=== PATIENT | female | born 1960 | race African-American/Black ===

== ENCOUNTER 2019-06-17 17:35 | Inpatient (IN) | payer OTHER, SELFPAY ==
--- NOTE | ~2019-06-17 | XR_ITS ---
EXAMINATION: XR chest 1V portable INDICATION: Acute respiratory failure TECHNIQUE: Portable AP chest at 0526 hours COMPARISON: 06/24/2019 FINDINGS: The endotracheal tube ends approximately 3.7 cm above the kaleigh. The nasogastric tube is f ollowed as far as the stomach. Its tip is beyond the inferior margin of the radiograph. A right-sided chest tube is again seen projecting over the right mid thorax. A right internal jugular catheter end s with its tip in the distal superior vena cava. Airspace opacities of the right midlung zone and lef t lung base are unchanged. There is stable cardiomegaly. No definite pleural effusion or pneumothorax is identified. IMPRESSION: 1. Stable bilateral airspace opacities, consistent with pneumonia and/or atelectasis and/or pulmonary edema. 2. Stable cardiomegaly. Reviewed, dictated and finalized at location A. TARY LANDFILL SUPERVISOR IMPRESSION: 1. Stable bilateral airspace opacities, consistent with pneumonia and/or atelec tasis and/or pulmonary edema. 2. Stable cardiomegaly.
--- NOTE | ~2019-06-17 | XR_ITS ---
EXAMINATION: XR chest ET placement DATE: 06/17/2019 23:10 INDICATION: Intubation. TECHNIQUE: A single frontal view of the chest was obtained. COMPARISON: Chest single view at 7:02 PM FINDINGS: The patient is rotated to her left. There are airspace opacities throughout the lungs bilat erally, worst in left mid and lower lung zones. There is a moderate-sized right pneumothorax. There m ay be a small left pleural effusion. Cardiomegaly is noted. The endotracheal tube tip is in the right mainstem bronchus. A right internal jugular central venous catheter is seen with tip in the superior vena cava. The nasogastric tube tip is beyond the inferior margin of the radiograph, but at least to the stomach. There are changes of anterior fusion procedure in cervical spine. IMPRESSION: 1. Moderate-sized right pneumothorax. 2. Endotracheal tube tip in the right mainstem bronchus. 3. Diffuse lung disease, worst in left mid and lower lung zones, consistent with pneumonia without or with pulmonary edema. 4. Possible small left pleural effusion. 5. Cardiomegaly. 6. I discussed the pneumothorax and endotracheal tube placement with Dr. cortez on 06/17/2019 at 23:14. Reviewed, dictated and finalized at location A. NICAL PROJECT LEAD IMPRESSION: 1. Moderate-sized right pneumothorax. 2. Endotracheal tube tip in the right mainstem bronchus. 3. Diffuse lung disease, worst in left mid and lower lung zones, consistent wit h pneumonia without or with pulmonary edema. 4. Possible small left pleural effusion. 5. Cardiomegaly. 6. I discussed the pneumothorax and endotracheal tube placement with Dr. cortez on 06/17/2019 at 23:14.
--- NOTE | ~2019-06-17 | XR_ITS ---
EXAMINATION: XR chest 1V portable DATE: 06/23/2019 05:45 INDICATION: Hypercapnic respiratory failure. Pneumonia. TECHNIQUE: frontal view of the chest was obtained. COMPARISON: Chest radiograph dated 06/22/1990 FINDINGS: Right-sided chest tube with tip projecting over the lateral mid right lung zone. Endotracheal tube ti p 1.4 cm above the kaleigh. Nasogastric tube extends below the left hemidiaphragm with distal tip col limated off the study. Right internal jugular central venous catheter with distal tip near the superi or cavoatrial junction. Improvement in airspace opacities in the right mid and lower and left lower lung zones. Persistent bl unting at the left costophrenic angle. No pneumothorax. The cardiomediastinal silhouette is normal. C ervical anterior spinal fusion with plate and screw fixation. IMPRESSION: 1. Decreasing bilateral airspace disease consistent with improving atelectasis and/or pneumonia and d ecreasing small left pleural effusion. Reviewed, dictated and finalized at location A. NCE SPECIALISTS IMPRESSION: 1. Decreasing bilateral airspace disease consistent with improving atelectasis and/or pneumonia and decreasing small left pleural effusion.
--- NOTE | ~2019-06-17 | XR_ITS ---
EXAMINATION: XR chest 1V portable DATE: 06/17/2019 19:07 INDICATION: Shortness of breath. TECHNIQUE: A single frontal view of the chest was obtained. COMPARISON: Chest 2 views 04/24/2019, chest CT 05/22/2018 FINDINGS: Sensitivity is decreased by obesity. There are airspace opacities in left mid and lower val g zones. There are mild airspace opacities in right perihilar region. There may be a left pleural eff usion. No pneumothorax. Cardiomegaly is noted. IMPRESSION: 1. Airspace opacities in left mid and lower lung zones and right perihilar region, consistent with pn eumonia. 2. Possible small left pleural effusion. 3. Cardiomegaly. Reviewed, dictated and finalized at location A. RMATICS PHYSICIAN LIAISON IMPRESSION: 1. Airspace opacities in left mid and lower lung zones and right perihilar abi on, consistent with pneumonia. 2. Possible small left pleural effusion. 3. Cardiomegaly.
--- NOTE | ~2019-06-17 | XR_ITS ---
XR chest ET placement 06/23/2019 10:30 Indication: Endotracheal tube readjustment Procedure: AP portable chest Comparison: Comparison to multiple prior studies sequentially, with oldest reviewed study dated 03/2019. Findings: Endotracheal tube tip 1.5 cm above the kaleigh. NG tube in the stomach. Right IJ central justina e tip mass BC. Cardiomegaly. There is bilateral airspace disease unchanged, predominantly perihilar, likely edema. Possible small left effusion. No pneumothorax. No acute osseous abnormality. Impression: 1: Cardiomegaly with bilateral airspace disease, most likely edema. Pneumonia less favored. Reviewed, dictated and finalized at location A. ATOR MAINTAINER Impression: 1: Cardiomegaly with bilateral airspace disease, most likely edema. Pneumonia l ess favored.
--- NOTE | ~2019-06-17 | XR_ITS ---
EXAMINATION: XR chest 1V portable DATE: 06/24/2019 05:36 INDICATION: Intubation and chest tube. TECHNIQUE: frontal view of the chest was obtained. COMPARISON: Chest radiograph dated 06/23/19 FINDINGS: Patient is rotated towards the left. Distal tip of a chest tube projecting over the right midlung zon e. Endotracheal tube tip 2.7 cm above the kaleigh. Nasogastric tube extends below the left hemidiaphr agm with distal tip collimated off the study. Right internal jugular central venous catheter with dis matt tip likely near the superior cavoatrial junction. No significant change in bilateral airspace opacities most prominent in the right mid and left lower lung zones. Possible small left pleural effusion. No pneumothorax. Cardiomegaly. Chronic advanced ost eoarthritis at the right glenohumeral joint. IMPRESSION: 1. No significant change in bilateral airspace disease which could represent atelectasis, pneumonia, pulmonary edema or some combination thereof. 2. Possible small left pleural effusion. Reviewed, dictated and finalized at location A. ICAL RN LIAISON IMPRESSION: 1. No significant change in bilateral airspace disease which could represent at electasis, pneumonia, pulmonary edema or some combination thereof. 2. Possible small left pleural effusion.
--- NOTE | ~2019-06-17 | XR_ITS ---
XR chest 1V portable 06/18/2019 11:34 Indication: Follow-up right pneumothorax Procedure: AP portable chest Comparison: Comparison to multiple prior studies sequentially, with oldest reviewed study dated 04/12. Findings: Endotracheal tube tip 3.3 cm above the kaleigh. Central line tip in the SVC. NG tube in the stomach. No pneumothorax identified post chest tube insertion on the right. There is developing right perihilar airspace consolidation superimposed on interstitial edema. Cardiomegaly. Impression: 1: Developing right perihilar airspace consolidation with superimposed interstitial edema. This may r epresent progression of edema, atelectasis and/or pneumonia. 2: No pneumothorax identified post chest tube insertion. Reviewed, dictated and finalized at location A. WHEELER Impression: 1: Developing right perihilar airspace consolidation with superimposed intersti tial edema. This may represent progression of edema, atelectasis and/or pneumon ia. 2: No pneumothorax identified post chest tube insertion.
--- NOTE | ~2019-06-17 | XR_ITS ---
EXAMINATION: XR chest 1V portable DATE: 06/22/2019 06:08 INDICATION: Hypercapnic respiratory failure. Pneumonia. TECHNIQUE: frontal view of the chest was obtained. COMPARISON: Chest radiograph dated 06/21/2019 FINDINGS: Chest tube projects over the lateral right midlung zone. Endotracheal tube tip 1.5 cm above the mark anthony a. Nasogastric tube extends below the left hemidiaphragm with distal tip collimated off the study. L eft internal jugular central venous catheter with distal tip projecting over the caudal superior vena cava. Persistent bilateral airspace opacities scattered in the right mid and left lower lung zones, the lat ter with a few air bronchograms. No pneumothorax. Small left pleural effusion not excludable. The car diomediastinal silhouette is normal. Anterior spinal fusion in the mid cervical spine with plate and screw fixation. IMPRESSION: 1. Persistent bilateral airspace disease which could represent atelectasis and/or pneumonia. 2. Possible small left pleural effusion. Reviewed, dictated and finalized at location A. EGE OR UNIVERSITY BUSINESS MANAGER IMPRESSION: 1. Persistent bilateral airspace disease which could represent atelectasis and/ or pneumonia. 2. Possible small left pleural effusion.
--- NOTE | ~2019-06-17 | XR_ITS ---
EXAMINATION: XR chest 1V portable DATE: 06/20/2019 06:25 INDICATION: Hypercapnic respiratory failure. Pneumonia. TECHNIQUE: frontal view of the chest was obtained. COMPARISON: Chest radiograph dated 06/19/2019 FINDINGS: Clinical tip of a right sided chest tube projects over the lateral right midlung zone. Endotracheal t ube tip 8 mm cm above the kaleigh. Nasogastric tube extends below the left hemidiaphragm with distal tip collimated off the study. Right internal jugular central venous catheter with distal tip projecti ng over the caudal superior vena cava. No pneumothorax. Small lung volumes with opacification and air bronchograms in the left lower lung zo ne which could represent atelectasis and/or pneumonia possible superimposed small left pleural effusi on. Persistent airspace opacity in the right midlung zone. The cardiomediastinal silhouette is within normal limits for AP technique. Plate and screw fixation for cervical anterior spinal fusion. IMPRESSION: 1. Endotracheal tube tip 8 mm from the kaleigh. Consider withdrawal by 1 cm. 2. No change in airspace opacity in the right midlung zone and more dense consolidation in the left l ower lung zone which could represent atelectasis and/or pneumonia potentially with small left pleural effusion. 3. Unchanged right chest tube with no evident pneumothorax or right pleural effusion. Reviewed, dictated and finalized at location A. R BRICKLAYER IMPRESSION: 1. Endotracheal tube tip 8 mm from the kaleigh. Consider withdrawal by 1 cm. 2. No change in airspace opacity in the right midlung zone and more dense conso lidation in the left lower lung zone which could represent atelectasis and/or p neumonia potentially with small left pleural effusion. 3. Unchanged right chest tube with no evident pneumothorax or right pleural eff usion.
--- NOTE | ~2019-06-17 | XR_ITS ---
XR chest 1V portable 06/18/2019 00:36 Indication: Follow-up chest tube placement and right pneumothorax Procedure: AP portable chest Comparison: Comparison to multiple prior studies sequentially, with oldest reviewed study dated 11/19. Findings: Interval placement of right chest tube. Resolution of right pneumothorax. Central line tip in the SVC. NG tube in the stomach. Endotracheal tube 1.2 cm above the kaleigh. Consider retraction. C ardiomegaly with pulmonary edema. Retrocardiac opacification. Small left effusion. Impression: 1: Interval resolution of right pneumothorax post chest tube placement. 2: Cardiomegaly with pulmonary edema. 3: Retrocardiac consolidation, atelectasis versus pneumonia. Reviewed, dictated and finalized at location A. CLERK Impression: 1: Interval resolution of right pneumothorax post chest tube placement. 2: Cardiomegaly with pulmonary edema. 3: Retrocardiac consolidation, atelectasis versus pneumonia.
--- NOTE | ~2019-06-17 | XR_ITS ---
EXAMINATION: XR chest 1V portable DATE: 07/01/2019 16:03 INDICATION: Pneumothorax. TECHNIQUE: A single frontal view of the chest was obtained on 2 radiographs. COMPARISON: Chest single view 06/25/2019, chest CT 05/22/2018 FINDINGS: Sensitivity is decreased by obesity. The patient is rotated to her left. There are airspace opacities in all lung zones with a perihilar and left basilar predominance. No pleural effusion or p neumothorax. Cardiomegaly is noted. There are changes of anterior fusion procedure in cervical spine. There is a right internal jugular central venous catheter with tip at superior cavoatrial junction. A chest tube overlies right chest without change in position. IMPRESSION: 1. Diffuse lung disease with improvement on the right, consistent with pulmonary edema versus pneumon ia. 2. Cardiomegaly. Reviewed, dictated and finalized at location A. TING MACHINIST IMPRESSION: 1. Diffuse lung disease with improvement on the right, consistent with pulmonar y edema versus pneumonia. 2. Cardiomegaly.
--- NOTE | ~2019-06-17 | XR_ITS ---
XR chest 1V portable 06/19/2019 06:30 Indication: Respiratory failure. Pneumonia. Procedure: AP portable chest Comparison: Comparison to multiple prior studies sequentially, with oldest reviewed study dated 12/2018. Findings: Endotracheal tube tip 1.6 cm above the kaleigh. Right-sided chest tube position unchanged. N G tube in the stomach. Cardiomegaly. There is pulmonary edema with more focal consolidation right mid lung. Probable left pleural effusion. No pneumothorax identified. Impression: 1: Cardiomegaly with interstitial edema. 2: Focal consolidation right perihilar/midlung region which may reflect edema, pneumonia and/or atele ctasis. 3: Endotracheal tube 1.6 cm above the kaleigh. Recommend retraction. Reviewed, dictated and finalized at location A. ETBALL COACH Impression: 1: Cardiomegaly with interstitial edema. 2: Focal consolidation right perihilar/midlung region which may reflect edema, pneumonia and/or atelectasis. 3: Endotracheal tube 1.6 cm above the kaleigh. Recommend retraction.
--- NOTE | ~2019-06-17 | XR_ITS ---
EXAMINATION: XR chest 1V portable DATE: 06/18/2019 17:42 INDICATION: Right pneumothorax. Bloody drainage from right chest tube. TECHNIQUE: A single frontal view of the chest was obtained. COMPARISON: Chest single view 11:25 AM, 12:21 AM, 06/17/19 FINDINGS: There are airspace opacities in all lung zones bilaterally, worst in left mid and lower val g zones. There may be a small left pleural effusion. No pneumothorax. Cardiomegaly is noted. A chest tube overlies right chest. The endotracheal tube tip is 2.8 cm above the kaleigh. The nasogastric tube tip is beyond the inferior margin of the radiograph, but at least to the stomach. There are changes of anterior fusion procedure in cervical spine. A right internal jugular central venous catheter is s een with tip in the superior vena cava. IMPRESSION: 1. No pneumothorax. Right-sided chest tube overlying right chest. 2. Unchanged right lung disease, which worsened after chest tube placement. This finding may be pulmo nary edema, pneumonia, and/or hemorrhage. 3. Unchanged left lung disease, worst in left mid and lower lung zones, likely pneumonia. 4. Possible small left pleural effusion. 5. Cardiomegaly. Reviewed, dictated and finalized at location A. ER'S ASSISTANT IMPRESSION: 1. No pneumothorax. Right-sided chest tube overlying right chest. 2. Unchanged right lung disease, which worsened after chest tube placement. Thi s finding may be pulmonary edema, pneumonia, and/or hemorrhage. 3. Unchanged left lung disease, worst in left mid and lower lung zones, likely pneumonia. 4. Possible small left pleural effusion. 5. Cardiomegaly.
--- NOTE | ~2019-06-17 | XR_ITS ---
EXAMINATION: XR abdomen NG/feed tube insert DATE: 06/17/2019 23:10 INDICATION: Nasogastric tube placement. TECHNIQUE: A supine view of the abdomen was obtained. COMPARISON: None. FINDINGS: There are no dilated loops of bowel. The nasogastric tube tip is in the stomach. There are surgical changes of right hip. IMPRESSION: 1. Nasogastric tube tip in the stomach. Reviewed, dictated and finalized at location A. TER SOUSAPHONES
--- NOTE | ~2019-06-17 | XR_ITS ---
EXAMINATION: XR chest 1V portable DATE: 07/02/2019 09:46 INDICATION: Chest tube removal TECHNIQUE: frontal view of the chest was obtained. COMPARISON: Chest radiograph dated 07/01/2019 FINDINGS: Patient remains rotated slightly towards the left. Right-sided thoracostomy tube has been removed. Th ere is persistent airspace opacity in the right midlung zone most prominent along the prior chest tub e tract. Unchanged mild opacities in left mid and lower lung zone including bandlike discoid atelecta sis in the left lower lung zone. No pneumothorax or definitive pleural effusion. Cardiomegaly. Right internal jugular central venous catheter with distal tip at the caudal superior vena cava. Mid cervic al anterior spinal fusion with partially visualized plate and screw fixation. Severe right glenohumer al osteoarthritis. IMPRESSION: 1. No pneumothorax or definitive pleural effusion post right chest tube removal. 2. Persistent bilateral airspace disease most prominent in the right perihilar region and left lower lung zone which could represent pneumonia, atelectasis, pulmonary edema or some combination thereof. 3. Cardiomegaly. Reviewed, dictated and finalized at location A. CTOR DATA MANAGEMENT IMPRESSION: 1. No pneumothorax or definitive pleural effusion post right chest tube removal . 2. Persistent bilateral airspace disease most prominent in the right perihilar region and left lower lung zone which could represent pneumonia, atelectasis, p ulmonary edema or some combination thereof. 3. Cardiomegaly.
--- NOTE | ~2019-06-17 | CT_ITS ---
EXAMINATION: CT brain wo con DATE: 06/17/2019 21:08 INDICATION: Altered mental status. Confusion. TECHNIQUE: Computed tomography (CT) of the head was performed without intravenous contrast. The mA wa s adjusted according to patient size. Iterative reconstruction technique was employed. The dose-lengt h product was 605.33 mGy-cm. COMPARISON: None FINDINGS: There are scattered areas of low attenuation in the cerebral white matter. There is an old lacunar infarct in right thalamus. There is no intracranial hemorrhage, acute infarction, or abnormal intracranial mass lesion. The ventricles are normal in size. There are old blowout fractures of the medial virgen of the orbits. There is an old blowout fracture of floor of left orbit. There are bilate ral otomastoid effusions. IMPRESSION: 1. 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 2. Mild nonspecific cerebral white matter disease, which likely represents chronic small vessel ische alvarado disease. Reviewed, dictated and finalized at location A. OR RESEARCH ANALYST IMPRESSION: 1. 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 2. Mild nonspecific cerebral white matter disease, which likely represents neck fitter tyrel small vessel ischemic disease.
--- NOTE | ~2019-06-17 | XR_ITS ---
EXAMINATION: XR chest 1V portable DATE: 06/21/2019 07:16 INDICATION: Epigastric respiratory failure. Pneumonia. TECHNIQUE: frontal view of the chest was obtained. COMPARISON: Chest radiograph dated 06/20/2019 FINDINGS: Right-sided chest tube which extends from anterior to posteriorly the lateral side of the right hemit horax. Endotracheal tube tip 1.0 cm above the kaleigh. Nasogastric tube extends below the left hemidi aphragm with distal tip collimated off the study. Right internal jugular central venous catheter with distal tip at the caudal superior vena cava. No pneumothorax. Persistent consolidation in the left lower lung zone. Also unchanged are airspace op acities in the right mid and lower lung zone. The cardiomediastinal silhouette is normal. Anterior sp inal fusion in the mid cervical spine with plate and screw fixation. IMPRESSION: 1. Unchanged opacities in the right mid to lower lung zone and more dense in the left lower lung zone which could represent atelectasis and/or pneumonia, possibly with small pleural effusions. Reviewed, dictated and finalized at location A. [employer] SERVICE SECTIONAL CENTER MANAGER IMPRESSION: 1. Unchanged opacities in the right mid to lower lung zone and more dense in th e left lower lung zone which could represent atelectasis and/or pneumonia, poss ibly with small pleural effusions.
--- NOTE | ~2019-06-17 | XR_ITS ---
XR chest ET placement 06/23/2019 10:36 Indication: Endotracheal tube readjustment. Procedure: AP portable chest Comparison: Comparison to multiple prior studies sequentially, with oldest reviewed study dated 06/12. Findings: Cardiomegaly with diffuse bilateral airspace disease. Endotracheal tube has been retracted now measuring 3.2 cm from the tip to the kaleigh. NG tube in the stomach. Possible small left effusion . Right-sided chest tube is present. No pneumothorax identified. Right IJ central line tip in the cau kwaku aspect of the SVC. Impression: 1: Cardiomegaly with persistent bilateral airspace disease, likely edema. Pneumonia less favored. Reviewed, dictated and finalized at location A. Y RECORD CLERK Impression: 1: Cardiomegaly with persistent bilateral airspace disease, likely edema. Pneum onia less favored.
[2019-06-17 17:54] VITALS: BP 112/54; PULSE 60; RESP 21; TEMP 36.2; O2SAT 100
--- NOTE | 2019-06-17 18:01 | PC.NURSE ---
tyler vivas niece of the pt can be reached at [phone]
--- NOTE | 2019-06-17 18:16 | ED.GENADULT ---
HPI - General Adult General Chief complaint: Upper Respiratory Infection Stated complaint: sob/ams Time Seen by Provider: 06/17/19 18:13 Source: RN notes reviewed Mode of arrival: EMS Limitations: clinical condition History of Present Illness HPI narrative: A 59 y/o female presents to the ED, via EMS from [facility], with c/o AMS and SOB. Per nursing records, the patient was sent here when care staff noted that her oxygen saturation was in the 80's. Care staff notes that she also has been quieter than her normal baseline. Pt is on 6L O2 currently. A complete HPI is limited due to the patient's clinical condition. complaint: AMS and SOB Onset (ago): hour(s) Related Data Home Medications Medication Instructions Recorded Confirmed amlodipine 5 mg PO DAILY 06/17/19 aspirin 06/17/19 citalopram 20 mg PO DAILY 06/17/19 furosemide 40 mg PO DAILY 06/17/19 losartan 100 mg PO DAILY 06/17/19 Allergies Allergy/AdvReac Type Severity Reaction Status Date / Time levofloxacin Allergy Unknown Unknown Verified 06/17/19 17:58 Review of Systems Review of Systems: Narrative: A complete ROS is limited due to the patient's clinical condition. All systems reviewed & are unremarkable except as noted in HPI and below Respiratory: Respiratory: Reports dyspnea Neurologic: Reports other (AMS) [facility] Past Medical History Medical History (Updated 06/18/19 @ 00:06 by Stephanie Turpin MD) Acute respiratory failure with hypoxia and hypercarbia Arthritis Asthma CHF (congestive heart failure) COPD (chronic obstructive pulmonary disease) Depression DJD (degenerative joint disease) HTN (hypertension) Hyperlipidemia Mental disability On home O2 6L Post-menopausal Pulmonary edema Surgical History Surgical History History of hip replacement Right History of knee surgery Social History Social History Smoking status: Never smoker Second hand tobacco smoke exposure: Yes Gender identity (if verbalized by the patient): Female Exam Const: General: no acute distress and well developed Orientation/consciousness: lethargic HENMT: Head: normocephalic Ears: external ears normal General nose exam: external nose normal Eyes: General: appearance normal, both eyes and all related structures Conjunctivae: conjunctivae normal Neck: Neck: normal visual inspection and full ROM Chest: Chest palpation & inspection: normal inspection of the chest and no tenderness Resp: Effort & Inspection: normal respiratory effort Auscultation: clear to auscultation bilaterally Cardio: Rate: regular rate Rhythm: regular rhythm GI: GI Palp: No abdominal tenderness and Yes soft Skin: General skin exam: normal color and turgor normal Neuro: General: confused and other (Does not follow commands or answer questions) Speech: speech abnormal (Incomprehensible) Extrem: General: normal to inspection, full ROM and no pedal edema Psych: Appearance: grossly normal Mental Status: mental status grossly abnormal Affect: blunted Course Consultations Consultation #1: Discussed case with Dr. Ayala. They accepted admission. Date: 06/17/19 Time: 20:10 Consultation #2: Discussed case with Dr. Morgan. They accepted admission to ICU and agrees to consult. Date: 06/17/19 Time: 20:22 Vital Signs Vital signs: Vital Signs Temperature 36.2 C L 06/17/19 17:54 Pulse Rate 60 06/17/19 17:54 Respiratory Rate 21 H 06/17/19 17:54 Blood Pressure 112/54 L 06/17/19 17:54 Pulse Oximetry 100 06/17/19 17:54 Temperature 36.2 C L 06/17/19 17:54 Pulse Rate 59 L 06/17/19 22:53 Respiratory Rate 15 06/17/19 20:56 Blood Pressure 113/98 H 06/17/19 20:56 Pulse Oximetry 100 06/17/19 22:53 Medical Decision Making Vital Signs Vital Signs: Vital Signs Temperature 36.2 C L 06/17/19 17:54 Pulse Rate 60 06/17/19
--- NOTE | 2019-06-17 18:53 | ECG_ITS ---
Measurements Intervals [place] Rate: 50 P: 78 [place]: 170 QRS: 20 QRSD: 92 T: 42 QT: 476 QTc: 438 Interpretive Statements SINUS BRADYCARDIA DELAYED PRECORDIAL R/S TRANSITION BASELINE WANDER- I, II, AVR, AVL, AVF, V1, V4-V6 BORDERLINE ECG Electronically Signed On 06-18-2019 7:30:03 MAC ARTIST by Rene Tim D.O.
[2019-06-17 19:12] LABS: Basophils Percent Auto 0.3 % (0.2-1.2); Eosinophils Absolute Auto 0.1 K/mm3 (0-0.3); Hematocrit 34.5 % (37.0-47.0); Hemoglobin 9.5 g/dL (12.0-15.0); Immature Granulocyte Absolute 0.19 K/mm3 (0.00-0.031); Immature Granulocyte Percent A 2.9 % (0-0.5); Immature Platelet Fraction Pct 4.2 % (0.9-11.2); Lymphocytes Absolute Auto 0.56 K/mm3 (0.9-3.2); Lymphocytes Percent Auto 8.5 % (18.3-44.2); Mean Corpuscular HGB Conc 27.5 g/dl (32-36); Mean Corpuscular Hemoglobin 25.7 pg (26-34); Mean Corpuscular Volume 93.2 fl (80-100); Monocytes Absolute Auto 0.2 K/mm3 (0.1-0.6); Monocytes Percent Auto 3.5 % (2.6-8.5); Neutrophils Absolute Auto 5.4 K/mm3 (1.3-6.7); Neutrophils Percent Auto 82.8 % (45.5-73.1); Nucleated Red Blood Cells Perc 0.5 % (0.0-0.2); Platelet Count Result 141 k/mm3 (150-375); White Blood Count 6.6 K/mm3 (4.5-10.0)
[2019-06-17 19:15] LABS: Alveolar/Arterial O2 Gradient 82.4 mmHg; Base Excess ABG 5.2 mEq/l (+/-2.0); Fractional Inspired Oxygen 44 %; HCO3 ABG 38.1 mEq/l (22.0-26.0); Oxygen Content ABG 14.1 %vol (16.0-22.0); Oxygen Saturation ABG 90.9 % (95.0-100.0); Oxyhemoglobin 93.1 % THb (90.0-100.0); PO2 ABG 85.3 mmHg (80.0-100.0); PO2 FiO2 Ratio Arterial Blood 1.94 %; Total Hemoglobin 10.7 g/dL (12.0-18.0)
[2019-06-17 19:18] LABS: pH ABG 7.091 (7.350-7.450)
[2019-06-17 19:19] LABS: Add Urine Microscopic? YES; Appearance Urine Cloudy (Clear); Bacteria Urine 4+ /hpf; Bilirubin Urine Negative (Negative); Blood Urine Negative (Negative); Color Urine Yellow (Yellow); Glucose Urine UA Negative (Negative); Granular Casts Urine 15-19 /lpf; Ketones Urine Negative (Negative); Leukocyte Esterase Ur 3+ LEU/UL (Negative); Mucus Urine Few /lpf; Nitrate Urine Negative (Negative); Protein Urine 2+ mg/dL (Negative); Specific Grav Ur 1.013 (1.001-1.035); Squamous Epithelial Cell Urine Many /hpf (Few); WBC Clumps Urine Present /HPF; WBC Urine >75 /hpf
[2019-06-17 19:19] LABS: Device NASAL CANNULA; Modified Allen's Test Pass; PCO2 ABG 128.1 mmHg (35.0-45.0); Site Drawn RIGHT RADIAL
[2019-06-17 19:29] LABS: Alanine Aminotransferase 10 U/L (4-35); Albumin Level 3.6 g/dL (3.5-5.1); Alkaline Phosphatase 112 U/L (38-126); Aspartate Amino Transferase 20 U/L (14-36); Bilirubin,Total 0.5 mg/dL (0.2-1.3); Blood Urea Nitrogen 65 mg/dL (7-17); Calcium 8.2 mg/dL (8.4-10.2); Carbon Dioxide 36 mmol/L (22-30); Chloride 100 mmol/L (98-107); Estimated CRCL calculation 29 ml/min; Estimated Glomerular Filt Rate 31; Glucose 104 mg/dL (65-105); Potassium 6.4 mmol/L (3.4-5.0); Sodium 144 mmol/L (137-145)
[2019-06-17 19:33] VITALS: PULSE 52; RESP 23; O2SAT 90
[2019-06-17 19:33] LABS: Hypochromasia 2+ (NORMAL); Platelet Estimate Adequate (Adequate); Stomatocytes 1+ (NORMAL)
[2019-06-17 19:35] LABS: Troponin I < 0.012 ng/mL (0.000-0.034)
--- NOTE | 2019-06-17 19:40 | PC.NURSE ---
UNABLE TO OBTAIN BLOOD, NURSE CALLED PHLEBOTOMY TO DRAW
[2019-06-17 20:21] LABS: D Dimer 1.92 ug/mL (<0.48)
[2019-06-17 20:28] LABS: Lactic Acid Reflex < 0.5 mmol/L (0.7-2.1)
[2019-06-17] MEDS: SODIUM BICARBONATE 8.4% 50 MEQ/50 ML SYRINGE IV PUSH (20:30)
[2019-06-17] MEDS: DEXTROSE 50% 25 GM/50 ML SYRINGE IV PUSH (20:30)
[2019-06-17] MEDS: INSULIN HUMAN REGULAR (*BKC) 100 UNITS/ML 10 UNITS IV PUSH (20:32)
[2019-06-17 20:47] LABS: Alveolar/Arterial O2 Gradient 82.7 mmHg; Fractional Inspired Oxygen 40 %; HCO3 ABG 37.2 mEq/l (22.0-26.0); Oxygen Content ABG 12.9 %vol (16.0-22.0); Oxyhemoglobin 88.9 % THb (90.0-100.0); PO2 ABG 65.2 mmHg (80.0-100.0); PO2 FiO2 Ratio Arterial Blood 1.63 %; Total Hemoglobin 10.3 g/dL (12.0-18.0)
[2019-06-17 20:50] LABS: Modified Allen's Test Pass; Oxygen Saturation ABG 82.7 % (95.0-100.0); PCO2 ABG 119.4 mmHg (35.0-45.0); Site Drawn RIGHT RADIAL; pH ABG 7.111 (7.350-7.450)
[2019-06-17 20:51] LABS: Device NON-INVASIVE VENT
[2019-06-17 20:52] LABS: Non-Invasive Expiratory Pressure 6 CMH2O; Non-Invasive Inspiratory Pressure 16 CMH2O; Non-Invasive Vent Rate 14 /MIN
[2019-06-17 20:56] VITALS: BP 113/98; PULSE 72; RESP 15; O2SAT 99
[2019-06-17 21:22] LABS: NT Pro B Type Natriuretic Pept 4040 PG/ML (5-100)
--- NOTE | 2019-06-17 21:22 | PM.IMHP ---
H&P: HPI History of Present Illness Chief complaint: Right pneumothorax Narrative: This is a 59-year-old morbidly obese female with known chronic respiratory failure on 6 L of oxygen at all times, congestive heart failure, and paroxysmal atrial fibrillation who was just recently discharged from our hospitalist service on April 28, 2019 after she was treated for acute on chronic right combined hypercapnic and hypoxemic respiratory failure. The patient had been discharged back to the shelter on [facility] hosp[facility]. The patient was found today to be saturating in the low 80s and poorly responsive at [facility]. The patient evaluated emergency room tonight and found to be again in acute combined hypercapnic and hypoxemic respiratory failure with pH of 7.091 and pCO2 of 128. She was also found to be in acute renal failure with a creatinine of 2 and a potassium of 6.4. Her urinalysis was grossly abnormal. Chest x-ray was suspicious for possible left-sided pneumonia. The patient herself is confused and encephalopathic. Any question I ask her she answers by saying I'll be all right . No other meaningful history is obtainable from the patient at this time. No family is present. The patient is a full code status. The patient has been initiated on BiPAP in the ER and has been treated with Kayexalate, sodium bicarbonate, insulin and dextrose. Review of Systems Review of Systems: ROS unobtainable: unobtainable due to mental condition PMFSH Past Medical History Medical History Acute respiratory failure with hypoxia and hypercarbia Arthritis Asthma CHF (congestive heart failure) COPD (chronic obstructive pulmonary disease) Depression DJD (degenerative joint disease) HTN (hypertension) Hyperlipidemia Mental disability On home O2 6L Post-menopausal Pulmonary edema Surgical History Surgical History History of hip replacement Right History of knee surgery Social History Social History Smoking status: Unknown if ever smoked Second hand tobacco smoke exposure: Yes Gender identity (if verbalized by the patient): Female Meds Home Medications and Allergies Home Medications Medication Instructions Recorded Confirmed Type amlodipine 5 mg PO DAILY 06/17/19 06/18/19 History aspirin 81 mg PO DAILY 06/17/19 06/18/19 History citalopram 20 mg PO DAILY 06/17/19 06/18/19 History furosemide 40 mg PO DAILY 06/17/19 06/18/19 History losartan 100 mg PO DAILY 06/17/19 06/18/19 History Allergies Allergy/AdvReac Type Severity Reaction Status Date / Time levofloxacin Allergy Unknown Unknown Verified 06/17/19 17:58 Vital Signs Vital Signs - 24 hr 06/17/19 17:54 06/17/19 19:33 06/17/19 20:56 Temperature 36.2 C L Pulse Rate 60 52 L 72 Respiratory Rate 21 H 23 H 15 Blood Pressure 112/54 L 113/98 H Pulse Oximetry 100 90 99 Exam Const: General: acute distress moderate and respiratory and ill appearing chronically Nutritional Appearance: obese morbidly obese Orientation/consciousness: No oriented to person, No oriented to place, No oriented to time and obtunded HENMT: Head: normal to inspection General nose exam: external nose normal Face and sinus: normal facial exam Mouth: Yes oral mucosae normal and Yes oropharynx normal Eyes: Pupils: PERRL Neck: Neck: supple and no JVD Thyroid: thyroid normal Lymphatic: lymphadenopathy not noted Resp: Effort & Inspection: respiratory distress Auscultation: diminished lung sounds Cardio: Rate: regular rate Rhythm: regular rhythm Heart sounds: no murmurs GI: Inspection: normal to inspection Auscultation: normal bowel sounds Skin: General skin exam: normal color and no rashes or lesions noted Neuro: General: No oriented to person, No oriented to place, No oriented to time and obtunded Cranial nerve
[2019-06-17] MEDS: SODIUM CHLORIDE 0.9% IV 1,000 ML 999 ML IV CONT (21:25)
[2019-06-17 22:15] VITALS: BP 80/55; PULSE 60; RESP 21; O2SAT 95
--- NOTE | 2019-06-17 22:25 | P.PCNBED_ITS ---
Procedures Intubation: Intubation Date: 06/17/19 Intubation Time: 22:25 A pre- procedural Time-Out was completed immediately before starting the procedure and confirmed: Patient Identification, Site, Procedure, Patient Position and the Availability of Requisite Equipment: Yes Sedative: versed Mg given: 2 Paralytic: rocuronium Mg given: 70 Laryngoscope: fiber optic video scope ET tube size: 7.5 Tube secured depth (cm): 24 Tube secured location: lips Tube placement confirmation: visualized tube passing through cords, equal breath sounds bilaterally, no breath sounds over epigastrium and confirmation by capnometry Patient tolerated procedure: well Intubation complications: none
[2019-06-17 22:53] VITALS: PULSE 59; O2SAT 100
--- NOTE | 2019-06-17 22:54 | WPDPROCEDUR ---
Procedures Central Line Placement: Right IJ: Emergently Placed - (Given emergent patient conditions, temporal constraints may not have permitted and aforementioned informed consent.): Yes Central Line Date: 06/17/19 Central Line Time: 22:55 Pre-procedural Time-Out was completed immediately before starting the procedure and confirmed: Patient Identification, Site, Procedure, Patient Position and the Availability of Requisite Equipment.: Yes Patient Position: supine Patient placed on monitor/pulse ox: Yes Provider Prep: mask, sterile gown, sterile gloves, Max. sterile barrier precautions and hand hygiene Central line prep: Povidone-Iodine 1% Ultrasound used for placement: Yes Central line lumen inserted: triple Tamazight: 7 Length (cm): 17 Depth of Insertion (cm): 16 Post procedure: sutured in place, good blood return, all ports aspirated, flushed, capped, tegaderm, hemostatic disc, antimicrobial disc and aseptic technique maintained throughout procedure Post procedure x-ray: tip of catheter in good position Patient tolerated procedure: well
[2019-06-17 23:40] LABS: Lactic Acid Reflex 0.6 mmol/L (0.7-2.1)
[2019-06-17 23:43] LABS: Alveolar/Arterial O2 Gradient 269.7 mmHg; Base Excess ABG 7.5 mEq/l (+/-2.0); Fractional Inspired Oxygen 60 %; HCO3 ABG 37.5 mEq/l (22.0-26.0); Oxygen Content ABG 13.2 %vol (16.0-22.0); Oxyhemoglobin 88.4 % THb (90.0-100.0); PO2 ABG 57.1 mmHg (80.0-100.0); PO2 FiO2 Ratio Arterial Blood 0.95 %; Total Hemoglobin 10.6 g/dL (12.0-18.0)
[2019-06-17 23:45] LABS: Oxygen Saturation ABG 82.2 % (95.0-100.0); PCO2 ABG 91.8 mmHg (35.0-45.0); pH ABG 7.229 (7.350-7.450)
[2019-06-17 23:46] LABS: Arterial Blood Gas PEEP 5 cmH2O; Arterial Blood Gas Vent Mode CMV; Arterial Blood Gas Ventilator rate 20 /MIN; Device VENTILATOR; Modified Allen's Test Pass; Site Drawn LEFT RADIAL
[2019-06-17 23:47] LABS: Arterial Blood Gas Tidal Volume 400 ml
[2019-06-17 23:54] LABS: Troponin I < 0.012 ng/mL (0.000-0.034)
[2019-06-18] VITALS (26 sets, daily range): BP systolic 117–166; BP diastolic 46–96; PULSE 49–65; RESP 16–21; TEMP 36.4–37.8; O2SAT 98–100; BMI 45.6
--- NOTE | 2019-06-18 | ECHOL_ITS ---
Patient Info Name: Jamia Lay Age: 59 years : 1960 Gender: Female Ht: 50 in Wt: 214 lbs BSA: 1.94 m2 HR: 65 bpm Heart Rhythm: Sinus Rhythm Technical Quality: Poor Exam Date: 06/18/2019 12:50 PM Exam Location: [facility] Room: icu 07 Patient Status: Inpatient Admit Date: 06/17/2019 Staff Ordering Physician: Jessica Porras MD Staff Physical Therapy Assistant: Kamilla Alegre RDCS Attending Provider: Michel Ayala MD Exam Type: CA echo limited Study Info Indications - acute resp failure chf Limited two-dimensional transthoracic echocardiogram is performed. Reason for Poor Study: poor echocardiographic windows Summary 1. Left ventricular systolic function is normal, estimated at 65-70%. 2. There is mildly increased left ventricular wall thickness. 3. The left ventricular diastolic function is grade II diastolic dysfunction. 4. The mitral valve has normal leaflets and calcified annulus. 5. There is trace mitral valve regurgitation. 6. There is no aortic valve stenosis. 7. There is trace aortic valve regurgitation. 8. No pulmonary hypertension, estimated pulmonary arterial systolic pressure is 28 mmHg. 9. There is mild tricuspid valve regurgitation. 10. Technically difficult study with limited views. Left Ventricle Left ventricular chamber dimension is normal. Left ventricular systolic function is normal, estimated at 65-70%. There is mildly increased left ventricular wall thickness. The left ventricular diastolic function is grade II diastolic dysfunction. Technically difficult study with limited views. Right Ventricle Right ventricular chamber dimension is normal. Right ventricular systolic function is normal. Left Atria Left atrial chamber dimension is normal. Right Atria Right atrial chamber dimension is normal. Aortic Valve The aortic valve is not well visualized. There is no aortic valve stenosis. There is trace aortic valve regurgitation. Pulmonic Valve The pulmonic valve is not well visualized. Mitral Valve The mitral valve has normal leaflets and calcified annulus. There is trace mitral valve regurgitation. Tricuspid Valve The tricuspid valve leaflets are normal. There is mild tricuspid valve regurgitation. No pulmonary hypertension, estimated pulmonary arterial systolic pressure is 28 mmHg. Pericardium/Pleural The pericardium appears not well visualized. Inferior Vena Cava Normal inferior vena cava with >50% collapse upon inspiration consistent with normal right atrial pressure, 5 mmHg. Aorta The aortic root size at the sinus of Valsalva is normal. Left Ventricular Outflow Tract Name Value Normal LVOT 2D LVOT Diameter 2.0 cm Mitral Valve Name Value Normal MV Doppler MV Decel Mccracken 269 cm/s2 MV PHT 75 ms MV Area (PHT) 2.9 cm2 4.0-5.0 MV Diastolic Function
--- NOTE | 2019-06-18 00:12 | PM.CNGS ---
Assessment and Plan Assessment and plan (1) Pneumothorax on right: Code(s): J93.9 - Pneumothorax, unspecified Status: Acute Assessment and Plan: will place right chest tube emergently under local anesthesia in the ICU. I reviewed the patient's chest x-ray personally prior to placement of the chest tube. (2) Acute respiratory failure with hypoxia and hypercarbia: Code(s): J96.01 - Acute respiratory failure with hypoxia; J96.02 - Acute respiratory failure with hypercapnia Status: Acute (3) COPD (chronic obstructive pulmonary disease): Code(s): J44.9 - Chronic obstructive pulmonary disease, unspecified Status: Acute History of Present Illness Consult details Consult date: 06/18/19 Reason for consult: chest tube ( acute right pneumothorax while on mechanical ventilator) Narrative: patient is a 59-year-old woman who is in the intensive care unit and is on a mechanical ventilator. Her endotracheal tube was down the right mainstem bronchus. It had to be pulled back. Also a right eye tear IJ central line had been placed. In the postprocedure chest x-ray she was noted to have a moderate-sized right pneumothorax while on a mechanical ventilator. I was called in emergently to place a chest tube. Review of Systems Review of Systems: ROS unobtainable: due to endotracheal tube PMFSH Past Medical History Medical History Acute respiratory failure with hypoxia and hypercarbia Arthritis Asthma CHF (congestive heart failure) COPD (chronic obstructive pulmonary disease) Depression DJD (degenerative joint disease) HTN (hypertension) Hyperlipidemia Mental disability On home O2 6L Post-menopausal Pulmonary edema Surgical History Surgical History History of hip replacement Right History of knee surgery Social History Social History Smoking status: Never smoker Second hand tobacco smoke exposure: Yes Gender identity (if verbalized by the patient): Female Meds Home Medications and Allergies Home Medications Medication Instructions Recorded Confirmed Type amlodipine 5 mg PO DAILY 06/17/19 History aspirin 06/17/19 History citalopram 20 mg PO DAILY 06/17/19 History furosemide 40 mg PO DAILY 06/17/19 History losartan 100 mg PO DAILY 06/17/19 History Allergies Allergy/AdvReac Type Severity Reaction Status Date / Time levofloxacin Allergy Unknown Unknown Verified 06/17/19 17:58 Vital Signs Vital Signs - 24 hr 06/17/19 17:54 06/17/19 19:33 06/17/19 20:56 Temperature 36.2 C L Pulse Rate 60 52 L 72 Respiratory Rate 21 H 23 H 15 Blood Pressure 112/54 L 113/98 H Pulse Oximetry 100 90 99 06/17/19 22:53 Temperature Pulse Rate 59 L Respiratory Rate Blood Pressure Pulse Oximetry 100 Exam Const: General: other ( Intubated on mechanical ventilator. Sedated.) Nutritional Appearance: obese Resp: Effort & Inspection: symmetric chest movement Auscultation: crackles and diminished lung sounds on the right Cardio: Rate: regular rate Rhythm: regular rhythm GI: Inspection: non-distended GI Palp: Yes soft, No tender, No guarding and No rebound tenderness Auscultation: normal bowel sounds Neuro: General: oriented x3, no focal motor deficits and No confused Extrem: General: no calf tenderness and no edema Psych: Affect: normal affect Insight: insight good Judgement: judgment good Results Labs Result diagrams: 06/17/19 19:04 06/17/19 19:05 Labs: Abnormal lab results 06/17/19 06/17/19 06/17/19 Range/Units 19:01 19:04 19:05 RBC 3.70 L (4.2-5.4) M/mm3 Hgb 9.5 L (12.0-15.0) g/dL Hct 34.5 L (37.0-47.0) % MCH 25.7 L (26-34) pg MCHC 27.5 L (32-36) g/dl RDW 16.0 H (11.5-14.5) % Plt Count 141 L (150-375) k/mm3 MPV
--- NOTE | 2019-06-18 00:18 | P.OP_ITS ---
Procedure Note - Detailed Date of procedure: 06/18/19 Pre-op diagnosis: Right pneumothorax acute right pneumothorax Post-op diagnosis: same Procedure performed: placement right chest tube Description of procedure: the patient was sedated in the ICU on mechanical ventilator. The right upper chest just above the breast was prepped with chlorhexidine. Draping in a sterile fashion was carried out. 1% lidocaine was infiltrated over the 6th rib. Incision was made and then dissection was carried through the breast tissue down to the rib itself. A curved clamp was used to bluntly enter the right chest cavity. A kendrick of air came forth. A 28 Hungarian trocar chest tube was then placed in the right chest and aimed anterosuperiorly. The trocar was removed. Air and pleural fluid came forth. The chest tube was placed immediately to Pleur-Evac suction. The chest tube was sutured to the skin with 0 silk suture. 4 x 4 gauze and an occlusive dressing were placed. Portable chest x-ray is pending at the time of this dictation. Anesthesia: local ( 1% lidocaine) Surgeon: Ramy Varela MD Estimated blood loss (mL): 2 Drains: Yes ( chest tube) Packing: No Pathology: none sent Complications: None Condition: critical Disposition: ICU Findings: pending chest x-ray.
[2019-06-18] MEDS: LIDOCAINE HCL 1% LOCAL INJ 20 ML VIAL (00:32)
[2019-06-18] MEDS: MIDAZOLAM HCL 2 MG/2 ML VIAL IV PUSH (00:32)
--- NOTE | 2019-06-18 01:48 | ADMIMU ---
This patient, Jamia Lay, was admitted to ICU status, and placed in Intensive Care Unit-7 AT 2200. Patient/family oriented to hospital policies and general routines including ID bracelet, bed and alarms, visiting hours, pain management, procedures, bathroom and other care routines, personal items, smoking policy, room service/diet, and visiting hours. Valuables list has been completed. Information on how to activate the Rapid Response Team has been discussed. Patient/Family are encouraged to report perceived risks to care and to ask questions if they do not understand what they are told or what they should do.
--- NOTE | 2019-06-18 01:49 | PC.NURSE ---
Addendum entered by Kelsy Faye RN 06/18/19 01:52: RAMA WILL UPDATE PT HISTORY WHEN CALLED DURING THE DAY. Original Note: sPOKE WITH PT CURTIS MORAN AND UPDATED TO PT STATUS. AWARE OF EMERGENT INTUBATION, LINE, AND CHEST TUBE PLACEMENT. DISCUSSED CODE STATUS, PT IS STILL FULL CODE. aSKED ABOUT ADMISSION INFORMATION SINCE PT IS UNABLE TO COMMUNICATE, RAMA PREFERS TO BE CALLED TOMORROW AND SHE WILL ANSWER ADMIT QUESTIONS. DR HOLLY AWARE NOT ABLE TO UPDATE FAMILY HX.
[2019-06-18 02:14] LABS: Alveolar/Arterial O2 Gradient 285.7 mmHg; Base Excess ABG 7.7 mEq/l (+/-2.0); Carboxyhemoglobin 0.3 % THb (0-2.0); Fractional Inspired Oxygen 60 %; HCO3 ABG 35.1 mEq/l (22.0-26.0); Methemoglobin ABG 0.2 %THb (0-1.5); Oxygen Content ABG 14.3 %vol (16.0-22.0); Oxygen Saturation ABG 92.8 % (95.0-100.0); Oxyhemoglobin 93.9 % THb (90.0-100.0); PO2 ABG 70.4 mmHg (80.0-100.0); PO2 FiO2 Ratio Arterial Blood 1.17 %; Reduced Hemoglobin 5.6 %THb (0-5.0); Total Hemoglobin 10.8 g/dL (12.0-18.0); pH ABG 7.349 (7.350-7.450)
[2019-06-18 02:16] LABS: Device VENTILATOR; Modified Allen's Test Pass; PCO2 ABG 65.2 mmHg (35.0-45.0); Site Drawn LEFT RADIAL
[2019-06-18 02:17] LABS: Arterial Blood Gas Vent Mode ASV
[2019-06-18 02:18] LABS: Arterial Blood Gas PEEP 5 cmH2O
[2019-06-18 02:21] LABS: Blood Urea Nitrogen 63 mg/dL (7-17); Calcium 8.2 mg/dL (8.4-10.2); Carbon Dioxide 38 mmol/L (22-30); Chloride 99 mmol/L (98-107); Estimated CRCL calculation 28 ml/min; Estimated Glomerular Filt Rate 29; Glucose 139 mg/dL (65-105); Magnesium 2.6 mg/dL (1.6-2.3); Potassium 5.8 mmol/L (3.4-5.0); Sodium 143 mmol/L (137-145)
[2019-06-18 02:33] LABS: Troponin I 0.034 ng/mL (0.000-0.034)
[2019-06-18] MEDS: SCOPOLAMINE 1.5 MG PATCH TRANSDERM (02:38)
[2019-06-18] MEDS: FUROSEMIDE INJ 40 MG/4 ML VIAL IV PUSH (04:40)
[2019-06-18 06:21] LABS: Alveolar/Arterial O2 Gradient 281.3 mmHg; Base Excess ABG 9.8 mEq/l (+/-2.0); Carboxyhemoglobin 0.9 % THb (0-2.0); Fractional Inspired Oxygen 60 %; HCO3 ABG 36.6 mEq/l (22.0-26.0); Methemoglobin ABG 0.3 %THb (0-1.5); Oxygen Content ABG 18.4 %vol (16.0-22.0); Oxyhemoglobin 95.3 % THb (90.0-100.0); PCO2 ABG 58.5 mmHg (35.0-45.0); PO2 ABG 82.2 mmHg (80.0-100.0); PO2 FiO2 Ratio Arterial Blood 1.37 %; Reduced Hemoglobin 3.5 %THb (0-5.0); Total Hemoglobin 13.7 g/dL (12.0-18.0); pH ABG 7.414 (7.350-7.450)
[2019-06-18 06:22] LABS: Device VENTILATOR; Modified Allen's Test Pass; Site Drawn LEFT RADIAL
[2019-06-18 06:23] LABS: Arterial Blood Gas PEEP 5 cmH2O; Arterial Blood Gas Vent Mode ASV
[2019-06-18] MEDS: LACTATED RINGERS 1,000 ML 999 ML IV CONT (09:22)
[2019-06-18] MEDS: SODIUM BICARBONATE 8.4% 50 MEQ/50 ML SYRINGE IV PUSH (09:22)
[2019-06-18] MEDS: ALBUTEROL SULFATE NEB 2.5 MG/0.5 ML INH 10 MG INHALATION (10:28)
--- NOTE | 2019-06-18 12:25 | WPDCNINT ---
Assessment and Plan Assessment and plan (1) Acute and chronic respiratory failure: Code(s): J96.20 - Acute and chronic respiratory failure, unspecified whether with hypoxia or hypercapnia Status: Acute Assessment and Plan: patient presented with shortness of breath, altered mental status, acute hypercapnic respiratory failure with initial pCO2 level of 128 on ABGs. patient was intubated, with improvement in pCO2 levels to 58 this morning - this could be related to COPD exacerbation, CHF, pneumonia as seen on chest x-ray - continue vancomycin and Zosyn - add bronchodilators - on fentanyl and Versed infusion for sedation, daily sedation vacation (2) Pneumothorax on right: Code(s): J93.9 - Pneumothorax, unspecified Status: Acute Assessment and Plan: right pneumothorax status post right chest tube with resolution of the pneumothorax - continue to monitor (3) Pneumonia: Code(s): J18.9 - Pneumonia, unspecified organism Status: Acute Assessment and Plan: chest x-ray with airspace opacities, likely pneumonia will continue antibiotics as above - sputum and blood cultures have been obtained and pending (4) ELE (acute kidney injury): Code(s): N17.9 - Acute kidney failure, unspecified Status: Acute Assessment and Plan: patient with acute kidney injury most likely related to sepsis, UTI, acute respiratory failure - blood pressures have been stable, urine output has been adequate in response to diuresis - will give additional IV fluid bolus and start maintenance IV fluids - continue to monitor urine output, renal function electrolytes (5) Hyperkalemia: Code(s): E87.5 - Hyperkalemia Status: Acute Assessment and Plan: patient with hyperkalemia acute kidney injury, hyperkalemia has been treated, will obtain BMP later today (6) Paroxysmal atrial fibrillation: Code(s): I48.0 - Paroxysmal atrial fibrillation Status: Acute Assessment and Plan: patient with history of paroxysmal AFib, currently in sinus rhythm, rate controlled (7) COPD (chronic obstructive pulmonary disease): Code(s): J44.9 - Chronic obstructive pulmonary disease, unspecified Status: Acute Assessment and Plan: history of COPD, on 6 L nasal cannula at home - continue bronchodilators, and mechanical ventilation - no wheezing noted, will hold steroids of for now (8) CHF (congestive heart failure): Code(s): I50.9 - Heart failure, unspecified Status: Acute Assessment and Plan: history of diastolic dysfunction - last echocardiogram was on 05/22/2018 which showed normal LV systolic function, grade 2 diastolic dysfunction, EF 65-70%. Mild pulmonary hypertension with RVSP of 35-40 mmHg. - Repeat echocardiogram ordered (9) UTI (urinary tract infection): Code(s): N39.0 - Urinary tract infection, site not specified Status: Acute Assessment and Plan: urine analysis reflective of UTI, continue antibiotics, urine cultures have been obtained and pending (10) DVT prophylaxis: Code(s): Z29.9 - Encounter for prophylactic measures, unspecified Status: Acute Assessment and Plan: DVT prophylaxis: SCDs. Stress ulcer prophylaxis; Protonix Additional Plan career services manager and bedside RN discussed with patient's niece who is the POA, currently wants to keep her full code, will decide regarding further code status and update us code status: full code critical care time spent; 39 minutes Due to a high probability of clinically significant, life threatening deterioration, the patient required my highest level of preparedness to intervene emergently and I personally spent this critical care time directly and personally managing the patient. This critical care time included obtaining a history; examining the patient; pulse oximetry; ordering and review of studies; ar
[2019-06-18] MEDS: ALBUTEROL SULFATE NEB 2.5 MG/0.5 ML INH INHALATION ×2 (14:29→20:34)
[2019-06-18] MEDS: IPRATROPIUM BR 0.02% INH SOLN 0.5 MG/2.5 ML VIAL INHALATION ×2 (14:29→20:34)
[2019-06-18] MEDS: MIDAZOLAM HCL 50 MG in DEXTROSE 5% 90 ML IV CONT ×2 (16:33)
[2019-06-18 16:50] LABS: Blood Urea Nitrogen 56 mg/dL (7-17); Carbon Dioxide 39 mmol/L (22-30); Chloride 100 mmol/L (98-107); Estimated Glomerular Filt Rate 29; Glucose 110 mg/dL (65-105); Potassium 4.3 mmol/L (3.4-5.0); Sodium 144 mmol/L (137-145)
--- NOTE | 2019-06-18 17:14 | PM.IMPN ---
Progress Note: A&P Assessment and Plan (1) Acute respiratory failure with hypoxia and hypercarbia: Code(s): J96.01 - Acute respiratory failure with hypoxia; J96.02 - Acute respiratory failure with hypercapnia Status: Acute Assessment and Plan: r/o acute CHF exacerbation/pneumonia/ pneumothorax. Admit to ICU. intubated with R sided chest tube in situ, some blood around ressing and some blood tinged pleural fluid in chest tube. CXR ordered stat (2) UTI (urinary tract infection): Code(s): N39.0 - Urinary tract infection, site not specified Status: Acute Assessment and Plan: Continue IV antibiotics. Urine culture pending. (3) Encephalopathy acute: Code(s): G93.40 - Encephalopathy, unspecified Status: Acute Assessment and Plan: The patient's acute encephalopathy is likely secondary to her severe hypercapnia. We will monitor for improvement of mental status (4) Normocytic anemia: Code(s): D64.9 - Anemia, unspecified Status: Acute Assessment and Plan: No signs of acute blood loss. monitor H/H, transfuse prn. (5) Thrombocytopenia: Code(s): D69.6 - Thrombocytopenia, unspecified Status: Acute Assessment and Plan: Monitor platelets. Transfuse prn. (6) Acute renal failure: Code(s): N17.9 - Acute kidney failure, unspecified Status: Acute Assessment and Plan: creat is 2.1 continue to monitor (7) Hyperkalemia: Code(s): E87.5 - Hyperkalemia Status: Resolved Assessment and Plan: Continue to monitor BMP (8) Paroxysmal atrial fibrillation: Code(s): I48.0 - Paroxysmal atrial fibrillation Status: Acute Assessment and Plan: Rate controlled. (9) Pneumothorax on right: Code(s): J93.9 - Pneumothorax, unspecified Status: Acute Assessment and Plan: Pt has chest tube in r lung (10) Pneumonia: Code(s): J18.9 - Pneumonia, unspecified organism Status: Acute Assessment and Plan: Pt is on IV vancomycin and iv zosyn Subjective Interval history: 59-year-old morbidly obese female with known chronic respiratory failure on 6 L of oxygen at all times, congestive heart failure, and paroxysmal atrial fibrillation who was just recently discharged from our hospitalist service on April 28, 2019 after she was treated for acute on chronic right combined hypercapnic and hypoxemic respiratory failure. Pt admitted this time with acute resp failure and encephalopathy and was found to have a left sided pneumonia on cxr. Pt developed a right pneumothorax after intubation and had to have chest tube placed urgently last night, under surgery. PT having some blood tinge fluid from the chest tube and dressing is bloody also. Pt had been hospice in the past now is a full code. Pt is in icu on a vent with chest tube in place. Pt has history of COPD, asthma, CHF, and mental disability usually wears 6 liters of oxygen Review of Systems Review of Systems: ROS unobtainable: unobtainable due to mental condition Exam Const: General: acute distress moderate and respiratory, ill appearing chronically and obtunded Nutritional Appearance: obese morbidly obese Orientation/consciousness: oriented to person, oriented to place, oriented to time and obtunded Other: on a vent HENMT: Head: normal to inspection General nose exam: external nose normal Face and sinus: normal facial exam Mouth: Yes oral mucosae normal and Yes oropharynx normal Resp: Auscultation: no vesicular sounds (in right lung ) and other (bloody dressing on right upper chest, bloody pleural fluid in chest tube ) Cardio: Rate: regular rate Rhythm: regular rhythm Heart sounds: no murmurs GI: Inspection: normal to inspection Auscultation: normal bowel sounds Skin: General skin exam: normal color and no rashes or lesions noted Neuro: General: No oriented to person, No oriented to place, No oriented to time and o
[2019-06-18] MEDS: LACTATED RINGERS 1,000 ML 60 ML IV CONT ×2 (19:38→21:14)
[2019-06-18] MEDS: PANTOPRAZOLE SODIUM IV 40 MG VIAL IV PUSH (21:13)
[2019-06-19] VITALS (29 sets, daily range): BP systolic 132–162; BP diastolic 56–68; PULSE 55–73; RESP 12–22; TEMP 36.7–37.4; O2SAT 93–100
[2019-06-19] MEDS: ALBUTEROL SULFATE NEB 2.5 MG/0.5 ML INH INHALATION ×4 (01:57→19:50)
[2019-06-19] MEDS: IPRATROPIUM BR 0.02% INH SOLN 0.5 MG/2.5 ML VIAL INHALATION ×4 (01:57→19:50)
[2019-06-19 04:59] LABS: Alveolar/Arterial O2 Gradient 181.6 mmHg; Base Excess ABG 6.6 mEq/l (+/-2.0); Carboxyhemoglobin 0.3 % THb (0-2.0); Fractional Inspired Oxygen 40 %; HCO3 ABG 29.9 mEq/l (22.0-26.0); Methemoglobin ABG 0.3 %THb (0-1.5); Oxygen Content ABG 11.3 %vol (16.0-22.0); Oxygen Saturation ABG 93.5 % (95.0-100.0); Oxyhemoglobin 90.8 % THb (90.0-100.0); PCO2 ABG 37.5 mmHg (35.0-45.0); PO2 ABG 60.5 mmHg (80.0-100.0); PO2 FiO2 Ratio Arterial Blood 1.51 %; Reduced Hemoglobin 8.6 %THb (0-5.0); Total Hemoglobin 8.8 g/dL (12.0-18.0)
[2019-06-19 05:02] LABS: Device VENTILATOR; Modified Allen's Test Pass; Site Drawn LEFT RADIAL
[2019-06-19 05:03] LABS: Arterial Blood Gas Minute Volume 5 LPM; Arterial Blood Gas PEEP 5 cmH2O; Arterial Blood Gas Vent Mode ASV
[2019-06-19 06:10] LABS: Hematocrit 25.1 % (37.0-47.0); Hemoglobin 7.5 g/dL (12.0-15.0); Mean Corpuscular HGB Conc 29.9 g/dl (32-36); Mean Corpuscular Hemoglobin 25.3 pg (26-34); Mean Corpuscular Volume 84.8 fl (80-100); Mean Platelet Volume 9.3 fl (7.4-10.4); Platelet Count Result 148 k/mm3 (150-375); Red Blood Count 2.96 M/mm3 (4.2-5.4); Red Cell Distribution Width 17.1 % (11.5-14.5); White Blood Count 8.2 K/mm3 (4.5-10.0)
[2019-06-19 06:20] LABS: Lactic Acid 0.8 mmol/L (0.7-2.1)
[2019-06-19 06:22] LABS: Blood Urea Nitrogen 49 mg/dL (7-17); CRP 6.5 mg/dL (<1.0); Calcium 8.1 mg/dL (8.4-10.2); Carbon Dioxide 37 mmol/L (22-30); Chloride 101 mmol/L (98-107); Estimated Glomerular Filt Rate 31; Glucose 99 mg/dL (65-105); Magnesium 2.5 mg/dL (1.6-2.3); Phosphorus 2.3 mg/dL (2.5-4.5); Potassium 3.8 mmol/L (3.4-5.0); Sodium 144 mmol/L (137-145)
[2019-06-19] MEDS: PANTOPRAZOLE SODIUM IV 40 MG VIAL IV PUSH ×2 (09:08→20:47)
--- NOTE | 2019-06-19 09:54 | WPDINTPN ---
Progress Note: A&P Assessment and Plan (1) Severe sepsis: Code(s): A41.9 - Sepsis, unspecified organism; R65.20 - Severe sepsis without septic shock Status: Acute Assessment and Plan: patient presented with respiratory failure, hypertension, UTI - blood cultures are negative, urine cultures growing E coli susceptible to ceftriaxone, - will discontinue Zosyn and vancomycin and start ceftriaxone - blood pressures have been stable (2) Acute and chronic respiratory failure: Code(s): J96.20 - Acute and chronic respiratory failure, unspecified whether with hypoxia or hypercapnia Status: Acute Assessment and Plan: patient presented with shortness of breath, altered mental status, acute hypercapnic respiratory failure with initial pCO2 level of 128 on ABGs. patient was intubated, with improvement in pCO2 levels to 58 this morning - this could be related to COPD exacerbation, CHF, pneumonia as seen on chest x-ray - Continue bronchodilators - antibiotics as above - on fentanyl and Versed infusion for sedation, daily sedation vacation (3) Pneumothorax on right: Code(s): J93.9 - Pneumothorax, unspecified Status: Acute Assessment and Plan: right pneumothorax status post right chest tube with resolution of the pneumothorax - continue to monitor - surgery following the patient (4) Pneumonia: Code(s): J18.9 - Pneumonia, unspecified organism Status: Acute Assessment and Plan: chest x-ray with airspace opacities, likely pneumonia will continue antibiotics as above - blood and sputum cultures are negative (5) ELE (acute kidney injury): Code(s): N17.9 - Acute kidney failure, unspecified Status: Acute Assessment and Plan: patient with acute kidney injury most likely related to sepsis, UTI, acute respiratory failure - blood pressures have been stable, - continue maintenance IV fluids, urine output has been adequate - continue to monitor urine output, renal function electrolytes (6) Hyperkalemia: Code(s): E87.5 - Hyperkalemia Status: Acute Assessment and Plan: RESOLVED (7) Paroxysmal atrial fibrillation: Code(s): I48.0 - Paroxysmal atrial fibrillation Status: Acute Assessment and Plan: patient with history of paroxysmal AFib, currently in sinus rhythm, rate controlled (8) COPD (chronic obstructive pulmonary disease): Code(s): J44.9 - Chronic obstructive pulmonary disease, unspecified Status: Acute Assessment and Plan: history of COPD, on 6 L nasal cannula at home - continue bronchodilators, and mechanical ventilation - no wheezing noted, will hold steroids of for now (9) CHF (congestive heart failure): Code(s): I50.9 - Heart failure, unspecified Status: Acute Assessment and Plan: history of diastolic dysfunction - last echocardiogram was on 05/22/2018 which showed normal LV systolic function, grade 2 diastolic dysfunction, EF 65-70%. Mild pulmonary hypertension with RVSP of 35-40 mmHg. - Repeat echocardiogram ordered (10) UTI (urinary tract infection): Code(s): N39.0 - Urinary tract infection, site not specified Status: Acute Assessment and Plan: urine analysis reflective of UTI, urine cultures growing E coli, antibiotics switched to ceftriaxone (11) DVT prophylaxis: Code(s): Z29.9 - Encounter for prophylactic measures, unspecified Status: Acute Assessment and Plan: DVT prophylaxis: SCDs. Stress ulcer prophylaxis; Protonix (12) Normocytic anemia: Code(s): D64.9 - Anemia, unspecified Status: Acute Assessment and Plan: patient dropped hemoglobin to 7.5 this morning from 9.5 on admission - will send stool for Hemoccult - PPI q.12 hours - obtain iron panel, vitamin B12 and folic acid levels Additional Plan will start tube feeds and decrease maintena
--- NOTE | 2019-06-19 10:14 | PCSTNOTE ---
06-18-19: Per doctor, the ST evaluation that was ordered was not intended for this pt. but for another pt. on the same unit. Pt. intubated, evaluation not completed.
--- NOTE | 2019-06-19 14:00 | PM.PNGS ---
Progress Note: A&P Assessment and Plan (1) Pneumothorax on right: Code(s): J93.9 - Pneumothorax, unspecified Status: Acute Assessment and Plan: Chest tube in place and working well. Lung fully inflated on chest x-ray. Continue to 20 cm Pleur-Evac suction. (2) Acute and chronic respiratory failure: Code(s): J96.20 - Acute and chronic respiratory failure, unspecified whether with hypoxia or hypercapnia Status: Acute Assessment and Plan: Remains on mechanical ventilator. Subjective Subjective Date/Time Seen: 06/19/19 14:00 Patient reports: other (Unobtainable as on mechanical ventilator) Review of Systems Review of Systems: ROS unobtainable: due to endotracheal tube Exam Chest: Chest palpation & inspection: other (Chest tube dressing bloody. Changed. No wound bleeding noted.) Resp: Effort & Inspection: other (Sedated on ventilator; chest tube in place with some bloody pleural fluid ) Auscultation: crackles and rhonchi Objective Data Vital Signs Vital Signs: Vital Signs - 24 hr 06/18/19 14:29 06/18/19 14:33 06/18/19 14:36 Temperature Pulse Rate 63 63 65 Respiratory Rate 17 20 Blood Pressure Pulse Oximetry 100 06/18/19 16:00 06/18/19 16:56 06/18/19 18:00 Temperature 37.4 C Pulse Rate 64 62 63 Respiratory Rate 17 16 Blood Pressure 137/54 L 117/46 L Pulse Oximetry 100 100 98 06/18/19 20:00 06/18/19 20:15 06/18/19 20:34 Temperature 37.5 C Pulse Rate 63 61 62 Respiratory Rate 19 18 Blood Pressure 120/47 L Pulse Oximetry 98 98 06/18/19 20:44 06/18/19 22:00 06/18/19 23:15 Temperature Pulse Rate 62 61 60 Respiratory Rate 18 17 Blood Pressure 137/52 L Pulse Oximetry 99 99 06/19/19 00:00 06/19/19 01:45 06/19/19 01:57 Temperature 37.1 C Pulse Rate 60 56 L 58 L Respiratory Rate 18 19 Blood Pressure 132/61 Pulse Oximetry 100 99 06/19/19 02:00 06/19/19 02:04 06/19/19 04:00 Temperature 37.1 C Pulse Rate 62 57 L 59 L Respiratory Rate 18 18 18 Blood Pressure 150/68 H 156/62 H Pulse Oximetry 98 99 06/19/19 05:05 06/19/19 06:00 06/19/19 08:00 Temperature 37.4 C Pulse Rate 66 57 L 58 L Respiratory Rate 17 15 Blood Pressure 154/56 H 157/58 H Pulse Oximetry 97 97 97 06/19/19 08:15 06/19/19 08:55 06/19/19 08:56 Temperature Pulse Rate 57 L 59 L 55 L Respiratory Rate 12 Blood Pressure Pulse Oximetry 97 97 06/19/19 09:23 06/19/19 09:29 06/19/19 10:00 Temperature Pulse Rate 67 64 57 L Respiratory Rate 16 16 Blood Pressure 147/59 H Pulse Oximetry 97 96 06/19/19 10:25 06/19/19 12:00 Temperature 37.4 C Pulse Rate 58 L 60 Respiratory Rate 16 Blood Pressure 158/60 H Pulse Oximetry 97 97 Intake/Output Intake/Output: Intake & Output 06/16/19 06/17/19 06/18/19 06/19/19 23:59 23:59 23:59 23:59 Intake Total 50 1815 729 Output Total 200 2195 1740 Balance -150 380 -1011 Meds/Results Medications: Active Medications Generic Name Dose Route Start Last Admin Trade Name Adalidq PRN Reason Stop Dose Admin Albuterol 2.5 mg 06/18/19 14:00 06/19/19 08:53 Albuterol Sulf Neb 2.5mg/0.5ml INHALATION 2.5 mg Q6HRT ANTONIA Administration Midazolam HCl 50 mg/ Dextrose 100 mls @ 4 mls/hr 06/17/19 22:45 06/19/19 06:00 IV CONT 2 mg/hr .Q24H ANTONIA 4 mls/hr Titration Protocol 2 MG/HR Fentanyl Citrate 2,500 mcg/ 250 mls @ 10 mls/hr 06/18/19 03:50 06/19/19 06:00 Sodium Chloride IV CONT 100 mcg/hr .Q24H ANTONIA 10 mls/hr Titration Protocol Lactated Ringer's 1,000 mls @ 60 mls/hr 06/18/19 19:10 06/19/19 10:00 Lr - Lactated Ringers Iv IV CONT 30 mls/hr .[id number] ANTONIA Infusion Ceftriaxone Sodium/Dextrose 1 gm in 50 mls @ 100 mls/hr 06/19/19 08:00 06/19/19 13:57 Rocephin 1 Gm/D5w 50 Ml IVPB Infused Q24H ANTONIA Infusion Ipratropium Carlton 0.5 mg 06/18/19 14:00 06/19/19 08:54 Atrovent Neb INHALATION 0.5 mg Q6HRT
[2019-06-19] MEDS: MIDAZOLAM HCL 50 MG in DEXTROSE 5% 90 ML IV CONT (17:21)
--- NOTE | 2019-06-19 17:22 | PM.IMPN ---
Progress Note: A&P Assessment and Plan (1) Acute respiratory failure with hypoxia and hypercarbia: Code(s): J96.01 - Acute respiratory failure with hypoxia; J96.02 - Acute respiratory failure with hypercapnia Status: Acute Assessment and Plan: r/o acute CHF exacerbation/pneumonia/ pneumothorax. Admit to ICU. intubated with R sided chest tube in situ, dressing changed out today, pt having ongoing blood tinged pleural fluid in chest tube. filter changed out today, continue pleural vac suctioning (2) UTI (urinary tract infection): Code(s): N39.0 - Urinary tract infection, site not specified Status: Acute Assessment and Plan: Continue IV antibiotics. Urine culture pending. (3) Encephalopathy acute: Code(s): G93.40 - Encephalopathy, unspecified Status: Acute Assessment and Plan: The patient's acute encephalopathy is likely secondary to her severe hypercapnia. We will monitor for improvement of mental status (4) Normocytic anemia: Code(s): D64.9 - Anemia, unspecified Status: Acute Assessment and Plan: No signs of acute blood loss. monitor H/H, transfuse prn. (5) Thrombocytopenia: Code(s): D69.6 - Thrombocytopenia, unspecified Status: Acute Assessment and Plan: Monitor platelets. Transfuse prn. (6) Acute renal failure: Code(s): N17.9 - Acute kidney failure, unspecified Status: Acute Assessment and Plan: creat is 2.1 continue to monitor , pt is on iv fluids (7) Hyperkalemia: Code(s): E87.5 - Hyperkalemia Status: Resolved Assessment and Plan: Continue to monitor BMP (8) Paroxysmal atrial fibrillation: Code(s): I48.0 - Paroxysmal atrial fibrillation Status: Acute Assessment and Plan: Rate controlled. (9) Pneumothorax on right: Code(s): J93.9 - Pneumothorax, unspecified Status: Acute Assessment and Plan: Pt has chest tube in r lung some trauma during placement, continue to watch Hb, Iv protonix ordered (10) Pneumonia: Code(s): J18.9 - Pneumonia, unspecified organism Status: Acute Assessment and Plan: Pt is on IV vancomycin and iv zosyn and iv rocephin Additional Plan 15 minutes of critical care time with this patient tonight Subjective Interval history: 59-year-old morbidly obese female with known chronic respiratory failure on 6 L of oxygen at all times, congestive heart failure, and paroxysmal atrial fibrillation who was just recently discharged from our hospitalist service on April 28, 2019 after she was treated for acute on chronic right combined hypercapnic and hypoxemic respiratory failure. Pt admitted this time with acute resp failure and encephalopathy and was found to have a left sided pneumonia on cxr. Pt developed a right pneumothorax after intubation and had to have chest tube placed urgently last night, under surgery. PT having some blood tinge fluid from the chest tube and dressing is bloody also. Pt had been hospice in the past now is a full code. Pt is in icu on a vent with chest tube in place. Pt has history of COPD, asthma, CHF, and mental disability usually wears 6 liters of oxygen Review of Systems Review of Systems: ROS unobtainable: unobtainable due to mental condition Exam Const: General: acute distress moderate and respiratory, ill appearing chronically and obtunded Nutritional Appearance: obese morbidly obese Orientation/consciousness: No oriented to person, No oriented to place, No oriented to time and obtunded Other: on a vent HENMT: Head: normal to inspection General nose exam: external nose normal Face and sinus: normal facial exam Mouth: Yes oral mucosae normal and Yes oropharynx normal Eyes: Pupils: PERRL EOM: EOM intact bilaterally Neck: Neck: supple and no JVD Thyroid: thyroid normal Lymphatic: lymphadenopathy not noted Resp: Effort & Inspection: respiratory distress Auscultation: no
--- NOTE | 2019-06-19 19:23 | PC.NURSE ---
called gian vivas with no answer and left a message at [phone]
[2019-06-19 19:25] LABS: Folic Acid 6.8 ng/mL (2.76->20)
[2019-06-19 19:35] LABS: Iron 34 ug/dL (37-170)
[2019-06-19] MEDS: LACTATED RINGERS 1,000 ML 30 ML IV CONT (19:42)
[2019-06-19 19:44] LABS: Percent Iron Saturation 17 % (20-50)
[2019-06-20] VITALS (26 sets, daily range): BP systolic 97–159; BP diastolic 51–84; PULSE 51–83; RESP 14–21; TEMP 36.9–37.5; O2SAT 95–100; BMI 42.6
[2019-06-20] MEDS: ALBUTEROL SULFATE NEB 2.5 MG/0.5 ML INH INHALATION ×4 (02:46→20:10)
[2019-06-20] MEDS: IPRATROPIUM BR 0.02% INH SOLN 0.5 MG/2.5 ML VIAL INHALATION ×4 (02:47→20:10)
[2019-06-20 04:15] LABS: Alveolar/Arterial O2 Gradient 169.1 mmHg; Base Excess ABG 8.7 mEq/l (+/-2.0); Carboxyhemoglobin 0.2 % THb (0-2.0); Fractional Inspired Oxygen 40 %; HCO3 ABG 33.7 mEq/l (22.0-26.0); Methemoglobin ABG 0.3 %THb (0-1.5); Oxygen Content ABG 11.3 %vol (16.0-22.0); Oxygen Saturation ABG 91.5 % (95.0-100.0); Oxyhemoglobin 89.6 % THb (90.0-100.0); PCO2 ABG 49.4 mmHg (35.0-45.0); PO2 ABG 59.3 mmHg (80.0-100.0); PO2 FiO2 Ratio Arterial Blood 1.48 %; Reduced Hemoglobin 9.9 %THb (0-5.0); Total Hemoglobin 8.9 g/dL (12.0-18.0); pH ABG 7.452 (7.350-7.450)
[2019-06-20 04:17] LABS: Device VENTILATOR; Modified Allen's Test Pass; Site Drawn LEFT RADIAL
[2019-06-20 04:18] LABS: Arterial Blood Gas PEEP 5 cmH2O; Arterial Blood Gas Tidal Volume 300 ml; Arterial Blood Gas Vent Mode CMV; Arterial Blood Gas Ventilator rate 16 /MIN
[2019-06-20 04:36] LABS: Eosinophils Absolute Auto 0.7 K/mm3 (0-0.3); Hematocrit 26.6 % (37.0-47.0); Hemoglobin 7.6 g/dL (12.0-15.0); Immature Granulocyte Absolute 0.05 K/mm3 (0.00-0.031); Immature Granulocyte Percent A 0.7 % (0-0.5); Lymphocytes Absolute Auto 1.58 K/mm3 (0.9-3.2); Lymphocytes Percent Auto 20.7 % (18.3-44.2); Mean Corpuscular HGB Conc 28.6 g/dl (32-36); Mean Corpuscular Hemoglobin 25.1 pg (26-34); Mean Corpuscular Volume 87.8 fl (80-100); Mean Platelet Volume 10.5 fl (7.4-10.4); Monocytes Absolute Auto 0.5 K/mm3 (0.1-0.6); Monocytes Percent Auto 6.5 % (2.6-8.5); Neutrophils Absolute Auto 4.8 K/mm3 (1.3-6.7); Neutrophils Percent Auto 63.1 % (45.5-73.1); Platelet Count Result 159 k/mm3 (150-375); Red Blood Count 3.03 M/mm3 (4.2-5.4); Red Cell Distribution Width 17.7 % (11.5-14.5); White Blood Count 7.7 K/mm3 (4.5-10.0)
[2019-06-20 04:52] LABS: Lactic Acid 0.6 mmol/L (0.7-2.1)
[2019-06-20 05:00] LABS: Blood Urea Nitrogen 35 mg/dL (7-17); Carbon Dioxide 37 mmol/L (22-30); Chloride 107 mmol/L (98-107); Estimated Glomerular Filt Rate 37; Glucose 104 mg/dL (65-105); Magnesium 2.5 mg/dL (1.6-2.3); Phosphorus 2.9 mg/dL (2.5-4.5); Potassium 3.6 mmol/L (3.4-5.0); Sodium 148 mmol/L (137-145)
[2019-06-20 05:13] LABS: Large Platelets Present; Platelet Estimate Adequate (Adequate)
[2019-06-20 05:14] LABS: Hypochromasia 1+ (NORMAL)
[2019-06-20] MEDS: AMLODIPINE BESYLATE 5 MG TABLET PO (09:00)
[2019-06-20] MEDS: PANTOPRAZOLE SODIUM IV 40 MG VIAL IV PUSH ×2 (09:00→21:11)
[2019-06-20] MEDS: FUROSEMIDE INJ 40 MG/4 ML VIAL IV PUSH (09:00)
--- NOTE | 2019-06-20 10:58 | WPDINTPN ---
Progress Note: A&P Assessment and Plan (1) Severe sepsis: Code(s): A41.9 - Sepsis, unspecified organism; R65.20 - Severe sepsis without septic shock Status: Acute Assessment and Plan: patient presented with respiratory failure, hypertension, UTI - blood cultures are negative, urine cultures growing E coli susceptible to ceftriaxone, - continue ceftriaxone - blood pressures have been stable (2) Acute and chronic respiratory failure: Code(s): J96.20 - Acute and chronic respiratory failure, unspecified whether with hypoxia or hypercapnia Status: Acute Assessment and Plan: patient presented with shortness of breath, altered mental status, acute hypercapnic respiratory failure with initial pCO2 level of 128 on ABGs. patient was intubated, with improvement in pCO2 levels to 58 this morning - this could be related to COPD exacerbation, CHF, pneumonia as seen on chest x-ray - Continue bronchodilators - antibiotics as above - on fentanyl and Versed infusion for sedation, daily sedation vacation (3) Pneumothorax on right: Code(s): J93.9 - Pneumothorax, unspecified Status: Acute Assessment and Plan: right pneumothorax status post right chest tube with resolution of the pneumothorax - continue to monitor - surgery following the patient , chest tube to water seal, will check chest x-ray in a.m. (4) Pneumonia: Code(s): J18.9 - Pneumonia, unspecified organism Status: Acute Assessment and Plan: chest x-ray with airspace opacities, likely pneumonia will continue antibiotics as above - blood and sputum cultures are negative (5) UTI (urinary tract infection): Code(s): N39.0 - Urinary tract infection, site not specified Status: Acute Assessment and Plan: urine analysis reflective of UTI, urine cultures growing E coli, antibiotics switched to ceftriaxone (6) ELE (acute kidney injury): Code(s): N17.9 - Acute kidney failure, unspecified Status: Acute Assessment and Plan: patient with acute kidney injury most likely related to sepsis, UTI, acute respiratory failure - blood pressures have been stable, - continue maintenance IV fluids, urine output has been adequate - continue to monitor urine output, renal function electrolytes - creatinine improving (7) Hyperkalemia: Code(s): E87.5 - Hyperkalemia Status: Acute Assessment and Plan: RESOLVED (8) Paroxysmal atrial fibrillation: Code(s): I48.0 - Paroxysmal atrial fibrillation Status: Acute Assessment and Plan: patient with history of paroxysmal AFib, currently in sinus rhythm, rate controlled (9) COPD (chronic obstructive pulmonary disease): Code(s): J44.9 - Chronic obstructive pulmonary disease, unspecified Status: Acute Assessment and Plan: history of COPD, on 6 L nasal cannula at home - continue bronchodilators, and mechanical ventilation - no wheezing noted, will hold steroids of for now (10) CHF (congestive heart failure): Code(s): I50.9 - Heart failure, unspecified Status: Acute Assessment and Plan: history of diastolic dysfunction - last echocardiogram was on 05/22/2018 which showed normal LV systolic function, grade 2 diastolic dysfunction, EF 65-70%. Mild pulmonary hypertension with RVSP of 35-40 mmHg. - Repeat echocardiogram ordered, pending (11) DVT prophylaxis: Code(s): Z29.9 - Encounter for prophylactic measures, unspecified Status: Acute Assessment and Plan: DVT prophylaxis: SCDs. Stress ulcer prophylaxis; Protonix (12) Normocytic anemia: Code(s): D64.9 - Anemia, unspecified Status: Acute Assessment and Plan: patient dropped hemoglobin to 7.5 this morning from 9.5 on admission - will send stool for Hemoccult - PPI q.12 hours - looks like anemia of chronic disease on iron panel, vitami
--- NOTE | 2019-06-20 13:07 | PM.PNGS ---
Progress Note: A&P Assessment and Plan (1) Pneumothorax on right: Code(s): J93.9 - Pneumothorax, unspecified Status: Acute Assessment and Plan: Chest tube in place and working well. No pneumothorax on chest x-ray this morning. Will put the chest tube to water seal for today and repeat chest x-ray tomorrow morning. (2) Acute and chronic respiratory failure: Code(s): J96.20 - Acute and chronic respiratory failure, unspecified whether with hypoxia or hypercapnia Status: Acute Assessment and Plan: Remains on mechanical ventilator. Subjective Subjective Date/Time Seen: 06/20/19 09:45 Interval history: Patient seen and examined. She is on 40% FiO2 on the mechanical ventilator and sedated in the ICU. Chest x-ray this morning shows no pneumothorax with right-sided chest tube in position. Review of Systems Review of Systems: ROS unobtainable: due to endotracheal tube Exam Const: General: other ( Intubated on mechanical ventilator. Sedated.) Nutritional Appearance: obese Chest: Chest palpation & inspection: other (Chest tube dressing on right chest - C/D/I. No crepitus.) Resp: Effort & Inspection: symmetric chest movement and other (chest tube in place with bloody pleural fluid in cannister) Auscultation: rhonchi throughout Cardio: Rate: regular rate Rhythm: regular rhythm GI: Inspection: non-distended Auscultation: normal bowel sounds Urinary Catheter: Urinary Catheter: patent and draining Neuro: Other: Limited d/t clinical condition. Arousable by name and makes eye contact but does not nod appropriately. Extrem: General: no calf tenderness and no edema Objective Data Vital Signs Vital Signs: Vital Signs - 24 hr 06/19/19 14:00 06/19/19 14:20 06/19/19 14:39 Temperature Pulse Rate 62 60 61 Respiratory Rate 16 16 16 Blood Pressure 157/60 H Pulse Oximetry 94 96 06/19/19 16:00 06/19/19 16:56 06/19/19 18:00 Temperature 37.4 C Pulse Rate 60 62 60 Respiratory Rate 16 16 Blood Pressure 162/65 H 157/59 H Pulse Oximetry 97 97 98 06/19/19 19:50 06/19/19 19:55 06/19/19 20:00 Temperature 36.7 C Pulse Rate 66 73 72 Respiratory Rate 16 22 H Blood Pressure 156/63 H Pulse Oximetry 95 93 06/19/19 20:05 06/19/19 22:00 06/19/19 23:15 Temperature Pulse Rate 72 62 65 Respiratory Rate 16 16 Blood Pressure 152/56 H Pulse Oximetry 96 98 06/20/19 00:00 06/20/19 02:00 06/20/19 02:30 Temperature 36.9 C Pulse Rate 60 65 52 L Respiratory Rate 16 18 Blood Pressure 154/70 H 140/51 L Pulse Oximetry 95 97 97 06/20/19 02:35 06/20/19 02:45 06/20/19 04:00 Temperature 36.9 C Pulse Rate 52 L 52 L 53 L Respiratory Rate 16 16 16 Blood Pressure 150/57 H Pulse Oximetry 96 06/20/19 05:35 06/20/19 06:00 06/20/19 07:59 Temperature Pulse Rate 52 L 57 L 59 L Respiratory Rate 16 19 Blood Pressure 146/57 H Pulse Oximetry 97 98 97 06/20/19 08:00 06/20/19 08:12 06/20/19 10:00 Temperature Pulse Rate 68 65 57 L Respiratory Rate 18 19 16 Blood Pressure 159/73 H 151/57 H Pulse Oximetry 95 98 06/20/19 11:29 06/20/19 12:00 Temperature 37.5 C Pulse Rate 62 67 Respiratory Rate 14 Blood Pressure 146/66 H Pulse Oximetry 98 98 Intake/Output Intake/Output: Intake & Output 06/17/19 06/18/19 06/19/19 06/20/19 23:59 23:59 23:59 23:59 Intake Total 50 1815 1481 765 Output Total 200 2195 2260 1750 Balance -150 -380 -779 -985 Meds/Results Medications: Active Medications Generic Name Dose Route Start Last Admin Trade Name Freq PRN Reason Stop Dose Admin Albuterol 2.5 mg 06/18/19 14:00 06/20/19 07:59 Albuterol Sulf Neb 2.5mg/0.5ml INHALATION 2.5 mg Q6HRT ANTONIA Administration Amlodipine Besylate 5 mg 06/20/19 09:00 06/20/19 09:00 Norvasc PO 5 mg QAM ANTONIA Administration Cyanocobalamin 500 mcg 06/21/19 09:00 Vitamin B-12 Tab PO 06/26/19 09:01 QAM ANTONIA Midazolam HCl 50 mg/ Dextrose 1
--- NOTE | 2019-06-20 15:51 | PM.IMPN ---
Progress Note: A&P Assessment and Plan (1) Acute respiratory failure with hypoxia and hypercarbia: Code(s): J96.01 - Acute respiratory failure with hypoxia; J96.02 - Acute respiratory failure with hypercapnia Status: Acute Assessment and Plan: r/o acute CHF exacerbation/pneumonia/ pneumothorax. Admit to ICU. intubated with R sided chest tube in situ, dressing changed out today, pt having ongoing blood tinged pleural fluid in chest tube. filter changed out o 06/19, continue pleural vac suctioning (2) UTI (urinary tract infection): Code(s): N39.0 - Urinary tract infection, site not specified Status: Acute Assessment and Plan: Urine culture is growing E coli sensitive to Rocephin, will continue (3) Encephalopathy acute: Code(s): G93.40 - Encephalopathy, unspecified Status: Acute Assessment and Plan: The patient's acute encephalopathy is likely secondary to her severe hypercapnia. We will monitor for improvement of mental status (4) Normocytic anemia: Code(s): D64.9 - Anemia, unspecified Status: Acute Assessment and Plan: No signs of acute blood loss. monitor H/H, transfuse prn. (5) Thrombocytopenia: Code(s): D69.6 - Thrombocytopenia, unspecified Status: Acute Assessment and Plan: Monitor platelets. Transfuse prn. (6) Acute renal failure: Code(s): N17.9 - Acute kidney failure, unspecified Status: Acute Assessment and Plan: creat is 1.7 todqy, will continue to monitor , pt is on iv fluids (7) Hyperkalemia: Code(s): E87.5 - Hyperkalemia Status: Resolved Assessment and Plan: Continue to monitor BMP (8) Paroxysmal atrial fibrillation: Code(s): I48.0 - Paroxysmal atrial fibrillation Status: Acute Assessment and Plan: Rate controlled. (9) Pneumothorax on right: Code(s): J93.9 - Pneumothorax, unspecified Status: Acute Assessment and Plan: Pt has chest tube in r lung some trauma during placement, continue to watch Hb, Iv protonix ordered (10) Pneumonia: Code(s): J18.9 - Pneumonia, unspecified organism Status: Acute Assessment and Plan: Pt is on IV vancomycin and iv zosyn and iv rocephin Subjective Interval history: Admitted on 06/17/2019 with acute respiratory failure, altered mental status, right pneumothorax status post right chest tube, CHF, pneumonia 06/20: patient seen examined this morning in the ICU, remains intubated, on ASV mode of ventilation on 40% FiO2. patient responded well to diuresis yesterday with good urine output. Patient is hemodynamically stable, afebrile. Creatinine is improving. Patient sedated fentanyl 25 mcg/hr and Versed 1 mg/hr infusions. Patient opens her eyes, follows simple commands in all extremities and nods to questions, denies any pain by nodding head. patient remains clinically stable seen by time clerk given daily sedation holiday in an attempt to wean patient off vent. Review of Systems Review of Systems: ROS unobtainable: unobtainable due to mental condition Exam Const: General: acute distress moderate and respiratory, ill appearing chronically and obtunded Nutritional Appearance: obese morbidly obese Orientation/consciousness: No oriented to person, No oriented to place, No oriented to time and obtunded Other: on a vent HENMT: Head: normal to inspection General nose exam: external nose normal Face and sinus: normal facial exam Mouth: Yes oral mucosae normal and Yes oropharynx normal Eyes: Pupils: PERRL EOM: EOM intact bilaterally Neck: Neck: supple and no JVD Thyroid: thyroid normal Lymphatic: lymphadenopathy not noted Resp: Effort & Inspection: respiratory distress Auscultation: no vesicular sounds (in right lung ) and other (bloody dressing on right upper chest, bloody pleural fluid in chest tube ) Cardio: Rate: regular rate Rhythm: regular rhythm Heart sounds:
[2019-06-20] MEDS: MIDAZOLAM HCL 50 MG in DEXTROSE 5% 90 ML IV CONT (18:16)
[2019-06-21] VITALS (27 sets, daily range): BP systolic 126–177; BP diastolic 52–64; PULSE 50–71; RESP 13–19; TEMP 36.9–37.4; O2SAT 94–100
[2019-06-21] MEDS: ALBUTEROL SULFATE NEB 2.5 MG/0.5 ML INH INHALATION ×4 (03:03→19:41)
[2019-06-21] MEDS: IPRATROPIUM BR 0.02% INH SOLN 0.5 MG/2.5 ML VIAL INHALATION ×4 (03:03→19:41)
[2019-06-21 04:34] LABS: Hemoglobin 7.8 g/dL (12.0-15.0); Mean Corpuscular HGB Conc 28.9 g/dl (32-36); Mean Corpuscular Hemoglobin 25.4 pg (26-34); Mean Corpuscular Volume 87.9 fl (80-100); Mean Platelet Volume 10.8 fl (7.4-10.4); Platelet Count Result 172 k/mm3 (150-375); Red Blood Count 3.07 M/mm3 (4.2-5.4); Red Cell Distribution Width 17.9 % (11.5-14.5); White Blood Count 7.6 K/mm3 (4.5-10.0)
[2019-06-21 05:00] LABS: Blood Urea Nitrogen 33 mg/dL (7-17); Calcium 9.4 mg/dL (8.4-10.2); Carbon Dioxide 39 mmol/L (22-30); Chloride 105 mmol/L (98-107); Estimated Glomerular Filt Rate 43; Glucose 127 mg/dL (65-105); Magnesium 2.4 mg/dL (1.6-2.3); Potassium 3.1 mmol/L (3.4-5.0); Sodium 149 mmol/L (137-145)
[2019-06-21 05:03] LABS: Alveolar/Arterial O2 Gradient 262.3 mmHg; Base Excess ABG 11.9 mEq/l (+/-2.0); Carboxyhemoglobin 0.3 % THb (0-2.0); Fractional Inspired Oxygen 60 %; HCO3 ABG 36.4 mEq/l (22.0-26.0); Methemoglobin ABG 0.3 %THb (0-1.5); Oxygen Content ABG 12.5 %vol (16.0-22.0); Oxygen Saturation ABG 98.4 % (95.0-100.0); Oxyhemoglobin 96.9 % THb (90.0-100.0); PCO2 ABG 48.2 mmHg (35.0-45.0); PO2 ABG 112.5 mmHg (80.0-100.0); PO2 FiO2 Ratio Arterial Blood 1.88 %; Reduced Hemoglobin 2.5 %THb (0-5.0); pH ABG 7.496 (7.350-7.450)
[2019-06-21 05:07] LABS: Device VENTILATOR; Modified Allen's Test Pass; Site Drawn LEFT RADIAL
[2019-06-21 05:09] LABS: Arterial Blood Gas PEEP 5 cmH2O; Arterial Blood Gas Vent Mode ASV
--- NOTE | 2019-06-21 07:00 | WPDINTPN ---
Progress Note: A&P Assessment and Plan (1) Severe sepsis: Code(s): A41.9 - Sepsis, unspecified organism; R65.20 - Severe sepsis without septic shock Status: Acute Assessment and Plan: patient presented with respiratory failure, hypertension, UTI - blood cultures are negative, urine cultures growing E coli susceptible to ceftriaxone, - continue ceftriaxone - blood pressures have been stable (2) Acute and chronic respiratory failure: Code(s): J96.20 - Acute and chronic respiratory failure, unspecified whether with hypoxia or hypercapnia Status: Acute Assessment and Plan: patient presented with shortness of breath, altered mental status, acute hypercapnic respiratory failure with initial pCO2 level of 128 on ABGs. patient was intubated, with improvement in pCO2 levels to 58 this morning - this could be related to COPD exacerbation, CHF, pneumonia and R PnTx as seen on chest x-ray - Continue bronchodilators - antibiotics as above. Add Azithro - on fentanyl and Versed infusion for sedation, daily sedation vacation - Increase PEEP to 8 - Decrease ASV to 100% - Try PSV today (3) Pneumothorax on right: Code(s): J93.9 - Pneumothorax, unspecified Status: Acute Assessment and Plan: right pneumothorax status post right chest tube with resolution of the pneumothorax - continue to monitor - surgery following the patient , chest tube to water seal. Will avoid removing until pt extubated and off of PPV (4) Pneumonia: Code(s): J18.9 - Pneumonia, unspecified organism Status: Acute Assessment and Plan: chest x-ray with airspace opacities, likely pneumonia will continue antibiotics as above - blood and sputum cultures are negative (5) UTI (urinary tract infection): Code(s): N39.0 - Urinary tract infection, site not specified Status: Acute Assessment and Plan: urine analysis reflective of UTI, urine cultures growing E coli, antibiotics switched to ceftriaxone (6) ELE (acute kidney injury): Code(s): N17.9 - Acute kidney failure, unspecified Status: Acute Assessment and Plan: patient with acute kidney injury most likely related to sepsis, UTI, acute respiratory failure - blood pressures have been stable, - continue maintenance IV fluids, urine output has been adequate - continue to monitor urine output, renal function electrolytes - creatinine improving (7) Paroxysmal atrial fibrillation: Code(s): I48.0 - Paroxysmal atrial fibrillation Status: Acute Assessment and Plan: patient with history of paroxysmal AFib, currently in sinus rhythm, rate controlled (8) COPD (chronic obstructive pulmonary disease): Code(s): J44.9 - Chronic obstructive pulmonary disease, unspecified Status: Acute Assessment and Plan: history of COPD, on 6 L nasal cannula at home - continue bronchodilators, and mechanical ventilation - no wheezing noted, off steroids (9) CHF (congestive heart failure): Code(s): I50.9 - Heart failure, unspecified Status: Acute Assessment and Plan: history of diastolic dysfunction - last echocardiogram was on 05/22/2018 which showed normal LV systolic function, grade 2 diastolic dysfunction, EF 65-70%. Mild pulmonary hypertension with RVSP of 35-40 mmHg. - Repeat echocardiogram ordered, pending (10) DVT prophylaxis: Code(s): Z29.9 - Encounter for prophylactic measures, unspecified Status: Acute Assessment and Plan: DVT prophylaxis: SCDs. Stress ulcer prophylaxis; Protonix (11) Normocytic anemia: Code(s): D64.9 - Anemia, unspecified Status: Acute Assessment and Plan: patient dropped hemoglobin to 7.5 this morning from 9.5 on admission but noiw stable? Dilutional - No s/s of bleeding. Hemoccult negative - PPI q.12 hours -> Change to QD - looks like anemia of chronic disease
[2019-06-21] MEDS: POTASSIUM CHLORIDE 20 MEQ PACKET (FOR LIQUID) 40 MEQ PO ×2 (07:38→13:04)
--- NOTE | 2019-06-21 07:43 | PM.PNGS ---
Progress Note: A&P Assessment and Plan (1) Pneumothorax on right: Code(s): J93.9 - Pneumothorax, unspecified Status: Acute Assessment and Plan: Chest tube in place and working well. Lung fully inflated on chest x-ray. Continue chest tube on water seal. Minimal pleural fluid draining now. (2) Acute and chronic respiratory failure: Code(s): J96.20 - Acute and chronic respiratory failure, unspecified whether with hypoxia or hypercapnia Status: Acute Assessment and Plan: Remains on mechanical ventilator. Subjective Subjective Date/Time Seen: 06/21/19 07:43 Remains on mechanical ventilator. Plans are to decrease FiO2 today. Chest tube was placed to water seal yesterday without change in oxygenation or ventilator settings. Chest x-ray this morning shows lung to be fully expanded as it has been. Review of Systems Review of Systems: ROS unobtainable: due to endotracheal tube Exam Const: General: other (Remains on mechanical ventilator, sleeping at present) Resp: Effort & Inspection: symmetric chest movement and other (Sedated on ventilator; chest tube in place minimal bloody pleural fluid ) Auscultation: crackles, rhonchi and diminished lung sounds on the right Cardio: Rate: regular rate Rhythm: regular rhythm GI: Inspection: non-distended Auscultation: normal bowel sounds Objective Data Vital Signs Vital Signs: Vital Signs - 24 hr 06/20/19 07:59 06/20/19 08:00 06/20/19 08:12 Temperature Pulse Rate 59 L 68 65 Respiratory Rate 19 18 19 Blood Pressure 159/73 H Pulse Oximetry 97 95 06/20/19 10:00 06/20/19 11:29 06/20/19 12:00 Temperature 37.5 C Pulse Rate 57 L 62 67 Respiratory Rate 16 14 Blood Pressure 151/57 H 146/66 H Pulse Oximetry 98 98 98 06/20/19 14:00 06/20/19 14:25 06/20/19 14:35 Temperature Pulse Rate 63 58 L 62 Respiratory Rate 21 H 18 18 Blood Pressure 144/56 H Pulse Oximetry 99 98 06/20/19 16:00 06/20/19 17:15 06/20/19 18:00 Temperature 37.0 C Pulse Rate 63 60 83 Respiratory Rate 16 20 Blood Pressure 151/58 H 97/84 L Pulse Oximetry 100 98 99 06/20/19 20:00 06/20/19 20:10 06/20/19 20:20 Temperature 37.3 C Pulse Rate 58 L 53 L 53 L Respiratory Rate 14 18 18 Blood Pressure 155/55 H Pulse Oximetry 100 98 06/20/19 22:00 06/20/19 23:18 06/21/19 00:00 Temperature 37.2 C 37.2 C Pulse Rate 56 L 55 L 57 L Respiratory Rate 18 18 Blood Pressure 142/57 H 152/61 H Pulse Oximetry 100 100 100 06/21/19 02:00 06/21/19 03:03 06/21/19 03:13 Temperature 37.2 C Pulse Rate 52 L 59 L 54 L Respiratory Rate 18 16 18 Blood Pressure 163/58 H Pulse Oximetry 100 100 06/21/19 04:00 06/21/19 04:46 06/21/19 06:00 Temperature 37.0 C 37.4 C Pulse Rate 51 L 55 L 55 L Respiratory Rate 16 14 Blood Pressure 141/52 H 177/57 H Pulse Oximetry 100 100 100 Intake/Output Intake/Output: Intake & Output 06/18/19 06/19/19 06/20/19 06/21/19 23:59 23:59 23:59 23:59 Intake Total 1815 1481 1413 595 Output Total 2193 9901 4295 1000 Balance -380 -779 -2882 -405 Meds/Results Medications: Active Medications Generic Name Dose Route Start Last Admin Trade Name Freq PRN Reason Stop Dose Admin Albuterol 2.5 mg 06/18/19 14:00 06/21/19 03:03 Albuterol Sulf Neb 2.5mg/0.5ml INHALATION 2.5 mg Q6HRT ANTONIA Administration Amlodipine Besylate 5 mg 06/20/19 09:00 06/20/19 09:00 Norvasc PO 5 mg QAM ANTONIA Administration Cyanocobalamin 500 mcg 06/21/19 09:00 Vitamin B-12 Tab PO 06/26/19 09:01 QAM ANTONIA Midazolam HCl 50 mg/ Dextrose 100 mls @ 4 mls/hr 06/17/19 22:45 06/21/19 06:00 IV CONT Infused .Q24H ANTONIA Titration Protocol 2 MG/HR Fentanyl Citrate 2,500 mcg/ 250 mls @ 2.5 mls/hr 06/18/19 03:50 06/21/19 06:00 Sodium Chloride IV CONT 50 mcg/hr .Q24H ANTONIA 5 mls/hr Titration Protocol 25 MCG/HR Ceftriaxone Sodium/Dextrose 1 gm in 50 mls @ 100 mls/hr
[2019-06-21] MEDS: PANTOPRAZOLE SODIUM IV 40 MG VIAL IV PUSH (08:50)
[2019-06-21] MEDS: AMLODIPINE BESYLATE 5 MG TABLET PO (08:50)
[2019-06-21] MEDS: SCOPOLAMINE 1.5 MG PATCH TRANSDERM (08:51)
--- NOTE | 2019-06-21 11:04 | PCDIET ---
Nutrition Follow-Up Complete: Nutrition Diagnosis: Inadequate oral intake related to oral intubation/mechanical ventilation as evidenced by NPO status. Nutrition Goal: Patient to meet estimated nutritional needs. Goal met. Patient tolerating Nepro @ 40ml/hr with residuals 10mL and below. Last recorded weight is 92.5 kg which is stable. I/O negative due to diuresis. MD ordering more Lasix today. Bowel Motility: Hard BM reported overnight. RN inquiring re: stool softener. Labs Reviewed: Glu (127), BUN (33), Cr (1.5), Na (149), Hgb (7.8), Hct (27.0) Meds Noted: Vitamin B12, Albuterol, Fentanyl, Versed, Protonix, KCl Additional Notes: No skin breakdown reported. Nutrition Monitoring and Evaluation: Follow up every Thursday/Thursday. Follow daily in ICU rounds.
--- NOTE | 2019-06-21 12:31 | PM.IMPN ---
Progress Note: A&P Assessment and Plan (1) Acute respiratory failure with hypoxia and hypercarbia: Code(s): J96.01 - Acute respiratory failure with hypoxia; J96.02 - Acute respiratory failure with hypercapnia Status: Acute Assessment and Plan: r/o acute CHF exacerbation/pneumonia/ pneumothorax. Admit to ICU. intubated with R sided chest tube in situ, dressing changed out , pt having ongoing blood tinged pleural fluid in chest tube. filter changed out o 06/19, continue pleural vac suctioning seen by Dr. Varela [facility], will monitor (2) UTI (urinary tract infection): Code(s): N39.0 - Urinary tract infection, site not specified Status: Acute Assessment and Plan: Urine culture is growing E coli sensitive to Rocephin, will continue (3) Encephalopathy acute: Code(s): G93.40 - Encephalopathy, unspecified Status: Acute Assessment and Plan: The patient's acute encephalopathy is likely secondary to her severe hypercapnia. We will monitor for improvement of mental status (4) Normocytic anemia: Code(s): D64.9 - Anemia, unspecified Status: Acute Assessment and Plan: No signs of acute blood loss. monitor H/H, transfuse prn. (5) Thrombocytopenia: Code(s): D69.6 - Thrombocytopenia, unspecified Status: Acute Assessment and Plan: Monitor platelets. Transfuse prn. (6) Acute renal failure: Code(s): N17.9 - Acute kidney failure, unspecified Status: Acute Assessment and Plan: creat is 1.5 todqy, most likely due to dehydyration as kidney function is improving with IV fluids, will continue to monitor , pt is on iv fluids (7) Hyperkalemia: Code(s): E87.5 - Hyperkalemia Status: Resolved Assessment and Plan: Continue to monitor BMP (8) Paroxysmal atrial fibrillation: Code(s): I48.0 - Paroxysmal atrial fibrillation Status: Acute Assessment and Plan: Rate controlled. (9) Pneumothorax on right: Code(s): J93.9 - Pneumothorax, unspecified Status: Acute Assessment and Plan: Pt has chest tube in r lung some trauma during placement, continue to watch Hb, Iv protonix ordered (10) Pneumonia: Code(s): J18.9 - Pneumonia, unspecified organism Status: Acute Assessment and Plan: Pt is on iv rocephin and zithromax, will continue to monitor. Additional Plan 15 minutes of critical care time with this patient tonight Subjective Interval history: Admitted on 06/17/2019 with acute respiratory failure, altered mental status, right pneumothorax status post right chest tube, CHF, pneumonia 06/22: patient seen examined this morning in the ICU, remains intubated, on ASV mode of ventilation FiO2 increased overnight to 60% due to desat Pt awake despite sedation, follows commands, Tries to speak, Afebrile TF at goal Review of Systems Review of Systems: ROS unobtainable: unobtainable due to mental condition Exam Const: General: acute distress moderate and respiratory, ill appearing chronically and obtunded Nutritional Appearance: obese morbidly obese Orientation/consciousness: No oriented to person, No oriented to place, No oriented to time and obtunded Other: on a vent HENMT: Head: normal to inspection General nose exam: external nose normal Face and sinus: normal facial exam Mouth: Yes oral mucosae normal and Yes oropharynx normal Eyes: Pupils: PERRL EOM: EOM intact bilaterally Neck: Neck: supple and no JVD Thyroid: thyroid normal Lymphatic: lymphadenopathy not noted Resp: Effort & Inspection: respiratory distress Auscultation: no vesicular sounds (in right lung ) and other (bloody dressing on right upper chest, bloody pleural fluid in chest tube ) Cardio: Rate: regular rate Rhythm: regular rhythm Heart sounds: no murmurs GI: Inspection: normal to inspection Auscultation: normal bowel sounds Skin: General skin exam: normal color and no rashes or
[2019-06-21] MEDS: FUROSEMIDE INJ 40 MG/4 ML VIAL IV PUSH (13:04)
[2019-06-21] MEDS: CYANOCOBALAMIN 500 MCG TABLET PO (13:09)
[2019-06-21] MEDS: MIDAZOLAM HCL 50 MG in DEXTROSE 5% 90 ML 6 MG IV CONT (16:18)
[2019-06-21 21:56] LABS: Vancomycin Trough 8.7 ug/mL (10.0-20.0)
[2019-06-22] VITALS (27 sets, daily range): BP systolic 130–168; BP diastolic 49–103; PULSE 54–79; RESP 14–27; TEMP 36.7–37.1; O2SAT 92–100
[2019-06-22] MEDS: IPRATROPIUM BR 0.02% INH SOLN 0.5 MG/2.5 ML VIAL INHALATION ×4 (01:39→20:10)
[2019-06-22] MEDS: ALBUTEROL SULFATE NEB 2.5 MG/0.5 ML INH INHALATION ×4 (01:39→20:09)
[2019-06-22 04:17] LABS: Alveolar/Arterial O2 Gradient 87.8 mmHg; Base Excess ABG 10.4 mEq/l (+/-2.0); Carboxyhemoglobin 0.4 % THb (0-2.0); Fractional Inspired Oxygen 30 %; HCO3 ABG 36.4 mEq/l (22.0-26.0); Methemoglobin ABG 0.3 %THb (0-1.5); Oxygen Content ABG 15.8 %vol (16.0-22.0); Oxygen Saturation ABG 91.9 % (95.0-100.0); Oxyhemoglobin 89.9 % THb (90.0-100.0); PCO2 ABG 54.9 mmHg (35.0-45.0); PO2 ABG 61.6 mmHg (80.0-100.0); PO2 FiO2 Ratio Arterial Blood 2.05 %; Reduced Hemoglobin 9.4 %THb (0-5.0); Total Hemoglobin 12.5 g/dL (12.0-18.0); pH ABG 7.439 (7.350-7.450)
[2019-06-22 04:18] LABS: Arterial Blood Gas PEEP 8 cmH2O; Arterial Blood Gas Vent Mode ASV; Device VENTILATOR; Modified Allen's Test Pass; Site Drawn LEFT RADIAL
[2019-06-22 05:31] LABS: Hematocrit 27.9 % (37.0-47.0); Hemoglobin 7.9 g/dL (12.0-15.0); Mean Corpuscular HGB Conc 28.3 g/dl (32-36); Mean Corpuscular Hemoglobin 25.6 pg (26-34); Mean Corpuscular Volume 90.3 fl (80-100); Mean Platelet Volume 10.6 fl (7.4-10.4); Platelet Count Result 186 k/mm3 (150-375); Red Blood Count 3.09 M/mm3 (4.2-5.4); Red Cell Distribution Width 18.2 % (11.5-14.5); White Blood Count 7.4 K/mm3 (4.5-10.0)
[2019-06-22 05:48] LABS: Blood Urea Nitrogen 33 mg/dL (7-17); Calcium 9.7 mg/dL (8.4-10.2); Carbon Dioxide 38 mmol/L (22-30); Chloride 107 mmol/L (98-107); Estimated Glomerular Filt Rate 37; Glucose 122 mg/dL (65-105); Magnesium 2.6 mg/dL (1.6-2.3); Phosphorus 3.5 mg/dL (2.5-4.5); Potassium 3.6 mmol/L (3.4-5.0); Sodium 151 mmol/L (137-145)
--- NOTE | 2019-06-22 07:12 | P.CDI_ITS ---
CDI Query Clarification Request Two queries: 1)Sodium 148 on 06/20, 149 on 06/21 and 151 on 06/22. Please clarify if there is a possible corresponding diagnosis for above findings. 2) Acute encephalopathy has been documented. Please further specify type of encephalopathy: * Metabolic * Toxic * Anoxic * Hepatic * Other * Unable to determine <Dina Schneider RN - Last Filed: 06/22/19 07:15>
--- NOTE | 2019-06-22 07:45 | WPDINTPN ---
Progress Note: A&P Assessment and Plan (1) Severe sepsis: Code(s): A41.9 - Sepsis, unspecified organism; R65.20 - Severe sepsis without septic shock Status: Acute Assessment and Plan: Patient presented with respiratory failure, hypertension, UTI - blood cultures are negative, urine cultures growing E coli susceptible to ceftriaxone, - continue ceftriaxone - blood pressures have been stable (2) Acute and chronic respiratory failure: Code(s): J96.20 - Acute and chronic respiratory failure, unspecified whether with hypoxia or hypercapnia Status: Acute Assessment and Plan: patient presented with shortness of breath, altered mental status, acute hypercapnic respiratory failure with initial pCO2 level of 128 on ABGs. patient was intubated, with improvement in pCO2 levels to 58 this morning - this could be related to COPD exacerbation, CHF, pneumonia and R PnTx as seen on chest x-ray - Continue bronchodilators - antibiotics as above. Added Azithro - on fentanyl and Versed infusion for sedation, daily sedation vacation - Continue PEEP @ 8 - On ASV to 100% - Will try PSV today - Continue lasix (3) Pneumothorax on right: Code(s): J93.9 - Pneumothorax, unspecified Status: Acute Assessment and Plan: right pneumothorax status post right chest tube with resolution of the pneumothorax - Continue to monitor - Surgery following the patient , chest tube to water seal. No air leak - Will avoid removing until pt extubated and off of PPV (4) Pneumonia: Code(s): J18.9 - Pneumonia, unspecified organism Status: Acute Assessment and Plan: chest x-ray with airspace opacities, likely pneumonia will continue antibiotics as above - blood and sputum cultures are negative (5) UTI (urinary tract infection): Code(s): N39.0 - Urinary tract infection, site not specified Status: Acute Assessment and Plan: urine analysis reflective of UTI, urine cultures growing E coli, On ceftriaxone (6) ELE (acute kidney injury): Code(s): N17.9 - Acute kidney failure, unspecified Status: Acute Assessment and Plan: patient with acute kidney injury most likely related to sepsis, UTI, acute respiratory failure - blood pressures have been stable, - continue maintenance IV fluids, urine output has been adequate - continue to monitor urine output, renal function electrolytes - creatinine improving (7) Paroxysmal atrial fibrillation: Code(s): I48.0 - Paroxysmal atrial fibrillation Status: Acute Assessment and Plan: patient with history of paroxysmal AFib, currently in sinus rhythm, rate controlled (8) COPD (chronic obstructive pulmonary disease): Code(s): J44.9 - Chronic obstructive pulmonary disease, unspecified Status: Acute Assessment and Plan: history of COPD, on 6 L nasal cannula at home - continue bronchodilators, and mechanical ventilation - no wheezing noted, off steroids (9) CHF (congestive heart failure): Code(s): I50.9 - Heart failure, unspecified Status: Acute Assessment and Plan: history of diastolic dysfunction - last echocardiogram was on 05/22/2018 which showed normal LV systolic function, grade 2 diastolic dysfunction, EF 65-70%. Mild pulmonary hypertension with RVSP of 35-40 mmHg. - Repeat echocardiogram reviewed (10) DVT prophylaxis: Code(s): Z29.9 - Encounter for prophylactic measures, unspecified Status: Acute Assessment and Plan: DVT prophylaxis: SCD, Heparin SC Stress ulcer prophylaxis; Protonix (11) Normocytic anemia: Code(s): D64.9 - Anemia, unspecified Status: Acute Assessment and Plan: patient dropped hemoglobin to 7.5 this morning from 9.5 on admission but noiw stable? Dilutional - No s/s of bleeding. Hemoccult negative - PPI q.12 hours -> Change to QD - looks like anemia of chron
[2019-06-22] MEDS: FUROSEMIDE INJ 40 MG/4 ML VIAL IV PUSH (08:22)
[2019-06-22] MEDS: POTASSIUM CHLORIDE 20 MEQ PACKET (FOR LIQUID) 40 MEQ PO (08:23)
[2019-06-22] MEDS: HEPARIN SODIUM 5,000 UNITS/ML VIAL 5000 UNITS SUB-Q ×2 (08:23→20:01)
[2019-06-22] MEDS: PANTOPRAZOLE SODIUM IV 40 MG VIAL IV PUSH (08:24)
[2019-06-22] MEDS: CYANOCOBALAMIN 500 MCG TABLET PO (08:24)
[2019-06-22] MEDS: AMLODIPINE BESYLATE 5 MG TABLET PO (08:24)
[2019-06-22] MEDS: ALBUMIN HUMAN 25% 25 GM/100 ML 100 ML IVPB (10:00)
--- NOTE | 2019-06-22 10:21 | PM.PNGS ---
Progress Note: A&P Assessment and Plan (1) Pneumothorax on right: Code(s): J93.9 - Pneumothorax, unspecified Status: Acute Assessment and Plan: Chest tube in place and working well. Lung fully inflated on chest x-ray. Continue chest tube on water seal. Minimal pleural fluid draining now. (2) Acute and chronic respiratory failure: Code(s): J96.20 - Acute and chronic respiratory failure, unspecified whether with hypoxia or hypercapnia Status: Acute Assessment and Plan: Remains on mechanical ventilator. Weaning and extubation per CCP. Subjective Subjective Date/Time Seen: 06/22/19 10:00 Interval history: Patient seen and examined. No changes overnight per the nurse. Attempting spontaneous breathing trial at this time per the nurse. Review of Systems Review of Systems: ROS unobtainable: due to endotracheal tube Exam Const: General: other (Remains on mechanical ventilator, sleeping at present) Nutritional Appearance: obese Chest: Chest palpation & inspection: other (Chest tube dressing on right chest - C/D/I. No crepitus.) Other: Chest tube with serosanguineous drainage in [place] drainage system. Resp: Auscultation: rhonchi throughout Cardio: Rate: regular rate Rhythm: regular rhythm Urinary Catheter: Urinary Catheter: patent and draining Neuro: Other: Limited d/t clinical condition. Arousable by name and makes eye contact but does not nod appropriately. Objective Data Vital Signs Vital Signs: Vital Signs - 24 hr 06/21/19 11:18 06/21/19 12:00 06/21/19 14:00 Temperature 37.2 C Pulse Rate 60 57 L 69 Respiratory Rate 15 14 Blood Pressure 153/64 H 145/63 H Pulse Oximetry 96 97 98 06/21/19 15:09 06/21/19 15:14 06/21/19 15:29 Temperature Pulse Rate 60 60 71 Respiratory Rate 14 19 Blood Pressure Pulse Oximetry 98 06/21/19 15:30 06/21/19 16:00 06/21/19 17:26 Temperature 36.9 C Pulse Rate 68 68 60 Respiratory Rate 15 Blood Pressure 126/61 Pulse Oximetry 94 100 100 06/21/19 18:00 06/21/19 19:38 06/21/19 19:46 Temperature Pulse Rate 54 L 56 L 56 L Respiratory Rate 15 13 Blood Pressure 165/60 H Pulse Oximetry 95 94 06/21/19 19:56 06/21/19 20:00 06/21/19 22:00 Temperature 37.0 C Pulse Rate 61 61 58 L Respiratory Rate 14 14 14 Blood Pressure 154/53 H 152/58 H Pulse Oximetry 100 94 06/21/19 23:40 06/22/19 00:00 06/22/19 01:41 Temperature 37.1 C Pulse Rate 60 59 L 64 Respiratory Rate 14 14 Blood Pressure 140/54 L Pulse Oximetry 94 94 06/22/19 01:42 06/22/19 01:51 06/22/19 02:00 Temperature Pulse Rate 64 65 63 Respiratory Rate 14 14 Blood Pressure 143/64 H Pulse Oximetry 94 94 06/22/19 04:00 06/22/19 05:00 06/22/19 06:00 Temperature 37.1 C Pulse Rate 64 64 66 Respiratory Rate 14 14 Blood Pressure 143/60 H 130/55 L Pulse Oximetry 93 92 94 06/22/19 08:00 06/22/19 08:10 06/22/19 08:17 Temperature 36.8 C Pulse Rate 54 L 65 61 Respiratory Rate 14 16 Blood Pressure 164/63 H Pulse Oximetry 94 98 06/22/19 08:21 Temperature Pulse Rate 62 Respiratory Rate 23 H Blood Pressure Pulse Oximetry Intake/Output Intake/Output: Intake & Output 06/19/19 06/20/19 06/21/19 06/22/19 23:59 23:59 23:59 23:59 Intake Total 1481 1413 1600 555 Output Total 2260 4295 2450 650 [facility] -779 -2882 -850 -95 Meds/Results Medications: Active Medications Generic Name Dose Route Start Last Admin Trade Name Freq PRN Reason Stop Dose Admin Albuterol 2.5 mg 06/18/19 14:00 06/22/19 08:08 Albuterol Sulf Neb 2.5mg/0.5ml INHALATION 2.5 mg Q6HRT ANTONIA Administration Amlodipine Besylate 5 mg 06/20/19 09:00 06/22/19 08:24 Norvasc PO 5 mg QAM ANTONIA Administration Cyanocobalamin 500 mcg 06/21/19 09:00 06/22/19 08:24 Vitamin B-12 Tab PO 06/26/19 09:01 500 mcg QAM ANTONIA Administration Docusate Sodium 100 mg 06/21/19 21:00 06/22/19 08:24 Colace Cap PO Not
--- NOTE | 2019-06-22 10:39 | PM.EVENT ---
Event Note Event Note: Tried PSV of 10/5. pt didnt do well. High RSBI and increased WOB. increased PSV to 20/5. Numbers improved. Will continue for few hours
--- NOTE | 2019-06-22 10:57 | PCDIET ---
ICU Rounding Note: Tube feedings on hold for SBT. Previously tolerating well at goal rate. Nutrition recommendation: Resume tube feedings if unable to extubate. Last recorded weight is 90.3kg which is decreased 2/2 diuresis. I/O negative. Bowel Motility: +BMs documented, liquid Labs Reviewed: Glu (122), BUN (37), Cr (1.7), Na (151) Meds Noted: Albumin, Lasix, Vitamin B12, Colace, Fentanyl, Versed Additional Notes: Skin intact. Colace held for loose stools. Following daily in ICU rounds. Assessing/reassessing every Thursday/Thursday.
[2019-06-22 14:14] LABS: IFOB Positive Control Positive; Immunochemical Fecal Occult Bl Negative (N)
[2019-06-22] MEDS: MIDAZOLAM HCL 50 MG in DEXTROSE 5% 90 ML IV CONT (16:35)
--- NOTE | 2019-06-22 16:43 | PM.IMPN ---
Progress Note: A&P Assessment and Plan (1) Acute respiratory failure with hypoxia and hypercarbia: Code(s): J96.01 - Acute respiratory failure with hypoxia; J96.02 - Acute respiratory failure with hypercapnia Status: Acute Assessment and Plan: possible acute CHF exacerbation/pneumonia/ pneumothorax. Admit to ICU. intubated with R sided chest tube in situ, dressing changed out , pt having ongoing blood tinged pleural fluid in chest tube. filter changed out o 06/19, continue pleural vac suctioning seen by surgery team CPM, will monitor (2) UTI (urinary tract infection): Code(s): N39.0 - Urinary tract infection, site not specified Status: Acute Assessment and Plan: Urine culture is growing E coli sensitive to Rocephin, will continue (3) Encephalopathy acute: Code(s): G93.40 - Encephalopathy, unspecified Status: Acute Assessment and Plan: The patient's acute encephalopathy is likely secondary to her severe hypercapnia. We will monitor for improvement of mental status (4) Normocytic anemia: Code(s): D64.9 - Anemia, unspecified Status: Acute Assessment and Plan: No signs of acute blood loss. monitor H/H, transfuse prn. (5) Thrombocytopenia: Code(s): D69.6 - Thrombocytopenia, unspecified Status: Acute Assessment and Plan: Monitor platelets. Transfuse prn. (6) Acute renal failure: Code(s): N17.9 - Acute kidney failure, unspecified Status: Acute Assessment and Plan: creat is 1.7 todqy, most likely due to dehydyration as kidney function is improving with IV fluids, will continue to monitor , pt is on iv fluids (7) Hyperkalemia: Code(s): E87.5 - Hyperkalemia Status: Resolved Assessment and Plan: Continue to monitor BMP (8) Paroxysmal atrial fibrillation: Code(s): I48.0 - Paroxysmal atrial fibrillation Status: Acute Assessment and Plan: Rate controlled. (9) Pneumothorax on right: Code(s): J93.9 - Pneumothorax, unspecified Status: Acute Assessment and Plan: Pt has chest tube in r lung some trauma during placement, chest tube on water seal and doing well as patient lungs inflated on chest x-ray. seen by surgery team, continue to watch Hb, Iv protonix ordered (10) Pneumonia: Code(s): J18.9 - Pneumonia, unspecified organism Status: Acute Assessment and Plan: Pt is on iv rocephin and zithromax, will continue to monitor. (11) Anoxic brain damage: Code(s): G93.1 - Anoxic brain damage, not elsewhere classified Status: Acute Assessment and Plan: Upon arrrival patient had severe hypercapneia most likely patient has anoxic brain injury resulting acute enchaphalopthy Additional Plan 15 minutes of critical care time with this patient tonight Subjective Interval history: Admitted on 06/17/2019 with acute respiratory failure, altered mental status, right pneumothorax status post right chest tube, CHF, pneumonia 06/23: patient seen examined this morning in the ICU, remains intubated, on ASV mode of ventilation FiO2 weaned down to 30%. PEEP is at 8 Pt awake despite sedation, follows commands, Tries to speak, Afebrile TF at goal Chest tube on water seal and lungs are inflated on x-ray seen by surgery team will continue to monitor. Review of Systems Review of Systems: ROS unobtainable: unobtainable due to mental condition Exam Const: General: acute distress moderate and respiratory, ill appearing chronically and obtunded Nutritional Appearance: obese morbidly obese Orientation/consciousness: No oriented to person, No oriented to place, No oriented to time and obtunded Other: on a vent HENMT: Head: normal to inspection General nose exam: external nose normal Face and sinus: normal facial exam Mouth: Yes oral mucosae normal and Yes oropharynx normal Eyes: Pupils: PERRL EOM: EOM intact bilaterally Neck: Neck:
[2019-06-22 17:16] LABS: Blood Urea Nitrogen 33 mg/dL (7-17); Carbon Dioxide 37 mmol/L (22-30); Chloride 107 mmol/L (98-107); Estimated Glomerular Filt Rate 40; Glucose 99 mg/dL (65-105); Potassium 3.7 mmol/L (3.4-5.0); Sodium 152 mmol/L (137-145)
[2019-06-23] VITALS (23 sets, daily range): BP systolic 98–182; BP diastolic 42–81; PULSE 59–86; RESP 15–32; TEMP 36.9–38.5; O2SAT 93–99
[2019-06-23 05:08] LABS: Hematocrit 29.4 % (37.0-47.0); Hemoglobin 8.4 g/dL (12.0-15.0); Mean Corpuscular HGB Conc 28.6 g/dl (32-36); Mean Corpuscular Hemoglobin 25.2 pg (26-34); Mean Corpuscular Volume 88.3 fl (80-100); Platelet Count Result 172 k/mm3 (150-375); Red Blood Count 3.33 M/mm3 (4.2-5.4); Red Cell Distribution Width 17.9 % (11.5-14.5); White Blood Count 7.3 K/mm3 (4.5-10.0)
[2019-06-23 05:23] LABS: Blood Urea Nitrogen 31 mg/dL (7-17); Carbon Dioxide 37 mmol/L (22-30); Chloride 109 mmol/L (98-107); Estimated Glomerular Filt Rate 35; Glucose 114 mg/dL (65-105); Magnesium 2.6 mg/dL (1.6-2.3); Phosphorus 3.7 mg/dL (2.5-4.5); Potassium 3.4 mmol/L (3.4-5.0); Sodium 152 mmol/L (137-145)
[2019-06-23 05:35] LABS: Alveolar/Arterial O2 Gradient 102.4 mmHg; Base Excess ABG 8.9 mEq/l (+/-2.0); Carboxyhemoglobin 0.4 % THb (0-2.0); Fractional Inspired Oxygen 30 %; Methemoglobin ABG 0.3 %THb (0-1.5); Oxygen Content ABG 11.5 %vol (16.0-22.0); Oxygen Saturation ABG 88.5 % (95.0-100.0); Oxyhemoglobin 85.5 % THb (90.0-100.0); PCO2 ABG 49.8 mmHg (35.0-45.0); PO2 FiO2 Ratio Arterial Blood 1.77 %; Reduced Hemoglobin 13.8 %THb (0-5.0); Total Hemoglobin 9.5 g/dL (12.0-18.0); pH ABG 7.452 (7.350-7.450)
[2019-06-23 05:36] LABS: Device VENTILATOR; Modified Allen's Test Pass; Site Drawn RIGHT RADIAL
[2019-06-23 05:37] LABS: Arterial Blood Gas PEEP 8 cmH2O; Arterial Blood Gas Vent Mode ASV
[2019-06-23] MEDS: ALBUTEROL SULFATE NEB 2.5 MG/0.5 ML INH INHALATION ×3 (07:50→19:30)
[2019-06-23] MEDS: IPRATROPIUM BR 0.02% INH SOLN 0.5 MG/2.5 ML VIAL INHALATION ×3 (07:50→19:30)
[2019-06-23] MEDS: MIDAZOLAM HCL 50 MG in DEXTROSE 5% 90 ML 6 MG IV CONT (07:56)
[2019-06-23] MEDS: PANTOPRAZOLE SODIUM IV 40 MG VIAL IV PUSH (08:05)
[2019-06-23] MEDS: CYANOCOBALAMIN 500 MCG TABLET PO (08:05)
[2019-06-23] MEDS: AMLODIPINE BESYLATE 5 MG TABLET PO (08:05)
[2019-06-23] MEDS: HEPARIN SODIUM 5,000 UNITS/ML VIAL 5000 UNITS SUB-Q ×2 (08:06→20:46)
--- NOTE | 2019-06-23 08:12 | WPDINTPN ---
Progress Note: A&P Assessment and Plan (1) Severe sepsis: Code(s): A41.9 - Sepsis, unspecified organism; R65.20 - Severe sepsis without septic shock Status: Acute Assessment and Plan: Patient presented with respiratory failure, hypertension, UTI - blood cultures are negative, urine cultures growing E coli susceptible to ceftriaxone, - continue ceftriaxone - blood pressures have been stable (2) Acute and chronic respiratory failure: Code(s): J96.20 - Acute and chronic respiratory failure, unspecified whether with hypoxia or hypercapnia Status: Acute Assessment and Plan: patient presented with shortness of breath, altered mental status, acute hypercapnic respiratory failure with initial pCO2 level of 128 on ABGs. patient was intubated, with improvement in pCO2 levels to 58 this morning - this could be related to COPD exacerbation, CHF, pneumonia and Rt PTX as seen on chest x-ray - Continue bronchodilators - Continue Ceftriaxone and Azithromycin - Versed infusion for sedation, daily sedation vacation - Continue PEEP @ 8 - On ASV to 100% - Will try PSV again today - hold Lasix as patient becoming hypernatremic, (3) Pneumothorax on right: Code(s): J93.9 - Pneumothorax, unspecified Status: Acute Assessment and Plan: right pneumothorax status post right chest tube with resolution of the pneumothorax - Continue to monitor - Surgery following the patient , chest tube to water seal. No air leak - Will avoid removing until pt extubated and off of PPV (4) Pneumonia: Code(s): J18.9 - Pneumonia, unspecified organism Status: Acute Assessment and Plan: chest x-ray with airspace opacities, likely pneumonia will continue antibiotics as above - blood and sputum cultures are negative (5) UTI (urinary tract infection): Code(s): N39.0 - Urinary tract infection, site not specified Status: Acute Assessment and Plan: urine analysis reflective of UTI, urine cultures growing E coli, On ceftriaxone (6) ELE (acute kidney injury): Code(s): N17.9 - Acute kidney failure, unspecified Status: Acute Assessment and Plan: patient with acute kidney injury most likely related to sepsis, UTI, acute respiratory failure - blood pressures have been stable, - continue maintenance IV fluids, urine output has been adequate - continue to monitor urine output, renal function electrolytes - creatinine improving (7) Paroxysmal atrial fibrillation: Code(s): I48.0 - Paroxysmal atrial fibrillation Status: Acute Assessment and Plan: patient with history of paroxysmal AFib, currently in sinus rhythm, rate controlled (8) COPD (chronic obstructive pulmonary disease): Code(s): J44.9 - Chronic obstructive pulmonary disease, unspecified Status: Acute Assessment and Plan: history of COPD, on 6 L nasal cannula at home - continue bronchodilators, and mechanical ventilation - no wheezing noted, off steroids (9) CHF (congestive heart failure): Code(s): I50.9 - Heart failure, unspecified Status: Acute Assessment and Plan: history of diastolic dysfunction - last echocardiogram was on 05/22/2018 which showed normal LV systolic function, grade 2 diastolic dysfunction, EF 65-70%. Mild pulmonary hypertension with RVSP of 35-40 mmHg. - Repeat echocardiogram reviewed (10) Normocytic anemia: Code(s): D64.9 - Anemia, unspecified Status: Acute Assessment and Plan: patient dropped hemoglobin to 7.5 this morning from 9.5 on admission but noiw stable? Dilutional - No s/s of bleeding. Hemoccult negative - PPI q.12 hours -> Change to QD - looks like anemia of chronic disease on iron panel, vitamin B12 low - On supplemental vitamin B12 (11) Hypokalemia: Code(s): E87.6 - Hypokalemia Status: Acute Assessment and Plan: Replace (12) D
--- NOTE | 2019-06-23 10:22 | PCDIET ---
ICU Rounding Note: Patient receiving Nepro @ 40mL/hr and tolerating well without significant residuals. Nutrition recommendation: Continue present tube feeding. Last recorded weight is 89.2kg which is decreased 2/2 diuresis. Bowel Motility: +BMs. Colace on hold for loose stools. Labs Reviewed: Glu (114), BUN (31), Cr (1.8), Na (152), Cl (109) Meds Noted: Rocephin, Vitamin B12, Versed, Protonix, KCl Additional Notes: Mohini held; to increase water flush. Following daily in ICU rounds. Assessing/reassessing every Thursday/Thursday.
--- NOTE | 2019-06-23 17:19 | PM.IMPN ---
Progress Note: A&P Assessment and Plan (1) Acute respiratory failure with hypoxia and hypercarbia: Code(s): J96.01 - Acute respiratory failure with hypoxia; J96.02 - Acute respiratory failure with hypercapnia Status: Acute Assessment and Plan: possible acute CHF exacerbation/pneumonia/ pneumothorax. Admit to ICU. intubated with R sided chest tube in situ, dressing changed out , pt having ongoing blood tinged pleural fluid in chest tube. filter changed out o 06/19, continue pleural vac suctioning seen by surgery team CPM, will monitor (2) UTI (urinary tract infection): Code(s): N39.0 - Urinary tract infection, site not specified Status: Acute Assessment and Plan: Urine culture is growing E coli sensitive to Rocephin, will continue (3) Encephalopathy acute: Code(s): G93.40 - Encephalopathy, unspecified Status: Acute Assessment and Plan: The patient's acute encephalopathy is likely secondary to her severe hypercapnia. We will monitor for improvement of mental status (4) Normocytic anemia: Code(s): D64.9 - Anemia, unspecified Status: Acute Assessment and Plan: No signs of acute blood loss. monitor H/H, transfuse prn. (5) Thrombocytopenia: Code(s): D69.6 - Thrombocytopenia, unspecified Status: Acute Assessment and Plan: Monitor platelets. Transfuse prn. (6) Acute renal failure: Code(s): N17.9 - Acute kidney failure, unspecified Status: Acute Assessment and Plan: creat is 1.7 todqy, most likely due to dehydyration as kidney function is improving with IV fluids, will continue to monitor , pt is on iv fluids (7) Hyperkalemia: Code(s): E87.5 - Hyperkalemia Status: Resolved Assessment and Plan: Continue to monitor BMP (8) Paroxysmal atrial fibrillation: Code(s): I48.0 - Paroxysmal atrial fibrillation Status: Acute Assessment and Plan: Rate controlled. (9) Pneumothorax on right: Code(s): J93.9 - Pneumothorax, unspecified Status: Acute Assessment and Plan: Pt has chest tube in r lung some trauma during placement, chest tube on water seal and doing well as patient lungs inflated on chest x-ray. seen by surgery team, continue to watch Hb, Iv protonix ordered (10) Pneumonia: Code(s): J18.9 - Pneumonia, unspecified organism Status: Acute Assessment and Plan: Pt is on iv rocephin and zithromax, will continue to monitor. (11) Anoxic brain damage: Code(s): G93.1 - Anoxic brain damage, not elsewhere classified Status: Acute Assessment and Plan: Upon arrrival patient had severe hypercapneia most likely patient has anoxic brain injury resulting acute enchaphalopthy Additional Plan 15 minutes of critical care time with this patient tonight Subjective Interval history: Admitted on 06/17/2019 with acute respiratory failure, intubated on 06/17/2019, altered mental status, right pneumothorax status post right chest tube, CHF, pneumonia 06/23: patient seen examined this morning in the ICU, remains intubated, on ASV mode of ventilation FiO2 weaned down to 30%. 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 Review of Systems Review of Systems: ROS unobtainable: unobtainable due to mental condition Exam Const: General: acute distress moderate and respiratory, ill appearing chronically and obtunded Nutritional Appearance: obese morbidly obese Orientation/consciousness: No oriented to person, No oriented to place, No oriented to time and obtunded Other: on a vent HENMT: Head: normal to inspection General nose exam: external nose normal Face and sinus: normal facial exam Mouth: Yes oral mucosae normal and Yes oropharynx normal Eyes:
[2019-06-24] VITALS (26 sets, daily range): BP systolic 108–183; BP diastolic 52–84; PULSE 47–74; RESP 10–26; TEMP 36.5–37.4; O2SAT 19–100
[2019-06-24] MEDS: MIDAZOLAM HCL 50 MG in DEXTROSE 5% 90 ML 6 MG IV CONT ×2 (00:34→17:04)
[2019-06-24] MEDS: ALBUTEROL SULFATE NEB 2.5 MG/0.5 ML INH INHALATION ×4 (02:09→20:01)
[2019-06-24] MEDS: IPRATROPIUM BR 0.02% INH SOLN 0.5 MG/2.5 ML VIAL INHALATION ×4 (02:09→20:01)
[2019-06-24 04:21] LABS: Base Excess ABG 6.3 mEq/l (+/-2.0); PCO2 ABG 51.6 mmHg (35.0-45.0); PO2 ABG 91.8 mmHg (80.0-100.0); Total Hemoglobin 10.6 g/dL (12.0-18.0)
[2019-06-24 04:22] LABS: Alveolar/Arterial O2 Gradient 134.1 mmHg
[2019-06-24 04:26] LABS: Fractional Inspired Oxygen 40 %
[2019-06-24 04:27] LABS: Carboxyhemoglobin 0.3 % THb (0-2.0); Device VENTILATOR; Methemoglobin ABG 0.3 %THb (0-1.5); Modified Allen's Test Pass; Oxyhemoglobin 94.9 % THb (90.0-100.0); Reduced Hemoglobin 4.5 %THb (0-5.0); Site Drawn RIGHT RADIAL
[2019-06-24 04:28] LABS: Oxygen Content ABG 14.3 %vol (16.0-22.0)
[2019-06-24 04:29] LABS: Arterial Blood Gas PEEP 8 cmH2O; Arterial Blood Gas Vent Mode ASV
[2019-06-24 04:30] LABS: Arterial Blood Gas Minute Volume 100 LPM
[2019-06-24] MEDS: AMLODIPINE BESYLATE 5 MG TABLET PO (08:15)
[2019-06-24] MEDS: DOCUSATE SODIUM 100 MG CAPSULE PO (08:16)
[2019-06-24] MEDS: CYANOCOBALAMIN 500 MCG TABLET PO (08:16)
[2019-06-24] MEDS: HEPARIN SODIUM 5,000 UNITS/ML VIAL 5000 UNITS SUB-Q ×2 (08:16→21:30)
[2019-06-24] MEDS: PANTOPRAZOLE SODIUM IV 40 MG VIAL IV PUSH (08:17)
[2019-06-24] MEDS: SCOPOLAMINE 1.5 MG PATCH TRANSDERM (08:17)
--- NOTE | 2019-06-24 09:45 | P.PNINT_ITS ---
Progress Note: A&P Assessment and Plan (1) Severe sepsis: Code(s): A41.9 - Sepsis, unspecified organism; R65.20 - Severe sepsis without septic shock Status: Acute Assessment and Plan: Patient presented with respiratory failure, hypertension, UTI - blood cultures are negative, urine cultures growing E coli susceptible to ceftriaxone, - continue ceftriaxone - blood pressures have been stable (2) Acute and chronic respiratory failure: Code(s): J96.20 - Acute and chronic respiratory failure, unspecified whether with hypoxia or hypercapnia Status: Acute Assessment and Plan: patient presented with shortness of breath, altered mental status, acute hypercapnic respiratory failure with initial pCO2 level of 128 on ABGs. patient was intubated, with improvement in pCO2 levels to 58 this morning - this could be related to COPD exacerbation, CHF, pneumonia and Rt PTX as seen on chest x-ray - Continue bronchodilators - Continue Ceftriaxone and Azithromycin - Versed infusion for sedation, daily sedation vacation - Continue PEEP @ 8 - On ASV to 100% - Will try PSV again today - hold Lasix as patient is hypernatremic, (3) Pneumothorax on right: Code(s): J93.9 - Pneumothorax, unspecified Status: Acute Assessment and Plan: right pneumothorax status post right chest tube with resolution of the pneumothorax - Continue to monitor - Surgery following the patient , chest tube to water seal. No air leak - Will avoid removing until pt extubated and off of PPV (4) Pneumonia: Code(s): J18.9 - Pneumonia, unspecified organism Status: Acute Assessment and Plan: chest x-ray with airspace opacities, likely pneumonia will continue antibiotics as above - blood and sputum cultures are negative (5) UTI (urinary tract infection): Code(s): N39.0 - Urinary tract infection, site not specified Status: Acute Assessment and Plan: urine analysis reflective of UTI, urine cultures growing E coli, On ceftriaxone (6) ELE (acute kidney injury): Code(s): N17.9 - Acute kidney failure, unspecified Status: Acute Assessment and Plan: patient with acute kidney injury most likely related to sepsis, UTI, acute respiratory failure - blood pressures have been stable, - continue maintenance IV fluids, urine output has been adequate - continue to monitor urine output, renal function electrolytes - creatinine improving (7) Paroxysmal atrial fibrillation: Code(s): I48.0 - Paroxysmal atrial fibrillation Status: Acute Assessment and Plan: patient with history of paroxysmal AFib, currently in sinus rhythm, rate controlled (8) COPD (chronic obstructive pulmonary disease): Code(s): J44.9 - Chronic obstructive pulmonary disease, unspecified Status: Acute Assessment and Plan: history of COPD, on 6 L nasal cannula at home - continue bronchodilators, and mechanical ventilation - no wheezing noted, off steroids (9) CHF (congestive heart failure): Code(s): I50.9 - Heart failure, unspecified Status: Acute Assessment and Plan: history of diastolic dysfunction - last echocardiogram was on 05/22/2018 which showed normal LV systolic function, grade 2 diastolic dysfunction, EF 65-70%. Mild pulmonary hypertension with RVSP of 35-40 mmHg. - Repeat echocardiogram reviewed (10) Normocytic anemia: Code(s): D64.9 - Anemia, unspecified Status: Acute Assessment and Plan: patient dropped
--- NOTE | 2019-06-24 11:54 | PCDIET ---
Nutrition Follow-Up Complete: Nutrition Diagnosis: Inadequate oral intake related to oral intubation/mechanical ventilation as evidenced by NPO status. Nutrition Goal: Patient to meet estimated nutritional needs. Goal met. Patient tolerating tube feedings at goal rate with no documented residuals. Discussed with Dr. Porras change in formula due to increased fluid and electrolyte replacement. Verbal order for change to lower sodium formula provided. Last recorded weight is 89 kg which is stable. Bowel Motility: +BM today Labs Reviewed: No new BMP at this time. Meds Noted: Vitamin B12, Miralax, KCl, Colace, Fentanyl, Versed, Protonix Additional Notes: No documented pressure sores. Osmolite 1 kari at goal rate of 60mL/hr x 22 hours/day will provide 1399kcal, 58g protein and 1111mL free water. Nutrition Monitoring and Evaluation: Follow up every Thursday/Thursday. Follow daily in ICU rounds.
--- NOTE | 2019-06-24 15:17 | PM.IMPN ---
Progress Note: A&P Assessment and Plan (1) Acute respiratory failure with hypoxia and hypercarbia: Code(s): J96.01 - Acute respiratory failure with hypoxia; J96.02 - Acute respiratory failure with hypercapnia Status: Acute Assessment and Plan: possible acute CHF exacerbation/pneumonia/ pneumothorax. Admit to ICU. intubated with R sided chest tube in situ, dressing changed out , pt having ongoing blood tinged pleural fluid in chest tube. filter changed out o 06/19, continue pleural vac suctioning seen by surgery team CPM, will monitor (2) UTI (urinary tract infection): Code(s): N39.0 - Urinary tract infection, site not specified Status: Acute Assessment and Plan: Urine culture is growing E coli sensitive to Rocephin, will continue (3) Encephalopathy acute: Code(s): G93.40 - Encephalopathy, unspecified Status: Acute Assessment and Plan: The patient's acute encephalopathy is likely secondary to her severe hypercapnia. We will monitor for improvement of mental status (4) Normocytic anemia: Code(s): D64.9 - Anemia, unspecified Status: Acute Assessment and Plan: No signs of acute blood loss. monitor H/H, transfuse prn. (5) Thrombocytopenia: Code(s): D69.6 - Thrombocytopenia, unspecified Status: Acute Assessment and Plan: Monitor platelets. Transfuse prn. (6) Acute renal failure: Code(s): N17.9 - Acute kidney failure, unspecified Status: Acute Assessment and Plan: creat is 1.7 todqy, most likely due to dehydyration as kidney function is improving with IV fluids, will continue to monitor , pt is on iv fluids (7) Hyperkalemia: Code(s): E87.5 - Hyperkalemia Status: Resolved Assessment and Plan: Continue to monitor BMP (8) Paroxysmal atrial fibrillation: Code(s): I48.0 - Paroxysmal atrial fibrillation Status: Acute Assessment and Plan: Rate controlled. (9) Pneumothorax on right: Code(s): J93.9 - Pneumothorax, unspecified Status: Acute Assessment and Plan: Pt has chest tube in r lung some trauma during placement, chest tube on water seal and doing well as patient lungs inflated on chest x-ray. seen by surgery team, continue to watch Hb, Iv protonix ordered (10) Pneumonia: Code(s): J18.9 - Pneumonia, unspecified organism Status: Acute Assessment and Plan: Pt is on iv rocephin and zithromax, will continue to monitor. (11) Anoxic brain damage: Code(s): G93.1 - Anoxic brain damage, not elsewhere classified Status: Acute Assessment and Plan: Upon arrrival patient had severe hypercapneia most likely patient has anoxic brain injury resulting acute enchaphalopthy Additional Plan 15 minutes of critical care time with this patient tonight Subjective Interval history: Admitted on 06/17/2019 with acute respiratory failure, intubated on 06/17/2019, altered mental status, right pneumothorax status post right chest tube, CHF, pneumonia 06/24: patient seen examined this morning in the ICU, remains intubated, on ASV mode of ventilation, FiO2 40% and peep of 8. patient is on Versed 3 mg/hr infusion for sedation, is awake and follows simple commands in all extremities. Afebrile, TF at goal and tolerating. 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
[2019-06-25] VITALS (25 sets, daily range): BP systolic 74–156; BP diastolic 54–88; PULSE 64–111; RESP 13–29; TEMP 37.1–37.6; O2SAT 27–100
[2019-06-25] MEDS: ALBUTEROL SULFATE NEB 2.5 MG/0.5 ML INH INHALATION ×3 (01:49→14:40)
[2019-06-25] MEDS: IPRATROPIUM BR 0.02% INH SOLN 0.5 MG/2.5 ML VIAL INHALATION ×3 (01:49→14:40)
[2019-06-25 04:58] LABS: Alveolar/Arterial O2 Gradient 133.9 mmHg; Base Excess ABG 3.3 mEq/l (+/-2.0); Carboxyhemoglobin 0.3 % THb (0-2.0); Fractional Inspired Oxygen 40 %; HCO3 ABG 27.6 mEq/l (22.0-26.0); Methemoglobin ABG 0.4 %THb (0-1.5); Oxygen Content ABG 12.8 %vol (16.0-22.0); Oxyhemoglobin 96.2 % THb (90.0-100.0); PCO2 ABG 40.8 mmHg (35.0-45.0); PO2 ABG 104.4 mmHg (80.0-100.0); PO2 FiO2 Ratio Arterial Blood 2.61 %; Reduced Hemoglobin 3.1 %THb (0-5.0); Total Hemoglobin 9.3 g/dL (12.0-18.0); pH ABG 7.448 (7.350-7.450)
[2019-06-25 05:00] LABS: Arterial Blood Gas Vent Mode ASV; Arterial Blood Gas Ventilator rate 21 /MIN; Device VENTILATOR; Modified Allen's Test Pass; Site Drawn LEFT RADIAL
[2019-06-25 05:01] LABS: Arterial Blood Gas Minute Volume 5 LPM; Arterial Blood Gas PEEP 8 cmH2O; Arterial Blood Gas Tidal Volume 260 ml
[2019-06-25 05:48] LABS: Basophils Percent Auto 0.1 % (0.2-1.2); Eosinophils Absolute Auto 0.7 K/mm3 (0-0.3); Eosinophils Percent Auto 8.7 % (0-4.4); Hematocrit 29.1 % (37.0-47.0); Hemoglobin 8.1 g/dL (12.0-15.0); Immature Granulocyte Absolute 0.03 K/mm3 (0.00-0.031); Immature Granulocyte Percent A 0.4 % (0-0.5); Lymphocytes Absolute Auto 1.54 K/mm3 (0.9-3.2); Lymphocytes Percent Auto 20.1 % (18.3-44.2); Mean Corpuscular HGB Conc 27.8 g/dl (32-36); Mean Corpuscular Hemoglobin 25.1 pg (26-34); Mean Corpuscular Volume 90.1 fl (80-100); Mean Platelet Volume 10.8 fl (7.4-10.4); Monocytes Absolute Auto 0.5 K/mm3 (0.1-0.6); Monocytes Percent Auto 6.5 % (2.6-8.5); Neutrophils Absolute Auto 4.9 K/mm3 (1.3-6.7); Neutrophils Percent Auto 64.2 % (45.5-73.1); Platelet Count Result 215 k/mm3 (150-375); Red Blood Count 3.23 M/mm3 (4.2-5.4); Red Cell Distribution Width 17.7 % (11.5-14.5); White Blood Count 7.7 K/mm3 (4.5-10.0)
[2019-06-25 06:00] LABS: Lactic Acid 0.8 mmol/L (0.7-2.1)
[2019-06-25 06:55] LABS: Alanine Aminotransferase 20 U/L (4-35); Albumin Level 3.8 g/dL (3.5-5.1); Alkaline Phosphatase 95 U/L (38-126); Aspartate Amino Transferase 29 U/L (14-36); Bilirubin,Total 0.3 mg/dL (0.2-1.3); Blood Urea Nitrogen 32 mg/dL (7-17); CRP 4.3 mg/dL (<1.0); Calcium 9.8 mg/dL (8.4-10.2); Carbon Dioxide 34 mmol/L (22-30); Chloride 105 mmol/L (98-107); Estimated Glomerular Filt Rate 35; Glucose 107 mg/dL (65-105); Magnesium 2.8 mg/dL (1.6-2.3); Potassium 3.8 mmol/L (3.4-5.0); Sodium 148 mmol/L (137-145)
[2019-06-25] MEDS: PANTOPRAZOLE SODIUM IV 40 MG VIAL IV PUSH (08:47)
[2019-06-25] MEDS: HEPARIN SODIUM 5,000 UNITS/ML VIAL 5000 UNITS SUB-Q (08:47)
[2019-06-25] MEDS: AMLODIPINE BESYLATE 5 MG TABLET PO (08:47)
[2019-06-25] MEDS: CYANOCOBALAMIN 500 MCG TABLET PO (08:47)
[2019-06-25] MEDS: MIDAZOLAM HCL 50 MG in DEXTROSE 5% 90 ML 6 MG IV CONT (09:44)
--- NOTE | 2019-06-25 13:11 | WPDINTPN ---
Progress Note: A&P Assessment and Plan (1) Severe sepsis: Code(s): A41.9 - Sepsis, unspecified organism; R65.20 - Severe sepsis without septic shock Status: Acute Assessment and Plan: Patient presented with respiratory failure, hypertension, UTI - blood cultures are negative, urine cultures growing E coli susceptible to ceftriaxone, - continue ceftriaxone - blood pressures have been stable (2) Acute and chronic respiratory failure: Code(s): J96.20 - Acute and chronic respiratory failure, unspecified whether with hypoxia or hypercapnia Status: Acute Assessment and Plan: patient presented with shortness of breath, altered mental status, acute hypercapnic respiratory failure with initial pCO2 level of 128 on ABGs. patient was intubated, with improvement in pCO2 levels to 58 this morning - this could be related to COPD exacerbation, CHF, pneumonia and Rt PTX as seen on chest x-ray - Continue bronchodilators - Continue Ceftriaxone and Azithromycin - Versed infusion for sedation, daily sedation vacation - failure to wean, patient has been placed on SBT for the last 4 days, cannot tolerate SBT. Patient will require tracheostomy and PEG tube. POA has been updated, - On ASV to 100% - hold Lasix as patient is hypernatremic, (3) Pneumothorax on right: Code(s): J93.9 - Pneumothorax, unspecified Status: Acute Assessment and Plan: right pneumothorax status post right chest tube with resolution of the pneumothorax - Continue to monitor - Surgery following the patient , chest tube to water seal. No air leak - Will avoid removing until pt extubated and off of PPV (4) Pneumonia: Code(s): J18.9 - Pneumonia, unspecified organism Status: Acute Assessment and Plan: chest x-ray with airspace opacities, likely pneumonia will continue antibiotics as above - blood and sputum cultures are negative (5) UTI (urinary tract infection): Code(s): N39.0 - Urinary tract infection, site not specified Status: Acute Assessment and Plan: urine analysis reflective of UTI, urine cultures growing E coli, On ceftriaxone (6) ELE (acute kidney injury): Code(s): N17.9 - Acute kidney failure, unspecified Status: Acute Assessment and Plan: patient with acute kidney injury most likely related to sepsis, UTI, acute respiratory failure - blood pressures have been stable, - continue maintenance IV fluids, urine output has been adequate - continue to monitor urine output, renal function electrolytes - creatinine stable (7) Paroxysmal atrial fibrillation: Code(s): I48.0 - Paroxysmal atrial fibrillation Status: Acute Assessment and Plan: patient with history of paroxysmal AFib, currently in sinus rhythm, rate controlled (8) COPD (chronic obstructive pulmonary disease): Code(s): J44.9 - Chronic obstructive pulmonary disease, unspecified Status: Acute Assessment and Plan: history of COPD, on 6 L nasal cannula at home - continue bronchodilators, and mechanical ventilation - no wheezing noted, off steroids (9) CHF (congestive heart failure): Code(s): I50.9 - Heart failure, unspecified Status: Acute Assessment and Plan: history of diastolic dysfunction - last echocardiogram was on 05/22/2018 which showed normal LV systolic function, grade 2 diastolic dysfunction, EF 65-70%. Mild pulmonary hypertension with RVSP of 35-40 mmHg. - Repeat echocardiogram reviewed (10) Normocytic anemia: Code(s): D64.9 - Anemia, unspecified Status: Acute Assessment and Plan: patient dropped hemoglobin to 7.5 this morning from 9.5 on admission but noiw stable? Dilutional - No s/s of bleeding. Hemoccult negative - PPI daily - looks like anemia of chronic disease on iron panel, vitamin B12 low - On supplemental vitamin B12 - HEMOGLOBIN HAS BEEN STABLE (11
--- NOTE | 2019-06-25 17:03 | PC.NURSE ---
Spoke with Melida, pts POMaria Eugenia, several times this afternoon regarding the patients goals of care regarding her respiratory failure and poor prognosis. Melida was also contacted by Md Porras and Otr Driver Gisel today as well. Melida called back this evening and spoke to this RN over Vocera and voiced her wish to withdraw the ventilator and proceed with comfort measures. BETZY Gutierres and MD Porras were on Vocera in the room at this time and also heard Melida verbalize this decision. Orders were received from MD Porras to extubate patient, initiate DNR status and comfort measures including medication administration. acoustic engineerBETZY Hinojosa and Coater Pallavi Brito aware of plan of care.
--- NOTE | 2019-06-25 17:07 | PM.IMPN ---
Progress Note: A&P Assessment and Plan (1) Acute respiratory failure with hypoxia and hypercarbia: Code(s): J96.01 - Acute respiratory failure with hypoxia; J96.02 - Acute respiratory failure with hypercapnia Status: Acute Assessment and Plan: possible acute CHF exacerbation/pneumonia/ pneumothorax. Admit to ICU. intubated with R sided chest tube in situ, dressing changed out , pt having ongoing blood tinged pleural fluid in chest tube. filter changed out o 06/19, continue pleural vac suctioning seen by surgery team CPM, will monitor (2) UTI (urinary tract infection): Code(s): N39.0 - Urinary tract infection, site not specified Status: Acute Assessment and Plan: Urine culture is growing E coli sensitive to Rocephin, will continue (3) Encephalopathy acute: Code(s): G93.40 - Encephalopathy, unspecified Status: Acute Assessment and Plan: The patient's acute encephalopathy is likely secondary to her severe hypercapnia. We will monitor for improvement of mental status (4) Normocytic anemia: Code(s): D64.9 - Anemia, unspecified Status: Acute Assessment and Plan: No signs of acute blood loss. monitor H/H, transfuse prn. (5) Thrombocytopenia: Code(s): D69.6 - Thrombocytopenia, unspecified Status: Acute Assessment and Plan: Monitor platelets. Transfuse prn. (6) Acute renal failure: Code(s): N17.9 - Acute kidney failure, unspecified Status: Acute Assessment and Plan: creat is 1.7 todqy, most likely due to dehydyration as kidney function is improving with IV fluids, will continue to monitor , pt is on iv fluids (7) Hyperkalemia: Code(s): E87.5 - Hyperkalemia Status: Resolved Assessment and Plan: Continue to monitor BMP (8) Paroxysmal atrial fibrillation: Code(s): I48.0 - Paroxysmal atrial fibrillation Status: Acute Assessment and Plan: Rate controlled. (9) Pneumothorax on right: Code(s): J93.9 - Pneumothorax, unspecified Status: Acute Assessment and Plan: Pt has chest tube in r lung some trauma during placement, chest tube on water seal and doing well as patient lungs inflated on chest x-ray. seen by surgery team, continue to watch Hb, Iv protonix ordered (10) Pneumonia: Code(s): J18.9 - Pneumonia, unspecified organism Status: Acute Assessment and Plan: Pt is on iv rocephin and zithromax, will continue to monitor. (11) Anoxic brain damage: Code(s): G93.1 - Anoxic brain damage, not elsewhere classified Status: Acute Assessment and Plan: Upon arrrival patient had severe hypercapneia most likely patient has anoxic brain injury resulting acute enchaphalopthy Subjective Interval history: Admitted on 06/17/2019 with acute respiratory failure, intubated on 06/17/2019, altered mental status, right pneumothorax status post right chest tube, CHF, pneumonia 06/25: patient seen examined this morning in the ICU, remains intubated, on ASV mode of ventilation, FiO2 40% and peep of 8. patient is on Versed 3 mg/hr infusion for sedation, is awake and follows simple commands in all extremities. Afebrile, TF at goal and tolerating. urine output has been low, sodium has improved, machine inker is recommending PEG and trach as patient is not been able to wean off the vent however patient POA lives in [place] and financially unable to come to visit her mother to all for the procedures, Review of Systems Review of Systems: ROS unobtainable: unobtainable due to mental condition Exam Const: General: acute distress moderate and respiratory, ill appearing chronically and obtunded Nutritional Appearance: obese morbidly obese Orientation/consciousness: No oriented to person, No oriented to place, No oriented to time and obtunded Other: on a vent HENMT: Head: normal to inspection General nose exam: external nose normal Face
[2019-06-25] MEDS: LORAZEPAM INJ 2 MG/ML VIAL IV PUSH (17:31)
--- NOTE | 2019-06-25 22:33 | PC.NURSE ---
2229: Spoke with Melida Scott for the second time this shift. The initial conversation was around 1999 on 06/25/19. Melida called to check in on this patient. I explained that the patient was resting comfortably but that her oxygen saturation was low although she appeared to be in no apparent distress. Melida inquired as to why this patient was not on a BIPAP at this time. I asked her if she recalled having a conversation with the Manager Wastewater and the day shift nurse (BETZY Arroyo) regarding this patients plan of care and the refusal to proceed with placement of trach. She stated yes and was educated for 20 minutes on the patients health and plan of care. Melida voiced understanding at that time and agreed with plan of care. Manager Wastewater notified of conversation. At 2229 Melida called back to check on this patient. I explained that she was doing about the same as earlier, and appeared to be resting comfortably. Again she asked me why this patient was not on oxygen. I explained to her that this is what we had talked about earlier and she proceeded to state that she didn't appreciate my attitude . I reassured her that I did not have an attitude and that I had happily taken care of this patient for the last couple of nights. She stated I was told I could call and ask any questions . I again reassured her that I am happy to answer any and all questions that she had regarding the patient's plan of care or status. She then abruptly hung up the phone. Charge nurse made aware of both conversations.
[2019-06-26] VITALS: BP 144/54; PULSE 115; PULSE 116; RESP 44; O2SAT 35
[2019-06-26 04:00] VITALS: BP 167/55; PULSE 112; PULSE 84; RESP 38; TEMP 37.9; O2SAT 23
[2019-06-26 06:00] VITALS: BP 149/79; PULSE 114; RESP 36; O2SAT 31
[2019-06-26] MEDS: LORAZEPAM INJ 2 MG/ML VIAL IV PUSH ×11 (07:16→23:18)
[2019-06-26 08:00] VITALS: BP 170/76; PULSE 109; PULSE 138; RESP 46; TEMP 38.1; O2SAT 55
--- NOTE | 2019-06-26 13:18 | PM.IMPN ---
Progress Note: A&P Assessment and Plan (1) Acute respiratory failure with hypoxia and hypercarbia: Code(s): J96.01 - Acute respiratory failure with hypoxia; J96.02 - Acute respiratory failure with hypercapnia Status: Acute Assessment and Plan: possible acute CHF exacerbation/pneumonia/ pneumothorax. Admit to ICU. intubated with R sided chest tube in situ, dressing changed out , pt having ongoing blood tinged pleural fluid in chest tube. filter changed out o 06/19, continue pleural vac suctioning seen by surgery team CPM, will monitor, patient was extubated today and now comfort care. (2) UTI (urinary tract infection): Code(s): N39.0 - Urinary tract infection, site not specified Status: Acute Assessment and Plan: Urine culture is growing E coli sensitive to Rocephin, will continue (3) Encephalopathy acute: Code(s): G93.40 - Encephalopathy, unspecified Status: Acute Assessment and Plan: The patient's acute encephalopathy is likely secondary to her severe hypercapnia. We will monitor for improvement of mental status (4) Normocytic anemia: Code(s): D64.9 - Anemia, unspecified Status: Acute Assessment and Plan: No signs of acute blood loss. monitor H/H, transfuse prn. (5) Thrombocytopenia: Code(s): D69.6 - Thrombocytopenia, unspecified Status: Acute Assessment and Plan: Monitor platelets. Transfuse prn. (6) Acute renal failure: Code(s): N17.9 - Acute kidney failure, unspecified Status: Acute Assessment and Plan: creat is 1.7 todqy, most likely due to dehydyration as kidney function is improving with IV fluids, will continue to monitor , pt is on iv fluids (7) Hyperkalemia: Code(s): E87.5 - Hyperkalemia Status: Resolved Assessment and Plan: Continue to monitor, (8) Paroxysmal atrial fibrillation: Code(s): I48.0 - Paroxysmal atrial fibrillation Status: Acute Assessment and Plan: Rate controlled. (9) Pneumothorax on right: Code(s): J93.9 - Pneumothorax, unspecified Status: Acute Assessment and Plan: Pt has chest tube in r lung some trauma during placement, chest tube on water seal and doing well as patient lungs inflated on chest x-ray. seen by surgery team, continue to watch Hb, Iv protonix ordered (10) Pneumonia: Code(s): J18.9 - Pneumonia, unspecified organism Status: Acute Assessment and Plan: Pt is on iv rocephin and zithromax, will continue to monitor. (11) Anoxic brain damage: Code(s): G93.1 - Anoxic brain damage, not elsewhere classified Status: Acute Assessment and Plan: Upon arrrival patient had severe hypercapneia most likely patient has anoxic brain injury resulting acute enchaphalopthy Additional Plan 15 minutes of critical care time with this patient tonight Subjective Interval history: Admitted on 06/17/2019 with acute respiratory failure, intubated on 06/17/2019, altered mental status, right pneumothorax status post right chest tube, CHF, pneumonia 06/26: patient seen examined this morning in the ICU, remains intubated, on ASV mode of ventilation, FiO2 40% and peep of 8. patient is on Versed 3 mg/hr infusion for sedation, is awake and follows simple commands in all extremities. Afebrile, TF at goal and tolerating. urine output has been low, sodium has improved, bench molder is recommending PEG and trach as patient is not been able to wean off the vent however today patient POA has decided to withdraw care and patient was extubated and now on comfort care, will continue patient pain anxiety relief Review of Systems Review of Systems: ROS unobtainable: unobtainable due to mental condition Exam Const: General: acute distress moderate and respiratory, ill appearing chronically and obtunded Nutritional Appearance: obese morbidly obese Orientation/consciousness: No oriented to person, No o
--- NOTE | 2019-06-26 21:30 | PC.NURSE ---
Family called this evening to check on family member expressed concern due to wanting her to have oxygen on. Pt saturation reached 66% at 4L.
[2019-06-26 22:00] VITALS: BP 136/38; PULSE 52; RESP 48; TEMP 37.1; O2SAT 27
[2019-06-27] MEDS: LORAZEPAM INJ 2 MG/ML VIAL IV PUSH ×8 (01:21→22:03)
--- NOTE | 2019-06-27 08:00 | PC.NURSE ---
Chest tube in place to right chest. Pleurovac to water seal. Dressing D/I to right chest.
[2019-06-27] MEDS: SCOPOLAMINE 1.5 MG PATCH TRANSDERM (09:12)
[2019-06-27 10:58] VITALS: BP 99/42; PULSE 54; RESP 28; TEMP 36.1; O2SAT 93
--- NOTE | 2019-06-27 15:53 | PM.IMPN ---
Progress Note: A&P Assessment and Plan (1) Acute respiratory failure with hypoxia and hypercarbia: Code(s): J96.01 - Acute respiratory failure with hypoxia; J96.02 - Acute respiratory failure with hypercapnia Status: Acute Assessment and Plan: Admitted on 06/17/2019 with acute respiratory failure, intubated on 06/17/2019, altered mental status, right pneumothorax status post right chest tube, CHF, pneumonia 06/27: patient seen examined this morning in the ICU, remains intubated, on ASV mode of ventilation, FiO2 40% and peep of 8. patient is on Versed 3 mg/hr infusion for sedation, is awake and follows simple commands in all extremities. Afebrile, TF at goal and tolerating. urine output has been low, sodium has improved, freight caller is recommending PEG and trach as patient is not been able to wean off the vent however on 06/26/19 patient POA had decided to withdraw care and patient was extubated and now on comfort care, will continue patient pain anxiety relief and keep her comforable (2) UTI (urinary tract infection): Code(s): N39.0 - Urinary tract infection, site not specified Status: Acute Assessment and Plan: Urine culture is growing E coli sensitive to Rocephin, plan is above (3) Encephalopathy acute: Code(s): G93.40 - Encephalopathy, unspecified Status: Acute Assessment and Plan: The patient's acute encephalopathy is likely secondary to her severe hypercapnia. We will monitor for improvement of mental status (4) Normocytic anemia: Code(s): D64.9 - Anemia, unspecified Status: Acute Assessment and Plan: No signs of acute blood loss. monitor H/H, transfuse prn. (5) Thrombocytopenia: Code(s): D69.6 - Thrombocytopenia, unspecified Status: Acute Assessment and Plan: Monitor platelets. Transfuse prn. (6) Acute renal failure: Code(s): N17.9 - Acute kidney failure, unspecified Status: Acute Assessment and Plan: creat is 1.7 todqy, most likely due to dehydyration as kidney function is improving with IV fluids, will continue to monitor , pt is on iv fluids (7) Hyperkalemia: Code(s): E87.5 - Hyperkalemia Status: Resolved Assessment and Plan: Continue to monitor, (8) Paroxysmal atrial fibrillation: Code(s): I48.0 - Paroxysmal atrial fibrillation Status: Acute Assessment and Plan: Rate controlled. (9) Pneumothorax on right: Code(s): J93.9 - Pneumothorax, unspecified Status: Acute Assessment and Plan: Pt has chest tube in r lung some trauma during placement, chest tube on water seal and doing well as patient lungs inflated on chest x-ray. seen by surgery team, continue to watch Hb, Iv protonix ordered (10) Pneumonia: Code(s): J18.9 - Pneumonia, unspecified organism Status: Acute Assessment and Plan: Pt is on iv rocephin and zithromax, will continue to monitor. (11) Anoxic brain damage: Code(s): G93.1 - Anoxic brain damage, not elsewhere classified Status: Acute Assessment and Plan: Upon arrrival patient had severe hypercapneia most likely patient has anoxic brain injury resulting acute enchaphalopthy Additional Plan 15 minutes of critical care time with this patient tonight Subjective Interval history: Admitted on 06/17/2019 with acute respiratory failure, intubated on 06/17/2019, altered mental status, right pneumothorax status post right chest tube, CHF, pneumonia 06/27: patient seen examined this morning in the ICU, remains intubated, on ASV mode of ventilation, FiO2 40% and peep of 8. patient is on Versed 3 mg/hr infusion for sedation, is awake and follows simple commands in all extremities. Afebrile, TF at goal and tolerating. urine output has been low, sodium has improved, freight caller is recommending PEG and trach as patient is not been able to wean off the vent however on 06/26/19 patient POA had deci
[2019-06-27 20:50] VITALS: BP 85/72; PULSE 79; RESP 18; TEMP 36.4; O2SAT 94
[2019-06-27 23:00] VITALS: TEMP 36.4
[2019-06-28] MEDS: LORAZEPAM INJ 2 MG/ML VIAL IV PUSH ×5 (05:14→23:44)
[2019-06-28 08:00] VITALS: BP 116/53; PULSE 77; RESP 36; TEMP 36.2; O2SAT 99
--- NOTE | 2019-06-28 09:40 | PCDIET ---
Nutrition Follow-Up Complete: Inadequate oral intake related to oral intubation/mechanical ventilation as evidenced by NPO status. Patient to meet estimated nutritional needs. Goal:Unable to meet goal at this time. Pt current nutrition is NPO*. Nutrition recommendation: Agree Last recorded weight is 88.7 kg. Bowel Motility: 06/22 Labs Reviewed:no new labs Additional Notes: Pt extubated on on comfort care at this time. All EN has stopped. We will follow if any change in care.
[2019-06-28 10:42] VITALS: RESP 18
--- NOTE | 2019-06-28 14:40 | PM.IMPN ---
Progress Note: A&P Assessment and Plan (1) Acute respiratory failure with hypoxia and hypercarbia: Code(s): J96.01 - Acute respiratory failure with hypoxia; J96.02 - Acute respiratory failure with hypercapnia Status: Acute Assessment and Plan: 06/28: , paper grader was recommending PEG and trach as patient is not been able to wean off the vent however on 06/26/19 patient POA had decided to withdraw care and patient was extubated and now on comfort care, will continue patient pain anxiety relief and keep her comforable (2) UTI (urinary tract infection): Code(s): N39.0 - Urinary tract infection, site not specified Status: Acute Assessment and Plan: Urine culture is growing E coli sensitive to Rocephin, plan is above antibiotics discontinued (3) Encephalopathy acute: Code(s): G93.40 - Encephalopathy, unspecified Status: Acute Assessment and Plan: The patient's acute encephalopathy is likely secondary to her severe hypercapnia. Never fully recovered (4) Normocytic anemia: Code(s): D64.9 - Anemia, unspecified Status: Acute Assessment and Plan: No signs of acute blood loss.. (5) Thrombocytopenia: Code(s): D69.6 - Thrombocytopenia, unspecified Status: Acute Assessment and Plan: No known cause. (6) Acute renal failure: Code(s): N17.9 - Acute kidney failure, unspecified Status: Acute Assessment and Plan: , most likely due to dehydyration as kidney function is improvede with IV fluids, (7) Hyperkalemia: Code(s): E87.5 - Hyperkalemia Status: Resolved Assessment and Plan: Secondary to renal failure (8) Paroxysmal atrial fibrillation: Code(s): I48.0 - Paroxysmal atrial fibrillation Status: Acute Assessment and Plan: Rate controlled. (9) Pneumothorax on right: Code(s): J93.9 - Pneumothorax, unspecified Status: Acute Assessment and Plan: Pt has chest tube in r lung some trauma during placement, chest tube on water seal and doing well as patient lungs inflated on most recent chest x-ray. seen by surgery team. Surgery Plastic to leave tube since she has entered comfort care hospice mode (10) Pneumonia: Code(s): J18.9 - Pneumonia, unspecified organism Status: Acute Assessment and Plan: Was on ceftriaxone and azithromycin (11) Anoxic brain damage: Code(s): G93.1 - Anoxic brain damage, not elsewhere classified Status: Acute Assessment and Plan: Upon arrrival patient had severe hypercapneia most likely patient has anoxic brain injury resulting acute enchaphalopthy Subjective Interval history: Date of visit 06/28.. admitted on 06/17/2019 with acute respiratory failure, intubated on 06/17/2019, altered mental status, right pneumothorax status post right chest tube, CHF, pneumonia patient seen examined . patient is not responding to verbal stimuli today Afebrile, TF at goal and tolerating. urine output has been low, , paper grader was recommending PEG and trach as patient is not been able to wean off the vent however on 06/26/19 patient POA had decided to withdraw care and patient was extubated and now on comfort care, will continue patient pain anxiety relief and keep her comforable Exam Narrative: Exam Narrative: Blood pressure 116/50 pulse is 76 respirations 36 per minute afebrile saturating 99% on 4 L Pupils sluggish mid position, sclera anicteric Lungs appear clear CV no murmurs Abdomen soft obese nontender Extremities without edema distal pulses 1+ Neuro staring not responding to verbal stimuli or following any commands Objective Data Vital Signs Vital Signs: Vital Signs - 24 hr 06/27/19 20:50 06/27/19 23:00 06/28/19 08:00 Temperature 36.4 C 36.4 C 36.2 C L Pulse Rate 79 77 Respiratory Rate 18 36 H Blood Pressure 85/72 L 116/53 L Pulse Oximetry 94 99 06/28/19 10:42 Temperature Pul
--- NOTE | 2019-06-28 14:52 | PC.NURSE ---
Spoke with Dr. Varela's office in regards to patients chest tube. In report, I received that patient was to have chest tube pulled out. Dr. Varela's office stating that Dr. Varela is wanting to leave chest tube in since patient is now on comfort measures. Notified hospitalist, Dr. Alvarez.
--- NOTE | 2019-06-28 17:39 | PC.NURSE ---
Abril RN from [facility] at bedside with patient. Abril attempted to call Melida (POMaria Eugenia) multiple times in order to admit her to hospice. However, Melida not answering after multiple attempts. Melida did phone back and stated that she would not be able to sign any papers and have them faxed back until tomorrow because she has to use her work email and it is after hours. She will take a look at email in the morning and sign/fax back papers then.
[2019-06-28 20:00] VITALS: BP 108/50; PULSE 80; RESP 20; TEMP 36.1; O2SAT 95
[2019-06-28 21:55] VITALS: BP 134/49; PULSE 92; RESP 22; TEMP 36.2; O2SAT 100
[2019-06-29 06:06] VITALS: BP 129/60; PULSE 148; RESP 24; TEMP 36.1; O2SAT 90
[2019-06-29] MEDS: LORAZEPAM INJ 2 MG/ML VIAL IV PUSH ×3 (06:29→15:15)
[2019-06-29 14:00] VITALS: BP 133/60; PULSE 82; RESP 16; TEMP 36.4; O2SAT 99
--- NOTE | 2019-06-29 14:39 | PM.IMPN ---
Progress Note: A&P Assessment and Plan (1) Acute respiratory failure with hypoxia and hypercarbia: Code(s): J96.01 - Acute respiratory failure with hypoxia; J96.02 - Acute respiratory failure with hypercapnia Status: Acute Assessment and Plan: 06/28: , wind turbine service technician was recommending PEG and trach as patient is not been able to wean off the vent however on 06/26/19 patient POA had decided to withdraw care and patient was extubated and now on comfort care, will continue patient pain anxiety relief and keep her comforable will attempt to feed today since she is much more alert and conversant (2) UTI (urinary tract infection): Code(s): N39.0 - Urinary tract infection, site not specified Status: Acute Assessment and Plan: Urine culture is growing E coli sensitive to Rocephin, plan is above antibiotics discontinued (3) Encephalopathy acute: Code(s): G93.40 - Encephalopathy, unspecified Status: Acute Assessment and Plan: The patient's acute encephalopathy is likely secondary to her severe hypercapnia, but much improved and back to her baseline today (4) Normocytic anemia: Code(s): D64.9 - Anemia, unspecified Status: Acute Assessment and Plan: No signs of acute blood loss.. (5) Thrombocytopenia: Code(s): D69.6 - Thrombocytopenia, unspecified Status: Acute Assessment and Plan: No known cause. (6) Acute renal failure: Code(s): N17.9 - Acute kidney failure, unspecified Status: Acute Assessment and Plan: , most likely due to dehydyration as kidney function improvede with IV fluids, (7) Hyperkalemia: Code(s): E87.5 - Hyperkalemia Status: Resolved Assessment and Plan: Secondary to renal failure (8) Paroxysmal atrial fibrillation: Code(s): I48.0 - Paroxysmal atrial fibrillation Status: Acute Assessment and Plan: Rate controlled. (9) Pneumothorax on right: Code(s): J93.9 - Pneumothorax, unspecified Status: Acute Assessment and Plan: Pt has chest tube in r lung some trauma during placement, chest tube on water seal and doing well as patient lungs inflated on most recent chest x-ray. seen by surgery team. Surgery Plastic to leave tube since she has entered comfort care hospice mode (10) Pneumonia: Code(s): J18.9 - Pneumonia, unspecified organism Status: Acute Assessment and Plan: Was on ceftriaxone and azithromycin (11) Anoxic brain damage: Code(s): G93.1 - Anoxic brain damage, not elsewhere classified Status: Acute Assessment and Plan: Upon arrrival patient had severe hypercapneia most likely patient has anoxic brain injury resulting acute enchaphalopthy Subjective Date/time seen: 06/29/19 14:39 Interval history: Date of visit 06/29.. admitted on 06/17/2019 with acute respiratory failure, intubated on 06/17/2019, altered mental status, right pneumothorax status post right chest tube, CHF, pneumonia patient seen examined . patient is responding to verbal stimuli today Afebrile, . , , wind turbine service technician was recommending PEG and trach as patient was not been able to wean off the vent however on 06/26/19 patient POA had decided to withdraw care and patient was extubated and now on comfort care, will continue patient pain anxiety relief and keep her comforable She is much more alert this am and conversant Exam Narrative: Exam Narrative: Blood pressure 133/60 pulse is 82 respirations 16 per minute afebrile saturating 99% on 4 L Pupils ERL, sclera anicteric Lungs appear clear CV no murmurs Abdomen soft obese nontender Extremities without edema distal pulses 1+ Neuro alert and responding to verbal stimuli with no gross focal deficits Objective Data Vital Signs Vital Signs: Vital Signs - 24 hr 06/28/19 20:00 06/28/19 21:55 06/29/19 06:06 Temperature 36.1 C L 36.2 C L 36.1 C L Pulse Rate 80 92 148 H Respirator
[2019-06-29 22:15] VITALS: BP 118/53; PULSE 84; RESP 16; TEMP 36.8; O2SAT 100
[2019-06-30 06:04] VITALS: BP 120/58; PULSE 81; RESP 16; TEMP 36.5; O2SAT 100
[2019-06-30 08:00] VITALS: BP 99/30; PULSE 87; RESP 22; TEMP 36.3; O2SAT 100
[2019-06-30] MEDS: SCOPOLAMINE 1.5 MG PATCH TRANSDERM (09:21)
--- NOTE | 2019-06-30 15:32 | PM.IMPN ---
Progress Note: A&P Assessment and Plan (1) Acute respiratory failure with hypoxia and hypercarbia: Code(s): J96.01 - Acute respiratory failure with hypoxia; J96.02 - Acute respiratory failure with hypercapnia Status: Acute Assessment and Plan: : , butadiene convertor operator was recommending PEG and trach as patient is not been able to wean off the vent however on 06/26/19 patient POA had decided to withdraw care and patient was extubated and now on comfort care, will continue patient pain anxiety relief and keep her comforable will attempt to feed as tolerated (2) UTI (urinary tract infection): Code(s): N39.0 - Urinary tract infection, site not specified Status: Acute Assessment and Plan: Urine culture is growing E coli sensitive to Rocephin, plan is as above, antibiotics discontinued (3) Encephalopathy acute: Code(s): G93.40 - Encephalopathy, unspecified Status: Acute Assessment and Plan: The patient's acute encephalopathy is likely secondary to her severe hypercapnia, but much improved and back to her baseline (4) Normocytic anemia: Code(s): D64.9 - Anemia, unspecified Status: Acute Assessment and Plan: No signs of acute blood loss.. (5) Thrombocytopenia: Code(s): D69.6 - Thrombocytopenia, unspecified Status: Acute Assessment and Plan: No known cause. (6) Acute renal failure: Code(s): N17.9 - Acute kidney failure, unspecified Status: Acute Assessment and Plan: , most likely due to dehydyration as kidney function improved with IV fluids, (7) Hyperkalemia: Code(s): E87.5 - Hyperkalemia Status: Resolved Assessment and Plan: Secondary to renal failure (8) Paroxysmal atrial fibrillation: Code(s): I48.0 - Paroxysmal atrial fibrillation Status: Acute Assessment and Plan: Rate controlled. (9) Pneumothorax on right: Code(s): J93.9 - Pneumothorax, unspecified Status: Acute Assessment and Plan: Pt has chest tube in r lung some trauma during placement, chest tube on water seal and doing well as patient lungs inflated on most recent chest x-ray. seen by surgery team. Surgery to leave tube since she has entered comfort care hospice mode (10) Pneumonia: Code(s): J18.9 - Pneumonia, unspecified organism Status: Acute Assessment and Plan: Was on ceftriaxone and azithromycin (11) Anoxic brain damage: Code(s): G93.1 - Anoxic brain damage, not elsewhere classified Status: Acute Assessment and Plan: Upon arrrival patient had severe hypercapneia most likely patient has anoxic brain injury resulting acute enchaphalopthy Subjective Date/time seen: 06/30/19 15:32 Interval history: Date of visit 06/30.. admitted on 06/17/2019 with acute respiratory failure, intubated on 06/17/2019, altered mental status, right pneumothorax status post right chest tube, CHF, pneumonia patient seen examined . patient is responding to verbal stimuli today but lethargic, butadiene convertor operator was recommending PEG and trach as patient was not been able to wean off the vent however on 06/26/19 patient POA had decided to withdraw care and patient was extubated and now on comfort care, will continue patient pain anxiety relief and keep her comforable She is more alert than she was earlier in the week Exam Narrative: Exam Narrative: Blood pressure 100/40 pulse is 86 respirations 16 per minute afebrile saturating 100% on 4 L Pupils ERL, sclera anicteric Lungs appear clear, chest tube still in place CV no murmurs Abdomen soft obese nontender Extremities without edema distal pulses 1+ Neuro alert and responding to verbal stimuli with no gross focal deficits Objective Data Vital Signs Vital Signs: Vital Signs - 24 hr 06/29/19 22:15 06/30/19 06:04 06/30/19 08:00 Temperature 36.8 C 36.5 C 36.3 C L Pulse Rate 84 81 87 Respiratory Rate 16 16 22 H Blood Pr
[2019-06-30 22:00] VITALS: BP 133/47; PULSE 85; RESP 32; TEMP 36.1; O2SAT 97
[2019-07-01] MEDS: WATER, STERILE FOR INJECTION 10 ML VIAL XX (03:38)
[2019-07-01] MEDS: ALTEPLASE 2 MG VIAL (CATHFLO) 4 MG IV PUSH ×2 (03:43→03:45)
[2019-07-01 09:34] VITALS: O2SAT 95
[2019-07-01 10:00] VITALS: BP 115/33; PULSE 82; RESP 20; TEMP 36; O2SAT 96
--- NOTE | 2019-07-01 12:48 | PM.IMPN ---
Progress Note: A&P Assessment and Plan (1) Acute respiratory failure with hypoxia and hypercarbia: Code(s): J96.01 - Acute respiratory failure with hypoxia; J96.02 - Acute respiratory failure with hypercapnia Status: Acute Assessment and Plan: : , scalemaker was recommending PEG and trach as patient is not been able to wean off the vent however on 06/26/19 patient POA had decided to withdraw care and patient was extubated and now on comfort care but responding and taking nurishment, will continue patient pain anxiety relief and keep her comforable (2) UTI (urinary tract infection): Code(s): N39.0 - Urinary tract infection, site not specified Status: Acute Assessment and Plan: Urine culture is growing E coli sensitive to Rocephin, plan is as above, antibiotics discontinued (3) Encephalopathy acute: Code(s): G93.40 - Encephalopathy, unspecified Status: Acute Assessment and Plan: The patient's acute encephalopathy was likely secondary to her severe hypercapnia, but much improved and back to her baseline (4) Normocytic anemia: Code(s): D64.9 - Anemia, unspecified Status: Acute Assessment and Plan: No signs of acute blood loss.. (5) Thrombocytopenia: Code(s): D69.6 - Thrombocytopenia, unspecified Status: Acute Assessment and Plan: No known cause. (6) Acute renal failure: Code(s): N17.9 - Acute kidney failure, unspecified Status: Acute Assessment and Plan: , most likely due to dehydyration as kidney function improved with IV fluids, (7) Hyperkalemia: Code(s): E87.5 - Hyperkalemia Status: Resolved Assessment and Plan: Secondary to renal failure (8) Paroxysmal atrial fibrillation: Code(s): I48.0 - Paroxysmal atrial fibrillation Status: Acute Assessment and Plan: Rate controlled. (9) Pneumothorax on right: Code(s): J93.9 - Pneumothorax, unspecified Status: Acute Assessment and Plan: Pt has chest tube in r lung some trauma during placement, chest tube on water seal and doing well as patient lungs inflated on last chest x-ray. seen by surgery team. Surgery to leave tube since she has entered comfort care hospice mode (10) Pneumonia: Code(s): J18.9 - Pneumonia, unspecified organism Status: Acute Assessment and Plan: Was on ceftriaxone and azithromycin , off antibiotics now (11) Anoxic brain damage: Code(s): G93.1 - Anoxic brain damage, not elsewhere classified Status: Acute Assessment and Plan: Upon arrrival patient had severe hypercapnia most likely patient has anoxic brain injury resulting acute enchaphalopthy Subjective Date/time seen: 07/01/19 12:48 Interval history: Date of visit 07/01.. admitted on 06/17/2019 with acute respiratory failure, intubated on 06/17/2019, altered mental status, right pneumothorax status post right chest tube, CHF, pneumonia patient seen examined . patient is responding to verbal stimuli today, scalemaker was recommending PEG and trach as patient was not been able to wean off the vent however on 06/26/19 patient POA had decided to withdraw care and patient was extubated and now on comfort care, will continue patient pain anxiety relief and keep her comforable She is more alert than she was earlier in the week. awaiting hospice forms to be completed by POA Exam Narrative: Exam Narrative: Blood pressure 116/40 pulse is 82 respirations 16 per minute afebrile saturating 98% on 4 L Pupils ERL, sclera anicteric Lungs appear clear, chest tube still in place CV no murmurs Abdomen soft obese nontender Extremities without edema distal pulses 1+ Neuro alert and responding to verbal stimuli with no gross focal deficits Objective Data Vital Signs Vital Signs: Vital Signs - 24 hr 06/30/19 22:00 07/01/19 09:34 07/01/19 10:00 Temperature 36.1 C L 36.0 C L Pulse Rate 8
[2019-07-01 16:40] LABS: Basophils Percent Auto 0.1 % (0.2-1.2); Eosinophils Absolute Auto 0.9 K/mm3 (0-0.3); Eosinophils Percent Auto 10.3 % (0-4.4); Hematocrit 29.5 % (37.0-47.0); Hemoglobin 8.5 g/dL (12.0-15.0); Immature Granulocyte Absolute 0.05 K/mm3 (0.00-0.031); Immature Granulocyte Percent A 0.6 % (0-0.5); Lymphocytes Absolute Auto 1.57 K/mm3 (0.9-3.2); Lymphocytes Percent Auto 18.4 % (18.3-44.2); Mean Corpuscular HGB Conc 28.8 g/dl (32-36); Mean Corpuscular Hemoglobin 25.2 pg (26-34); Mean Corpuscular Volume 87.5 fl (80-100); Mean Platelet Volume 10.8 fl (7.4-10.4); Monocytes Absolute Auto 0.5 K/mm3 (0.1-0.6); Monocytes Percent Auto 5.3 % (2.6-8.5); Neutrophils Absolute Auto 5.6 K/mm3 (1.3-6.7); Neutrophils Percent Auto 65.3 % (45.5-73.1); Platelet Count Result 257 k/mm3 (150-375); Red Blood Count 3.37 M/mm3 (4.2-5.4); Red Cell Distribution Width 17.1 % (11.5-14.5); White Blood Count 8.5 K/mm3 (4.5-10.0)
[2019-07-01 16:49] LABS: Platelet Estimate Adequate (Adequate)
[2019-07-01 16:50] LABS: Hypochromasia 2+ (NORMAL); Stomatocytes 1+ (NORMAL)
[2019-07-01 16:52] LABS: Blood Urea Nitrogen 55 mg/dL (7-17); Calcium 8.2 mg/dL (8.4-10.2); Carbon Dioxide 30 mmol/L (22-30); Chloride 98 mmol/L (98-107); Estimated Glomerular Filt Rate 20; Glucose 100 mg/dL (65-105); Potassium 3.4 mmol/L (3.4-5.0); Sodium 140 mmol/L (137-145)
[2019-07-01] MEDS: SODIUM CHLORIDE 0.9% IV 1,000 ML 100 ML IV CONT (18:05)
[2019-07-01 20:00] VITALS: BP 111/54; PULSE 88; RESP 20; TEMP 36.4; O2SAT 94
[2019-07-02] VITALS (9 sets, daily range): BP systolic 123–135; BP diastolic 69–81; PULSE 50–132; RESP 18–26; TEMP 36.4–37.1; O2SAT 90–100
[2019-07-02] MEDS: SODIUM CHLORIDE 0.9% IV 1,000 ML 100 ML IV CONT ×2 (04:09→17:18)
[2019-07-02 06:15] LABS: Blood Urea Nitrogen 47 mg/dL (7-17); Calcium 8.2 mg/dL (8.4-10.2); Carbon Dioxide 29 mmol/L (22-30); Chloride 103 mmol/L (98-107); Estimated Glomerular Filt Rate 23; Glucose 97 mg/dL (65-105); Potassium 3.3 mmol/L (3.4-5.0); Sodium 142 mmol/L (137-145)
--- NOTE | 2019-07-02 09:29 | PM.PNGS ---
Progress Note: A&P Assessment and Plan (1) Pneumothorax on right: Code(s): J93.9 - Pneumothorax, unspecified Status: Resolved Assessment and Plan: chest tube removed at bedside without difficulty. Pending chest x-ray. Leave dressing dry and intact until Thursday then can remove and leave wound open to air. Subjective Subjective Date/Time Seen: 07/02/19 09:29 Patient reports: no new complaints Review of Systems Review of Systems: ROS unobtainable: unobtainable due to mental condition Exam Const: General: comfortable and no acute distress Resp: Effort & Inspection: normal respiratory effort Auscultation: clear to auscultation bilaterally Other: right-sided chest tube in good condition Objective Data Vital Signs Vital Signs: Vital Signs - 24 hr 07/01/19 09:34 07/01/19 10:00 07/01/19 20:00 Temperature 36.0 C L 36.4 C L Pulse Rate 82 88 Respiratory Rate 20 20 Blood Pressure 115/33 L 111/54 L Pulse Oximetry 95 96 94 Intake/Output Intake/Output: Intake & Output 06/29/19 06/30/19 07/01/19 07/02/19 23:59 23:59 23:59 23:59 Intake Total 2450 8586 566 6376 Output Total 450 450 600 750 Balance 2000 735 02 0772 Meds/Results Medications: Active Medications Generic Name Dose Route Start Last Admin Trade Name Freq PRN Reason Stop Dose Admin Hydrocodone Bitart/Acetaminophen 1 tab 06/29/19 12:40 07/02/19 07:26 [place] 5-325 Mg PO 1 tab Q4H PRN Administration Pain Rated 4-6 Fentanyl Citrate 25 mcg 06/25/19 17:19 06/29/19 10:13 Sublimaze IV PUSH 25 mcg Q1HR PRN Administration Pain Rated 7-10 Sodium Chloride 1,000 mls @ 100 mls/hr 07/01/19 17:00 07/02/19 05:36 Normal Saline Iv IV CONT 100 mls/hr .Q10H ANTONIA Infusion Potassium Chloride 100 mls @ 25 mls/hr 07/02/19 07:03 07/02/19 08:33 Kcl 40 Meq/Water 100 Ml IVPB 07/02/19 11:02 25 mls/hr ONCE ONE Administration Lorazepam 2 mg 06/25/19 17:09 06/29/19 15:15 Ativan IV PUSH 2 mg Q1HR PRN Administration dyspnea Scopolamine 1.5 mg 06/18/19 09:00 06/30/19 09:21 Transderm-Scop TRANSDERM 1.5 mg Q72HR ANTONIA Administration Radiology Results: ITS Impressions Head CT 06/17/19 21:24 IMPRESSION: 1. 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 2. Mild nonspecific cerebral white matter disease, which likely represents chronic small vessel ischemic disease. Abdomen X-Ray 06/17/19 23:14 IMPRESSION: 1. Nasogastric tube tip in the stomach. Chest X-Ray 07/01/19 16:11 IMPRESSION: 1. Diffuse lung disease with improvement on the right, consistent with pulmonary edema versus pneumonia. 2. Cardiomegaly. Labs Labs: Laboratory Results - last 24 hr 07/01/19 07/01/19 07/02/19 16:32 16:32 05:38 WBC 8.5 RBC 3.37 L Hgb 8.5 L Hct 29.5 L MCV 87.5 MCH 25.2 L MCHC 28.8 L RDW 17.1 H Plt Count 257 MPV 10.8 H Immature Gran % (Auto) 0.6 H Neut % (Auto) 65.3 Lymph % (Auto) 18.4 [place] % (Auto) 5.3 Eos % (Auto) 10.3 H Baso % (Auto) 0.1 L Lymph # (Auto) 1.57 [place] # (Auto) 0.5 Eos # (Auto) 0.9 H Baso # (Auto) 0.0 Abs Immat Gran (auto) 0.05 H Absolute Neuts (auto) 5.6 Absolute Nucleated RBC 0.0 Nucleated RBC % 0.0 Platelet Estimate Adequate Hypochromasia 2+ Stomatocytes 1+ Sodium 140 142 Potassium 3.4 3.3 L Chloride 98 103 Carbon Dioxide 30 29 BUN 55 H D 47 H Creatinine 2.90 H 2.60 H Estim Creat Clear Calc Not Reportable Not Reportable Estimated GFR 20 L 23 L Glucose 100 97 Calcium 8.2 L 8.2 L Quality VTE Prophylaxis VTE prophylaxis: mechanical ordered
[2019-07-02 11:22] LABS: Alveolar/Arterial O2 Gradient 105.6 mmHg; Base Excess ABG -0.4 mEq/l (+/-2.0); Fractional Inspired Oxygen 36 %; HCO3 ABG 27.7 mEq/l (22.0-26.0); Oxygen Saturation ABG 92.6 % (95.0-100.0); PO2 FiO2 Ratio Arterial Blood 2.11 %; Total Hemoglobin 9.9 g/dL (12.0-18.0)
[2019-07-02 11:25] LABS: Device NASAL CANNULA; Modified Allen's Test Pass; PCO2 ABG 64.7 mmHg (35.0-45.0); Site Drawn RIGHT RADIAL; pH ABG 7.249 (7.350-7.450)
--- NOTE | 2019-07-02 11:38 | PC.NURSE ---
Addendum entered by Cirilo Ceballos RN 07/02/19 13:03: notified ALEXANDER Condon Original Note: Patient ABG's critical and called to Dr. Alvarez. Received verbal orders from MD for patient to be placed back on bipap for a couple hours and then recheck ABG's this afternoon. Called and notified ALEXANDER Marsh.
--- NOTE | 2019-07-02 11:45 | PM.IMPN ---
Progress Note: A&P Assessment and Plan (1) Acute respiratory failure with hypoxia and hypercarbia: Code(s): J96.01 - Acute respiratory failure with hypoxia; J96.02 - Acute respiratory failure with hypercapnia Status: Acute Assessment and Plan: mapper was recommending PEG and trach as patient was not able to wean off the vent however on 06/26/19 patient POA had decided to withdraw care and patient was extubated . Yesterday on comfort care but responding and eating well POA now has decided to resume care! Abg checked and will resume bipap HS and prn (2) UTI (urinary tract infection): Code(s): N39.0 - Urinary tract infection, site not specified Status: Acute Assessment and Plan: Urine culture grew E coli sensitive to Rocephin, and finished 8-9 day course of IV antibiotics (3) Encephalopathy acute: Code(s): G93.40 - Encephalopathy, unspecified Status: Acute Assessment and Plan: The patient's acute encephalopathy was likely secondary to her severe hypercapnia, but much improved and back to her baseline (4) Normocytic anemia: Code(s): D64.9 - Anemia, unspecified Status: Acute Assessment and Plan: No signs of acute blood loss.. (5) Thrombocytopenia: Code(s): D69.6 - Thrombocytopenia, unspecified Status: Acute Assessment and Plan: resolved, probable secondary to acute infection (6) Acute renal failure: Code(s): N17.9 - Acute kidney failure, unspecified Status: Acute Assessment and Plan: , most likely due to dehydyration as kidney function improved with IV fluids, (7) Hyperkalemia: Code(s): E87.5 - Hyperkalemia Status: Resolved Assessment and Plan: Secondary to renal failure, resolved and actually low today. (8) Paroxysmal atrial fibrillation: Code(s): I48.0 - Paroxysmal atrial fibrillation Status: Acute Assessment and Plan: Rate controlled. (9) Pneumothorax on right: Code(s): J93.9 - Pneumothorax, unspecified Status: Resolved Assessment and Plan: Pt had chest tube in r lung and removed today since no longer in comfort mode of rx (10) Pneumonia: Code(s): J18.9 - Pneumonia, unspecified organism Status: Acute Assessment and Plan: Was on ceftriaxone and azithromycin , and finished 8-9 day course of antibiotics CXR still infiltrates VS fluid (11) Anoxic brain damage: Code(s): G93.1 - Anoxic brain damage, not elsewhere classified Status: Acute Assessment and Plan: Upon arrrival patient had severe hypercapnia most likely patient has anoxic brain injury resulting acute enchaphalopthy Subjective Date/time seen: 07/02/19 11:45 Interval history: Date of visit 07/02.. admitted on 06/17/2019 with acute respiratory failure, intubated on 06/17/2019, altered mental status, right pneumothorax status post right chest tube, CHF, pneumonia patient seen examined . patient is responding to verbal stimuli again today, mapper was recommending PEG and trach as patient was not been able to wean off the vent however on 06/26/19 patient POA had decided to withdraw care and patient was extubated and changed to comfort care. Now POA has decided for full care. Chest tube out today and resume bipap HS and prn She is more alert than she was earlier in the week and eating well Exam Narrative: Exam Narrative: Blood pressure 114/40 pulse is 82 respirations 16 per minute afebrile saturating 98% on 4 Lbut abg 7.25/65/76 Pupils ERL, sclera anicteric Lungs appear clear, chest tube now out CV no murmurs Abdomen soft obese nontender Extremities without edema distal pulses 1+ Neuro alert and responding to verbal stimuli with no gross focal deficits Objective Data Vital Signs Vital Signs: Vital Signs - 24 hr 07/01/19 20:00 Temperature 36.4 C L Pulse Rate 88 Respiratory Rate 20 Blood Pressure 111/54 L Pulse Oximetry
[2019-07-02 14:45] LABS: Alveolar/Arterial O2 Gradient 122.1 mmHg; Base Excess ABG -0.4 mEq/l (+/-2.0); Fractional Inspired Oxygen 40 %; HCO3 ABG 27.7 mEq/l (22.0-26.0); Oxyhemoglobin 94.5 % THb (90.0-100.0); PO2 ABG 88.2 mmHg (80.0-100.0); Total Hemoglobin 9.7 g/dL (12.0-18.0)
[2019-07-02 14:47] LABS: Device NON-INVASIVE VENT; Modified Allen's Test Pass; PCO2 ABG 65.1 mmHg (35.0-45.0); Site Drawn RIGHT RADIAL; pH ABG 7.246 (7.350-7.450)
[2019-07-02 14:48] LABS: Non-Invasive Expiratory Pressure 6 CMH2O; Non-Invasive Inspiratory Pressure 16 CMH2O; Non-Invasive Vent Rate 14 /MIN
[2019-07-02 17:26] LABS: Alveolar/Arterial O2 Gradient 151.9 mmHg; Base Excess ABG -1.1 mEq/l (+/-2.0); Fractional Inspired Oxygen 40 %; HCO3 ABG 26.5 mEq/l (22.0-26.0); Oxygen Content ABG 12.1 %vol (16.0-22.0); Oxygen Saturation ABG 88.8 % (95.0-100.0); Oxyhemoglobin 89.9 % THb (90.0-100.0); PO2 ABG 64.2 mmHg (80.0-100.0); Total Hemoglobin 9.5 g/dL (12.0-18.0)
[2019-07-02 17:29] LABS: Device NON-INVASIVE VENT; Modified Allen's Test Pass; Non-Invasive Expiratory Pressure 6 CMH2O; Non-Invasive Inspiratory Pressure 18 CMH2O; Non-Invasive Vent Rate 16 /MIN; PCO2 ABG 60.1 mmHg (35.0-45.0); Site Drawn RIGHT RADIAL; pH ABG 7.262 (7.350-7.450)
[2019-07-02 22:24] LABS: Alveolar/Arterial O2 Gradient 121.5 mmHg; Base Excess ABG -1.1 mEq/l (+/-2.0); Fractional Inspired Oxygen 40 %; HCO3 ABG 26.7 mEq/l (22.0-26.0); Oxygen Content ABG 14.2 %vol (16.0-22.0); Oxygen Saturation ABG 95.9 % (95.0-100.0); Oxyhemoglobin 95.3 % THb (90.0-100.0); PO2 ABG 93.7 mmHg (80.0-100.0); PO2 FiO2 Ratio Arterial Blood 2.34 %; Total Hemoglobin 10.5 g/dL (12.0-18.0)
[2019-07-02 22:26] LABS: Device NON-INVASIVE VENT; Modified Allen's Test Pass; PCO2 ABG 60.9 mmHg (35.0-45.0); Site Drawn RIGHT RADIAL
[2019-07-02 22:27] LABS: Non-Invasive Expiratory Pressure 6 CMH2O; Non-Invasive Inspiratory Pressure 18 CMH2O; Non-Invasive Vent Rate 16 /MIN
--- NOTE | 2019-07-02 23:26 | PC.NURSE ---
This patient, Jamia Lay, was transferred to IMU [ [id number]] on 07/02/19 at 2326. Personal belongings sent with patient. Belongings list checked and signed with receiving [ Sabrina RN]. Report given to [ Sabrina RN]. Appropriate documentation sent with patient. Called pt's CURTIS Scott and explained plan of care. Melida voiced understanding with plan of care.
--- NOTE | 2019-07-02 23:50 | PC.NURSE ---
This patient, Jamia Lay, was received from [address] [place] [address] on 07/03/19 at 2350. Personal belongings list checked and signed. Patient/family oriented to unit policies and routines
[2019-07-03] VITALS (19 sets, daily range): BP systolic 130–178; BP diastolic 64–89; PULSE 64–108; RESP 16–24; TEMP 35.9–36.6; O2SAT 90–100
--- NOTE | 2019-07-03 00:30 | ECG_ITS ---
Measurements Intervals [place] Rate: 80 P: 68 CT: 197 QRS: -6 QRSD: 106 T: 3 QT: 353 QTc: 409 Interpretive Statements SINUS RHYTHM BORDERLINE R WAVE PROGRESSION, ANTERIOR LEADS NONSPECIFIC T-WAVE ABNORMALITY- ANTEROLAT/INF LEADS BORDERLINE ECG Electronically Signed On 07-03-2019 16:33:05 CONCRETE FORM SETTER AND FINISHER by Rene Tim D.O.
--- NOTE | 2019-07-03 00:30 | ECG_ITS ---
Measurements Intervals [place] Rate: 103 P: FL: 0 QRS: -3 QRSD: 104 T: 21 QT: 346 QTc: 454 Interpretive Statements SINUS RHYTHM CHANGES TO ATRIAL FLUTTER WITH RAPID VENTRICULAR RESPONSE BORDERLINE R WAVE PROGRESSION, ANTERIOR LEADS NONSPECIFIC T-WAVE ABNORMALITY- INF/LAT LEADS BASELINE ARTIFACT- I, II, III, AVR, AVL, AVF ABNORMAL ECG Electronically Signed On 07-03-2019 16:34:40 WASTEWATER TREATMENT PLANT ATTENDANT by Rene Tim D.O.
[2019-07-03 00:35] LABS: Blood Urea Nitrogen 38 mg/dL (7-17); Calcium 8.3 mg/dL (8.4-10.2); Carbon Dioxide 29 mmol/L (22-30); Chloride 105 mmol/L (98-107); Estimated Glomerular Filt Rate 28; Glucose 101 mg/dL (65-105); Magnesium 2.3 mg/dL (1.6-2.3); Potassium 3.4 mmol/L (3.4-5.0); Sodium 142 mmol/L (137-145)
--- NOTE | 2019-07-03 00:40 | ECG_ITS ---
Measurements Intervals [place] Rate: 132 P: -55 HI: 200 QRS: -22 QRSD: 92 T: -52 QT: 385 QTc: 572 Interpretive Statements ECTOPIC ATRIAL TACHYCARDIA BORDERLINE R WAVE PROGRESSION, ANTERIOR LEADS BORDERLINE T WAVE ABNORMALITY- ANTEROLAT/INF LEADS ABNORMAL ECG Electronically Signed On 07-03-2019 16:32:33 RAM CAR OPERATOR by Rene Tim D.O.
[2019-07-03] MEDS: SODIUM CHLORIDE 0.9% IV 1,000 ML 100 ML IV CONT ×2 (02:23→12:30)
[2019-07-03 05:12] LABS: Blood Urea Nitrogen 37 mg/dL (7-17); Calcium 8.2 mg/dL (8.4-10.2); Carbon Dioxide 29 mmol/L (22-30); Chloride 106 mmol/L (98-107); Estimated Glomerular Filt Rate 29; Glucose 103 mg/dL (65-105); Potassium 3.5 mmol/L (3.4-5.0); Sodium 143 mmol/L (137-145)
[2019-07-03] MEDS: FUROSEMIDE 40 MG TABLET PO (07:55)
[2019-07-03] MEDS: CITALOPRAM HYDROBROMIDE 20 MG TABLET PO (07:55)
[2019-07-03] MEDS: SCOPOLAMINE 1.5 MG PATCH TRANSDERM (07:55)
[2019-07-03] MEDS: AMLODIPINE BESYLATE 5 MG TABLET PO (07:56)
[2019-07-03] MEDS: ASPIRIN 81 MG CHEWABLE TABLET PO (07:56)
[2019-07-03] MEDS: LOSARTAN POTASSIUM 100 MG TABLET PO (07:56)
[2019-07-03] MEDS: ENOXAPARIN 30 MG/0.3 ML SYRINGE SUB-Q (10:52)
--- NOTE | 2019-07-03 16:54 | PM.IMPN ---
Progress Note: A&P Assessment and Plan (1) Acute respiratory failure with hypoxia and hypercarbia: Code(s): J96.01 - Acute respiratory failure with hypoxia; J96.02 - Acute respiratory failure with hypercapnia Status: Acute Assessment and Plan: help desk intern was recommending PEG and trach as patient was not able to wean off the vent however on 06/26/19 patient POA had decided to withdraw care and patient was extubated . 07/02 pm on comfort care but responding and eating well, POA now has decided to resume care! continues to improve (2) UTI (urinary tract infection): Code(s): N39.0 - Urinary tract infection, site not specified Status: Acute Assessment and Plan: Urine culture grew E coli sensitive to Rocephin, and finished 8-9 day course of IV antibiotics (3) Encephalopathy acute: Code(s): G93.40 - Encephalopathy, unspecified Status: Acute Assessment and Plan: The patient's acute encephalopathy was likely secondary to her severe hypercapnia, but much improved and back to her baseline (4) Normocytic anemia: Code(s): D64.9 - Anemia, unspecified Status: Acute Assessment and Plan: No signs of acute blood loss.. (5) Thrombocytopenia: Code(s): D69.6 - Thrombocytopenia, unspecified Status: Acute Assessment and Plan: resolved, probable secondary to acute infection (6) Acute renal failure: Code(s): N17.9 - Acute kidney failure, unspecified Status: Acute Assessment and Plan: , most likely due to dehydyration as kidney function improved with IV fluids, now at 2.1 (7) Hyperkalemia: Code(s): E87.5 - Hyperkalemia Status: Resolved Assessment and Plan: Secondary to renal failure, resolved and 3.5 today (8) Paroxysmal atrial fibrillation: Code(s): I48.0 - Paroxysmal atrial fibrillation Status: Acute Assessment and Plan: Rate controlled. recurrnat hx, no candidate for anticoagulation. change amlodipine to diltiazem (9) Pneumothorax on right: Code(s): J93.9 - Pneumothorax, unspecified Status: Resolved Assessment and Plan: Pt had chest tube in r lung and removed 07/03 since no longer in comfort mode of rx (10) Pneumonia: Code(s): J18.9 - Pneumonia, unspecified organism Status: Acute Assessment and Plan: Was on ceftriaxone and azithromycin , and finished 8-9 day course of antibiotics CXR still infiltrates VS fluid resumed lasix today (11) Anoxic brain damage: Code(s): G93.1 - Anoxic brain damage, not elsewhere classified Status: Acute Assessment and Plan: Upon arrrival patient had severe hypercapnia most likely patient has anoxic brain injury resulting acute enchaphalopthy (12) HTN (hypertension): Code(s): I10 - Essential (primary) hypertension Status: Acute Assessment and Plan: Blood pressure rebounding and patient has history of diastolic heart failure so ARB and diuretic and calcium channel sulema restarted. Amlodipine changed to diltiazem with the AFib Subjective Date/time seen: 07/03/19 16:54 Interval history: Date of visit 07/03.. admitted on 06/17/2019 with acute respiratory failure, intubated on 06/17/2019, altered mental status, right pneumothorax status post right chest tube, CHF, pneumonia patient seen examined . patient is responding to verbal stimuli again today, help desk intern was recommending PEG and trach as patient was not been able to wean off the vent however on 06/26/19 patient POA had decided to withdraw care and patient was extubated and changed to comfort care. 07/02 pm POA decided for full care. Chest tube out 07/03 and resume bipap HS and prn She is more alert than she was earlier in the week and eating well . no complaints, had afib last pm too Exam Narrative: Exam Narrative: Blood pressure 130/66 pulse is 76 respirations 16 per minute afebrile saturating 98% on 4 Pup
[2019-07-04] VITALS (17 sets, daily range): BP systolic 128–171; BP diastolic 54–73; PULSE 60–79; RESP 16–22; TEMP 36–37.2; O2SAT 90–100
[2019-07-04] MEDS: SODIUM CHLORIDE 0.9% IV 1,000 ML 100 ML IV CONT (00:55)
[2019-07-04 05:21] LABS: Basophils Percent Auto 0.2 % (0.2-1.2); Eosinophils Absolute Auto 0.8 K/mm3 (0-0.3); Eosinophils Percent Auto 12.7 % (0-4.4); Hematocrit 26.3 % (37.0-47.0); Hemoglobin 7.7 g/dL (12.0-15.0); Immature Granulocyte Absolute 0.05 K/mm3 (0.00-0.031); Immature Granulocyte Percent A 0.8 % (0-0.5); Lymphocytes Absolute Auto 1.41 K/mm3 (0.9-3.2); Lymphocytes Percent Auto 22.4 % (18.3-44.2); Mean Corpuscular HGB Conc 29.3 g/dl (32-36); Mean Corpuscular Hemoglobin 25.2 pg (26-34); Mean Corpuscular Volume 85.9 fl (80-100); Mean Platelet Volume 10.2 fl (7.4-10.4); Monocytes Absolute Auto 0.3 K/mm3 (0.1-0.6); Monocytes Percent Auto 4.5 % (2.6-8.5); Neutrophils Absolute Auto 3.7 K/mm3 (1.3-6.7); Neutrophils Percent Auto 59.4 % (45.5-73.1); Platelet Count Result 228 k/mm3 (150-375); Red Blood Count 3.06 M/mm3 (4.2-5.4); Red Cell Distribution Width 17.1 % (11.5-14.5); White Blood Count 6.3 K/mm3 (4.5-10.0)
[2019-07-04 05:32] LABS: Magnesium 1.7 mg/dL (1.6-2.3); Phosphorus 3.4 mg/dL (2.5-4.5)
[2019-07-04 05:39] LABS: Blood Urea Nitrogen 24 mg/dL (7-17); Calcium 8.2 mg/dL (8.4-10.2); Carbon Dioxide 30 mmol/L (22-30); Chloride 103 mmol/L (98-107); Estimated Glomerular Filt Rate 37; Glucose 100 mg/dL (65-105); Potassium 3.4 mmol/L (3.4-5.0); Sodium 141 mmol/L (137-145)
[2019-07-04] MEDS: POTASSIUM CHLORIDE 20 MEQ PACKET (FOR LIQUID) 40 MEQ PO (08:42)
[2019-07-04] MEDS: ASPIRIN 81 MG CHEWABLE TABLET PO (08:43)
[2019-07-04] MEDS: ENOXAPARIN 30 MG/0.3 ML SYRINGE SUB-Q (08:43)
[2019-07-04] MEDS: LOSARTAN POTASSIUM 100 MG TABLET PO (08:43)
[2019-07-04] MEDS: FUROSEMIDE 40 MG TABLET PO (08:43)
[2019-07-04] MEDS: CITALOPRAM HYDROBROMIDE 20 MG TABLET PO (08:43)
--- NOTE | 2019-07-04 10:34 | PCDIET ---
Nutrition Follow-Up Complete: Nutrition Diagnosis: Inadequate oral intake related to oral intubation/mechanical ventilation as evidenced by NPO status. Nutrition Goal: Patient to meet estimated nutritional needs. Goal not met. POA changed plan from comfort to aggressive care. Patient eating breakfast at time of visit. Edentulous and aid suggesting ground meat; patient agreeable to this. Patient does not recall receiving Ensure but does not think she would like it. Agreeable to [employer] (270kcal, 9g protein). Last recorded weight is 94.1 kg which is down from admission. Bowel Motility: 07/03/19 loose stool documented. Labs Reviewed: BUN (24), Cr (1.7) Meds Noted: Lasix, NS @ 100mL/hr Additional Notes: Right upper chest puncture; no pressure sores documented. Agree with regular diet, but did advise patient not to use salt. May need to further restrict diet if intakes improve (currently 0-25% of most meals). Also recommend [employer] Cream BID. Nutrition Monitoring and Evaluation: Follow up in 3 days. New goals: intakes >50% and supplement acceptance.
--- NOTE | 2019-07-04 16:18 | PM.IMPN ---
Progress Note: A&P Assessment and Plan (1) Acute respiratory failure with hypoxia and hypercarbia: Code(s): J96.01 - Acute respiratory failure with hypoxia; J96.02 - Acute respiratory failure with hypercapnia Status: Acute Assessment and Plan: canteen manager was recommending PEG and trach as patient was not able to wean off the vent however on 06/26/19 patient POA had decided to withdraw care and patient was extubated . 07/02 pm on comfort care but responding and eating well, POA now has decided to resume care! continues to improve. bipap hs. back to baseline. gases still bad but about as good as she will get so stopped testing (2) UTI (urinary tract infection): Code(s): N39.0 - Urinary tract infection, site not specified Status: Acute Assessment and Plan: Urine culture grew E coli sensitive to Rocephin, and finished 8-9 day course of IV antibiotics (3) Encephalopathy acute: Code(s): G93.40 - Encephalopathy, unspecified Status: Acute Assessment and Plan: The patient's acute encephalopathy was likely secondary to her severe hypercapnia, but much improved and back to her baseline (4) Normocytic anemia: Code(s): D64.9 - Anemia, unspecified Status: Acute Assessment and Plan: No signs of acute blood loss.. (5) Thrombocytopenia: Code(s): D69.6 - Thrombocytopenia, unspecified Status: Acute Assessment and Plan: resolved, probable secondary to acute infection (6) Acute renal failure: Code(s): N17.9 - Acute kidney failure, unspecified Status: Acute Assessment and Plan: , most likely due to dehydyration as kidney function improved with IV fluids, now at 1.7 (7) Hyperkalemia: Code(s): E87.5 - Hyperkalemia Status: Resolved Assessment and Plan: Secondary to renal failure, resolved and 3.4 today (8) Paroxysmal atrial fibrillation: Code(s): I48.0 - Paroxysmal atrial fibrillation Status: Acute Assessment and Plan: Rate controlled. previous hx, no candidate for anticoagulation. changed amlodipine to diltiazem (9) Pneumothorax on right: Code(s): J93.9 - Pneumothorax, unspecified Status: Resolved Assessment and Plan: Pt had chest tube in r lung and removed 07/03 since no longer in comfort mode of rx (10) Pneumonia: Code(s): J18.9 - Pneumonia, unspecified organism Status: Acute Assessment and Plan: Was on ceftriaxone and azithromycin , and finished 8-9 day course of antibiotics CXR still infiltrates VS fluid resumed lasix today (11) Anoxic brain damage: Code(s): G93.1 - Anoxic brain damage, not elsewhere classified Status: Acute Assessment and Plan: Upon arrival patient had severe hypercapnia most likely patient has anoxic brain injury resulting acute enchaphalopthy (12) HTN (hypertension): Code(s): I10 - Essential (primary) hypertension Status: Acute Assessment and Plan: Blood pressure rebounding and patient has history of diastolic heart failure so ARB and diuretic and calcium channel sulema restarted. Amlodipine changed to diltiazem with the AFib Subjective Date/time seen: 07/04/19 16:18 Interval history: Date of visit 07/04.. admitted on 06/17/2019 with acute respiratory failure, intubated on 06/17/2019, altered mental status, right pneumothorax status post right chest tube, CHF, pneumonia patient seen examined . patient is alert and conversant at her baseline, canteen manager was recommending PEG and trach as patient was not been able to wean off the vent however on 06/26/19 patient POA had decided to withdraw care and patient was extubated and changed to comfort care. 07/02 pm POA decided for full care. Chest tube out 07/03 and resume bipap HS and prn She is more alert than she was earlier in the week and eating well . no complaints, had afib 07/02 pm too but now SR and on diltiazem Had planned on
[2019-07-04] MEDS: NEOMYCIN/POLYMYXIN/BACITRACIN OINTMENT PACKET 1 PACKET TOPICAL (17:13)
--- NOTE | 2019-07-04 20:37 | PC.NURSE ---
This patient, Jamia Lay, was transferred to [facility] 07/04/192039 FROM 203. Personal belongings sent with patient. Belongings list checked and signed with receiving [ ]. Report given to GENA BO. Appropriate documentation sent with patient.
[2019-07-05] VITALS (7 sets, daily range): BP systolic 149–152; BP diastolic 56–67; PULSE 42–78; RESP 15–21; TEMP 35.9–36.6; O2SAT 90–100
[2019-07-05 06:37] LABS: Blood Urea Nitrogen 18 mg/dL (7-17); Calcium 8.5 mg/dL (8.4-10.2); Carbon Dioxide 28 mmol/L (22-30); Chloride 101 mmol/L (98-107); Estimated Glomerular Filt Rate 47; Glucose 100 mg/dL (65-105); Potassium 3.4 mmol/L (3.4-5.0); Sodium 138 mmol/L (137-145)
[2019-07-05] MEDS: LOSARTAN POTASSIUM 100 MG TABLET PO (10:04)
[2019-07-05] MEDS: ENOXAPARIN 30 MG/0.3 ML SYRINGE SUB-Q (10:04)
[2019-07-05] MEDS: FUROSEMIDE 40 MG TABLET PO (10:04)
[2019-07-05] MEDS: ASPIRIN 81 MG CHEWABLE TABLET PO (10:04)
[2019-07-05] MEDS: CITALOPRAM HYDROBROMIDE 20 MG TABLET PO (10:04)
--- NOTE | 2019-07-05 20:27 | PM.IMPN ---
Progress Note: A&P Assessment and Plan (1) Acute respiratory failure with hypoxia and hypercarbia: Code(s): J96.01 - Acute respiratory failure with hypoxia; J96.02 - Acute respiratory failure with hypercapnia Status: Acute Assessment and Plan: [employer] Cutter Helper was recommending PEG and trach as patient was not able to wean off the vent however on 06/26/19 patient POA had decided to withdraw care and patient was extubated. 07/02 pm on comfort care but responding and eating well, POA now has decided to resume care. Patientcontinues to improve. continue bipap hs. ABG still bad but about as good as she will get so stopped testing. Awaiting placement back to the [place]. (2) UTI (urinary tract infection): Code(s): N39.0 - Urinary tract infection, site not specified Status: Acute Assessment and Plan: Urine culture grew E coli sensitive to Rocephin, and finished 8-9 day course of IV antibiotics (3) Encephalopathy acute: Code(s): G93.40 - Encephalopathy, unspecified Status: Acute Assessment and Plan: The patient's acute encephalopathy was likely secondary to her severe hypercapnia, but much improved and back to her baseline. (4) Normocytic anemia: Code(s): D64.9 - Anemia, unspecified Status: Acute Assessment and Plan: Hemoglobin low but stable in the 7-8 range. No signs of acute blood loss.. (5) Thrombocytopenia: Code(s): D69.6 - Thrombocytopenia, unspecified Status: Acute Assessment and Plan: Resolved. Secondary to acute infection. (6) Acute renal failure: Code(s): N17.9 - Acute kidney failure, unspecified Status: Acute Assessment and Plan: Acute kidney injury most likely due to dehydyration. creatinine down to 1.4. Continue monitor periodically. (7) Hyperkalemia: Code(s): E87.5 - Hyperkalemia Status: Resolved Assessment and Plan: Resolved. Secondary to renal failure. (8) Paroxysmal atrial fibrillation: Code(s): I48.0 - Paroxysmal atrial fibrillation Status: Acute Assessment and Plan: Rate controlled. appears regular on exam today. Patient is not a candidate for anticoagulation. Changed amlodipine to diltiazem. continue to monitor clinically (9) Pneumothorax on right: Code(s): J93.9 - Pneumothorax, unspecified Status: Resolved Assessment and Plan: Pt had chest tube in r lung and removed 07/03 since no longer in comfort mode of rx. repeat chest x-ray if patient becomes symptomatic. (10) Pneumonia: Code(s): J18.9 - Pneumonia, unspecified organism Status: Acute Assessment and Plan: Was on ceftriaxone and azithromycin and finished 8-9 day course of antibiotics. Stable on 3 L. (11) Anoxic brain damage: Code(s): G93.1 - Anoxic brain damage, not elsewhere classified Status: Acute Assessment and Plan: Upon arrival patient had severe hypercapnia most likely patient has anoxic brain injury resulting acute enchaphalopth. (12) HTN (hypertension): Code(s): I10 - Essential (primary) hypertension Status: Acute Assessment and Plan: Blood pressure rebounding and patient has history of diastolic heart failure so ARB and diuretic and calcium channel sulema restarted. Amlodipine changed to diltiazem with the AFib. blood pressure reviewed on 07/05/2019. Blood pressure stable. Will continue to monitor for now. Additional Plan 15 minutes of critical care time with this patient tonight Subjective Date/time seen: 07/05/19 1000 59yo female here for PNA. Assuming care. Chart reviewed. Patient alert but unable to provide much of a hx. Review of Systems Review of Systems: ROS unobtainable: unobtainable due to mental condition Exam Narrative: Exam Narrative: Gen - NARD Chest - Coarse breath sounds in the flanks. CV - RRR S1/S2 Abd - Soft. Obese. Nontender. Ext - No p
[2019-07-06 03:10] VITALS: PULSE 75; RESP 16; O2SAT 92
[2019-07-06 06:00] VITALS: BP 146/63; PULSE 56; RESP 21; TEMP 36.6; O2SAT 100
[2019-07-06] MEDS: CITALOPRAM HYDROBROMIDE 20 MG TABLET PO (08:08)
[2019-07-06] MEDS: FUROSEMIDE 40 MG TABLET PO (08:08)
[2019-07-06] MEDS: ASPIRIN 81 MG CHEWABLE TABLET PO (08:09)
[2019-07-06] MEDS: ENOXAPARIN 30 MG/0.3 ML SYRINGE SUB-Q (08:09)
[2019-07-06] MEDS: LOSARTAN POTASSIUM 100 MG TABLET PO (08:09)
[2019-07-06 09:16] VITALS: O2SAT 96
--- NOTE | 2019-07-06 09:44 | PM.DS ---
DS: Diagnosis Admitting Diagnosis Admitting Diagnosis: Pneumothorax, unspecified Discharge Diagnosis (1) Acute respiratory failure with hypoxia and hypercarbia: Code(s): J96.01 - Acute respiratory failure with hypoxia; J96.02 - Acute respiratory failure with hypercapnia Status: Acute Assessment and Plan: Game Manager was recommending PEG and trach as patient was not able to wean off the vent however on 06/26/19 patient POA had decided to withdraw care and patient was extubated. 07/02 pm on comfort care but responding and eating well, POA now has decided to resume care. Patientcontinues to improve. continue bipap hs. ABG still bad but about as good as she will get so stopped testing. Awaiting placement back to the [place]. (2) UTI (urinary tract infection): Code(s): N39.0 - Urinary tract infection, site not specified Status: Acute Assessment and Plan: Urine culture grew E coli sensitive to Rocephin, and finished 8-9 day course of IV antibiotics (3) Encephalopathy acute: Code(s): G93.40 - Encephalopathy, unspecified Status: Acute Assessment and Plan: The patient's acute encephalopathy was likely secondary to her severe hypercapnia, but much improved and back to her baseline. (4) Normocytic anemia: Code(s): D64.9 - Anemia, unspecified Status: Acute Assessment and Plan: Hemoglobin low but stable in the 7-8 range. No signs of acute blood loss.. (5) Thrombocytopenia: Code(s): D69.6 - Thrombocytopenia, unspecified Status: Acute Assessment and Plan: Resolved. Secondary to acute infection. (6) Acute renal failure: Code(s): N17.9 - Acute kidney failure, unspecified Status: Acute Assessment and Plan: Acute kidney injury most likely due to dehydyration. creatinine down to 1.4. Continue monitor periodically. (7) Hyperkalemia: Code(s): E87.5 - Hyperkalemia Status: Resolved Assessment and Plan: Resolved. Secondary to renal failure. (8) Paroxysmal atrial fibrillation: Code(s): I48.0 - Paroxysmal atrial fibrillation Status: Acute Assessment and Plan: Rate controlled. appears regular on exam today. Patient is not a candidate for anticoagulation. Changed amlodipine to diltiazem. continue to monitor clinically (9) Pneumothorax on right: Code(s): J93.9 - Pneumothorax, unspecified Status: Resolved Assessment and Plan: Pt had chest tube in r lung and removed 07/03 since no longer in comfort mode of rx. repeat chest x-ray if patient becomes symptomatic. (10) Pneumonia: Code(s): J18.9 - Pneumonia, unspecified organism Status: Acute Assessment and Plan: Was on ceftriaxone and azithromycin and finished 8-9 day course of antibiotics. Stable on 3 L. (11) Anoxic brain damage: Code(s): G93.1 - Anoxic brain damage, not elsewhere classified Status: Acute Assessment and Plan: Upon arrival patient had severe hypercapnia most likely patient has anoxic brain injury resulting acute enchaphalopth. (12) HTN (hypertension): Code(s): I10 - Essential (primary) hypertension Status: Acute Assessment and Plan: Blood pressure rebounding and patient has history of diastolic heart failure so ARB and diuretic and calcium channel sulema restarted. Amlodipine changed to diltiazem with the AFib. blood pressure reviewed on 07/05/2019. Blood pressure stable. Will continue to monitor for now. DS: Summary Time Spent with Patient Time attestation: Total time spent providing and/or coordinating discharge services: Exam Narrative: Exam Narrative: Gen - NARD Chest - lungs clear anteriorly CV - RRR S1/S2 Abd - soft, NT, Obese Ext - No pitting pedal edema, 2+ DP bilaterally Psych - Nml mood and affect Skin - Warm and dry Discharge Plan Discharge Attending physician on discharge: Jannie Alvarez
== END 2019-07-06 12:08 | DRG 720 ==
LOC: ANHED 20:36 → ANHICU 21:02 → ANHIMU 07-04 12:45 → ANH2MED 07-06 06:50 → ANHICU 07-07 10:58 → ANHIMU 07-07 10:58
PROVIDERS: Family Medicine; Internal Medicine; Nurse Practitioner; Admitting Provider Family Medicine; Emergency Provider Emergency Medicine; Visit Provider Internal Medicine
DX: A41.9 Sepsis, unspecified organism (principal); R65.20 Severe sepsis without septic shock; J93.9 Pneumothorax, unspecified; J18.9 Pneumonia, unspecified organism; J96.21 Acute and chronic respiratory failure with hypoxia; J96.22 Acute and chronic respiratory failure with hypercapnia; N39.0 Urinary tract infection, site not specified; B96.20 Unspecified Escherichia coli [E. coli] as the cause of diseases classified elsewhere; N17.9 Acute kidney failure, unspecified; E86.0 Dehydration; D69.6 Thrombocytopenia, unspecified; E87.6 Hypokalemia; G93.1 Anoxic brain damage, not elsewhere classified; G93.49 Other encephalopathy; J44.0 Chronic obstructive pulmonary disease with (acute) lower respiratory infection; I48.0 Paroxysmal atrial fibrillation; M19.90 Unspecified osteoarthritis, unspecified site; F32.9 Major depressive disorder, single episode, unspecified; D63.1 Anemia in chronic kidney disease; E78.5 Hyperlipidemia, unspecified; Z96.641 Presence of right artificial hip joint; I50.32 Chronic diastolic (congestive) heart failure; E66.01 Morbid (severe) obesity due to excess calories; Z68.41 Body mass index [BMI] 40.0-44.9, adult; Z99.81 Dependence on supplemental oxygen
CPT/HCPCS: 36415; 36600; 51701; 70450; 71045; 73600; 80048; 80053; 80202; 81001; 82274; 82375; 82607; 82746; 82805; 83050; 83540; 83550; 83605; 83735; 83880; 84100; 84443; 84484; 85025; 85027; 85380; 86140; 87040; 87070; 87077; 87081; 87086; 87088; 87186; 87205; 93005; 93308; 94002; 94003; 94640; 96365; 96366; 96375; A9270; C1751; C9113; J0456; J0696; J1644; J1650; J1815; J1940; J2060; J2250; J2543; J2997; J3010; J3370; J3480; J7030; J7050; J7120; P9047

== ENCOUNTER 2020-11-07 16:42 | Inpatient (IN) | payer OTHER, SELFPAY ==
[2020-11-07] VITALS (18 sets, daily range): BP systolic 148–169; BP diastolic 57–75; PULSE 58–75; RESP 20–27; TEMP 36.2–37.6; O2SAT 91–99; BMI 43.6
--- NOTE | ~2020-11-07 | XR_ITS ---
EXAMINATION: XR chest 1V portable DATE: 11/07/2020 17:56 INDICATION: Dyspnea. TECHNIQUE: frontal view of the chest was obtained. COMPARISON: Chest radiograph dated 07/02/2019 FINDINGS: Significant improvement in prior bilateral airspace opacities. Cardiomegaly with pulmonary vascular c ongestion but without ashely pulmonary edema. No focal airspace opacities, pleural effusion or pneumot horax. Partially visualized plate and screw fixation for lower cervical anterior spinal fusion. IMPRESSION: 1. Cardiomegaly with pulmonary vascular congestion Reviewed, dictated and finalized at location A.
--- NOTE | ~2020-11-07 | US_ITS ---
EXAMINATION:US venous doppler LE BI INDICATION:Leg edema TECHNIQUE: Multiple grayscale, color flow and Doppler images of the right lower extremity deep venous systems were obtained and reviewed. COMPARISON:04/11/2015 FINDINGS: The common femoral, superficial femoral and popliteal veins demonstrate normal respiratory variation, augmentation and compressibility. Color flow is also seen within the posterior tibial, pe roneal, greater saphenous and profunda veins. IMPRESSION: 1: No lower extremity deep venous thrombosis. Reviewed, dictated and finalized at location B.
--- NOTE | 2020-11-07 17:10 | ECG_ITS ---
Measurements Intervals [place] Rate: 70 P: 68 TX: 205 QRS: 11 QRSD: 94 T: 36 QT: 416 QTc: 451 Interpretive Statements SINUS RHYTHM NORMAL ECG Electronically Signed On 11-08-2020 7:04:12 CDT by Rene Tim D.O.
--- NOTE | 2020-11-07 17:15 | ED.GENADULT ---
HPI - General Adult General Chief complaint: Recheck/Abnormal Lab/Rx Stated complaint: SOB Source: patient, EMS, RN notes reviewed and old records reviewed Mode of arrival: EMS Limitations: no limitations History of Present Illness HPI narrative: Patient is 60 years old -Congolese female brought to the emergency room by ambulance from [facility] because of increased CO2. On October 29 was 41, October 31 was 40 every 20 seconds was 42 and today is 44. Patient baseline is 36, 37. Patient is asymptomatic. Patient normally on 3 L of oxygen by nasal cannula. Currently patient denying any fever, chills, nausea, vomiting, shortness of breath, chest pain, back pain, or abdominal pain. Patient also denying any coughing or respiratory symptoms. Patient is bedridden, full code Related Data Home Medications Medication Instructions Recorded Confirmed aspirin 81 mg PO DAILY 06/17/19 06/18/19 citalopram 20 mg PO DAILY 06/17/19 06/18/19 furosemide 40 mg PO DAILY 06/17/19 06/18/19 losartan 100 mg PO DAILY 06/17/19 06/18/19 Allergies Allergy/AdvReac Type Severity Reaction Status Date / Time levofloxacin Allergy Unknown Unknown Verified 11/07/20 16:50 morphine Allergy Difficulty Verified 11/07/20 16:50 Breathing Review of Systems Review of Systems: Narrative: CONSTITUTIONAL: Denies fever, chills, or sweats. EYES: Denies visual changes, redness, or discharge. ENT: Denies rhinorrhea, congestion, sore throat, or otalgia. CARDIOVASCULAR: Denies chest pain, palpitations, or edema. RESPIRATORY: Denies cough or dyspnea. GASTROINTESTINAL: Denies abdominal pain, nausea, vomiting, or diarrhea. GENITOURINARY: Denies dysuria or hematuria. SKIN: Denies rash or itching. MUSCULOSKELETAL: Denies back pain, joint pain, or myalgia. NEUROLOGIC: Denies headache, numbness, or weakness. PSYCHIATRIC: Denies anxiety or depression. [facility] Past Medical History Medical History Acute respiratory failure with hypoxia and hypercarbia Arthritis Asthma CHF (congestive heart failure) COPD (chronic obstructive pulmonary disease) Depression DJD (degenerative joint disease) HTN (hypertension) Hyperlipidemia Mental disability On home O2 6L Post-menopausal Pulmonary edema Surgical History Surgical History History of hip replacement Right History of knee surgery Social History Social History Smoking status: Unknown if ever smoked Second hand tobacco smoke exposure: Yes Gender identity (if verbalized by the patient): Female Spiritual care concerns: No Exam Narrative: Exam Narrative: General appearance: Well-developed, well-nourished, does not look in pain or distress Skin: Normal color Head: Normocephalic, nontraumatic Eyes: Clear conjunctiva ENT: Oropharynx normal, ears normal, nose normal Neck: Supple, nontender Chest and respiratory: Airway patent, no respiratory distress, no accessory muscle use Heart: Regular rate/rhythm Abdomen: Soft, nontender, no organomegaly, quiet bowel sounds Vascular: Normal peripheral pulses, normal capillary refill. Musculoskeletal: Limited range of motion of the extremities Neurologic: Alert and oriented ?3, Course Course Emergency Course: Stable Vital Signs Vital signs: Vital Signs Temperature 37.6 C 11/07/20 16:45 Pulse Rate 71 11/07/20 16:45 Respiratory Rate 26 H 11/07/20 16:45 Blood Pressure 165/75 H 11/07/20 16:45 Pulse Oximetry 95 11/07/20 16:45 Temperature 37.6 C 11/07/20 16:45 Pulse Rate 71 11/07/20 16:45 Respiratory Rate 26 H 04
[2020-11-07 17:43] LABS: Alveolar/Arterial O2 Gradient 25.9 mmHg; Base Excess ABG 13.3 mEq/l (+/-2.0); Fractional Inspired Oxygen 32 %; HCO3 ABG 42.9 mEq/l (22.0-26.0); Oxygen Content ABG 13.1 %vol (16.0-22.0); Oxygen Saturation ABG 95.2 % (95.0-100.0); Oxyhemoglobin 94.8 % THb (90.0-100.0); PO2 ABG 90.6 mmHg (80.0-100.0); PO2 FiO2 Ratio Arterial Blood 2.83 %; Total Hemoglobin 9.7 g/dL (12.0-18.0)
[2020-11-07 17:44] LABS: pH ABG 7.271 (7.350-7.450)
[2020-11-07 17:45] LABS: Device NASAL CANNULA; Modified Allen's Test Pass; PCO2 ABG 95.4 mmHg (35.0-45.0); Site Drawn RIGHT RADIAL
[2020-11-07 17:47] LABS: Basophils Percent Auto 0.1 % (0.2-1.2); Eosinophils Absolute Auto 0.5 K/mm3 (0-0.3); Eosinophils Percent Auto 5.5 % (0-4.4); Hematocrit 30.3 % (37.0-47.0); Hemoglobin 8.7 g/dL (12.0-15.0); Immature Granulocyte Absolute 0.06 K/mm3 (0.00-0.031); Immature Granulocyte Percent A 0.6 % (0-0.5); Lymphocytes Absolute Auto 1.39 K/mm3 (0.9-3.2); Lymphocytes Percent Auto 14.5 % (18.3-44.2); Mean Corpuscular HGB Conc 28.7 g/dl (32-36); Mean Corpuscular Hemoglobin 25.4 pg (26-34); Mean Corpuscular Volume 88.3 fl (80-100); Mean Platelet Volume 9.1 fl (7.4-10.4); Monocytes Absolute Auto 0.4 K/mm3 (0.1-0.6); Neutrophils Absolute Auto 7.2 K/mm3 (1.3-6.7); Neutrophils Percent Auto 75.3 % (45.5-73.1); Platelet Count Result 153 k/mm3 (150-375); Red Blood Count 3.43 M/mm3 (4.2-5.4); Red Cell Distribution Width 17.2 % (11.5-14.5); White Blood Count 9.6 K/mm3 (4.5-10.0)
[2020-11-07 17:57] LABS: Alanine Aminotransferase 7 U/L (4-35); Albumin Level 3.7 g/dL (3.5-5.1); Alkaline Phosphatase 97 U/L (38-126); Anion Gap 3 mmol/L (8-16); Aspartate Amino Transferase 21 U/L (14-36); Bilirubin,Total 0.4 mg/dL (0.2-1.3); Blood Urea Nitrogen 24 mg/dL (7-17); Calcium 8.6 mg/dL (8.4-10.2); Carbon Dioxide 39 mmol/L (22-30); Chloride 98 mmol/L (98-107); Estimated CRCL calculation 35 ml/min; Estimated Glomerular Filt Rate 40; Glucose 107 mg/dL (65-105); Sodium 140 mmol/L (137-145)
[2020-11-07 18:06] LABS: NT Pro B Type Natriuretic Pept 1160 pg/mL (5-100)
[2020-11-07 18:12] LABS: Anisocytosis 2+ (NORMAL); Hypochromasia 1+ (NORMAL); Platelet Estimate Adequate (Adequate)
[2020-11-07] MEDS: FUROSEMIDE INJ 40 MG/4 ML VIAL IV PUSH (19:56)
--- NOTE | 2020-11-07 20:36 | ADMGEN ---
This patient, Jamia Lay, was admitted to Medical Room 347-. Patient/family oriented to hospital policies and general routines including ID bracelet, bed and alarms, visiting hours, pain management, procedures, bathroom and other care routines, personal items, smoking policy, room service/diet, and visiting hours. Information on how to activate the Rapid Response Team has been discussed. Patient/Family are encouraged to report perceived risks to care and to ask questions if they do not understand what they are told or what they should do.
[2020-11-07] MEDS: IPRATROPIUM BR 0.02% INH SOLN 0.5 MG/2.5 ML VIAL INHALATION (20:43)
[2020-11-07] MEDS: ALBUTEROL SULFATE NEB 2.5 MG/0.5 ML INH 5 MG INHALATION (20:43)
--- NOTE | 2020-11-07 21:07 | PM.IMHP ---
H&P: HPI History of Present Illness Date/Time: 11/07/20 21:07 this is a 60-year-old female patient with past medical history of having COPD and congestive heart failure. The patient chronically is on oxygen at 3 L per nasal cannula. She resides at a half-way. The listed half-way Listed in her old chart was [facility]. the patient could not recall which half-way she is from. The patient had no fever or chills no nausea vomiting or shortness of breath. The patient came to the emergency room because of an abnormal labs. She had increased CO2. On October 29 she had a CO2 October 31, 2040 was 40 and today was 44. The patient initially was placed on a BiPAP but now she is back on her home oxygen. Chest x-ray was read as cardiomegaly with pulmonary vascular congestion. The patient was given nebulizer treatments and IV Lasix. The patient is awake and talking without difficulty. Her ABGs from today were read as pH 7.271. CO2 95.4. Bicarb is 42.9. Patient's pulse ox was around 95%. Patient has chronic anemia and her H&H is 8.7 and 30.3 today. The patient has chronic renal failure and her creatinine is 1.6 the last 1 was 1.4 in 2019. BNP was noted to be 1160. The patient is being admitted to observation status on the date of service of 11/07/2020. Chief Complaint: Hypercapnia Review of Systems Review of Systems: ROS unobtainable: Yes unobtainable due to mental status PMFSH Past Medical History Medical History (Updated 11/07/20 @ 21:14 by Sarah Fischer NP) Acute respiratory failure with hypoxia and hypercarbia ELE (acute kidney injury) Anemia of chronic disease Arthritis Asthma CHF (congestive heart failure) Chronic renal failure, stage 3 (moderate) COPD (chronic obstructive pulmonary disease) Depression DJD (degenerative joint disease) Encephalopathy acute History of pneumothorax HTN (hypertension) Hyperkalemia Hyperlipidemia Mental disability On home O2 3L Pneumonia Post-menopausal Pulmonary edema Severe sepsis UTI (urinary tract infection) Surgical History Surgical History (Updated 11/07/20 @ 21:15 by Sarah Fischer NP) History of hip replacement Right History of knee surgery Hx of chest tube placement Family History Family History (Updated 04/28/21 @ 21:15 by Sarah Fischer NP) Father Alcoholism Mother Hypertension Social History Social History (Updated 11/07/20 @ 21:16 by Sarah Fischer NP) Social History: the patient is in a half-way. Looks like she has an [facility] according to her old records. No paperwork accompanied her from the half-way today. Melida vivas is her niece as listed as a durable power business attorney for healthcare. There is another niece that is listed as well. The patient is listed as a full code. The patient denies any alcohol, marijuana, tobacco, or illicit drugs. The patient tells me that she is and had 3 children. She tells me she is disabled. Smoking status: Unknown if ever smoked Second hand tobacco smoke exposure: Yes Gender identity (if verbalized by the patient): Female Spiritual care concerns: No Meds Home Medications and Allergies Home Medications Medication Instructions Recorded Confirmed Type aspirin 81 mg PO DAILY 06/17/19 06/18/19 History furosemide 40 mg PO DAILY 06/17/19 06/18/19 History losartan 100 mg PO DAILY 06/17/19 06/18/19 History diltiazem HCl 180 mg PO QAM #30 cap 07/04/19 Rx hydrocodone-acetaminophen 1 tablet PO Q4H PRN #20 tablet 07/04/19 Rx albuterol sulfate [ProAir HFA] 2 puff INHALATION QID 11/07/20 History atorvastatin 10 mg PO HS 11/07/20 History cetirizine [Zyrtec] 10 mg PO DAILY 11/07/20 History citalopram 10 mg PO DAILY 11/07/20 History ferrous sulfate 325 mg PO DAILY 11/07/20 History furosemide [Lasix] 20 mg PO DAILY 11/07/20 History hydrocodone-acetaminophen 1 tablet PO Q6H PRN 11/07/20 History polyethylene glycol 3350 [Miralax] 17 g PO DAILY
[2020-11-07 21:20] LABS: Prothrombin Time 13.9 Seconds (11.1-14.7)
[2020-11-07 21:22] LABS: Partial Thromboplastin Time 28.2 SECONDS (22.3-36.8)
[2020-11-08] VITALS (29 sets, daily range): BP systolic 144–180; BP diastolic 69–77; PULSE 60–85; RESP 16–32; TEMP 35.7–36.6; O2SAT 91–100
--- NOTE | 2020-11-08 | ECHO_ITS ---
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 Summary 1. Complete two-dimensional, color flow and Doppler transthoracic echocardiogram is performed. 2. Left ventricular systolic function is normal, estimated at 65-70%. 3. There is mildly increased left ventricular wall thickness. 4. Left atrial chamber dimension is mildly enlarged. 5. Right atrial chamber dimension is mildly enlarged. 6. There is mild aortic valve stenosis with a peak velocity of 154 cm/s, mean gradient of 5 mmHg, and aortic valve area of 1.8 cm2. 7. There is trace tricuspid valve regurgitation. 8. Unable to estimate PA systolic pressure due to poor spectral resolution of tricuspid regurgitant jet velocity. 9. The left ventricular diastolic function is abnormal with elevated E/E' consistent with elevated LA pressure.. 10. E/e' 13.7 is mildly elevated. Left Ventricle Left ventricular chamber dimension is normal. Left ventricular systolic function is normal, estimated at 65-70%. There is mildly increased left ventricular wall thickness. The left ventricular diastolic function is abnormal with elevated E/E' consistent with elevated LA pressure.. E/e' 13.7 is mildly elevated. Right Ventricle Right ventricular chamber dimension is normal. Right ventricular systolic function is normal. Left Atria Left atrial chamber dimension is mildly enlarged. Right Atria Right atrial chamber dimension is mildly enlarged. Aortic Valve The aortic valve is not well visualized. There is mild aortic valve sclerosis. There is mild aortic valve stenosis with a peak velocity of 154 cm/s, mean gradient of 5 mmHg, and aortic valve area of 1.8 cm2. There is no aortic valve regurgitation. Pulmonic Valve The pulmonic valve is not well visualized. There is trace pulmonic regurgitation. Mitral Valve The mitral valve has normal leaflets. There is trace mitral valve regurgitation. Tricuspid Valve Unable to estimate PA systolic pressure due to poor spectral resolution of tricuspid regurgitant jet velocity. The tricuspid valve leaflets are normal. There is trace tricuspid valve regurgitation. Pericardium/Pleural The pericardium appears epicardial fat pad. There is no pericardial effusion. Inferior Vena Cava Normal inferior vena cava with >50% collapse upon inspiration consistent with normal right atrial pressure, 5 mmHg. Aorta The aortic root size at the sinus of Valsalva is normal. Left Ventricular Outflow Tract Name Value Normal LVOT 2D LVOT Diameter 2.0 cm LV
[2020-11-08] MEDS: ALBUTEROL SULFATE NEB 2.5 MG/0.5 ML INH 5 MG INHALATION ×2 (01:37→07:39)
[2020-11-08] MEDS: IPRATROPIUM BR 0.02% INH SOLN 0.5 MG/2.5 ML VIAL INHALATION ×2 (01:38→07:40)
[2020-11-08 04:12] LABS: Alveolar/Arterial O2 Gradient 94.5 mmHg; Base Excess ABG 14.3 mEq/l (+/-2.0); Fractional Inspired Oxygen 35 %; HCO3 ABG 42.6 mEq/l (22.0-26.0); Oxyhemoglobin 88.4 % THb (90.0-100.0); PO2 ABG 58.8 mmHg (80.0-100.0); PO2 FiO2 Ratio Arterial Blood 1.68 %; Total Hemoglobin 8.8 g/dL (12.0-18.0); pH ABG 7.329 (7.350-7.450)
[2020-11-08 04:14] LABS: Device NON-INVASIVE VENT; Modified Allen's Test Pass; Oxygen Saturation ABG 86.9 % (95.0-100.0); PCO2 ABG 82.8 mmHg (35.0-45.0); Site Drawn RIGHT RADIAL
[2020-11-08 04:15] LABS: Non-Invasive Expiratory Pressure 5 CMH2O; Non-Invasive Inspiratory Pressure 14 CMH2O; Non-Invasive Vent Rate 4 /MIN
[2020-11-08 05:53] LABS: Basophils Percent Auto 0.1 % (0.2-1.2); Eosinophils Absolute Auto 0.4 K/mm3 (0-0.3); Eosinophils Percent Auto 5.6 % (0-4.4); Hematocrit 28.2 % (37.0-47.0); Immature Granulocyte Absolute 0.03 K/mm3 (0.00-0.031); Immature Granulocyte Percent A 0.4 % (0-0.5); Mean Corpuscular HGB Conc 28.4 g/dl (32-36); Mean Corpuscular Hemoglobin 25.3 pg (26-34); Mean Corpuscular Volume 89.2 fl (80-100); Mean Platelet Volume 10.5 fl (7.4-10.4); Monocytes Absolute Auto 0.3 K/mm3 (0.1-0.6); Monocytes Percent Auto 4.3 % (2.6-8.5); Neutrophils Absolute Auto 5.5 K/mm3 (1.3-6.7); Neutrophils Percent Auto 73.6 % (45.5-73.1); Platelet Count Result 160 k/mm3 (150-375); Red Blood Count 3.16 M/mm3 (4.2-5.4); Red Cell Distribution Width 17.2 % (11.5-14.5); White Blood Count 7.5 K/mm3 (4.5-10.0)
[2020-11-08 05:53] LABS: Base Excess ABG 12.9 mEq/l (+/-2.0); Fractional Inspired Oxygen 40 %; HCO3 ABG 41.1 mEq/l (22.0-26.0); Oxygen Content ABG 11.8 %vol (16.0-22.0); Oxygen Saturation ABG 95.3 % (95.0-100.0); Oxyhemoglobin 94.6 % THb (90.0-100.0); PO2 ABG 86.3 mmHg (80.0-100.0); PO2 FiO2 Ratio Arterial Blood 2.16 %; Total Hemoglobin 8.8 g/dL (12.0-18.0); pH ABG 7.324 (7.350-7.450)
[2020-11-08 05:55] LABS: Device NON-INVASIVE VENT; Modified Allen's Test Pass; Non-Invasive Expiratory Pressure 8 CMH2O; Non-Invasive Inspiratory Pressure 16 CMH2O; Non-Invasive Vent Rate 20 /MIN; PCO2 ABG 80.8 mmHg (35.0-45.0); Site Drawn RIGHT RADIAL
[2020-11-08 06:16] LABS: Lactic Acid Reflex 0.7 mmol/L (0.7-2.1)
[2020-11-08 06:20] LABS: Alanine Aminotransferase 8 U/L (4-35); Albumin Level 3.4 g/dL (3.5-5.1); Alkaline Phosphatase 97 U/L (38-126); Aspartate Amino Transferase 19 U/L (14-36); Bilirubin,Total 0.3 mg/dL (0.2-1.3); Blood Urea Nitrogen 24 mg/dL (7-17); Calcium 8.2 mg/dL (8.4-10.2); Carbon Dioxide > 40 mmol/L (22-30); Chloride 97 mmol/L (98-107); Estimated CRCL calculation 36 ml/min; Estimated Glomerular Filt Rate 40; Glucose 103 mg/dL (65-105); Potassium 3.3 mmol/L (3.4-5.0); Sodium 142 mmol/L (137-145)
[2020-11-08 06:45] LABS: Anisocytosis 2+ (NORMAL); Hypochromasia 1+ (NORMAL); Platelet Estimate Adequate (Adequate)
--- NOTE | 2020-11-08 07:06 | PC.NURSE ---
This patient, Jamia Lay, was received from [facility] on 11/08/20 at 0639. Patient/family oriented to unit policies and routines
[2020-11-08] MEDS: FUROSEMIDE INJ 40 MG/4 ML VIAL 20 MG IV PUSH ×2 (09:12→21:06)
--- NOTE | 2020-11-08 09:19 | PM.CNPUL ---
Assessment and Plan Assessment and plan (1) Chronic respiratory failure with hypoxia and hypercapnia: Code(s): J96.11 - Chronic respiratory failure with hypoxia; J96.12 - Chronic respiratory failure with hypercapnia Status: Acute Assessment and Plan: Patient has a history of chronic respiratory failure with hypoxemia and hypercarbia and per the patient's report and past medical notes at our hospital indicate that [facility] 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 I have no PFTs on record. Patient had a CT scan on 05/22/2018 and there was no evidence of any centrilobular or paraseptal emphysema. I will attempt to get records from the [facility] to determine what her BiPAP settings are and obtain a download to see what her compliance is. I have currently increased her BiPAP pressures to 22/8 and her saturations were 100% on 30% during the day. The settings resulted in a tidal volume of 410-650. I will obtain a blood gas in the morning prior to removing the BiPAP machine and also obtain an overnight oximetry with an apnea link study to assess oxygenation. Ideally patient could be placed on noninvasive ventilator with an Avaps-ae mode but the [facility] and is unable to support this device. I see no other concurrent pulmonary issues at this time that need to be treated. There are no wheezes and I do not think the patient needs bronchodilators, inhaled or systemic steroids or antibiotics. Will follow with you. History of Present Illness History of Present Illness Consult date: 11/08/20 Requesting physician: Scott Drake MD Reason for consult: other (Hypercarbic respiratory failure) Chief complaint: Acute on top of chronic respiratory failure, CHF Narrative: This is a new pulmonary consult for hypoxemic and hypercarbic respiratory failure. This is a 60-year-old woman with a history of hypercarbic and hypoxemic respiratory failure [facility] and 2 L oxygen nasal cannula during the day, congestive heart failure, morbid obesity. Patient has been mid to our hospital in the past with hypercarbic respiratory failure requiring intubation on 06/17/2019 her blood gas was a pH of 7.09/128/85 she failed BiPAP and was intubated. It appears that she [facility] with her last blood gas in the computer of BiPAP 18/6, 40% with a pH of 7.26/61/94. The patient was referred to the emergency department for an increased serum bicarbonate level. In the emergency department she told the physician she had no respiratory complaints and a blood gas was obtained on 3 L nasal cannula that showed a pH of 7.27/95/91. Patient was admitted to the hospital and initiated on BiPAP 14/5 with 35% FiO2 with a repeat blood gas of 7.363/83/59. The patient was ultimately increased to BiPAP 16/8 with 40% and repeat blood gas was 7.32/81/86. When I saw the patient this morning she was still wearing BiPAP at 18/940% and her tidal volumes were approximately 280-350 with saturations of 100%. Patient tells me she has no respiratory symptoms and she was doing fine at the [facility]. Patient denies any fever, chills, rigors, cough, phlegm production, hemoptysis or chest pains. At the bedside a increased her to BiPAP 22/8 and decreased her to 30% FiO2. These settings resulted in a tidal volume of 410-650 and the patient said that she felt comfortable using the fullface mask with the settings. Patient was awake and alert asking to take the mask off and I relayed this to the nurse. Review of Systems Review of Systems: All systems reviewed & are unremarkable except as noted in HPI and below Eyes: Eyes: Reports no additional eye complaints ENT: Reports system reviewed and no addit
--- NOTE | 2020-11-08 10:31 | PM.IMPN ---
Progress Note: A&P Assessment and Plan (1) Acute respiratory failure with hypoxia and hypercarbia: Code(s): J96.01 - Acute respiratory failure with hypoxia; J96.02 - Acute respiratory failure with hypercapnia Status: Acute Assessment and Plan: Patient relatively asymptomatic but with an ABG 7.27/95/90 on 3 L. Patient was on a BiPAP with improvement of her ABG (7.32/81/86). Discussed with stereoptician with plans to adjust NIV to improve ABG. Patient has been taken off her NIV currently back on her 3 L. continue to monitor. (2) CHF (congestive heart failure): Code(s): I50.9 - Heart failure, unspecified Status: Acute Assessment and Plan: On admission, patient had a chest x-ray that showed cardiomegaly and pulmonary vascular congestion. BNP was 1160. Doppler the lower extremities negative for DVT. No echo listed in the chart. Echo in the old chart from 2018 showing EF of 65% and grade 2 diastolic dysfunction and mild pulmonary hypertension. Agree with repeating echocardiogram. Urine output not being measured. Continue IV Lasix for now. (3) Chronic renal failure, stage 3 (moderate): Code(s): N18.30 - Chronic kidney disease, stage 3 unspecified Status: Chronic Assessment and Plan: Creatinine is 1.6 on admission. Baseline creatinine runs 1.4-1.7. She appears to be at her baseline. Continue monitor closely while on IV diuretics. (4) Paroxysmal atrial fibrillation: Code(s): I48.0 - Paroxysmal atrial fibrillation Status: Acute Assessment and Plan: Patient has a history of paroxysmal atrial fibrillation. EKG showing normal sinus rhythm. She is on diltiazem for this but does not appear to be on long-term anticoagulation. (5) COPD (chronic obstructive pulmonary disease): Code(s): J44.9 - Chronic obstructive pulmonary disease, unspecified Status: Acute Assessment and Plan: Patient is a nonsmoker but was exposed to secondhand smoke. Last CT of the chest was 2017 showing no lung parenchymal architectural distortion. She was hospitalized in 2019 requiring intubation had a right-sided chest tube placed. A few scattered wheezes noted on exam today. Continue to monitor. (6) HTN (hypertension): Code(s): I10 - Essential (primary) hypertension Status: Acute Assessment and Plan: Patient's blood pressure was reviewed on 11/08 Blood pressure elevated at times. Will continue current medications. (7) Normocytic anemia: Code(s): D64.9 - Anemia, unspecified Status: Acute Assessment and Plan: Hemoglobin 8.7 on admission. That she appears have a chronic anemia. Will proceed with workup. Continue to monitor. (8) DVT prophylaxis: Code(s): Z29.9 - Encounter for prophylactic measures, unspecified Status: Acute Assessment and Plan: Lovenox Subjective Date/time seen: 11/08/20 10:31 Interval history: 60yo female with CKD, CHF, COPD, TIFFANY and chronic respiratory failure sent to the ED for elevated serum bicarb. Patient feels well. She toelrated the NIV last night. She is compliant 7 nights/week with her NIV at the long-term. She does dtate the pressure from our machine was stronger. No CP or cough. Not able to walk due to arthritis but is up to a wheelchair at the home. On 3L O2 NC while awake Exam Narrative: Exam Narrative: AF 97.5 158/76 82 23 96% 3L Gen - NARD Chest - expiratory wheezes/rhonchi, few basilar inspiratory crackles. nml RR. no conversational dyspnea CV - RRR S1/S2; Tele showing no significant dysrhythmias Abd -soft. Obese. Nontender. Ext -trace bilateral pedal edema. Psych - Nml mood and affect Skin - Warm and dry Objective Data Vital Signs Vital Signs: Vital Signs - 24 hr 11/07/20 16:45 11/07/20 16:51 11/07/20 17:00 Temperature 99.6 F Pulse Rate 71 70 71 Respiratory Rate 26 H 24 H 26 H Blood Pressure 165/75 H
[2020-11-08] MEDS: ALBUTEROL SULFATE (*SP) AEROSOL 1 PUFF 2 PUFF INHALATION (11:44)
[2020-11-08] MEDS: POTASSIUM CHLORIDE 20 MEQ TABLET PO (12:05)
[2020-11-08] MEDS: ENOXAPARIN 40 MG/0.4 ML SYRINGE SUB-Q (12:05)
[2020-11-08] MEDS: ATORVASTATIN 10 MG TABLET PO (21:05)
[2020-11-09] VITALS (12 sets, daily range): BP systolic 155–187; BP diastolic 70–101; PULSE 51–84; RESP 19–20; TEMP 36.2–37.3; O2SAT 84–100
[2020-11-09 04:26] LABS: Alveolar/Arterial O2 Gradient 125.7 mmHg; Base Excess ABG 15.6 mEq/l (+/-2.0); Fractional Inspired Oxygen 40 %; HCO3 ABG 43.4 mEq/l (22.0-26.0); Oxygen Content ABG 12.2 %vol (16.0-22.0); Oxygen Saturation ABG 92.7 % (95.0-100.0); Oxyhemoglobin 93.3 % THb (90.0-100.0); PO2 ABG 70.4 mmHg (80.0-100.0); PO2 FiO2 Ratio Arterial Blood 1.76 %; Total Hemoglobin 9.2 g/dL (12.0-18.0); pH ABG 7.366 (7.350-7.450)
[2020-11-09 04:28] LABS: PCO2 ABG 77.5 mmHg (35.0-45.0); Site Drawn LEFT RADIAL
[2020-11-09 04:29] LABS: Device BIPAP; Expiratory Pressure 8 cmH2O; Inspiratory Pressure 22 cmH2O; Modified Allen's Test Pass
--- NOTE | 2020-11-09 04:30 | PCRCNOTE ---
pt with continuous desaturation of SPO2 into the low 80's on 30%. Pt FIO2 increased to 40% for remainder of apnea link study on bipap 03/03
[2020-11-09 08:02] LABS: Hematocrit 29.3 % (37.0-47.0); Hemoglobin 8.4 g/dL (12.0-15.0); Mean Corpuscular HGB Conc 28.7 g/dl (32-36); Mean Corpuscular Hemoglobin 25.5 pg (26-34); Mean Corpuscular Volume 89.1 fl (80-100); Mean Platelet Volume 9.1 fl (7.4-10.4); Platelet Count Result 141 k/mm3 (150-375); Red Blood Count 3.29 M/mm3 (4.2-5.4); Red Cell Distribution Width 17.3 % (11.5-14.5); White Blood Count 6.3 K/mm3 (4.5-10.0)
[2020-11-09] MEDS: LORATADINE 10 MG TABLET PO (08:51)
[2020-11-09] MEDS: CITALOPRAM HYDROBROMIDE 10 MG TABLET PO (08:51)
[2020-11-09] MEDS: FERROUS SULFATE 324 MG TABLET PO (08:51)
[2020-11-09] MEDS: dilTIAZem HCL CD 180 MG CAP.ER.24H PO (08:51)
[2020-11-09] MEDS: SENNOSIDES 8.6 MG TABLET PO (08:51)
[2020-11-09] MEDS: LOSARTAN POTASSIUM 100 MG TABLET PO (08:52)
[2020-11-09] MEDS: ENOXAPARIN 40 MG/0.4 ML SYRINGE SUB-Q (08:52)
[2020-11-09] MEDS: FUROSEMIDE INJ 40 MG/4 ML VIAL 20 MG IV PUSH ×2 (08:52→20:18)
[2020-11-09 09:03] LABS: Blood Urea Nitrogen 23 mg/dL (7-17); Calcium 8.6 mg/dL (8.4-10.2); Carbon Dioxide > 40 mmol/L (22-30); Chloride 99 mmol/L (98-107); Estimated CRCL calculation 35 ml/min; Estimated Glomerular Filt Rate 40; Glucose 101 mg/dL (65-105); Potassium 3.9 mmol/L (3.4-5.0); Sodium 146 mmol/L (137-145)
[2020-11-09] MEDS: ALBUTEROL SULFATE (*SP) AEROSOL 1 PUFF 2 PUFF INHALATION ×5 (09:30→20:05)
--- NOTE | 2020-11-09 09:30 | PM.PNPUL ---
Progress Note: A&P Assessment and Plan (1) Chronic respiratory failure with hypoxia and hypercapnia: Code(s): J96.11 - Chronic respiratory failure with hypoxia; J96.12 - Chronic respiratory failure with hypercapnia Status: Acute Assessment and Plan: 11/08 Patient has a history of chronic respiratory failure with hypoxemia and hypercarbia and per the patient's report and past medical notes at our hospital indicate that she is on BiPAP at the long term. 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 I have no PFTs on record. Patient had a CT scan on 05/22/2018 and there was no evidence of any centrilobular or paraseptal emphysema. I will attempt to get records from the long term to determine what her BiPAP settings are and obtain a download to see what her compliance is. I have currently increased her BiPAP pressures to 22/8 and her saturations were 100% on 30% during the day. The settings resulted in a tidal volume of 410-650. I will obtain a blood gas in the morning prior to removing the BiPAP machine and also obtain an overnight oximetry with an apnea link study to assess oxygenation. Ideally patient could be placed on noninvasive ventilator with an Avaps-ae mode but the long term and is unable to support this device. I see no other concurrent pulmonary issues at this time that need to be treated. There are no wheezes and I do not think the patient needs bronchodilators, inhaled or systemic steroids or antibiotics. 11/09 Patient wore hospital bipap With backup rate 20, EPAP 8, IPAP 22, 30%. Patient states that she felt fine with the current BiPAP settings. Patient was noted to have desats into the lower 80s and was increased to 40%. On these settings patient had an ABG at the end of the night with a pH of 7.37/78/70. I willincrease back up rate to 22 and BiPAP to 22/8. Patient had an overnight oximetry and the average saturation was 94%. And after increasing the FiO2 to 40% there were nose desaturations less than or equal to 88%. The lowest saturation on 40% was 93%. Patient is ready for discharge back to the long term on BiPAP with a backup rate of 22 and a EPAP of 8 and inspiratory pressure of 24 on 6 L bleed in. No home O2 assessment as NH will titer to keep saturations acceptable. Discussed with Dr. Drake. Subjective Date/time seen: 11/09/20 09:30 Interval history: This is a 60-year-old woman with a history of hypercarbic and hypoxemic respiratory failure on BiPAP at the long term and 2 L oxygen nasal cannula during the day, congestive heart failure, morbid obesity. Patient has been mid to our hospital in the past with hypercarbic respiratory failure requiring intubation on 06/17/2019 her blood gas was a pH of 7.09/128/85 she failed BiPAP and was intubated. It appears that she was discharged to the long term on a BiPAP with her last blood gas in the computer of BiPAP 18/6, 40% with a pH of 7.26/61/94. The patient was referred to the emergency department for an increased serum bicarbonate level. In the emergency department she told the physician she had no respiratory complaints and a blood gas was obtained on 3 L nasal cannula that showed a pH of 7.27/95/91. Patient was admitted to the hospital and initiated on BiPAP 14/5 with 35% FiO2 with a repeat blood gas of 7.363/83/59. The patient was ultimately increased to BiPAP 16/8 with 40% and repeat blood gas was 7.32/81/86. When I saw the patient this morning she was still wearing BiPAP at 18/940% and her tidal volumes were approximately 280-350 with saturations of 100%. Patient tells me she has no respiratory symptoms and she was doing fine at the long term. Patient denies any fever, chills, rigors, cough, phlegm production, hemoptysis or chest pains. 11/08
--- NOTE | 2020-11-09 09:40 | PCRCNOTE ---
Bipap orders faxed to [facility], Attn: Madison
[2020-11-09 10:12] LABS: Folic Acid 7.7 ng/mL (2.76->20)
[2020-11-09 10:14] LABS: Iron 56 ug/dL (37-170)
[2020-11-09 10:30] LABS: Percent Iron Saturation 25 % (20-50)
--- NOTE | 2020-11-09 11:21 | PM.IMPN ---
Progress Note: A&P Assessment and Plan (1) Acute respiratory failure with hypoxia and hypercarbia: Code(s): J96.01 - Acute respiratory failure with hypoxia; J96.02 - Acute respiratory failure with hypercapnia Status: Acute Assessment and Plan: Patient relatively asymptomatic but with an ABG 7.27/95/90 on 3 L on admission. Patient was placed on BiPAP with improvement of her ABG (7.36/77/70) today. Discussed with network management specialist with plans to adjust NIV. Spoke with RN today who stated patient has been [facility] the [facility] and the [facility] sent the [facility] back. Discharge once BiPAP arranged at [facility] and COVID screen results known. (2) CHF (congestive heart failure): Code(s): I50.9 - Heart failure, unspecified Status: Acute Assessment and Plan: On admission, patient had a chest x-ray that showed cardiomegaly and pulmonary vascular congestion. BNP was 1160. Doppler the lower extremities negative for DVT. Echo showing EF of 65-70% and diastolic dysfunction and mild ; pulm pressures unable to be determined. Clinically better. Continue IV Lasix for now. (3) Chronic renal failure, stage 3 (moderate): Code(s): N18.30 - Chronic kidney disease, stage 3 unspecified Status: Chronic Assessment and Plan: Creatinine is 1.6 on admission. Baseline creatinine runs 1.4-1.7. She appears to be at her baseline and Cr unchanged today. Continue monitor closely while on IV diuretics. (4) Paroxysmal atrial fibrillation: Code(s): I48.0 - Paroxysmal atrial fibrillation Status: Acute Assessment and Plan: Patient has a history of paroxysmal atrial fibrillation. EKG showing normal sinus rhythm. She is on diltiazem but does not appear to be on long-term anticoagulation. [id number] 3. 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 (5) COPD (chronic obstructive pulmonary disease): Code(s): J44.9 - Chronic obstructive pulmonary disease, unspecified Status: Acute Assessment and Plan: Patient is a nonsmoker but was exposed to secondhand smoke. Last CT of the chest was 2018 showing no lung parenchymal architectural distortion. She was hospitalized in 2019 requiring intubation had a right-sided chest tube placed. Lungs clear today. Continue to monitor. (6) HTN (hypertension): Code(s): I10 - Essential (primary) hypertension Status: Acute Assessment and Plan: Patient's blood pressure was reviewed on 11/09 Blood pressure elevated at times. Cardizem and Cozaar resumed. Will continue current medications and see how her BP does today. (7) Normocytic anemia: Code(s): D64.9 - Anemia, unspecified Status: Acute Assessment and Plan: Hemoglobin 8.7 on admission. That she appears have a chronic anemia. Workup showing B12 deficiency. Iron studies okay except with low TIBC to suggest anemia of chronic disease. Repalce B12. Continue to monitor. (8) DVT prophylaxis: Code(s): Z29.9 - Encounter for prophylactic measures, unspecified Status: Acute Assessment and Plan: Lovenox Subjective Date/time seen: 11/09/20 11:21 Interval history: 60yo female with CKD, CHF, COPD, TIFFANY and chronic respiratory failure sent to the ED for elevated serum bicarb. No problems overnight. Patient denies chest pain or shortness of breath. No nausea or vomiting. Eating normally. Patient is alert but confused so history is unreliable. Review of Systems Review of Systems: ROS unobtainable: Yes unobtainable due to mental status Exam Narrative: Exam Narrative: AF 97.2 156/80 71 19 98% 3L Gen - NARD Chest - lungs clear anteriorly and in the flanks. nml RR. CV - RRR S1/S2; Tele showing no significant dysrhythmias Abd -soft. Obese. Nontender. - Cunningham secured draining clear yellow urine Ext - 1+ bilateral pedal edema. Psych - Nml mood and affect. Alert but confused. speech garbled at lat[place]
[2020-11-09] MEDS: HYDROcodone/acetaminophen (*CRX) 5-325 MG TABLET 1 TAB PO ×2 (12:20→20:18)
[2020-11-09] MEDS: CYANOCOBALAMIN INJ 1,000 MCG/ML VIAL 1000 MCG IM (12:20)
[2020-11-09] MEDS: ASPIRIN 81 MG CHEWABLE TABLET PO (13:16)
--- NOTE | 2020-11-09 13:59 | PC.NURSE ---
This patient, Jamia Lay, was transferred to [facility] on 11/09/20 at 1355. Personal belongings sent with patient. Report given to Courtney BO. Appropriate documentation sent with patient.
[2020-11-09 19:12] LABS: SARS-CoV-2 RNA PCR Negative
[2020-11-09] MEDS: ATORVASTATIN 10 MG TABLET PO (20:18)
[2020-11-10] VITALS (7 sets, daily range): BP systolic 153–171; BP diastolic 56–75; PULSE 61–73; RESP 20; TEMP 36.7–37.9; O2SAT 90–97
--- NOTE | 2020-11-10 00:25 | PC.NURSE ---
DO Hopen notified that the patient had a bp of 189/66, stated to retake bp at midnight and if the sbp was above 175 physician would order bp medication. patient did not meet threshold for midnight
[2020-11-10 06:59] LABS: Blood Urea Nitrogen 23 mg/dL (7-17); Calcium 8.1 mg/dL (8.4-10.2); Carbon Dioxide > 40 mmol/L (22-30); Chloride 95 mmol/L (98-107); Estimated CRCL calculation 35 ml/min; Estimated Glomerular Filt Rate 40; Glucose 96 mg/dL (65-105); Potassium 3.6 mmol/L (3.4-5.0); Sodium 140 mmol/L (137-145)
[2020-11-10] MEDS: ALBUTEROL SULFATE (*SP) AEROSOL 1 PUFF 2 PUFF INHALATION ×3 (08:24→16:30)
[2020-11-10] MEDS: CITALOPRAM HYDROBROMIDE 10 MG TABLET PO (08:25)
[2020-11-10] MEDS: LOSARTAN POTASSIUM 100 MG TABLET PO (08:26)
[2020-11-10] MEDS: LORATADINE 10 MG TABLET PO (08:26)
[2020-11-10] MEDS: FERROUS SULFATE 324 MG TABLET PO (08:26)
[2020-11-10] MEDS: ENOXAPARIN 40 MG/0.4 ML SYRINGE SUB-Q (08:26)
[2020-11-10] MEDS: SENNOSIDES 8.6 MG TABLET PO (08:26)
[2020-11-10] MEDS: FUROSEMIDE INJ 40 MG/4 ML VIAL 20 MG IV PUSH (08:26)
[2020-11-10] MEDS: dilTIAZem HCL CD 180 MG CAP.ER.24H PO (08:26)
[2020-11-10] MEDS: ASPIRIN 81 MG CHEWABLE TABLET PO (09:08)
--- NOTE | 2020-11-10 13:18 | PM.DS ---
DS: Admitting Diagnosis Admitting Diagnosis Admitting Diagnosis: Abnormal serum bicarb level DS: Discharge Diagnosis Discharge Diagnosis (1) Acute respiratory failure with hypoxia and hypercarbia: Code(s): J96.01 - Acute respiratory failure with hypoxia; J96.02 - Acute respiratory failure with hypercapnia Status: Acute Assessment and Plan: Patient relatively asymptomatic but with an ABG 7.27/95/90 on 3 L on admission. Patient was placed on BiPAP with improvement of her ABG (7.36/77/70). She was followed by educational assistant teacher here. Discovered that the patient was refusing her [facility] at the [facility] and the [facility] sent the [facility]. Patient did well and able to return to the [facility]. (2) CHF (congestive heart failure): Code(s): I50.9 - Heart failure, unspecified Status: Acute Assessment and Plan: On admission, patient had a chest x-ray that showed cardiomegaly and pulmonary vascular congestion. BNP was 1160. Doppler the lower extremities negative for DVT. Echo showing EF of 65-70% and diastolic dysfunction and mild ; pulm pressures unable to be determined. Treated with Lasix IV with good UOP. Clinically better. (3) Chronic renal failure, stage 3 (moderate): Code(s): N18.30 - Chronic kidney disease, stage 3 unspecified Status: Chronic Assessment and Plan: Creatinine is 1.6 on admission. Baseline creatinine runs 1.4-1.7. Cr remained unchanged with diuretic therapy. (4) Paroxysmal atrial fibrillation: Code(s): I48.0 - Paroxysmal atrial fibrillation Status: Acute Assessment and Plan: Patient has a history of paroxysmal atrial fibrillation. EKG showing normal sinus rhythm. She is on diltiazem but does not appear to be on long-term anticoagulation. [id number] 3. Previous notes state patient not a candidate for anticoagulation. (5) COPD (chronic obstructive pulmonary disease): Code(s): J44.9 - Chronic obstructive pulmonary disease, unspecified Status: Acute Assessment and Plan: Patient is a nonsmoker but was exposed to secondhand smoke. Last CT of the chest was 2017 showing no lung parenchymal architectural distortion. She was hospitalized in 2019 requiring intubation had a right-sided chest tube placed. Lungs remained clear (6) HTN (hypertension): Code(s): I10 - Essential (primary) hypertension Status: Acute Assessment and Plan: Patient's blood pressure was monitored closely and was elevated at times. Cardizem and Cozaar resumed. Will advance her Lasix. Further titration of medications per facility provider. (7) Normocytic anemia: Code(s): D64.9 - Anemia, unspecified Status: Acute Assessment and Plan: Hemoglobin 8.7 on admission. She appears have a chronic anemia. Workup showing B12 deficiency. Iron studies okay except with low TIBC to suggest anemia of chronic disease. B12 replaced. Continue replacement at facility DS: Summary Hospital Course Reason for hospitalization: 60yo female with CKD, CHF, COPD, TIFFANY and chronic respiratory failure sent to the ED for elevated serum bicarb. Please see H&P for details. Hospital Course: Please see above for details of hospital course. Status at Discharge Cognitive/behavioral status at discharge: Stable. Time Spent with Patient Time attestation: Total time spent providing and/or coordinating discharge services: 35 minutes Time spent: Greater than 30 minutes Specific discharge activities: Discharge instructions discussed with family Exam Narrative: Exam Narrative: AF 98.1 170/75 61 20 93% 3L Gen - NARD sitting up in bed Chest - lungs clear anteriorly and in the flanks. nml RR. CV - RRR S1/S2 Abd -soft. Obese. Nontender. Ext - 1+ bilateral pedal edema. Psych - Nml mood and affect. Alert but confused. speech garbled at times Skin - Warm and dry DS: Data Data Completed and Pending Labs on day of disc
--- NOTE | 2020-11-10 14:08 | PC.NURSE ---
Report called to Carli at [facility].
--- NOTE | 2020-11-12 08:36 | PC.NURSE ---
Urine cx growing Providencia stuartii. Patient dc on Rocephin which is sensitive. Dr. Drake aware.
== END 2020-11-10 17:20 | disposition home or self-care (01) | DRG 133 ==
LOC: ANHED 16:55 → ANH3MED 20:57 → ANHICU 11-08 14:26 → ANH3MEDSUR 11-10 13:39 → ANH3MED 11-16 08:10 → ANHICU 11-20 09:19 → ANH3MEDSUR 11-27 08:35
PROVIDERS: Internal Medicine Pulmonary Disease; Nurse Practitioner; Admitting Provider Internal Medicine; Emergency Provider Emergency Medicine; Visit Provider Internal Medicine
DX: J96.22 Acute and chronic respiratory failure with hypercapnia; I13.0 Hypertensive heart and chronic kidney disease with heart failure and stage 1 through stage 4 chronic kidney disease, or unspecified chronic kidney disease; J96.21 Acute and chronic respiratory failure with hypoxia; Z20.822 Contact with and (suspected) exposure to COVID-19; I50.9 Heart failure, unspecified; N18.30 Chronic kidney disease, stage 3 unspecified; E66.01 Morbid (severe) obesity due to excess calories; Z68.41 Body mass index [BMI] 40.0-44.9, adult; F79 Unspecified intellectual disabilities; G47.33 Obstructive sleep apnea (adult) (pediatric); J44.9 Chronic obstructive pulmonary disease, unspecified; Z77.22 Contact with and (suspected) exposure to environmental tobacco smoke (acute) (chronic); I48.0 Paroxysmal atrial fibrillation; E78.5 Hyperlipidemia, unspecified; D64.9 Anemia, unspecified; Z99.81 Dependence on supplemental oxygen; Z79.82 Long term (current) use of aspirin; Z79.899 Other long term (current) drug therapy
CPT/HCPCS: 36415; 36600; 71045; 80048; 80053; 82607; 82728; 82746; 82805; 83540; 83550; 83605; 83735; 83880; 85025; 85027; 85610; 85730; 87077; 87086; 87088; 87186; 93005; 93306; 93970; 94002; 94003; 94640; 94762; 96374; 99285; A9270; C9803; G0378; G0379; J0696; J1650; J1940; J3420; U0003; U0005

== ENCOUNTER 2020-12-05 14:15 | Outpatient (CLI) | payer OTHER, SELFPAY ==
[2020-12-05 15:31] LABS: Alveolar/Arterial O2 Gradient 21.1 mmHg; Carboxyhemoglobin 0.2 % THb (0-2.0); Fractional Inspired Oxygen 28 %; HCO3 ABG 37.2 mEq/l (22.0-26.0); Methemoglobin ABG 0.3 %THb (0-1.5); Oxygen Content ABG 13.6 %vol (16.0-22.0); Oxygen Saturation ABG 95.8 % (95.0-100.0); Oxyhemoglobin 95.1 % THb (90.0-100.0); PO2 ABG 90.4 mmHg (80.0-100.0); PO2 FiO2 Ratio Arterial Blood 3.23 %; Reduced Hemoglobin 4.4 %THb (0-5.0); Total Hemoglobin 10.1 g/dL (12.0-18.0); pH ABG 7.315 (7.350-7.450)
[2020-12-05 15:32] LABS: Device NASAL CANNULA; Modified Allen's Test Pass; PCO2 ABG 74.7 mmHg (35.0-45.0); Site Drawn RIGHT RADIAL
== END 2020-12-05 14:16 | disposition home or self-care (01) ==
PROVIDERS: PCP Pediatrics Neonatal-Perinatal Medicine; Visit Provider Internal Medicine Pulmonary Disease
DX: E66.2 Morbid (severe) obesity with alveolar hypoventilation (principal)
CPT/HCPCS: 36600; 82375; 82805; 83050

== ENCOUNTER 2021-03-07 13:27 | Inpatient (IN) | payer OTHER, SELFPAY ==
[2021-03-07] VITALS (55 sets, daily range): BP systolic 127–179; BP diastolic 48–113; PULSE 45–79; RESP 13–25; TEMP 36.7–37.3; O2SAT 79–100; BMI 44.3
--- NOTE | ~2021-03-07 | XR_ITS ---
EXAMINATION: XR chest ET placement, XR abdomen NG/feed tube insert DATE: 03/07/2021 16:07 INDICATION: Endotracheal tube placement and nasogastric tube placement. TECHNIQUE: 1. Portable AP supine view of the chest was obtained. 2. Portable AP supine view of the abdomen and pelvis was obtained. COMPARISON: Chest radiograph dated 03/07/2021 at 2:23 PM FINDINGS: Chest: Endotracheal tube tip 1.4 cm above the kaleigh. Persistent consolidation in the left mid to lower lung zone with less dense airspace opacities throughout the remainder of the lungs relatively sparing the apices. Cardiac silhouette is obscured. Severe right glenohumeral osteoarthritis. Abdomen: Nasogastric tube tip in proximal side port in the body of the stomach. Gas and stool scattered throug hout the colon. No dilated loops of gas-filled bowel to suggest obstruction. Multiple phleboliths in the pelvis. Postoperative changes changes at the right hip and pelvis including incompletely visualiz ed right total hip arthroplasty a couple supra-acetabular fixation screws as well as at the third ret ained screw fragment IMPRESSION: 1. Endotracheal tube and nasogastric tube in expected positions as detailed above. 2. Bilateral lung disease with dense consolidation in the mid to lower lung zone which could represen t pneumonia, pulmonary edema, atelectasis or some combination thereof with possible small left pleura l effusion. Reviewed, dictated and finalized at location B. IMPRESSION: 1. Endotracheal tube and nasogastric tube in expected positions as detailed abo ve. 2. Bilateral lung disease with dense consolidation in the mid to lower lung zon e which could represent pneumonia, pulmonary edema, atelectasis or some combina tion thereof with possible small left pleural effusion.
--- NOTE | ~2021-03-07 | XR_ITS ---
EXAMINATION: XR chest 1V portable INDICATION: Respiratory failure TECHNIQUE: Portable AP chest at 0441 hours COMPARISON: 03/12/2021 FINDINGS: The endotracheal tube ends approximately 2.0 cm above the kaleigh. The nasogastric tube is followed as far as the stomach. Its tip is beyond the inferior margin of the radiograph. A right-sided jugular c atheter ends with its tip in the distal superior vena cava. Diffuse opacities persist throughout all lung zones with interval worsening throughout the right lung and in the left mid and lower lung zones . Stable cardiomegaly is noted. There is no pleural effusion or pneumothorax. IMPRESSION: 1. Diffuse lung disease with interval worsening, consistent with pneumonia and/or pulmonary edema and /or acute respiratory distress syndrome (ARDS). Reviewed, dictated and finalized at location A. IMPRESSION: 1. Diffuse lung disease with interval worsening, consistent with pneumonia and/ or pulmonary edema and/or acute respiratory distress syndrome (ARDS).
--- NOTE | ~2021-03-07 | XR_ITS ---
EXAMINATION: XR chest 1V portable DATE: 03/09/2021 08:45 INDICATION: Respiratory failure TECHNIQUE: frontal view of the chest was obtained. COMPARISON: Chest radiograph dated 03/08/[address] dated 03/07/2021 FINDINGS: Endotracheal tube tip 3.1 cm above the kaleigh. Nasogastric tube extends into the stomach with distal tip collimated off the study. Right internal jugular central venous catheter with distal tip in the caudal superior vena cava. Opacities in the right upper and left mid and lower lung zones. The latter includes a small left pleu ral effusion. Pulmonary edema previously seen throughout the right lung has resolved. No pneumothorax . Cardiomegaly. Increased fullness at the AP window or spine 2 mediastinal lymphadenopathy on prior C T. Plate and screw fixation for lower cervical anterior spinal fusion. IMPRESSION: 1. Resolution of prior pulmonary edema with persistent opacities in the right upper and left mid and lower lung zones which could represent atelectasis and/or pneumonia. 2. Small left pleural effusion. 3. Cardiomegaly. 4. Mediastinal lymphadenopathy. Reviewed, dictated and finalized at location A. IMPRESSION: 1. Resolution of prior pulmonary edema with persistent opacities in the right u pper and left mid and lower lung zones which could represent atelectasis and/or pneumonia. 2. Small left pleural effusion. 3. Cardiomegaly. 4. Mediastinal lymphadenopathy.
--- NOTE | ~2021-03-07 | XR_ITS ---
EXAMINATION: XR chest 1V portable INDICATION: Respiratory failure TECHNIQUE: Portable AP chest at 0501 hours COMPARISON: 03/11/2021 FINDINGS: The endotracheal tube ends approximately 2.5 cm above the kaleigh. The nasogastric tube is f ollowed as far as the stomach. Its tip is beyond the inferior margin of the radiograph. A right-sided jugular catheter ends with its tip in the distal superior vena cava. Stable cardiomegaly is noted. A irspace opacities of the left mid and lower lung zones persist but have improved. Diffuse airspace op acities of the right lung have also improved. Advanced right glenohumeral joint osteoarthritis is aga in noted. IMPRESSION: 1. Improving bilateral airspace opacities, consistent with atelectasis versus pneumonia. 2. Cardiomegaly. Reviewed, dictated and finalized at location A. IMPRESSION: 1. Improving bilateral airspace opacities, consistent with atelectasis versus p neumonia. 2. Cardiomegaly.
--- NOTE | ~2021-03-07 | CT_ITS ---
EXAMINATION:CT diagnostic chest wo con DATE: 03/07/2021 16:48 INDICATION: Respiratory distress. Lethargy. TECHNIQUE: Computed tomography (CT) of the chest was performed without intravenous contrast. Automate d exposure control and iterative reconstruction technique were employed. The dose-length product (DLP ) was 638.54 mGy-cm. COMPARISON: Chest CT 05/22/2018 FINDINGS: There are small pleural effusions. There is diffuse smooth septal thickening in the lungs w ith diffuse groundglass opacities. There are mild dependent airspace opacities in the lungs bilateral ly. There are small pleural effusions. Cardiomegaly is noted. No pericardial effusion. There are montez nary artery calcifications. The endotracheal tube tip is 1.1 cm above the kaleigh. The nasogastric tub e tip is in the stomach. There are bridging endplate osteophytes at multiple levels in the spine, con sistent with diffuse idiopathic skeletal hyperostosis (DISH). IMPRESSION: 1. Diffuse lung disease, likely moderate pulmonary edema. 2. Dependent airspace opacities in the lungs bilaterally, consistent with atelectasis or less likely pneumonia. 3. Small pleural effusions. 4. Cardiomegaly. Reviewed, dictated and finalized at location A. IMPRESSION: 1. Diffuse lung disease, likely moderate pulmonary edema. 2. Dependent airspace opacities in the lungs bilaterally, consistent with atele ctasis or less likely pneumonia. 3. Small pleural effusions. 4. Cardiomegaly.
--- NOTE | ~2021-03-07 | XR_ITS ---
EXAMINATION: XR chest 1V portable EXAM DATE: 03/07/2021 14:28 INDICATION: Altered level of consciousness. TECHNIQUE: Portable AP frontal chest x-ray was obtained. Comparison is made to prior examination from 11/07/2020. FINDINGS: There is cardiomegaly. Diffuse abnormal reticulation, likely acute airspace disease such as edema and/or pneumonia. Please clinically correlate. No pneumothorax. Can't exclude small pleural ef fusions. Cervical fusion hardware. IMPRESSION: 1. Diffuse edema and/or pneumonia. 2. Cardiomegaly. Reviewed, dictated and finalized at location A.
--- NOTE | ~2021-03-07 | XR_ITS ---
EXAMINATION: XR chest 1V portable DATE: 03/10/2021 05:52 INDICATION: Respiratory failure TECHNIQUE: frontal view of the chest was obtained. COMPARISON: Chest radiograph dated 03/09/2021 FINDINGS: Endotracheal tube tip cm above the kaleigh. Nasogastric tube extends below the left hemidiaphragm wit h distal tip collimated off the study. Right internal jugular central venous catheter with distal tip near the superior cavoatrial junction. There is persistent opacities in the bilateral mid and lower lung zones relatively subtle on the righ t and more dense on the left. No pneumothorax or definitive pleural effusion. Cardiomegaly. Enlargeme nt of the central pulmonary arteries consistent with pulmonary arterial hypertension. Plate and screw fixation for lower cervical anterior spinal fusion. Advanced right glenohumeral osteoarthritis. IMPRESSION: 1. Persistent bilateral lung disease, minimal on right and more prominent in the left mid and lower l darian zones which could represent atelectasis and/or pneumonia. 2. Cardiomegaly with enlargement of the central pulmonary arteries consistent with pulmonary arterial hypertension. Reviewed, dictated and finalized at location A. IMPRESSION: 1. Persistent bilateral lung disease, minimal on right and more prominent in th e left mid and lower lung zones which could represent atelectasis and/or pneumo héctor. 2. Cardiomegaly with enlargement of the central pulmonary arteries consistent w ith pulmonary arterial hypertension.
--- NOTE | ~2021-03-07 | XR_ITS ---
EXAMINATION: XR chest port-a-cath/central DATE: 03/08/2021 10:34 INDICATION: Central line placement. TECHNIQUE: A single frontal view of the chest was obtained. COMPARISON: Chest single view 03/07/2021, chest CT 03/07/2021 FINDINGS: The patient is rotated to her left. There are airspace opacities in all lung zones bilatera lly. No pleural effusion or pneumothorax. Cardiomegaly is noted. There are changes of anterior fusion procedure in cervical spine. The endotracheal tube tip is 2.3 cm above the kaleigh. The nasogastric t ube tip is in the stomach. A right internal jugular central venous catheter is seen with tip in the p roximal right atrium. IMPRESSION: 1. Central line tip in proximal right atrium. 2. Stable diffuse lung disease, consistent with pulmonary edema versus pneumonia. 3. Cardiomegaly. Reviewed, dictated and finalized at location A. IMPRESSION: 1. Central line tip in proximal right atrium. 2. Stable diffuse lung disease, consistent with pulmonary edema versus pneumoni a. 3. Cardiomegaly.
--- NOTE | ~2021-03-07 | XR_ITS ---
EXAMINATION: XR chest 1V portable INDICATION: Respiratory failure TECHNIQUE: Portable AP chest at 0444 hours COMPARISON: 03/13/2021 FINDINGS: The nasogastric and endotracheal tubes have been removed. Diffuse opacities persist through out all lung zones with slight improvement. There is no pleural effusion or pneumothorax. Able cardio megaly is noted. A right-sided jugular catheter ends with its tip in the distal superior vena cava. IMPRESSION: 1. Diffuse lung disease with interval improvement, consistent with pneumonia and/or pulmonary edema a nd/or acute respiratory distress syndrome (ARDS). 2. Nasogastric tube and endotracheal tube removal. Reviewed, dictated and finalized at location A. IMPRESSION: 1. Diffuse lung disease with interval improvement, consistent with pneumonia an d/or pulmonary edema and/or acute respiratory distress syndrome (ARDS). 2. Nasogastric tube and endotracheal tube removal.
--- NOTE | ~2021-03-07 | XR_ITS ---
EXAMINATION: XR chest 1V portable INDICATION: Respiratory failure TECHNIQUE: Portable AP chest at 0526 hours COMPARISON: 03/10/2021 FINDINGS: The endotracheal tube ends approximately 3.3 cm above the kaleigh. The nasogastric tube is f ollowed as far as the stomach. Its tip is beyond the inferior margin of the radiograph. A right upper extremity PICC ends with its tip in the distal superior vena cava. There is stable cardiomegaly. Air space opacities of the left mid and lower lung zones persist without significant change. There are st able minimal opacity throughout the right lung. There is no pleural effusion or pneumothorax. Surgica l changes are noted in the lower cervical spine. There is advanced osteoarthritis right glenohumeral joint. IMPRESSION: 1. Stable bilateral lung disease, consistent with atelectasis versus pneumonia. 2. Cardiomegaly. Reviewed, dictated and finalized at location A.
--- NOTE | 2021-03-07 13:32 | ECG_ITS ---
Measurements Intervals [place] Rate: 61 P: 65 MS: 186 QRS: 36 QRSD: 110 T: 41 QT: 442 QTc: 449 Interpretive Statements SINUS RHYTHM INCOMPLETE LEFT BUNDLE BRANCH BLOCK BORDERLINE R WAVE PROGRESSION, ANTERIOR LEADS BORDERLINE ECG Electronically Signed On 03-07-2021 17:18:51 CDT by Rene Tim D.O.
[2021-03-07 13:57] LABS: Base Excess ABG 11.3 mEq/l (+/-2.0); Carboxyhemoglobin 1.6 % THb (0-2.0); Fractional Inspired Oxygen 32 %; HCO3 ABG 46.1 mEq/l (22.0-26.0); Methemoglobin ABG 0.2 %THb (0-1.5); Oxygen Content ABG 14.1 %vol (16.0-22.0); Oxyhemoglobin 87.5 % THb (90.0-100.0); PO2 ABG 69.3 mmHg (80.0-100.0); PO2 FiO2 Ratio Arterial Blood 2.17 %; Reduced Hemoglobin 10.7 %THb (0-5.0); Total Hemoglobin 11.4 g/dL (12.0-18.0)
[2021-03-07 13:59] LABS: pH ABG 7.077 (7.350-7.450)
[2021-03-07 14:00] LABS: Oxygen Saturation ABG 82.9 % (95.0-100.0)
[2021-03-07 14:01] LABS: Device NASAL CANNULA; Modified Allen's Test Unable to perform; Site Drawn RIGHT RADIAL
--- NOTE | 2021-03-07 14:06 | ED.NEUROSD ---
HPI - Neuro Symptoms/Deficit General Chief Complaint: Neuro Symptoms/Deficit Stated Complaint: AMS Time Seen by Provider: 03/07/21 13:58 History of Present Illness HPI Narrative: 60 yo female brought in by EMS from [facility] for AMS. History is limited by mental status. intermediate unaware of her COVID vaccination status. She has an advanced directive showing that she is a full code. I confirmed this with her POA. Related Data Home Medications Medication Instructions Recorded Confirmed aspirin 81 mg PO DAILY 06/17/19 11/07/20 furosemide 40 mg PO DAILY 06/17/19 11/07/20 losartan 100 mg PO DAILY 06/17/19 11/07/20 atorvastatin 10 mg PO HS 11/07/20 11/07/20 citalopram 10 mg PO DAILY 11/07/20 11/07/20 ferrous sulfate 325 mg PO DAILY 11/07/20 11/07/20 polyethylene glycol 3350 [Miralax] 17 g PO DAILY PRN 11/07/20 11/07/20 Allergies Allergy/AdvReac Type Severity Reaction Status Date / Time levofloxacin Allergy Unknown Unknown Verified 03/07/21 13:38 morphine Allergy Difficulty Verified 03/07/21 13:38 Breathing Review of Systems Review of Systems: ROS unobtainable: Yes unobtainable due to mental status PMFSH Past Medical History Medical History Acute respiratory failure with hypoxia and hypercarbia ELE (acute kidney injury) Anemia of chronic disease Arthritis Asthma CHF (congestive heart failure) Chronic renal failure, stage 3 (moderate) COPD (chronic obstructive pulmonary disease) Depression DJD (degenerative joint disease) Encephalopathy acute History of pneumothorax HTN (hypertension) Hyperkalemia Hyperlipidemia Mental disability On home O2 3L Pneumonia Post-menopausal Pulmonary edema Severe sepsis UTI (urinary tract infection) Surgical History Surgical History History of hip replacement Right History of knee surgery Hx of chest tube placement Family History Family History Father Alcoholism Mother Hypertension Social History Social History Social History: 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 Looks like she has an [place] [facility] according to her old records. No paperwork accompanied her from the fci today. Melida vivas is her niece as listed as a durable power trade mark attorney for healthcare. There is another niece that is listed as well. The patient is listed as a full code. The patient denies any alcohol, marijuana, tobacco, or illicit drugs. The patient tells me that she is and had 3 children. She tells me she is disabled. Smoking status: Former smoker Second hand tobacco smoke exposure: Yes Alcohol intake: never Substance use: never Substance use type: does not use Gender identity (if verbalized by the patient): Female Spiritual care concerns: No Exam Const: General: ill appearing Nutritional Appearance: obese Other: Somnolent, lethargic, orieted x2 HENMT: Head: normal to inspection Eyes: Pupils: Equal, round and reactive pupils present Resp: Auscultation: crackles and rhonchi Other: poor effort Cardio: Rate: bradycardic Rhythm: regular rhythm GI: GI Palp: Yes Soft to palpation and No Tenderness to palpation present (GI) Skin: General skin exam: normal color Neuro: General: moves all extremities Speech: normal speech Other: Requires vigorous stimulation to keep awake. Oriented x2. Extrem: General: edema bilateral Course Vital Signs Vital signs: Vital Signs Temperature 37.3 C 03/07/21 13:24 Pulse Rate 68 03/07/21 13:24 Respiratory Rate 19 03/07/21 13:24 Blood Pressure 157/62 H 03/07/21 13:24 Pulse Oximetry 93 03/07/21 13:24 Temperature 37.3 C 03/07/21 13:24 Pulse Rate 51 L 03/07/21 18:10 Respiratory Rate 19 03/07/21 18:10 Blood Pressure 155/75 H
[2021-03-07] MEDS: SODIUM BICARBONATE 8.4% 50 MEQ/50 ML SYRINGE 100 MEQ IV PUSH (14:25)
[2021-03-07 14:32] LABS: Basophils Percent Auto 0.4 % (0.2-1.2); Eosinophils Absolute Auto 0.5 K/mm3 (0-0.3); Eosinophils Percent Auto 4.5 % (0-4.4); Hemoglobin 10.1 g/dL (12.0-15.0); Immature Granulocyte Absolute 0.25 K/mm3 (0.00-0.031); Immature Granulocyte Percent A 2.4 % (0-0.5); Lymphocytes Absolute Auto 0.76 K/mm3 (0.9-3.2); Lymphocytes Percent Auto 7.3 % (18.3-44.2); Mean Corpuscular HGB Conc 28.9 g/dl (32-36); Mean Corpuscular Hemoglobin 25.2 pg (26-34); Mean Corpuscular Volume 87.3 fl (80-100); Mean Platelet Volume 10.1 fl (7.4-10.4); Monocytes Absolute Auto 0.3 K/mm3 (0.1-0.6); Monocytes Percent Auto 3.1 % (2.6-8.5); Neutrophils Absolute Auto 8.6 K/mm3 (1.3-6.7); Neutrophils Percent Auto 82.3 % (45.5-73.1); Nucleated Red Blood Cells Perc 0.3 % (0.0-0.2); Platelet Count Result 189 k/mm3 (150-375); Red Blood Count 4.01 M/mm3 (4.2-5.4); Red Cell Distribution Width 17.2 % (11.5-14.5); White Blood Count 10.5 K/mm3 (4.5-10.0)
[2021-03-07] MEDS: FUROSEMIDE INJ 40 MG/4 ML VIAL IV PUSH (15:06)
[2021-03-07 15:16] LABS: Alanine Aminotransferase 10 U/L (4-35); Alkaline Phosphatase 118 U/L (38-126); Aspartate Amino Transferase 23 U/L (14-36); Bilirubin,Total 0.4 mg/dL (0.2-1.3); Blood Urea Nitrogen 31 mg/dL (7-17); Calcium 8.7 mg/dL (8.4-10.2); Chloride 95 mmol/L (98-107); Estimated Glomerular Filt Rate 29; Glucose 155 mg/dL (65-110); Potassium 3.7 mmol/L (3.4-5.0); Sodium 140 mmol/L (137-145)
[2021-03-07 15:20] LABS: Lactic Acid Reflex < 0.5 mmol/L (0.7-2.1)
[2021-03-07 15:24] LABS: Alveolar/Arterial O2 Gradient 81.6 mmHg; Base Excess ABG 16.8 mEq/l (+/-2.0); Carboxyhemoglobin 1.4 % THb (0-2.0); Fractional Inspired Oxygen 50 %; HCO3 ABG 51.9 mEq/l (22.0-26.0); Methemoglobin ABG 0.1 %THb (0-1.5); Oxygen Content ABG 13.5 %vol (16.0-22.0); Oxyhemoglobin 89.2 % THb (90.0-100.0); PO2 ABG 73.5 mmHg (80.0-100.0); PO2 FiO2 Ratio Arterial Blood 1.47 %; Reduced Hemoglobin 9.3 %THb (0-5.0); Total Hemoglobin 10.7 g/dL (12.0-18.0)
[2021-03-07 15:28] LABS: Device NON-INVASIVE VENT; Modified Allen's Test Unable to perform; Oxygen Saturation ABG 84.7 % (95.0-100.0); Site Drawn RIGHT RADIAL
[2021-03-07 15:29] LABS: Non-Invasive Expiratory Pressure 6 CMH2O; Non-Invasive Inspiratory Pressure 18 CMH2O; Non-Invasive Vent Rate 12 /MIN
[2021-03-07 15:40] LABS: Carbon Dioxide > 40 mmol/L (22-30)
[2021-03-07 15:43] LABS: NT Pro B Type Natriuretic Pept 2770 pg/mL (5-100)
--- NOTE | 2021-03-07 15:45 | PC.NURSE ---
Pt. intubated by Karen GARRIDO and SWEETIE Abernathy 1547 20 mg etomidate administered IVP BETZY Chaparro 1548 50 mg Rocuronium administered IVP BETZY Chaparro ET tube size 7 is and measuring 22 at the lip. positive color change and chest rise and fall noted. pt. being bagged by RT at this time.
[2021-03-07 15:54] LABS: Add Urine Microscopic? YES; Appearance Urine Clear (Clear); Bilirubin Urine Negative (Negative); Blood Urine Negative (Negative); Color Urine Yellow (Yellow); Glucose Urine UA 1+ mg/dL (Negative); Ketones Urine Negative (Negative); Leukocyte Esterase Ur Negative LEU/UL (Negative); Mucus Urine Rare /lpf; Nitrate Urine Negative (Negative); Protein Urine 3+ mg/dL (Negative); RBC Urine 0-2 /hpf (0-2); Specific Grav Ur 1.014 (1.001-1.035); Urobilinogen Urine Negative mg/dL (<2.0); WBC Urine 0-3 /hpf
[2021-03-07 16:13] LABS: Platelet Estimate Adequate (Adequate)
[2021-03-07 16:14] LABS: Anisocytosis 3+ (NORMAL); Hypochromasia 1+ (NORMAL)
[2021-03-07] MEDS: MIDAZOLAM HCL (*CRX) 2 MG/2 ML VIAL 4 MG IV PUSH (16:20)
[2021-03-07] MEDS: MIDAZOLAM HCL (*CRX) 2 MG/2 ML VIAL 4 MG (16:56)
[2021-03-07 17:05] LABS: Alveolar/Arterial O2 Gradient 165.5 mmHg; Base Excess ABG 11.9 mEq/l (+/-2.0); Fractional Inspired Oxygen 40 %; HCO3 ABG 37.6 mEq/l (22.0-26.0); Oxyhemoglobin 91.1 % THb (90.0-100.0); PCO2 ABG 55.1 mmHg (35.0-45.0); PO2 ABG 56.3 mmHg (80.0-100.0); PO2 FiO2 Ratio Arterial Blood 1.41 %; Site Drawn LEFT RADIAL; Total Hemoglobin 10.9 g/dL (12.0-18.0); pH ABG 7.452 (7.350-7.450)
[2021-03-07 17:06] LABS: Arterial Blood Gas PEEP 5 cmH2O; Arterial Blood Gas Tidal Volume 300 ml; Arterial Blood Gas Vent Mode CMV; Arterial Blood Gas Ventilator rate 24 /MIN; Device VENTILATOR
[2021-03-07] MEDS: MIDAZOLAM 100MG/NS 100ML(*CRX) 100 MG/100 ML BAG IV CONT (17:15)
[2021-03-07] MEDS: FENTANYL 2,500MCG/NS250ML(*CRX 2,500 MCG/250 ML BAG IV CONT (17:17)
[2021-03-07] MEDS: NITROGLYCERIN OINTMENT 1 INCH DOSE TRANSDERM (18:01)
--- NOTE | 2021-03-07 18:16 | PC.NURSE ---
VORB ERP administer 4 mg versed IVP
--- NOTE | 2021-03-07 18:49 | PM.IMHP ---
H&P: HPI History of Present Illness Date/Time: 03/07/21 18:49 this is a 60 year female patient who has a history of congestive heart failure COPD and obstructive sleep apnea. The patient had been brought from [facility] with altered mental status. The fdc was unaware patient's COVID vaccine status. Chest x-ray was read per radiology as diffuse edema and or pneumonia. Cardiomegaly. Her white count was noted to be 10.5. H&H 10.1 and 35.0. Initially pH on ABGs was noted to be 7.080 CO2 179 PO2 73.5 bicarb 51.9. Repeat arterial blood gases pH 7.452 CO2 was 55.[address] of the chest was read as diffuse lung disease, likely moderate pulmonary edema. Dependent airspace opacities in the lungs bilaterally, consistent with atelectasis or least likely pneumonia. Small pleural effusions. Cardiomegaly. The patient was given IV Lasix, a azithromycin, and Rocephin. The patient has been having large amount of frothy sputum. The patient is being admitted to inpatient services ICU on the date of service 03/07/2020 Chief Complaint: Respiratory failure Review of Systems Review of Systems: ROS unobtainable: Yes unobtainable due to endotracheal tube PMFSH Past Medical History Medical History (Updated 03/07/21 @ 19:01 by Sarah Fischer NP) Acute respiratory failure with hypoxia and hypercarbia ELE (acute kidney injury) Anemia of chronic disease Arthritis Asthma CHF (congestive heart failure) Chronic renal failure, stage 3 (moderate) COPD (chronic obstructive pulmonary disease) Depression DJD (degenerative joint disease) Encephalopathy acute History of pneumothorax HTN (hypertension) Hyperkalemia Hyperlipidemia Mental disability On home O2 3L TIFFANY and COPD overlap syndrome Pneumonia Post-menopausal Pulmonary edema Severe sepsis UTI (urinary tract infection) Surgical History Surgical History History of hip replacement Right History of knee surgery Hx of chest tube placement Family History Family History Father Alcoholism Mother Hypertension Social History Social History (Updated 03/07/21 @ 19:04 by Sarah Fischer NP) Social History: the patient is in a fdc, [facility] according to her old records. Melida vivas is her niece as listed as a durable power manager r d for healthcare. The patient is listed as a full code. The patient denies any alcohol, marijuana, tobacco, or illicit drugs according to old records. The patient is listed as and had 3 children. She is listed as disabled. Smoking status: Former smoker Second hand tobacco smoke exposure: Yes Alcohol intake: never Substance use: never Substance use type: does not use Gender identity (if verbalized by the patient): Female Spiritual care concerns: No Meds Home Medications and Allergies Home Medications Medication Instructions Recorded Confirmed Type aspirin 81 mg PO DAILY 06/17/19 11/07/20 History furosemide 40 mg PO DAILY 06/17/19 11/07/20 History losartan 100 mg PO DAILY 06/17/19 11/07/20 History diltiazem HCl 180 mg PO QAM #30 cap 07/04/19 11/07/20 Rx atorvastatin 10 mg PO HS 11/07/20 11/07/20 History citalopram 10 mg PO DAILY 11/07/20 11/07/20 History ferrous sulfate 325 mg PO DAILY 11/07/20 11/07/20 History polyethylene glycol 3350 [Miralax] 17 g PO DAILY PRN 11/07/20 11/07/20 History hydrocodone-acetaminophen 1 tablet PO Q6H PRN #7 tablet 11/10/20 Rx Allergies Allergy/AdvReac Type Severity Reaction Status Date / Time levofloxacin Allergy Unknown Unknown Verified 03/07/21 13:38 morphine Allergy Difficulty Verified 03/07/21 13:38 Breathing Vital Signs Vital Signs - 24 hr 03/07/21 13:24 03/07/21 13:42 03/07/21 13:45 Temperature 37.3 C Pulse Rate 68 68 Respiratory Rate 19 23 H 25 H Blood Pressure 157/62 H Pulse Oximetry 93 90 88 L
--- NOTE | 2021-03-07 18:54 | PC.NURSE ---
Pt. was never straight catheterized pc technician put in a mistaken entry and RN cannot correct it since tech is no longer present.
--- NOTE | 2021-03-07 19:20 | PC.NURSE ---
MASON RN to initiated abx w/ obtaining blood cultures.
--- NOTE | 2021-03-07 20:45 | ADMGEN ---
This patient, Jamia Lay, was admitted to Intensive Care Unit-3. Patient/family oriented to hospital policies and general routines including ID bracelet, bed and alarms, visiting hours, pain management, procedures, bathroom and other care routines, personal items, smoking policy, room service/diet, and visiting hours. Information on how to activate the Rapid Response Team has been discussed. Patient/Family are encouraged to report perceived risks to care and to ask questions if they do not understand what they are told or what they should do.
[2021-03-07] MEDS: HEPARIN SODIUM 5,000 UNITS/ML VIAL 5000 UNITS SUB-Q (20:59)
[2021-03-07] MEDS: hydrALAZINE HCL 20 MG/ML VIAL 10 MG IV PUSH (22:51)
[2021-03-08] VITALS (30 sets, daily range): BP systolic 142–192; BP diastolic 50–129; PULSE 48–77; RESP 18–24; TEMP 36.4–37.3; O2SAT 94–100; BMI 44.6
[2021-03-08] MEDS: MIDAZOLAM 100MG/NS 100ML(*CRX) 100 MG/100 ML BAG 6 MG IV CONT (01:22)
[2021-03-08] MEDS: FUROSEMIDE INJ 40 MG/4 ML VIAL IV PUSH ×2 (02:53→17:05)
[2021-03-08] MEDS: NITROGLYCERIN OINTMENT 1 INCH DOSE TRANSDERM ×4 (02:53→23:27)
[2021-03-08 05:16] LABS: Basophils Percent Auto 0.1 % (0.2-1.2); Eosinophils Absolute Auto 0.2 K/mm3 (0-0.3); Hemoglobin 9.6 g/dL (12.0-15.0); Immature Granulocyte Percent A 1.1 % (0-0.5); Lymphocytes Absolute Auto 1.14 K/mm3 (0.9-3.2); Mean Corpuscular HGB Conc 29.1 g/dl (32-36); Mean Corpuscular Hemoglobin 25.3 pg (26-34); Mean Corpuscular Volume 86.8 fl (80-100); Mean Platelet Volume 10.5 fl (7.4-10.4); Monocytes Absolute Auto 0.5 K/mm3 (0.1-0.6); Monocytes Percent Auto 5.3 % (2.6-8.5); Neutrophils Absolute Auto 7.6 K/mm3 (1.3-6.7); Neutrophils Percent Auto 79.5 % (45.5-73.1); Platelet Count Result 194 k/mm3 (150-375); Red Cell Distribution Width 17.2 % (11.5-14.5); White Blood Count 9.5 K/mm3 (4.5-10.0)
[2021-03-08 05:35] LABS: Alanine Aminotransferase 13 U/L (4-35); Albumin Level 4.1 g/dL (3.5-5.1); Alkaline Phosphatase 113 U/L (38-126); Anion Gap 9 mmol/L (8-16); Aspartate Amino Transferase 31 U/L (14-36); Blood Urea Nitrogen 41 mg/dL (7-17); Calcium 9.2 mg/dL (8.4-10.2); Carbon Dioxide 37 mmol/L (22-30); Chloride 97 mmol/L (98-107); Estimated Glomerular Filt Rate 31; Glucose 76 mg/dL (65-110); Magnesium 2.2 mg/dL (1.6-2.3); Potassium 4.2 mmol/L (3.4-5.0); Sodium 143 mmol/L (137-145)
[2021-03-08 05:39] LABS: Anisocytosis 2+ (NORMAL); Large Platelets Present; Macrocytosis 1+ (NORMAL); Microcytosis 1+ (NORMAL); Platelet Estimate Adequate (Adequate)
[2021-03-08 05:40] LABS: Hypochromasia 1+ (NORMAL)
[2021-03-08 06:02] LABS: Alveolar/Arterial O2 Gradient 190.3 mmHg; Base Excess ABG 13.2 mEq/l (+/-2.0); Carboxyhemoglobin 0.3 % THb (0-2.0); Fractional Inspired Oxygen 40 %; HCO3 ABG 35.3 mEq/l (22.0-26.0); Methemoglobin ABG 0.2 %THb (0-1.5); Oxygen Content ABG 13.2 %vol (16.0-22.0); Oxygen Saturation ABG 93.3 % (95.0-100.0); Oxyhemoglobin 92.2 % THb (90.0-100.0); PCO2 ABG 35.2 mmHg (35.0-45.0); PO2 ABG 54.4 mmHg (80.0-100.0); PO2 FiO2 Ratio Arterial Blood 1.36 %; Reduced Hemoglobin 7.3 %THb (0-5.0); Total Hemoglobin 10.2 g/dL (12.0-18.0)
[2021-03-08 06:03] LABS: Device VENTILATOR; Modified Allen's Test Pass; Site Drawn RIGHT RADIAL; pH ABG 7.619 (7.350-7.450)
[2021-03-08 06:04] LABS: Arterial Blood Gas PEEP 5 cmH2O; Arterial Blood Gas Tidal Volume 300 ml; Arterial Blood Gas Vent Mode CMV; Arterial Blood Gas Ventilator rate 24 /MIN
[2021-03-08] MEDS: HEPARIN SODIUM 5,000 UNITS/ML VIAL 5000 UNITS SUB-Q ×2 (08:02→20:17)
[2021-03-08] MEDS: hydrALAZINE HCL 20 MG/ML VIAL 10 MG IV PUSH (08:02)
[2021-03-08] MEDS: PROPOFOL IV EMULSION 100 ML 15.03 MG IV CONT ×2 (08:42→13:15)
[2021-03-08] MEDS: FENTANYL 2,500MCG/NS250ML(*CRX 2,500 MCG/250 ML BAG 15 MCG IV CONT (08:43)
--- NOTE | 2021-03-08 09:52 | WPDCNINT ---
Assessment and Plan Assessment and plan (1) Acute respiratory failure with hypoxia and hypercarbia: Code(s): J96.01 - Acute respiratory failure with hypoxia; J96.02 - Acute respiratory failure with hypercapnia Status: Acute Assessment and Plan: Multifactorial Acute on chronic Respiratory failure secondary to CHF, obesity hypoventilation, questionable pneumonia, Continue full mechanical ventilation support to prevent hypoxemia/hypercarbia and end organ damage. Chest CT IMPRESSION: 1. Diffuse lung disease, likely moderate pulmonary edema. 2. Dependent airspace opacities in the lungs bilaterally, consistent with atelectasis or less likely pneumonia. 3. Small pleural effusions. 4. Cardiomegaly. ABG and PCXR reviewed decrease respiratory rate to 18 Low tidal volume ventilation strategy to prevent volutrauma Bronchodilators Continue IV Lasix as well. Her last echo was on 11/08/2020 with the EF of 65-70%. But I suspect patient may have diastolic dysfunction and/or right heart failure. Her BNP 2770 She is on empiric antibiotics (2) Obesity hypoventilation syndrome: Code(s): E66.2 - Morbid (severe) obesity with alveolar hypoventilation Status: Acute Assessment and Plan: According to her last admission in November of this year, the patient was refusing to wear her BiPAP machine at the longterm.. 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 On bronchodilators (4) Pulmonary edema: Code(s): J81.1 - Chronic pulmonary edema Status: Acute Assessment and Plan: Patient was given IV Lasix which will continue with for now. (5) Suspected COVID-19 virus infection: Code(s): Z20.822 - Contact with and (suspected) exposure to COVID-19 Status: Acute Assessment and Plan: COVID-19 suspected. SARS-CoV-2 PCR sent and results pending Patient is in Airborne, Droplet and Contact Isolation (6) Chronic renal failure, stage 3 (moderate): Code(s): N18.30 - Chronic kidney disease, stage 3 unspecified Status: Chronic Assessment and Plan: Patient's creatinine is 2.1 today baseline is somewhere around 1.6. Monitor urine output and creatinine. Electrolytes Overall volume overloaded hence holding fluids and giving Lasix (7) Paroxysmal atrial fibrillation: Code(s): I48.0 - Paroxysmal atrial fibrillation Status: Acute Assessment and Plan: Patient is in sinus rhythm today with a heart rate in the 60s. Continue with home medications. Continue with diltiazem (8) Hyperlipidemia: Code(s): E78.5 - Hyperlipidemia, unspecified Status: Acute Assessment and Plan: Continue with home medication of atorvastatin (9) HTN (hypertension): Code(s): I10 - Essential (primary) hypertension Status: Acute Assessment and Plan: Continue with home medications. Patient is going to be switched to propofol which will help with the blood pressure Also p.r.n. hydralazine Additional Plan DVT prophylaxis -subQ heparin Stress ulcer prophylaxis -at PPI Nutrition -start Tube Feeds Code Status -patient is Full Code Total Critical Care Time - 40 minutes Due to a high probability of clinically significant, life threatening deterioration, the patient required my highest level of preparedness to intervene emergently and I personally spent this critical care time directly and personally managing the patient. This critical care time included obtaining a history; examining the patient; pulse oximetry; ordering and review of studies; arranging urgent treatment with development of a management plan; evaluation of patient's response to treatment; frequent reassessment; and discussions with other providers. It was e
[2021-03-08] MEDS: LIDOCAINE HCL 1% LOCAL INJ 2 ML AMPUL 5 ML INFILTRATE (10:00)
[2021-03-08 11:26] LABS: Alveolar/Arterial O2 Gradient 156.6 mmHg; Base Excess ABG 13.8 mEq/l (+/-2.0); Fractional Inspired Oxygen 40 %; HCO3 ABG 37.6 mEq/l (22.0-26.0); Oxygen Content ABG 12.6 %vol (16.0-22.0); Oxygen Saturation ABG 96.6 % (95.0-100.0); Oxyhemoglobin 94.7 % THb (90.0-100.0); PCO2 ABG 44.6 mmHg (35.0-45.0); PO2 ABG 77.3 mmHg (80.0-100.0); PO2 FiO2 Ratio Arterial Blood 1.93 %; Total Hemoglobin 9.4 g/dL (12.0-18.0)
[2021-03-08 11:29] LABS: Modified Allen's Test Pass; Site Drawn LEFT RADIAL; pH ABG 7.544 (7.350-7.450)
[2021-03-08 11:30] LABS: Device VENTILATOR
--- NOTE | 2021-03-08 11:42 | PCDIET ---
Discussed tube feedings with MD. Plan to start Nepro. Recommended goal rate of 35mL/hr which provides 1386kcal, 62g protein and 559mL free water over 22 hours/day.
[2021-03-08] MEDS: PANTOPRAZOLE SODIUM IV 40 MG VIAL IV PUSH (12:28)
[2021-03-08] MEDS: CENTRAL LINE FLUSH 10 ML IV PUSH ×3 (12:28→20:17)
[2021-03-08 14:59] LABS: Glucose Point of Care 78 mg/dl (65-105)
--- NOTE | 2021-03-08 15:00 | PM.IMPN ---
Progress Note: A&P Assessment and Plan (1) Acute respiratory failure with hypoxia and hypercarbia: Code(s): J96.01 - Acute respiratory failure with hypoxia; J96.02 - Acute respiratory failure with hypercapnia Status: Acute Assessment and Plan: Multifactorial Acute on chronic Respiratory failure secondary to CHF, obesity hypoventilation, questionable pneumonia, Continue full mechanical ventilation support to prevent hypoxemia/hypercarbia and end organ damage. Chest CT IMPRESSION: 1. Diffuse lung disease, likely moderate pulmonary edema. 2. Dependent airspace opacities in the lungs bilaterally, consistent with atelectasis or less likely pneumonia. 3. Small pleural effusions. 4. Cardiomegaly. ABG and PCXR reviewed decrease respiratory rate to 18 Low tidal volume ventilation strategy to prevent volutrauma Bronchodilators Continue IV Lasix as well. Her last echo was on 11/08/2020 with the EF of 65-70%. But I suspect patient may have diastolic dysfunction and/or right heart failure. Her BNP 2770 She is on empiric antibiotics (2) Obesity hypoventilation syndrome: Code(s): E66.2 - Morbid (severe) obesity with alveolar hypoventilation Status: Acute Assessment and Plan: According to her last admission in November of this year, the patient was refusing to [facility] her [facility].. (3) COPD (chronic obstructive pulmonary disease): Code(s): J44.9 - Chronic obstructive pulmonary disease, unspecified Status: Acute Assessment and Plan: The patient is followed by cigar head stringer here outpatient and has a history of chronic hypercarbic respiratory failure. On bronchodilators (4) Pulmonary edema: Code(s): J81.1 - Chronic pulmonary edema Status: Acute Assessment and Plan: Patient was given IV Lasix which will continue with for now. (5) Suspected COVID-19 virus infection: Code(s): Z20.822 - Contact with and (suspected) exposure to COVID-19 Status: Acute Assessment and Plan: COVID-19 suspected. SARS-CoV-2 PCR sent and results pending Patient is in Airborne, Droplet and Contact Isolation (6) Chronic renal failure, stage 3 (moderate): Code(s): N18.30 - Chronic kidney disease, stage 3 unspecified Status: Chronic Assessment and Plan: Patient's creatinine is 2.1 today baseline is somewhere around 1.6. Monitor urine output and creatinine. Electrolytes Overall volume overloaded hence holding fluids and giving Lasix (7) Paroxysmal atrial fibrillation: Code(s): I48.0 - Paroxysmal atrial fibrillation Status: Acute Assessment and Plan: Patient is in sinus rhythm today with a heart rate in the 60s. Continue with home medications. Continue with diltiazem (8) Hyperlipidemia: Code(s): E78.5 - Hyperlipidemia, unspecified Status: Acute Assessment and Plan: Continue with home medication of atorvastatin (9) HTN (hypertension): Code(s): I10 - Essential (primary) hypertension Status: Acute Assessment and Plan: 03/08/2021 Patient in ICU intubated and sedated on IV antibiotics cultures pending IV Lasix administered strongly suspected to have CHF exacerbation. Patient with AKA on CKD 3 anticipated to improve with diuretics. Patient with known history of chronic hypercarbic respiratory failure. 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 Normal S1 S2. Abdomen: Morbidly Obese. Soft. NT. ND. Extremities: No clubbing, cyanosis. Warm. Bilateral pitting edema present : Cunningham in place Neurologic: Unable to assess fully due to sedation. Moves all 4 extremities
[2021-03-08 15:38] LABS: Hemoglobin A1C 4.7 % (<5.7)
[2021-03-08 18:23] LABS: SARS-CoV-2 RNA PCR Negative
[2021-03-08] MEDS: PROPOFOL IV EMULSION 100 ML 12.02 MG IV CONT (18:50)
[2021-03-08] MEDS: FUROSEMIDE INJ 100 MG/10 ML VIAL 80 MG IV PUSH (23:28)
[2021-03-09] VITALS (35 sets, daily range): BP systolic 129–166; BP diastolic 49–101; PULSE 45–80; RESP 13–18; TEMP 36.1–37.2; O2SAT 3–98
[2021-03-09] MEDS: FUROSEMIDE INJ 40 MG/4 ML VIAL IV PUSH (02:18)
[2021-03-09] MEDS: PROPOFOL IV EMULSION 100 ML 12.02 MG IV CONT (02:43)
[2021-03-09 05:12] LABS: Alveolar/Arterial O2 Gradient 139.9 mmHg; Base Excess ABG 15.2 mEq/l (+/-2.0); Carboxyhemoglobin 0.3 % THb (0-2.0); Fractional Inspired Oxygen 35 %; HCO3 ABG 39.2 mEq/l (22.0-26.0); Methemoglobin ABG 0.2 %THb (0-1.5); Oxygen Content ABG 12.8 %vol (16.0-22.0); PCO2 ABG 46.3 mmHg (35.0-45.0); PO2 ABG 55.8 mmHg (80.0-100.0); PO2 FiO2 Ratio Arterial Blood 1.59 %; Reduced Hemoglobin 9.5 %THb (0-5.0); Total Hemoglobin 10.1 g/dL (12.0-18.0)
[2021-03-09 05:13] LABS: Device VENTILATOR; Modified Allen's Test Unable to perform; Site Drawn RIGHT RADIAL; pH ABG 7.546 (7.350-7.450)
[2021-03-09 05:14] LABS: Arterial Blood Gas PEEP 5 cmH2O; Arterial Blood Gas Tidal Volume 300 ml; Arterial Blood Gas Vent Mode CMV; Arterial Blood Gas Ventilator rate 18 /MIN
[2021-03-09] MEDS: NITROGLYCERIN OINTMENT 1 INCH DOSE TRANSDERM (05:58)
[2021-03-09] MEDS: CENTRAL LINE FLUSH 10 ML IV PUSH ×4 (05:58→19:59)
[2021-03-09] MEDS: FENTANYL 2,500MCG/NS250ML(*CRX 2,500 MCG/250 ML BAG 12.5 MCG IV CONT (06:07)
[2021-03-09 09:38] LABS: Anion Gap 5 mmol/L (8-16); Blood Urea Nitrogen 40 mg/dL (7-17); Calcium 8.8 mg/dL (8.4-10.2); Carbon Dioxide 39 mmol/L (22-30); Chloride 95 mmol/L (98-107); Estimated Glomerular Filt Rate 24; Glucose 110 mg/dL (65-110); Magnesium 2.1 mg/dL (1.6-2.3); Potassium 2.9 mmol/L (3.4-5.0); Sodium 139 mmol/L (137-145)
--- NOTE | 2021-03-09 09:38 | WPDINTPN ---
Progress Note: A&P Assessment and Plan (1) Acute respiratory failure with hypoxia and hypercarbia: Code(s): J96.01 - Acute respiratory failure with hypoxia; J96.02 - Acute respiratory failure with hypercapnia Status: Acute Assessment and Plan: Multifactorial Acute on chronic Respiratory failure secondary to CHF, obesity hypoventilation, questionable pneumonia, Continue full mechanical ventilation support to prevent hypoxemia/hypercarbia and end organ damage. Chest CT IMPRESSION: 1. Diffuse lung disease, likely moderate pulmonary edema. 2. Dependent airspace opacities in the lungs bilaterally, consistent with atelectasis or less likely pneumonia. 3. Small pleural effusions. 4. Cardiomegaly. Chest x-ray done today reviewed and shows improvement in bilateral infiltrates although patient did not have acute urine output from Lasix ABG reviewed decrease respiratory rate to 14 Low tidal volume ventilation strategy to prevent volutrauma Bronchodilators Continue IV Lasix today. Her last echo was on 11/08/2020 with the EF of 65-70%. But I suspect patient may have diastolic dysfunction and/or right heart failure. Her BNP 2770 She is on empiric antibiotics Will try a pressure support weaning trial today (2) Pulmonary edema: Code(s): J81.1 - Chronic pulmonary edema Status: Acute Assessment and Plan: Patient was given IV Lasix yesterday but did not had a good response. Patient does have chronic kidney disease. Patient was given additional 80 mg Lasix last night and 6 we continued and 80 mg IV (3) Obesity hypoventilation syndrome: Code(s): E66.2 - Morbid (severe) obesity with alveolar hypoventilation Status: Acute Assessment and Plan: According to her last admission in November of this year, the patient was refusing to wear her BiPAP machine at the retirement.. (4) COPD (chronic obstructive pulmonary disease): Code(s): J44.9 - Chronic obstructive pulmonary disease, unspecified Status: Acute Assessment and Plan: The patient is followed by body team member here outpatient and has a history of chronic hypercarbic respiratory failure. On bronchodilators (5) Suspected COVID-19 virus infection: Code(s): Z20.822 - Contact with and (suspected) exposure to COVID-19 Status: Acute Assessment and Plan: COVID-19 suspected. SARS-CoV-2 PCR sent and results pending Patient is in Airborne, Droplet and Contact Isolation (6) Chronic renal failure, stage 3 (moderate): Code(s): N18.30 - Chronic kidney disease, stage 3 unspecified Status: Chronic Assessment and Plan: Patient's creatinine is 2.1 today baseline is somewhere around 1.6. Monitor urine output and creatinine. Electrolytes Overall volume overloaded hence holding fluids and giving Lasix (7) Paroxysmal atrial fibrillation: Code(s): I48.0 - Paroxysmal atrial fibrillation Status: Acute Assessment and Plan: Patient is in sinus rhythm today with a heart rate in the 50 s. Continue with home medications. All rate control medications on hold at this time (8) Hyperlipidemia: Code(s): E78.5 - Hyperlipidemia, unspecified Status: Acute Assessment and Plan: Continue with home medication of atorvastatin (9) HTN (hypertension): Code(s): I10 - Essential (primary) hypertension Status: Acute Assessment and Plan: Continue with home medications. Patient is going to be switched to propofol which will help with the blood pressure Continue p.r.n. hydralazine (10) Electrolyte abnormality: Code(s): E87.8 - Other disorders of electrolyte and fluid balance, not elsewhere classified Status: Acute Assessment and Plan: Replace low potassium Additional Plan DVT prophylaxis -subQ heparin Stress ulcer prophylaxis -at PPI Nutrition -continue Tube Feeds Code Status -patient is Full Code Total Critical Care Time - 30 minutes Due to a hig
[2021-03-09] MEDS: HEPARIN SODIUM 5,000 UNITS/ML VIAL 5000 UNITS SUB-Q ×2 (10:08→19:58)
[2021-03-09] MEDS: PANTOPRAZOLE SODIUM IV 40 MG VIAL IV PUSH (10:08)
[2021-03-09] MEDS: POTASSIUM CHLORIDE 20 MEQ PACKET (FOR LIQUID) 40 MEQ FEED TUBE ×3 (10:17→19:58)
[2021-03-09] MEDS: ATORVASTATIN 10 MG TABLET PO (10:26)
[2021-03-09] MEDS: PROPOFOL IV EMULSION 100 ML 3.01 MG IV CONT (13:32)
[2021-03-09] MEDS: hydrALAZINE HCL 20 MG/ML VIAL 10 MG IV PUSH (13:37)
--- NOTE | 2021-03-09 14:44 | PM.IMPN ---
Progress Note: A&P Assessment and Plan (1) Acute respiratory failure with hypoxia and hypercarbia: Code(s): J96.01 - Acute respiratory failure with hypoxia; J96.02 - Acute respiratory failure with hypercapnia Status: Acute Assessment and Plan: Multifactorial Acute on chronic Respiratory failure secondary to CHF, obesity hypoventilation, questionable pneumonia, Continue full mechanical ventilation support to prevent hypoxemia/hypercarbia and end organ damage. Chest CT IMPRESSION: 1. Diffuse lung disease, likely moderate pulmonary edema. 2. Dependent airspace opacities in the lungs bilaterally, consistent with atelectasis or less likely pneumonia. 3. Small pleural effusions. 4. Cardiomegaly. ABG and PCXR reviewed decrease respiratory rate to 18 Low tidal volume ventilation strategy to prevent volutrauma Bronchodilators Continue IV Lasix as well. Her last echo was on 11/08/2020 with the EF of 65-70%. But I suspect patient may have diastolic dysfunction and/or right heart failure. Her BNP 2770 She is on empiric antibiotics (2) Obesity hypoventilation syndrome: Code(s): E66.2 - Morbid (severe) obesity with alveolar hypoventilation Status: Acute Assessment and Plan: According to her last admission in November of this year, the patient was refusing to wear her BiPAP machine at the halfway.. (3) COPD (chronic obstructive pulmonary disease): Code(s): J44.9 - Chronic obstructive pulmonary disease, unspecified Status: Acute Assessment and Plan: The patient is followed by complaint adjuster here outpatient and has a history of chronic hypercarbic respiratory failure. On bronchodilators (4) Pulmonary edema: Code(s): J81.1 - Chronic pulmonary edema Status: Acute Assessment and Plan: Patient was given IV Lasix which will continue with for now. (5) Suspected COVID-19 virus infection: Code(s): Z20.822 - Contact with and (suspected) exposure to COVID-19 Status: Acute Assessment and Plan: COVID-19 ruled out SARS-CoV-2 PCR sent and results NEGATIVE (6) Chronic renal failure, stage 3 (moderate): Code(s): N18.30 - Chronic kidney disease, stage 3 unspecified Status: Chronic Assessment and Plan: Patient's creatinine is 2.1 today baseline is somewhere around 1.6. Monitor urine output and creatinine. Electrolytes Overall volume overloaded hence holding fluids and giving Lasix (7) Paroxysmal atrial fibrillation: Code(s): I48.0 - Paroxysmal atrial fibrillation Status: Acute Assessment and Plan: Patient is in sinus rhythm today with a heart rate in the 60s. Continue with home medications. Continue with diltiazem (8) Hyperlipidemia: Code(s): E78.5 - Hyperlipidemia, unspecified Status: Acute Assessment and Plan: Continue with home medication of atorvastatin (9) HTN (hypertension): Code(s): I10 - Essential (primary) hypertension Status: Acute Assessment and Plan: 03/08/2021 Patient in ICU intubated and sedated on IV antibiotics cultures pending IV Lasix administered strongly suspected to have CHF exacerbation. Patient with AKA on CKD 3 anticipated to improve with diuretics. Patient with known history of chronic hypercarbic respiratory failure. 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 Normal S1 S2. Abdomen: Morbidly Obese. Soft. NT. ND. Extremitie
[2021-03-10] VITALS (30 sets, daily range): BP systolic 128–165; BP diastolic 46–79; PULSE 47–84; RESP 12–28; TEMP 36.5–37.6; O2SAT 95–100
[2021-03-10] MEDS: PROPOFOL IV EMULSION 100 ML 12.02 MG IV CONT (03:02)
[2021-03-10] MEDS: CENTRAL LINE FLUSH 10 ML IV PUSH ×4 (04:12→21:29)
[2021-03-10 04:40] LABS: Alveolar/Arterial O2 Gradient 117.5 mmHg; Base Excess ABG 13.6 mEq/l (+/-2.0); Carboxyhemoglobin 0.3 % THb (0-2.0); Fractional Inspired Oxygen 35 %; HCO3 ABG 38.7 mEq/l (22.0-26.0); Methemoglobin ABG 0.5 %THb (0-1.5); Oxygen Content ABG 12.5 %vol (16.0-22.0); Oxygen Saturation ABG 95.1 % (95.0-100.0); PCO2 ABG 52.5 mmHg (35.0-45.0); PO2 FiO2 Ratio Arterial Blood 2.03 %; Reduced Hemoglobin 6.2 %THb (0-5.0); Total Hemoglobin 9.5 g/dL (12.0-18.0); pH ABG 7.485 (7.350-7.450)
[2021-03-10 04:41] LABS: Device VENTILATOR; Modified Allen's Test Pass; Site Drawn RIGHT RADIAL
[2021-03-10 04:42] LABS: Arterial Blood Gas PEEP 5 cmH2O; Arterial Blood Gas Tidal Volume 300 ml; Arterial Blood Gas Vent Mode CMV; Arterial Blood Gas Ventilator rate 14 /MIN
[2021-03-10 06:17] LABS: Hematocrit 28.2 % (37.0-47.0); Hemoglobin 8.4 g/dL (12.0-15.0); Mean Corpuscular HGB Conc 29.8 g/dl (32-36); Mean Corpuscular Hemoglobin 26.2 pg (26-34); Mean Corpuscular Volume 87.9 fl (80-100); Mean Platelet Volume 10.9 fl (7.4-10.4); Platelet Count Result 183 k/mm3 (150-375); Red Blood Count 3.21 M/mm3 (4.2-5.4); Red Cell Distribution Width 18.6 % (11.5-14.5); White Blood Count 7.8 K/mm3 (4.5-10.0)
[2021-03-10 06:40] LABS: Alanine Aminotransferase 10 U/L (4-35); Albumin Level 3.1 g/dL (3.5-5.1); Alkaline Phosphatase 100 U/L (38-126); Anion Gap 2 mmol/L (8-16); Aspartate Amino Transferase 21 U/L (14-36); Bilirubin,Total 0.5 mg/dL (0.2-1.3); Blood Urea Nitrogen 41 mg/dL (7-17); Calcium 8.8 mg/dL (8.4-10.2); Carbon Dioxide 38 mmol/L (22-30); Chloride 101 mmol/L (98-107); Estimated Glomerular Filt Rate 26; Glucose 124 mg/dL (65-110); Magnesium 2.4 mg/dL (1.6-2.3); Potassium 4.1 mmol/L (3.4-5.0); Sodium 141 mmol/L (137-145)
[2021-03-10] MEDS: ATORVASTATIN 10 MG TABLET PO (08:10)
[2021-03-10] MEDS: HEPARIN SODIUM 5,000 UNITS/ML VIAL 5000 UNITS SUB-Q ×2 (08:11→21:28)
[2021-03-10] MEDS: FUROSEMIDE INJ 100 MG/10 ML VIAL 80 MG IV PUSH (08:11)
[2021-03-10] MEDS: PANTOPRAZOLE SODIUM IV 40 MG VIAL IV PUSH (08:11)
[2021-03-10] MEDS: dexmedeTOMIDine 400 MCG/100 ML 400 MCG/100 ML BAG IV CONT (08:36)
--- NOTE | 2021-03-10 09:04 | WPDINTPN ---
Progress Note: A&P Assessment and Plan (1) Acute respiratory failure with hypoxia and hypercarbia: Code(s): J96.01 - Acute respiratory failure with hypoxia; J96.02 - Acute respiratory failure with hypercapnia Status: Acute Assessment and Plan: Multifactorial Acute on chronic Respiratory failure secondary to CHF, obesity hypoventilation, questionable pneumonia, Continue full mechanical ventilation support to prevent hypoxemia/hypercarbia and end organ damage. Chest CT IMPRESSION: 1. Diffuse lung disease, likely moderate pulmonary edema. 2. Dependent airspace opacities in the lungs bilaterally, consistent with atelectasis or less likely pneumonia. 3. Small pleural effusions. 4. Cardiomegaly. Chest x-ray done today reviewed and shows improvement in bilateral infiltrates ABG reviewed decrease respiratory rate to 12 and tidal volume to 270 Patient was placed on pressure support ventilation but quickly failed due to high RSBI and very low tidal volume. She was needing pressure support of 12/5 for adequate tidal volumes Low tidal volume ventilation strategy to prevent volutrauma Bronchodilators Continue IV Lasix today. Her last echo was on 11/08/2020 with the EF of 65-70%. But I suspect patient may have diastolic dysfunction and/or right heart failure. Her BNP 2770 She is on empiric antibiotics (2) Pulmonary edema: Code(s): J81.1 - Chronic pulmonary edema Status: Acute Assessment and Plan: Patient was given IV Lasix yesterday but did not had a good response. Patient does have chronic kidney disease. Continue Lasix (3) Obesity hypoventilation syndrome: Code(s): E66.2 - Morbid (severe) obesity with alveolar hypoventilation Status: Acute Assessment and Plan: According to her last admission in November of this year, the patient was refusing to wear her BiPAP machine at the residential.. (4) COPD (chronic obstructive pulmonary disease): Code(s): J44.9 - Chronic obstructive pulmonary disease, unspecified Status: Acute Assessment and Plan: The patient is followed by crusher plant operator here outpatient and has a history of chronic hypercarbic respiratory failure. On bronchodilators (5) Suspected COVID-19 virus infection: Code(s): Z20.822 - Contact with and (suspected) exposure to COVID-19 Status: Acute Assessment and Plan: COVID-19 suspected. SARS-CoV-2 PCR was negative Off isolation (6) Chronic renal failure, stage 3 (moderate): Code(s): N18.30 - Chronic kidney disease, stage 3 unspecified Status: Chronic Assessment and Plan: Patient's creatinine is 2.1 today baseline is somewhere around 1.6. Monitor urine output and creatinine. Electrolytes Overall volume overloaded hence holding fluids and giving Lasix (7) Paroxysmal atrial fibrillation: Code(s): I48.0 - Paroxysmal atrial fibrillation Status: Acute Assessment and Plan: Patient is in sinus rhythm today with a heart rate in the 50 s. Continue with home medications. All rate control medications on hold at this time (8) Hyperlipidemia: Code(s): E78.5 - Hyperlipidemia, unspecified Status: Acute Assessment and Plan: Continue with home medication of atorvastatin (9) HTN (hypertension): Code(s): I10 - Essential (primary) hypertension Status: Acute Assessment and Plan: Continue with home medications. Continue p.r.n. hydralazine (10) Electrolyte abnormality: Code(s): E87.8 - Other disorders of electrolyte and fluid balance, not elsewhere classified Status: Acute Assessment and Plan: Improved after replacement of low potassium Additional Plan DVT prophylaxis -subQ heparin Stress ulcer prophylaxis -at PPI Nutrition -continue Tube Feeds Code Status -patient is Full Code Total Critical Care Time - 30 minutes Due to a high probability of clinically significant, life threatening deterioration, the estella
[2021-03-10] MEDS: hydrALAZINE HCL 20 MG/ML VIAL 10 MG IV PUSH (09:06)
--- NOTE | 2021-03-10 09:07 | PC.NURSE ---
Hydralazine 10 mg/ivp given for blood pressure 176/58, will continue to monitor closely.
--- NOTE | 2021-03-10 13:22 | PM.IMPN ---
Progress Note: A&P Assessment and Plan (1) Acute respiratory failure with hypoxia and hypercarbia: Code(s): J96.01 - Acute respiratory failure with hypoxia; J96.02 - Acute respiratory failure with hypercapnia Status: Acute Assessment and Plan: Multifactorial Acute on chronic Respiratory failure secondary to CHF, obesity hypoventilation, questionable pneumonia, Continue full mechanical ventilation support to prevent hypoxemia/hypercarbia and end organ damage. Chest CT IMPRESSION: 1. Diffuse lung disease, likely moderate pulmonary edema. 2. Dependent airspace opacities in the lungs bilaterally, consistent with atelectasis or less likely pneumonia. 3. Small pleural effusions. 4. Cardiomegaly. Chest x-ray done today reviewed and shows improvement in bilateral infiltrates ABG reviewed decrease respiratory rate to 12 and tidal volume to 270 Patient was placed on pressure support ventilation but quickly failed due to high RSBI and very low tidal volume. She was needing pressure support of 12/5 for adequate tidal volumes Low tidal volume ventilation strategy to prevent volutrauma Bronchodilators Continue IV Lasix today. Her last echo was on 11/08/2020 with the EF of 65-70%. But I suspect patient may have diastolic dysfunction and/or right heart failure. Her BNP 2770 She is on empiric antibiotics (2) Pulmonary edema: Code(s): J81.1 - Chronic pulmonary edema Status: Acute Assessment and Plan: Patient was given IV Lasix yesterday but did not had a good response. Patient does have chronic kidney disease. Continue Lasix (3) Obesity hypoventilation syndrome: Code(s): E66.2 - Morbid (severe) obesity with alveolar hypoventilation Status: Acute Assessment and Plan: According to her last admission in November of this year, the patient was refusing to wear her BiPAP machine at the [facility].. (4) COPD (chronic obstructive pulmonary disease): Code(s): J44.9 - Chronic obstructive pulmonary disease, unspecified Status: Acute Assessment and Plan: The patient is followed by chest painting and sealing supervisor here outpatient and has a history of chronic hypercarbic respiratory failure. On bronchodilators (5) Suspected COVID-19 virus infection: Code(s): Z20.822 - Contact with and (suspected) exposure to COVID-19 Status: Acute Assessment and Plan: COVID-19 suspected. SARS-CoV-2 PCR was negative Off isolation (6) Chronic renal failure, stage 3 (moderate): Code(s): N18.30 - Chronic kidney disease, stage 3 unspecified Status: Chronic Assessment and Plan: Patient's creatinine is 2.1 today baseline is somewhere around 1.6. Monitor urine output and creatinine. Electrolytes Overall volume overloaded hence holding fluids and giving Lasix (7) Paroxysmal atrial fibrillation: Code(s): I48.0 - Paroxysmal atrial fibrillation Status: Acute Assessment and Plan: Patient is in sinus rhythm today with a heart rate in the 50 s. Continue with home medications. All rate control medications on hold at this time (8) Hyperlipidemia: Code(s): E78.5 - Hyperlipidemia, unspecified Status: Acute Assessment and Plan: Continue with home medication of atorvastatin (9) HTN (hypertension): Code(s): I10 - Essential (primary) hypertension Status: Acute Assessment and Plan: Continue with home medications. Continue p.r.n. hydralazine (10) Electrolyte abnormality: Code(s): E87.8 - Other disorders of electrolyte and fluid balance, not elsewhere classified Status: Acute Assessment and Plan: Improved after replacement of low potassium Additional Plan 03/08/2021 Patient in ICU intubated and sedated on IV antibiotics cultures pending IV Lasix administered strongly suspected to have CHF exacerbation. Patient with AKA on CKD 3 anticipated to improve with diuretics. Patient with known history of chronic hypercarbic r
--- NOTE | 2021-03-10 16:36 | PC.NURSE ---
Patient returned to [facility] settings, Dr. Morgan notified.
[2021-03-10] MEDS: dexmedeTOMIDine 400 MCG/100 ML 400 MCG/100 ML BAG 7.46 MCG IV CONT (19:13)
[2021-03-10] MEDS: TOLNAFTATE 1% POWDER 45 GM BTL 1 APPLIC TOPICAL (21:28)
[2021-03-11] VITALS (23 sets, daily range): BP systolic 117–173; BP diastolic 48–71; PULSE 48–91; RESP 12–25; TEMP 36.5–37.3; O2SAT 96–100
[2021-03-11] MEDS: hydrALAZINE HCL 20 MG/ML VIAL 10 MG IV PUSH (00:39)
[2021-03-11 05:57] LABS: Alveolar/Arterial O2 Gradient 135.6 mmHg; Base Excess ABG 10.4 mEq/l (+/-2.0); Carboxyhemoglobin 0.3 % THb (0-2.0); Device VENTILATOR; Fractional Inspired Oxygen 40 %; HCO3 ABG 35.7 mEq/l (22.0-26.0); Methemoglobin ABG 0.3 %THb (0-1.5); Modified Allen's Test Pass; Oxygen Content ABG 13.8 %vol (16.0-22.0); Oxygen Saturation ABG 97.2 % (95.0-100.0); Oxyhemoglobin 95.3 % THb (90.0-100.0); PCO2 ABG 51.4 mmHg (35.0-45.0); PO2 ABG 90.5 mmHg (80.0-100.0); PO2 FiO2 Ratio Arterial Blood 2.26 %; Reduced Hemoglobin 4.1 %THb (0-5.0); Site Drawn LEFT RADIAL; Total Hemoglobin 10.2 g/dL (12.0-18.0); pH ABG 7.459 (7.350-7.450)
[2021-03-11 05:58] LABS: Arterial Blood Gas PEEP 5 cmH2O; Arterial Blood Gas Tidal Volume 270 ml; Arterial Blood Gas Vent Mode CMV; Arterial Blood Gas Ventilator rate 12 /MIN
[2021-03-11 06:15] LABS: Hematocrit 30.7 % (37.0-47.0); Hemoglobin 8.8 g/dL (12.0-15.0); Mean Corpuscular HGB Conc 28.7 g/dl (32-36); Mean Corpuscular Volume 87.2 fl (80-100); Mean Platelet Volume 9.4 fl (7.4-10.4); Platelet Count Result 175 k/mm3 (150-375); Red Blood Count 3.52 M/mm3 (4.2-5.4); Red Cell Distribution Width 18.6 % (11.5-14.5); White Blood Count 6.6 K/mm3 (4.5-10.0)
[2021-03-11] MEDS: CENTRAL LINE FLUSH 10 ML IV PUSH ×4 (06:16→22:01)
[2021-03-11 06:28] LABS: Alanine Aminotransferase 15 U/L (4-35); Albumin Level 3.6 g/dL (3.5-5.1); Alkaline Phosphatase 93 U/L (38-126); Anion Gap 6 mmol/L (8-16); Aspartate Amino Transferase 30 U/L (14-36); Bilirubin,Total 0.3 mg/dL (0.2-1.3); Blood Urea Nitrogen 41 mg/dL (7-17); Calcium 9.5 mg/dL (8.4-10.2); Carbon Dioxide 37 mmol/L (22-30); Chloride 96 mmol/L (98-107); Estimated Glomerular Filt Rate 26; Glucose 147 mg/dL (65-110); Magnesium 2.4 mg/dL (1.6-2.3); Potassium 3.8 mmol/L (3.4-5.0); Sodium 139 mmol/L (137-145)
[2021-03-11] MEDS: ALBUMIN HUMAN 25% 25 GM/100 ML 100 ML IVPB (08:14)
[2021-03-11] MEDS: PANTOPRAZOLE SODIUM IV 40 MG VIAL IV PUSH (08:30)
[2021-03-11] MEDS: TOLNAFTATE 1% POWDER 45 GM BTL 1 APPLIC TOPICAL ×2 (08:32→22:00)
[2021-03-11] MEDS: ATORVASTATIN 10 MG TABLET PO (08:32)
[2021-03-11] MEDS: HEPARIN SODIUM 5,000 UNITS/ML VIAL 5000 UNITS SUB-Q ×2 (08:32→22:00)
[2021-03-11 08:37] LABS: Arterial Blood Gas PEEP 5 cmH2O; Arterial Blood Gas Tidal Volume 300 ml; Arterial Blood Gas Vent Mode CMV; Arterial Blood Gas Ventilator rate 18 /MIN
--- NOTE | 2021-03-11 09:23 | WPDINTPN ---
Progress Note: A&P Assessment and Plan (1) Acute respiratory failure with hypoxia and hypercarbia: Code(s): J96.01 - Acute respiratory failure with hypoxia; J96.02 - Acute respiratory failure with hypercapnia Status: Acute Assessment and Plan: Multifactorial Acute on chronic Respiratory failure secondary to CHF, obesity hypoventilation, questionable pneumonia, Continue full mechanical ventilation support to prevent hypoxemia/hypercarbia and end organ damage. Chest CT IMPRESSION: 1. Diffuse lung disease, likely moderate pulmonary edema. 2. Dependent airspace opacities in the lungs bilaterally, consistent with atelectasis or less likely pneumonia. 3. Small pleural effusions. 4. Cardiomegaly. Chest x-ray done today reviewed and shows improvement in bilateral infiltrates ABG reviewed decrease respiratory rate to 12 and tidal volume to 250 Patient was placed on pressure support ventilation again today over 5/5 but she failed due to high RSBI and very low tidal volume. Her tidal volumes were less than 200 mL. Pressure support was increased to 10/5 for adequate tidal volumes. I will continue pressure support ventilation as tolerated. Will try ASV Patient is going to be difficult to wean due to her body habitus, morbid obesity, pneumonia and CHF Low tidal volume ventilation strategy to prevent volutrauma Bronchodilators Continue IV Lasix today. Will give following a dose of albumin Her last echo was on 11/08/2020 with the EF of 65-70%. But I suspect patient may have diastolic dysfunction and/or right heart failure. Her BNP 2770 She is on empiric antibiotics (2) Pulmonary edema: Code(s): J81.1 - Chronic pulmonary edema Status: Acute Assessment and Plan: Patient was given IV Lasix yesterday but did not had a good response. Patient does have chronic kidney disease. Continue Lasix (3) Obesity hypoventilation syndrome: Code(s): E66.2 - Morbid (severe) obesity with alveolar hypoventilation Status: Acute Assessment and Plan: According to her last admission in November of this year, the patient was refusing to wear her [facility] machine at the [facility] (4) COPD (chronic obstructive pulmonary disease): Code(s): J44.9 - Chronic obstructive pulmonary disease, unspecified Status: Acute Assessment and Plan: The patient is followed by drier belt conveyor here outpatient and has a history of chronic hypercarbic respiratory failure. On bronchodilators (5) Suspected COVID-19 virus infection: Code(s): Z20.822 - Contact with and (suspected) exposure to COVID-19 Status: Acute Assessment and Plan: COVID-19 suspected. SARS-CoV-2 PCR was negative Off isolation (6) Chronic renal failure, stage 3 (moderate): Code(s): N18.30 - Chronic kidney disease, stage 3 unspecified Status: Chronic Assessment and Plan: Patient's creatinine is 2.1 today baseline is somewhere around 1.6. Monitor urine output and creatinine. Electrolytes Overall volume overloaded hence holding fluids and giving Lasix (7) Paroxysmal atrial fibrillation: Code(s): I48.0 - Paroxysmal atrial fibrillation Status: Acute Assessment and Plan: Patient is in sinus rhythm today with a heart rate in the 50 s. Continue with home medications. All rate control medications on hold at this time (8) Hyperlipidemia: Code(s): E78.5 - Hyperlipidemia, unspecified Status: Acute Assessment and Plan: Continue with home medication of atorvastatin (9) HTN (hypertension): Code(s): I10 - Essential (primary) hypertension Status: Acute Assessment and Plan: Continue with home medications. Continue p.r.n. hydralazine (10) Electrolyte abnormality: Code(s): E87.8 - Other disorders of electrolyte and fluid balance, not elsewhere classified Status: Acute Assessment and Plan: Improved after replacement of low potassium Additional Pl
[2021-03-11] MEDS: FUROSEMIDE INJ 100 MG/10 ML VIAL 80 MG IV PUSH (09:51)
--- NOTE | 2021-03-11 10:38 | PCDIET ---
Nutrition Follow-Up Complete: Nutrition Diagnosis: Inadequate oral intake related to oral intubation as evidenced by NPO status. Nutrition Goal: Patient to meet estimated nutritional needs. Goal in progress. Patient tolerating Nepro at 35mL/hr goal rate with 30mL water flush every 4 hours. Last recorded weight is 98 kg which is down from last review. -I/O. Making adequate urine. Bowel Motility: No documented BM. Residuals 190mL and below. If medically appropriate, would begin to consider medication to promote BM. Labs Reviewed: RBC (3.52), Hgb (8.8), Hct (30.7), Glu (147), BUN (41), Cr (2.3), Mg (2.4) Meds Noted: Albumin, Lipitor, Zithromax, Rocephin, Apresoline, Atrovent, Protonix Additional Notes: No documented skin breakdown. Will continue to monitor with same goal. Nutrition Monitoring and Evaluation: Follow up every Thursday/Thursday.
[2021-03-11 12:30] LABS: Glucose Point of Care 98 mg/dl (65-105)
--- NOTE | 2021-03-11 12:38 | PC.NURSE ---
Updated sister, Melida, on plan of care and patient condition
--- NOTE | 2021-03-11 13:19 | PM.IMPN ---
Progress Note: A&P Assessment and Plan (1) Acute respiratory failure with hypoxia and hypercarbia: Code(s): J96.01 - Acute respiratory failure with hypoxia; J96.02 - Acute respiratory failure with hypercapnia Status: Acute Assessment and Plan: Patient presents with altered mental status related to severe hypercarbia and hypoxic respiratory failure. CXR on admission showing diffuse edema and/or pneumonia. BNP 2770. [place] her respiratory failure is multifactorial from the TIFFANY, COPD, pulmonary edema/CHF and obesity hypoventilation syndrome. Suspect noncompliance with BiPAP at the facility. Patient was intubated on admission. She is on abx for possible PNA but felt less likely. Continue Lasix as well. Wean vent as toelrated. Will need to continue BiPAP after extubation. Settings at last discharge were BiPAP 24/8 with 6Liter bleed in with a backup rate of 22. (2) CHF (congestive heart failure): Code(s): I50.9 - Heart failure, unspecified Status: Acute Assessment and Plan: Patient with ELE and pulmonary edema. CXR as mentioned above. BNP 2770. Unclear if CHF or related to pulmonary edema from her severe respiratory failure. Echo in October showing EF of 65-70% and diastolic dysfunction and mild ; pulm pressures unable to be determined. Suspect right heart failure and/or diastolic failure. She was started on IV Lasix with good UOP and negative fluid balance. CXR improving. Continue IV Lasix and monitor closely. (3) Obesity hypoventilation syndrome: Code(s): E66.2 - Morbid (severe) obesity with alveolar hypoventilation Status: Acute Assessment and Plan: According to her last admission in November of this year, the patient was refusing to wear her BiPAP machine at the assisted. Unclear if she was compliant after discharge. (4) COPD (chronic obstructive pulmonary disease): Code(s): J44.9 - Chronic obstructive pulmonary disease, unspecified Status: Acute Assessment and Plan: The patient is followed by gas pit worker here. She is a nonsmoker but was exposed to secondhand smoke. She had CT chest here showing diffuse lung disease c/w moderate pulmonary edema. Continue prn bronchodilators. (5) Chronic renal failure, stage 3 (moderate): Code(s): N18.30 - Chronic kidney disease, stage 3 unspecified Status: Chronic Assessment and Plan: Patient's creatinine is 2.1 on admission. Baseline Cr is 1.4-1.7 range. Curently on IV Lasix for volume overload. Cr remains elevated but stable at 2.3 today. New baseline? Monitor Cr, electrolytes and urine output. (6) Chronic respiratory failure with hypoxia and hypercapnia: Code(s): J96.11 - Chronic respiratory failure with hypoxia; J96.12 - Chronic respiratory failure with hypercapnia Status: Acute Assessment and Plan: Patient is chronically on 3L O2 nasal cannula while awake. Related to above. (7) Paroxysmal atrial fibrillation: Code(s): I48.0 - Paroxysmal atrial fibrillation Status: Acute Assessment and Plan: Patient is in sinus rhythm today with a heart rate in the 40-50's. She is off her Diltiazem at this time. She is not a candidate for prison anticoagulation. Resume Diltiazem as blood pressure and HR allows. (8) Hyperlipidemia: Code(s): E78.5 - Hyperlipidemia, unspecified Status: Acute Assessment and Plan: LFTs normal. Will continue with home atorvastatin. (9) HTN (hypertension): Code(s): I10 - Essential (primary) hypertension Status: Acute Assessment and Plan: Patient's blood pressure was reviewed on 03/11 Blood pressure remains elevated. Will continue to monitor for now. Hydralazine available prn (10) Electrolyte abnormality: Code(s): E87.8 - Other disorders of electrolyte and fluid balance, not elsewhere classified Status: Acute Assessment and Plan: Potassium dropped to 2.9 and
[2021-03-11 18:55] LABS: Glucose Point of Care 108 mg/dl (65-105)
[2021-03-11 23:59] LABS: Glucose Point of Care 106 mg/dl (65-105)
[2021-03-12] VITALS (20 sets, daily range): BP systolic 127–204; BP diastolic 43–102; PULSE 67–96; RESP 16–30; TEMP 36.8–37.4; O2SAT 95–99
[2021-03-12 04:29] LABS: Alveolar/Arterial O2 Gradient 140.5 mmHg; Base Excess ABG 11.9 mEq/l (+/-2.0); Carboxyhemoglobin 0.3 % THb (0-2.0); Fractional Inspired Oxygen 40 %; HCO3 ABG 37.4 mEq/l (22.0-26.0); Methemoglobin ABG 0.5 %THb (0-1.5); Oxygen Content ABG 12.3 %vol (16.0-22.0); Oxygen Saturation ABG 96.3 % (95.0-100.0); Oxyhemoglobin 94.3 % THb (90.0-100.0); PCO2 ABG 54.8 mmHg (35.0-45.0); PO2 ABG 81.7 mmHg (80.0-100.0); PO2 FiO2 Ratio Arterial Blood 2.04 %; Reduced Hemoglobin 4.9 %THb (0-5.0); Total Hemoglobin 9.2 g/dL (12.0-18.0); pH ABG 7.452 (7.350-7.450)
[2021-03-12 04:34] LABS: Device VENTILATOR; Modified Allen's Test Pass; Site Drawn RIGHT RADIAL
[2021-03-12 04:35] LABS: Arterial Blood Gas PEEP 5 cmH2O; Arterial Blood Gas Vent Mode SPONTANEOUS
[2021-03-12 04:36] LABS: Arterial Blood Gas Pressure Support 15 cmH2O
[2021-03-12] MEDS: CENTRAL LINE FLUSH 10 ML IV PUSH ×4 (05:12→21:05)
[2021-03-12 05:13] LABS: Hematocrit 29.2 % (37.0-47.0); Hemoglobin 8.5 g/dL (12.0-15.0); Mean Corpuscular HGB Conc 29.1 g/dl (32-36); Mean Corpuscular Hemoglobin 25.1 pg (26-34); Mean Corpuscular Volume 86.4 fl (80-100); Mean Platelet Volume 9.8 fl (7.4-10.4); Platelet Count Result 194 k/mm3 (150-375); Red Blood Count 3.38 M/mm3 (4.2-5.4); White Blood Count 8.4 K/mm3 (4.5-10.0)
[2021-03-12 05:34] LABS: Alanine Aminotransferase 24 U/L (4-35); Albumin Level 3.7 g/dL (3.5-5.1); Alkaline Phosphatase 96 U/L (38-126); Anion Gap 4 mmol/L (8-16); Aspartate Amino Transferase 38 U/L (14-36); Bilirubin,Total 0.4 mg/dL (0.2-1.3); Blood Urea Nitrogen 41 mg/dL (7-17); Calcium 9.5 mg/dL (8.4-10.2); Carbon Dioxide 38 mmol/L (22-30); Chloride 101 mmol/L (98-107); Estimated Glomerular Filt Rate 28; Glucose 129 mg/dL (65-110); Magnesium 2.6 mg/dL (1.6-2.3); Potassium 3.5 mmol/L (3.4-5.0); Sodium 143 mmol/L (137-145)
[2021-03-12] MEDS: ALBUMIN HUMAN 25% 25 GM/100 ML 100 ML IVPB (08:57)
[2021-03-12] MEDS: TOLNAFTATE 1% POWDER 45 GM BTL 1 APPLIC TOPICAL ×2 (08:58→21:05)
[2021-03-12] MEDS: HEPARIN SODIUM 5,000 UNITS/ML VIAL 5000 UNITS SUB-Q ×2 (08:59→21:06)
[2021-03-12] MEDS: ATORVASTATIN 10 MG TABLET PO (08:59)
[2021-03-12] MEDS: PANTOPRAZOLE SODIUM IV 40 MG VIAL IV PUSH (08:59)
[2021-03-12] MEDS: FUROSEMIDE INJ 100 MG/10 ML VIAL 80 MG IV PUSH (10:26)
--- NOTE | 2021-03-12 10:40 | WPDINTPN ---
Progress Note: A&P Assessment and Plan (1) Acute respiratory failure with hypoxia and hypercarbia: Code(s): J96.01 - Acute respiratory failure with hypoxia; J96.02 - Acute respiratory failure with hypercapnia Status: Acute Assessment and Plan: Multifactorial Acute on chronic Respiratory failure secondary to CHF, obesity hypoventilation, questionable pneumonia, Continue full mechanical ventilation support to prevent hypoxemia/hypercarbia and end organ damage. Chest CT IMPRESSION: 1. Diffuse lung disease, likely moderate pulmonary edema. 2. Dependent airspace opacities in the lungs bilaterally, consistent with atelectasis or less likely pneumonia. 3. Small pleural effusions. 4. Cardiomegaly. Chest x-ray done today reviewed and shows improvement in bilateral infiltrates Patient was placed on pressure support ventilation yesterday over 11/14 but she failed due to high RSBI and very low tidal volume. Her tidal volumes were less than 200 mL. Pressure support was increased to 15/5 for adequate tidal volumes. I will continue pressure support ventilation as tolerated. I have decreased pressure support of 10. Continue weaning on pressure support to keep tidal volume at least 200 Patient is going to be difficult to wean due to her body habitus, morbid obesity, pneumonia and CHF Low tidal volume ventilation strategy to prevent volutrauma Bronchodilators Continue IV Lasix and IV albumin today. Patient had good response to dose given yesterday Her last echo was on 11/08/2020 with the EF of 65-70%. But I suspect patient may have diastolic dysfunction and/or right heart failure. Her BNP 2770 She is on empiric antibiotics (2) Pulmonary edema: Code(s): J81.1 - Chronic pulmonary edema Status: Acute Assessment and Plan: Patient was given IV Lasix yesterday but did not had a good response. Patient does have chronic kidney disease. Continue Lasix (3) Obesity hypoventilation syndrome: Code(s): E66.2 - Morbid (severe) obesity with alveolar hypoventilation Status: Acute Assessment and Plan: According to her last admission in November of this year, the [facility] (4) COPD (chronic obstructive pulmonary disease): Code(s): J44.9 - Chronic obstructive pulmonary disease, unspecified Status: Acute Assessment and Plan: The patient is followed by supervisor frame sample and pattern here outpatient and has a history of chronic hypercarbic respiratory failure. On bronchodilators (5) Suspected COVID-19 virus infection: Code(s): Z20.822 - Contact with and (suspected) exposure to COVID-19 Status: Acute Assessment and Plan: COVID-19 suspected. SARS-CoV-2 PCR was negative Off isolation (6) Chronic renal failure, stage 3 (moderate): Code(s): N18.30 - Chronic kidney disease, stage 3 unspecified Status: Chronic Assessment and Plan: Patient's creatinine is 2.1 today baseline is somewhere around 1.6. Monitor urine output and creatinine. Electrolytes Overall volume overloaded hence holding fluids and giving Lasix (7) Paroxysmal atrial fibrillation: Code(s): I48.0 - Paroxysmal atrial fibrillation Status: Acute Assessment and Plan: Patient is in sinus rhythm today with a heart rate in the 50 s. Continue with home medications. All rate control medications on hold at this time (8) Hyperlipidemia: Code(s): E78.5 - Hyperlipidemia, unspecified Status: Acute Assessment and Plan: Continue with home medication of atorvastatin (9) HTN (hypertension): Code(s): I10 - Essential (primary) hypertension Status: Acute Assessment and Plan: resume losartan. Continue p.r.n. hydralazine (10) Electrolyte abnormality: Code(s): E87.8 - Other disorders of electrolyte and fluid balance, not elsewhere classified Status: Acute Assessment and Plan: Improved after re
[2021-03-12 11:35] LABS: Glucose Point of Care 104 mg/dl (65-105)
[2021-03-12] MEDS: LOSARTAN POTASSIUM 100 MG TABLET PO (11:57)
[2021-03-12] MEDS: hydrALAZINE HCL 20 MG/ML VIAL 10 MG IV PUSH ×3 (11:59→22:04)
--- NOTE | 2021-03-12 12:23 | PCDIET ---
Nutrition Follow-Up Complete: Nutrition Diagnosis: Inadequate oral intake related to oral intubation as evidenced by NPO status. Nutrition Goal: Patient to meet estimated nutritional needs. Goal met. Patient tolerating Nepro at 35mL/hr goal rate with 30mL water flush every 4 hours. Last recorded weight is 96.4 kg which is down from last review. -I/O. Bowel Motility: Last documented BM on 03/11/21 x 1. Labs Reviewed: RBC (3.38), Hgb (8.5), Hct (29.2), Glu (129), BUN (41), Cr (2.2), Mg (2.6) Meds Noted: Albumin, Lipitor, Zithromax, Rocephin, Lasix, Apresoline, Protonix Additional Notes: No documented skin breakdown. Will continue to monitor with same goal. Nutrition Monitoring and Evaluation: Follow up every Thursday/Thursday.
--- NOTE | 2021-03-12 12:40 | PC.NURSE ---
Updated sister, Melida, with patient condition.
--- NOTE | 2021-03-12 17:54 | PM.IMPN ---
Progress Note: A&P Assessment and Plan (1) Acute respiratory failure with hypoxia and hypercarbia: Code(s): J96.01 - Acute respiratory failure with hypoxia; J96.02 - Acute respiratory failure with hypercapnia Status: Acute Assessment and Plan: Patient presents with altered mental status related to severe hypercarbia and hypoxic respiratory failure (ABG 7.08/160/69). CXR on admission showing diffuse edema and/or pneumonia. BNP 2770. [place] her respiratory failure is multifactorial from the TI[place], COPD, pulmonary edema/CHF and obesity hypoventilation syndrome. Suspect noncompliance with BiPAP at the facility. Patient was intubated on admission. She is on abx for possible PNA but felt less likely. Continue Lasix as well. Wean vent as tolerated. Will need to continue BiPAP after extubation. Settings at last discharge were BiPAP 24/8 with 6Liter bleed in with a backup rate of 22. (2) CHF (congestive heart failure): Code(s): I50.9 - Heart failure, unspecified Status: Acute Assessment and Plan: Patient with ELE and pulmonary edema. CXR as mentioned above. BNP 2770. Unclear if CHF or related to pulmonary edema from her severe respiratory failure. Echo in October showing EF of 65-70% and diastolic dysfunction and mild ; pulm pressures unable to be determined. Suspect right heart failure and/or diastolic failure. She was started on IV Lasix with good UOP and negative fluid balance. CXR improving. Continue IV Lasix and monitor closely. (3) Obesity hypoventilation syndrome: Code(s): E66.2 - Morbid (severe) obesity with alveolar hypoventilation Status: Acute Assessment and Plan: According to her last admission in November of this year, the patient was [facility]. Unclear if she was compliant after discharge. (4) COPD (chronic obstructive pulmonary disease): Code(s): J44.9 - Chronic obstructive pulmonary disease, unspecified Status: Acute Assessment and Plan: The patient is followed by receiving clerk at [facility]. She is a nonsmoker but was exposed to secondhand smoke. She had CT chest here showing diffuse lung disease c/w moderate pulmonary edema. Continue prn bronchodilators. (5) Chronic renal failure, stage 3 (moderate): Code(s): N18.30 - Chronic kidney disease, stage 3 unspecified Status: Chronic Assessment and Plan: Patient's creatinine is 2.1 on admission. Baseline Cr is 1.4-1.7 range. Curently on IV Lasix for volume overload. Cr remains elevated but stable at 2.2 today. New baseline? Monitor Cr, electrolytes and urine output. (6) Chronic respiratory failure with hypoxia and hypercapnia: Code(s): J96.11 - Chronic respiratory failure with hypoxia; J96.12 - Chronic respiratory failure with hypercapnia Status: Acute Assessment and Plan: Patient is chronically on 3L O2 nasal cannula while awake. As above. (7) Paroxysmal atrial fibrillation: Code(s): I48.0 - Paroxysmal atrial fibrillation Status: Acute Assessment and Plan: Patient is in sinus rhythm today with a heart rate in the 60-80's. She is off her Diltiazem at this time. She is not a candidate for terminal operations supervisor anticoagulation. Tele noted. Resume Diltiazem as blood pressure and HR allows. (8) Hyperlipidemia: Code(s): E78.5 - Hyperlipidemia, unspecified Status: Acute Assessment and Plan: LFTs normal. Will continue with home atorvastatin. (9) HTN (hypertension): Code(s): I10 - Essential (primary) hypertension Status: Acute Assessment and Plan: Patient's blood pressure was reviewed on 03/12 Blood pressure remains elevated. Cozaar resumed. Hydralazine available prn (10) Electrolyte abnormality: Code(s): E87.8 - Other disorders of electrolyte and fluid balance, not elsewhere classified Status: Acute Assessment and Plan: Potassium dropped
[2021-03-12 18:50] LABS: Glucose Point of Care 141 mg/dl (65-105)
[2021-03-13] VITALS (23 sets, daily range): BP systolic 142–184; BP diastolic 49–89; PULSE 64–83; RESP 16–29; TEMP 36.7–37.2; O2SAT 89–99
[2021-03-13 00:06] LABS: Glucose Point of Care 106 mg/dl (65-105)
[2021-03-13] MEDS: CENTRAL LINE FLUSH 10 ML IV PUSH ×4 (05:18→21:00)
[2021-03-13 05:19] LABS: Hematocrit 31.4 % (37.0-47.0); Hemoglobin 8.8 g/dL (12.0-15.0); Mean Corpuscular Hemoglobin 24.9 pg (26-34); Mean Corpuscular Volume 88.7 fl (80-100); Mean Platelet Volume 9.8 fl (7.4-10.4); Platelet Count Result 206 k/mm3 (150-375); Red Blood Count 3.54 M/mm3 (4.2-5.4); Red Cell Distribution Width 18.2 % (11.5-14.5)
[2021-03-13 05:21] LABS: Alveolar/Arterial O2 Gradient 120.7 mmHg; Base Excess ABG 7.1 mEq/l (+/-2.0); Carboxyhemoglobin 0.3 % THb (0-2.0); Fractional Inspired Oxygen 40 %; HCO3 ABG 32.7 mEq/l (22.0-26.0); Methemoglobin ABG 0.4 %THb (0-1.5); Oxygen Content ABG 14.8 %vol (16.0-22.0); Oxygen Saturation ABG 97.8 % (95.0-100.0); Oxyhemoglobin 96.3 % THb (90.0-100.0); PCO2 ABG 51.4 mmHg (35.0-45.0); PO2 ABG 105.4 mmHg (80.0-100.0); PO2 FiO2 Ratio Arterial Blood 2.63 %; Total Hemoglobin 10.8 g/dL (12.0-18.0); pH ABG 7.421 (7.350-7.450)
[2021-03-13 05:23] LABS: Device VENTILATOR; Modified Allen's Test Pass; Site Drawn RIGHT RADIAL
[2021-03-13 05:24] LABS: Arterial Blood Gas PEEP 5 cmH2O; Arterial Blood Gas Pressure Support 10 cmH2O; Arterial Blood Gas Vent Mode SPONTANEOUS
[2021-03-13 05:28] LABS: Alanine Aminotransferase 25 U/L (4-35); Albumin Level 4.1 g/dL (3.5-5.1); Alkaline Phosphatase 89 U/L (38-126); Anion Gap 12 mmol/L (8-16); Aspartate Amino Transferase 35 U/L (14-36); Bilirubin,Total 0.2 mg/dL (0.2-1.3); Blood Urea Nitrogen 41 mg/dL (7-17); Calcium 9.6 mg/dL (8.4-10.2); Carbon Dioxide 37 mmol/L (22-30); Chloride 97 mmol/L (98-107); Estimated Glomerular Filt Rate 26; Glucose 143 mg/dL (65-110); Magnesium 2.8 mg/dL (1.6-2.3); Potassium 3.3 mmol/L (3.4-5.0); Sodium 146 mmol/L (137-145)
[2021-03-13] MEDS: ALBUMIN HUMAN 25% 25 GM/100 ML 100 ML IVPB (09:33)
[2021-03-13] MEDS: ATORVASTATIN 10 MG TABLET PO (09:34)
[2021-03-13] MEDS: TOLNAFTATE 1% POWDER 45 GM BTL 1 APPLIC TOPICAL ×2 (09:34→20:59)
[2021-03-13] MEDS: LOSARTAN POTASSIUM 100 MG TABLET PO (09:34)
[2021-03-13] MEDS: POTASSIUM CHLORIDE 20 MEQ PACKET (FOR LIQUID) 40 MEQ FEED TUBE (09:34)
[2021-03-13] MEDS: HEPARIN SODIUM 5,000 UNITS/ML VIAL 5000 UNITS SUB-Q ×2 (09:34→21:00)
[2021-03-13] MEDS: PANTOPRAZOLE SODIUM IV 40 MG VIAL IV PUSH (09:34)
[2021-03-13] MEDS: hydrALAZINE HCL 20 MG/ML VIAL 10 MG IV PUSH (09:44)
[2021-03-13] MEDS: FUROSEMIDE INJ 100 MG/10 ML VIAL 80 MG IV PUSH (10:08)
--- NOTE | 2021-03-13 10:27 | PM.IMPN ---
Progress Note: A&P Assessment and Plan (1) Acute respiratory failure with hypoxia and hypercarbia: Code(s): J96.01 - Acute respiratory failure with hypoxia; J96.02 - Acute respiratory failure with hypercapnia Status: Acute Assessment and Plan: Patient presents with altered mental status related to severe hypercarbia and hypoxic respiratory failure (ABG 7.08/160/69). CXR on admission showing diffuse edema and/or pneumonia. BNP 2770. [place] her respiratory failure is multifactorial from the TIFFANY, COPD, pulmonary edema/CHF and obesity hypoventilation syndrome. COVID PCR 03/07 negative. Suspect noncompliance with BiPAP at the facility. Patient was intubated on admission. She is on abx for possible PNA but felt less likely. Continue Lasix as well. Possible extubation today but CXR looks worse. Will need to continue BiPAP after extubation. Settings at last discharge were BiPAP 24/8 with 6 Liter bleed in with a backup rate of 22. (2) CHF (congestive heart failure): Code(s): I50.9 - Heart failure, unspecified Status: Acute Assessment and Plan: Patient with ELE and pulmonary edema. CXR as mentioned above. BNP 2770. Unclear if CHF or related to pulmonary edema from her severe respiratory failure. Echo in October showing EF of 65-70% and diastolic dysfunction and mild ; pulm pressures unable to be determined. Suspect right heart failure and/or diastolic failure. She was started on IV Lasix with good UOP and negative fluid balance. Continue IV Lasix and monitor closely. (3) Obesity hypoventilation syndrome: Code(s): E66.2 - Morbid (severe) obesity with alveolar hypoventilation Status: Acute Assessment and Plan: According to her last admission in November 2020, the patient was refusing to wear her BiPAP machine at the residential. Unclear if she was compliant after that discharge. Settings as mentioned above. (4) COPD (chronic obstructive pulmonary disease): Code(s): J44.9 - Chronic obstructive pulmonary disease, unspecified Status: Acute Assessment and Plan: The patient is followed by nuclear reactor technician at [facility]. She is a nonsmoker but was exposed to secondhand smoke. She had CT chest here showing diffuse lung disease c/w moderate pulmonary edema. Continue prn bronchodilators. (5) Chronic renal failure, stage 3 (moderate): Code(s): N18.30 - Chronic kidney disease, stage 3 unspecified Status: Chronic Assessment and Plan: Patient's creatinine is 2.1 on admission. Baseline Cr is 1.4-1.7 range. Curently on IV Lasix for volume overload. Cr remains elevated but stable at 2.3 today. New baseline? Monitor Cr, electrolytes and urine output. (6) Chronic respiratory failure with hypoxia and hypercapnia: Code(s): J96.11 - Chronic respiratory failure with hypoxia; J96.12 - Chronic respiratory failure with hypercapnia Status: Acute Assessment and Plan: Patient is chronically on 3L O2 nasal cannula while awake. As above. (7) Paroxysmal atrial fibrillation: Code(s): I48.0 - Paroxysmal atrial fibrillation Status: Acute Assessment and Plan: Patient is in sinus rhythm today with a heart rate in the 60-80's. She is off her Diltiazem at this time. She is not a candidate for watermelon inspector anticoagulation. Tele noted. Resume short-acting Diltiazem. Discussed with labor and delivery nurse. (8) Hyperlipidemia: Code(s): E78.5 - Hyperlipidemia, unspecified Status: Acute Assessment and Plan: LFTs normal. Will continue with home atorvastatin. (9) HTN (hypertension): Code(s): I10 - Essential (primary) hypertension Status: Acute Assessment and Plan: Patient's blood pressure was reviewed on 03/13 Blood pressure remains elevated. Continue Cozaar and resume diltiazem. Hydralazine available prn (10) Electrolyte abnormality: Code(s): E87.8 - Other disorders of electrolyte and fluid balance, not
[2021-03-13 10:30] LABS: Alveolar/Arterial O2 Gradient 181.9 mmHg; Base Excess ABG 9.8 mEq/l (+/-2.0); Fractional Inspired Oxygen 50 %; HCO3 ABG 35.4 mEq/l (22.0-26.0); Oxygen Content ABG 13.5 %vol (16.0-22.0); Oxygen Saturation ABG 98.2 % (95.0-100.0); Oxyhemoglobin 96.4 % THb (90.0-100.0); PCO2 ABG 54.5 mmHg (35.0-45.0); PO2 ABG 113.3 mmHg (80.0-100.0); PO2 FiO2 Ratio Arterial Blood 2.27 %; Total Hemoglobin 9.8 g/dL (12.0-18.0); pH ABG 7.431 (7.350-7.450)
--- NOTE | 2021-03-13 10:30 | WPDINTPN ---
Progress Note: A&P Assessment and Plan (1) Acute respiratory failure with hypoxia and hypercarbia: Code(s): J96.01 - Acute respiratory failure with hypoxia; J96.02 - Acute respiratory failure with hypercapnia Status: Acute Assessment and Plan: Multifactorial Acute on chronic Respiratory failure secondary to CHF, obesity hypoventilation, questionable pneumonia, Continue full mechanical ventilation support to prevent hypoxemia/hypercarbia and end organ damage. Chest CT IMPRESSION: 1. Diffuse lung disease, likely moderate pulmonary edema. 2. Dependent airspace opacities in the lungs bilaterally, consistent with atelectasis or less likely pneumonia. 3. Small pleural effusions. 4. Cardiomegaly. Chest x-ray done today reviewed and reports reads as worsening infiltrates but patient otherwise clinically appears better she has been diuresing over last 2 days and edema is better on the legs Patient was placed on pressure support ventilation yesterday over 11/14 but she failed due to high RSBI and very low tidal volume. Her tidal volumes were less than 200 mL. Pressure support was decreased to 10/5 and patient continued to have tidal volume close to 200 on more. I will check ABG and evaluate patient for extubation patient does have baseline hypercarbia and respiratory acidosis secondary to obesity hypoventilation syndrome along with other comorbidities Patient is going to be difficult to wean due to her body habitus, morbid obesity, pneumonia and CHF Low tidal volume ventilation strategy to prevent volutrauma Bronchodilators Continue IV Lasix and IV albumin today. Patient had good response to dose given yesterday Her last echo was on 11/08/2020 with the EF of 65-70%. But I suspect patient may have diastolic dysfunction and/or right heart failure. Her BNP 2770 She is on empiric antibiotics for pneumonia (2) Pulmonary edema: Code(s): J81.1 - Chronic pulmonary edema Status: Acute Assessment and Plan: Patient was given IV Lasix yesterday but did not had a good response. Patient does have chronic kidney disease. Continue Lasix/albumin (3) Obesity hypoventilation syndrome: Code(s): E66.2 - Morbid (severe) obesity with alveolar hypoventilation Status: Acute Assessment and Plan: According to her last admission in November of this year, the patient was refusing to [facility] (4) COPD (chronic obstructive pulmonary disease): Code(s): J44.9 - Chronic obstructive pulmonary disease, unspecified Status: Acute Assessment and Plan: The patient is followed by music copyist here outpatient and has a history of chronic hypercarbic respiratory failure. On bronchodilators (5) Suspected COVID-19 virus infection: Code(s): Z20.822 - Contact with and (suspected) exposure to COVID-19 Status: Acute Assessment and Plan: COVID-19 suspected. SARS-CoV-2 PCR was negative Off isolation (6) Chronic renal failure, stage 3 (moderate): Code(s): N18.30 - Chronic kidney disease, stage 3 unspecified Status: Chronic Assessment and Plan: Patient's creatinine is 2.1 today baseline is somewhere around 1.6. Monitor urine output and creatinine. Electrolytes Overall volume overloaded hence holding fluids and giving Lasix (7) Paroxysmal atrial fibrillation: Code(s): I48.0 - Paroxysmal atrial fibrillation Status: Acute Assessment and Plan: Patient is in sinus rhythm today with a heart rate in the 50 s. Continue with home medications. All rate control medications on hold at this time (8) Hyperlipidemia: Code(s): E78.5 - Hyperlipidemia, unspecified Status: Acute Assessment and Plan: Continue with home medication of atorvastatin (9) HTN (hypertension): Code(s): I10 - Essential (primary) hypertension Status: Acute Assessment and Plan: resume losartan. Continue p.r.n. hydralazine
[2021-03-13 10:31] LABS: Device VENTILATOR; Modified Allen's Test Pass; Site Drawn RIGHT RADIAL
[2021-03-13 10:32] LABS: Arterial Blood Gas PEEP 5 cmH2O; Arterial Blood Gas Pressure Support 8 cmH2O; Arterial Blood Gas Vent Mode SPONTANEOUS
--- NOTE | 2021-03-13 11:07 | PCDIET ---
Nutrition Follow-Up Complete: Nutrition Diagnosis: Inadequate oral intake related to oral intubation as evidenced by NPO status. Nutrition Goal: Patient to meet estimated nutritional needs. Goal in progress. Patient tolerating Nepro at 35mL/hr with 30mL water flush every 4 hours. Plan to extubate today discussed during rounds. Last recorded weight is 94.3 kg which is down from last review. -I/O. Bowel Motility: Last documented BM on 03/11/21 x 1. Labs Reviewed: RBC (3.54), Hgb (8.8), Hct (31.4), Glu (143), BUN (41), Cr (2.3), K (3.3), Na (146), Mg (2.8) Meds Noted: Lasix, Apresoline, Lipitor, Zithromax, Rocephin, Atrovent, Cozaar, Protonix Additional Notes: Recommend K+ replacement, if medically appropriate. No documented skin breakdown. Will continue to monitor with same goal. Nutrition Monitoring and Evaluation: Follow up every Thursday/Thursday.
[2021-03-13] MEDS: dilTIAZem HCL 30 MG TABLET PO ×2 (14:06→18:05)
[2021-03-13 18:08] LABS: Glucose Point of Care 110 mg/dl (65-105)
[2021-03-13 23:50] LABS: Glucose Point of Care 87 mg/dl (65-105)
[2021-03-14] VITALS (21 sets, daily range): BP systolic 133–190; BP diastolic 42–90; PULSE 58–80; RESP 16–25; TEMP 36–36.8; O2SAT 92–100; BMI 10.0
[2021-03-14] MEDS: hydrALAZINE HCL 20 MG/ML VIAL 10 MG IV PUSH ×2 (00:22→23:18)
[2021-03-14] MEDS: dilTIAZem HCL 30 MG TABLET PO ×2 (00:22→06:06)
[2021-03-14 05:00] LABS: Hematocrit 29.7 % (37.0-47.0); Hemoglobin 8.5 g/dL (12.0-15.0); Mean Corpuscular HGB Conc 28.6 g/dl (32-36); Mean Corpuscular Hemoglobin 25.3 pg (26-34); Mean Corpuscular Volume 88.4 fl (80-100); Mean Platelet Volume 9.5 fl (7.4-10.4); Platelet Count Result 191 k/mm3 (150-375); Red Blood Count 3.36 M/mm3 (4.2-5.4); Red Cell Distribution Width 17.9 % (11.5-14.5); White Blood Count 6.6 K/mm3 (4.5-10.0)
[2021-03-14 05:13] LABS: Alanine Aminotransferase 21 U/L (4-35); Albumin Level 4.2 g/dL (3.5-5.1); Alkaline Phosphatase 80 U/L (38-126); Anion Gap 13 mmol/L (8-16); Aspartate Amino Transferase 33 U/L (14-36); Bilirubin,Total 0.4 mg/dL (0.2-1.3); Blood Urea Nitrogen 40 mg/dL (7-17); Calcium 9.1 mg/dL (8.4-10.2); Carbon Dioxide 35 mmol/L (22-30); Chloride 95 mmol/L (98-107); Estimated Glomerular Filt Rate 28; Glucose 105 mg/dL (65-110); Magnesium 2.7 mg/dL (1.6-2.3); Potassium 3.6 mmol/L (3.4-5.0); Sodium 143 mmol/L (137-145)
[2021-03-14 05:44] LABS: Alveolar/Arterial O2 Gradient 62.4 mmHg; Base Excess ABG 6.1 mEq/l (+/-2.0); Carboxyhemoglobin 0.3 % THb (0-2.0); Fractional Inspired Oxygen 30 %; HCO3 ABG 31.9 mEq/l (22.0-26.0); Methemoglobin ABG 0.3 %THb (0-1.5); Oxygen Content ABG 13.3 %vol (16.0-22.0); Oxygen Saturation ABG 96.8 % (95.0-100.0); Oxyhemoglobin 95.2 % THb (90.0-100.0); PCO2 ABG 52.4 mmHg (35.0-45.0); PO2 ABG 89.9 mmHg (80.0-100.0); Reduced Hemoglobin 4.2 %THb (0-5.0); Total Hemoglobin 9.8 g/dL (12.0-18.0); pH ABG 7.402 (7.350-7.450)
[2021-03-14 05:45] LABS: Device NON-INVASIVE VENT; Modified Allen's Test Pass; Non-Invasive Expiratory Pressure 6 CMH2O; Non-Invasive Inspiratory Pressure 18 CMH2O; Non-Invasive Vent Rate 10 /MIN; Site Drawn LEFT RADIAL
[2021-03-14] MEDS: CENTRAL LINE FLUSH 10 ML IV PUSH ×4 (06:06→20:45)
[2021-03-14] MEDS: LOSARTAN POTASSIUM 100 MG TABLET PO (08:41)
[2021-03-14] MEDS: TOLNAFTATE 1% POWDER 45 GM BTL 1 APPLIC TOPICAL ×2 (08:41→20:45)
[2021-03-14] MEDS: ATORVASTATIN 10 MG TABLET PO (08:41)
[2021-03-14] MEDS: HEPARIN SODIUM 5,000 UNITS/ML VIAL 5000 UNITS SUB-Q ×2 (08:41→20:44)
[2021-03-14] MEDS: FUROSEMIDE INJ 100 MG/10 ML VIAL 80 MG IV PUSH (08:41)
[2021-03-14] MEDS: PANTOPRAZOLE SODIUM IV 40 MG VIAL IV PUSH (08:41)
--- NOTE | 2021-03-14 09:19 | PM.IMPN ---
Progress Note: A&P Assessment and Plan (1) Acute respiratory failure with hypoxia and hypercarbia: Code(s): J96.01 - Acute respiratory failure with hypoxia; J96.02 - Acute respiratory failure with hypercapnia Status: Acute Assessment and Plan: Patient presents with altered mental status related to severe hypercarbia and hypoxic respiratory failure (ABG 7.08/160/69). CXR on admission showing diffuse edema and/or pneumonia. BNP 2770. [place] her respiratory failure is multifactorial from the TIFFANY, COPD, pulmonary edema/CHF and obesity hypoventilation syndrome. COVID PCR 03/07 negative. Suspect noncompliance with BiPAP at the facility. Patient was intubated on admission (03/07). She completed a course of abx for possible PNA. Continue Lasix. Patient extubated on 03/13 and is doing well. Will need to continue BiPAP with naps and at night. Settings at last discharge were BiPAP 24/8 with 6 Liter bleed in with a backup rate of 22. (2) CHF (congestive heart failure): Code(s): I50.9 - Heart failure, unspecified Status: Acute Assessment and Plan: Patient with ELE and pulmonary edema. CXR as mentioned above. BNP 2770. Unclear if CHF or related to pulmonary edema from her severe respiratory failure. Echo in October showing EF of 65-70% and diastolic dysfunction and mild ; pulm pressures unable to be determined. Suspect right heart failure and/or diastolic failure. She was started on IV Lasix with good UOP and negative fluid balance. Continue IV Lasix and monitor closely. (3) Obesity hypoventilation syndrome: Code(s): E66.2 - Morbid (severe) obesity with alveolar hypoventilation Status: Acute Assessment and Plan: According to her last admission in November 2020, the patient was refusing to wear her BiPAP machine at the [facility]-term. Per her history, she is intermittently compliant with NIV and was off for 3 days prior to admission. Continue NIV with settings as mentioned above. (4) COPD (chronic obstructive pulmonary disease): Code(s): J44.9 - Chronic obstructive pulmonary disease, unspecified Status: Acute Assessment and Plan: The patient is followed by weapons electrical engineering officer at [facility]. She is a nonsmoker but was exposed to secondhand smoke. She had CT chest here showing diffuse lung disease c/w moderate pulmonary edema. Continue prn bronchodilators and diuretics. (5) Chronic renal failure, stage 3 (moderate): Code(s): N18.30 - Chronic kidney disease, stage 3 unspecified Status: Chronic Assessment and Plan: Patient's creatinine is 2.1 on admission. Baseline Cr is 1.4-1.7 range. Curently on IV Lasix for volume overload. Cr remains elevated but stable at 2.2 today. New baseline? Monitor Cr, electrolytes and urine output. (6) Chronic respiratory failure with hypoxia and hypercapnia: Code(s): J96.11 - Chronic respiratory failure with hypoxia; J96.12 - Chronic respiratory failure with hypercapnia Status: Acute Assessment and Plan: Patient is chronically on 3L O2 nasal cannula while awake. As above. (7) Paroxysmal atrial fibrillation: Code(s): I48.0 - Paroxysmal atrial fibrillation Status: Acute Assessment and Plan: Patient remains in sinus rhythm. Diltiazem resumed. She is not a candidate for snf anticoagulation. Tele noted. Continue short-acting Diltiazem. (8) Hyperlipidemia: Code(s): E78.5 - Hyperlipidemia, unspecified Status: Acute Assessment and Plan: LFTs normal. Will continue with home atorvastatin. (9) HTN (hypertension): Code(s): I10 - Essential (primary) hypertension Status: Acute Assessment and Plan: Patient's blood pressure was reviewed on 03/14 Blood pressure better controlled. Continue Cozaar and diltiazem. Hydralazine available prn (10) Electrolyte abnormality: Code(s): E87.8 - Other disorders of electrolyte and fluid balance, not elsewhe
[2021-03-14] MEDS: ASPIRIN 81 MG CHEWABLE TABLET PO (09:56)
[2021-03-14] MEDS: CITALOPRAM HYDROBROMIDE 10 MG TABLET PO (09:56)
[2021-03-14] MEDS: ACETAMINOPHEN 325 MG TABLET 650 MG PO ×2 (09:56→20:44)
[2021-03-14] MEDS: dilTIAZem HCL CD 180 MG CAP.ER.24H PO (09:56)
--- NOTE | 2021-03-14 10:41 | PCDIET ---
ICU Rounding Note: Patient extubated and diet has advanced to heart healthy. Last recorded weight is 91.2kg which is down from last review. -I/O. Bowel Motility: BM x 2 on 03/13/21. Labs Reviewed: RBC (3.36), Hgb (8.5), Hct (29.7), BUN (40), Cr (2.2), Mg (2.7) Meds Noted: Lipitor, Lasix, Apresoline, Protonix, Cardizem, Novolog, Cozaar Additional Notes: No documented skin breakdown. Following daily in ICU rounds. Assessing/reassessing every Thursday/Thursday.
--- NOTE | 2021-03-14 11:30 | WPDINTPN ---
Progress Note: A&P Assessment and Plan (1) Acute respiratory failure with hypoxia and hypercarbia: Code(s): J96.01 - Acute respiratory failure with hypoxia; J96.02 - Acute respiratory failure with hypercapnia Status: Acute Assessment and Plan: Multifactorial Acute on chronic Respiratory failure secondary to CHF, obesity hypoventilation, questionable pneumonia, Continue full mechanical ventilation support to prevent hypoxemia/hypercarbia and end organ damage. Chest CT IMPRESSION: 1. Diffuse lung disease, likely moderate pulmonary edema. 2. Dependent airspace opacities in the lungs bilaterally, consistent with atelectasis or less likely pneumonia. 3. Small pleural effusions. 4. Cardiomegaly. 03/13 patient was extubated after a successful weaning trial.. Patient is maintained saturation and ventilation. she was placed on BiPAP overnight. I will continue BiPAP as needed during the day and at night as patient hasbaseline hypercarbia and respiratory acidosis secondary to obesity hypoventilation syndrome along with other comorbidities Chest x-ray done today reviewed Continue IV Lasix Her last echo was on 11/08/2020 with the EF of 65-70%. But I suspect patient may have diastolic dysfunction and/or right heart failure. Her BNP 2770 She has completed a course of antibiotics for pneumonia (2) Pulmonary edema: Code(s): J81.1 - Chronic pulmonary edema Status: Acute Assessment and Plan: Patient was given IV Lasix yesterday but did not had a good response. Patient does have chronic kidney disease. Continue Lasix (3) Obesity hypoventilation syndrome: Code(s): E66.2 - Morbid (severe) obesity with alveolar hypoventilation Status: Acute Assessment and Plan: According to her last admission in November of this year, the patient was refusing to [facility] her [facility] machine [facility] the [facility].. (4) COPD (chronic obstructive pulmonary disease): Code(s): J44.9 - Chronic obstructive pulmonary disease, unspecified Status: Acute Assessment and Plan: The patient is followed by cement finisher helper here outpatient and has a history of chronic hypercarbic respiratory failure. On bronchodilators (5) Suspected COVID-19 virus infection: Code(s): Z20.822 - Contact with and (suspected) exposure to COVID-19 Status: Acute Assessment and Plan: COVID-19 suspected. SARS-CoV-2 PCR was negative Off isolation (6) Chronic renal failure, stage 3 (moderate): Code(s): N18.30 - Chronic kidney disease, stage 3 unspecified Status: Chronic Assessment and Plan: Patient's creatinine is 2.1 today baseline is somewhere around 1.6. Monitor urine output and creatinine. Electrolytes Overall volume overloaded hence holding fluids and giving Lasix (7) Paroxysmal atrial fibrillation: Code(s): I48.0 - Paroxysmal atrial fibrillation Status: Acute Assessment and Plan: Cardizem resumed. currently normal sinus rhythm All rate control medications on hold at this time (8) Hyperlipidemia: Code(s): E78.5 - Hyperlipidemia, unspecified Status: Acute Assessment and Plan: Continue with home medication of atorvastatin (9) HTN (hypertension): Code(s): I10 - Essential (primary) hypertension Status: Acute Assessment and Plan: resume losartan and Cardizem CD. Continue p.r.n. hydralazine (10) Electrolyte abnormality: Code(s): E87.8 - Other disorders of electrolyte and fluid balance, not elsewhere classified Status: Acute Assessment and Plan: potassium replacement ordered Additional Plan DVT prophylaxis -subQ heparin Stress ulcer prophylaxis -at PPI Nutrition - advance diet Code Status -patient is Full Code Incentive spirometry, up in chair, PT OT consult Transfer out of ICU today Subjective Date/time seen: 03/14/21 11:30 patient wore BiPAP overnight. BiPAP settings had to be changed to 16 over rate for pa
[2021-03-14] MEDS: POTASSIUM CHLORIDE 20 MEQ TABLET 40 MEQ PO (12:43)
[2021-03-14 12:48] LABS: Glucose Point of Care 100 mg/dl (65-105)
--- NOTE | 2021-03-14 15:32 | PC.NURSE ---
This patient, Jamia Lay, was transferred to [[id number]] on 03/14/21 at 1532. Personal belongings sent with patient. Report given to [Gisel Taylor RN]. Appropriate documentation sent with patient.
[2021-03-14 17:22] LABS: Glucose Point of Care 128 mg/dl (65-105)
[2021-03-14 20:17] LABS: Glucose Point of Care 104 mg/dl (65-105)
[2021-03-15] VITALS (8 sets, daily range): BP systolic 148–151; BP diastolic 53–75; PULSE 62–73; RESP 17–24; TEMP 36.2–36.6; O2SAT 94–100
[2021-03-15 05:38] LABS: Base Excess ABG 5.2 mEq/l (+/-2.0); Carboxyhemoglobin 0.3 % THb (0-2.0); Fractional Inspired Oxygen 30 %; HCO3 ABG 31.1 mEq/l (22.0-26.0); Methemoglobin ABG 0.4 %THb (0-1.5); Oxygen Content ABG 13.4 %vol (16.0-22.0); Oxygen Saturation ABG 98.8 % (95.0-100.0); Oxyhemoglobin 97.1 % THb (90.0-100.0); PCO2 ABG 52.8 mmHg (35.0-45.0); PO2 ABG 142.9 mmHg (80.0-100.0); PO2 FiO2 Ratio Arterial Blood 4.76 %; Reduced Hemoglobin 2.2 %THb (0-5.0); Site Drawn RIGHT RADIAL; Total Hemoglobin 9.6 g/dL (12.0-18.0); pH ABG 7.388 (7.350-7.450)
[2021-03-15 05:39] LABS: Device NASAL CANNULA; Modified Allen's Test Pass
[2021-03-15 05:40] LABS: Eosinophils Absolute Auto 0.7 K/mm3 (0-0.3); Hematocrit 28.6 % (37.0-47.0); Hemoglobin 8.4 g/dL (12.0-15.0); Immature Granulocyte Absolute 0.01 K/mm3 (0.00-0.031); Immature Granulocyte Percent A 0.2 % (0-0.5); Lymphocytes Absolute Auto 1.23 K/mm3 (0.9-3.2); Lymphocytes Percent Auto 21.1 % (18.3-44.2); Mean Corpuscular HGB Conc 29.4 g/dl (32-36); Mean Corpuscular Hemoglobin 25.6 pg (26-34); Mean Corpuscular Volume 87.2 fl (80-100); Mean Platelet Volume 10.1 fl (7.4-10.4); Monocytes Absolute Auto 0.5 K/mm3 (0.1-0.6); Monocytes Percent Auto 8.1 % (2.6-8.5); Neutrophils Absolute Auto 3.4 K/mm3 (1.3-6.7); Neutrophils Percent Auto 58.6 % (45.5-73.1); Platelet Count Result 200 k/mm3 (150-375); Red Blood Count 3.28 M/mm3 (4.2-5.4); Red Cell Distribution Width 17.6 % (11.5-14.5); White Blood Count 5.8 K/mm3 (4.5-10.0)
[2021-03-15 05:44] LABS: Albumin Level 4.1 g/dL (3.5-5.1); Anion Gap 8 mmol/L (8-16); Blood Urea Nitrogen 43 mg/dL (7-17); Calcium 8.9 mg/dL (8.4-10.2); Carbon Dioxide 33 mmol/L (22-30); Chloride 101 mmol/L (98-107); Estimated Glomerular Filt Rate 25; Glucose 109 mg/dL (65-110); Phosphorus 4.7 mg/dL (2.5-4.5); Sodium 142 mmol/L (137-145)
[2021-03-15] MEDS: CENTRAL LINE FLUSH 10 ML IV PUSH (06:01)
[2021-03-15] MEDS: dilTIAZem HCL CD 180 MG CAP.ER.24H PO (09:49)
[2021-03-15] MEDS: LOSARTAN POTASSIUM 100 MG TABLET PO (09:49)
[2021-03-15] MEDS: PANTOPRAZOLE SODIUM IV 40 MG VIAL IV PUSH (09:49)
[2021-03-15] MEDS: ASPIRIN 81 MG CHEWABLE TABLET PO (09:49)
[2021-03-15] MEDS: TOLNAFTATE 1% POWDER 45 GM BTL 1 APPLIC TOPICAL (09:49)
[2021-03-15] MEDS: FUROSEMIDE 40 MG TABLET PO (09:49)
[2021-03-15] MEDS: ATORVASTATIN 10 MG TABLET PO (09:49)
[2021-03-15] MEDS: CITALOPRAM HYDROBROMIDE 10 MG TABLET PO (09:50)
[2021-03-15] MEDS: HEPARIN SODIUM 5,000 UNITS/ML VIAL 5000 UNITS SUB-Q (09:50)
--- NOTE | 2021-03-15 11:00 | PCDIET ---
Nutrition Follow-Up Complete: Nutrition Diagnosis: Inadequate oral intake related to oral intubation as evidenced by NPO status. Nutrition Goal: Patient to meet estimated nutritional needs. Goal met. Patient consuming 75-100% of meals on heart healthy diet and reports good appetite. No nutritional concerns at this time. Last recorded weight is 93 kg which is increased from last review but down from admission. Bowel Motility: Last documented BM on 03/14/21 x 2. Labs Reviewed: RBC (3.28), Hgb (8.4), Hct (28.6), BUN (43), Cr (2.4), PO4 (4.7) Meds Noted: Lipitor, Cardizem, Lasix, Apresoline, Cozaar, Protonix Additional Notes: No documented skin breakdown. Will continue to monitor with same goal. Nutrition Monitoring and Evaluation: Follow up every 7 days.
--- NOTE | 2021-03-15 12:11 | PM.DS ---
DS: Admitting Diagnosis Admitting Diagnosis Altered mental status DS: Discharge Diagnosis Discharge Diagnosis (1) Acute respiratory failure with hypoxia and hypercarbia: Code(s): J96.01 - Acute respiratory failure with hypoxia; J96.02 - Acute respiratory failure with hypercapnia Status: Acute Assessment and Plan: Patient presents with altered mental status related to severe hypercarbia and hypoxic respiratory failure (ABG 7.08/160/69). CXR on admission showing diffuse edema and/or pneumonia. BNP 2770. [place] her respiratory failure is multifactorial from the TIFFANY, COPD, pulmonary edema/CHF and/or obesity hypoventilation syndrome. COVID PCR 03/07 negative. Patient noncompliant with BiPAP at the facility. Patient was intubated on admission (03/07). She completed a course of abx for possible PNA. Treated with IV Lasix with excellent UOP and negative fluid balance at -4.5L. Patient extubated on 03/13. We continued BiPAP with naps and at night. BiPAP settings were changed and ABG today showing 7.38/53/143. Continue BiPAP at current settings. (2) CHF (congestive heart failure): Code(s): I50.9 - Heart failure, unspecified Status: Acute Assessment and Plan: Patient with CXR showing pulmonary edema. BNP 2770. Unclear if CHF or pulmonary edema from her severe respiratory failure. Echo in October showing EF of 65-70% and diastolic dysfunction and mild ; pulm pressures unable to be determined. Suspect right heart failure and/or diastolic failure. She was started on IV Lasix with good UOP and negative fluid balance. Changed to oral lasix once she was close to dry weight (3) Obesity hypoventilation syndrome: Code(s): E66.2 - Morbid (severe) obesity with alveolar hypoventilation Status: Acute Assessment and Plan: According to her last admission in November 2020, the patient was refusing to wear her BiPAP machine at the group home. Per her history, she is intermittently compliant with NIV and was off her BiPAP for 3 days prior to admission. We resumed BiPAP once she was off mechanical ventilation (4) COPD (chronic obstructive pulmonary disease): Code(s): J44.9 - Chronic obstructive pulmonary disease, unspecified Status: Acute Assessment and Plan: The patient is followed by exhibits coordinator at [facility]. She is a nonsmoker but was exposed to secondhand smoke. She had CT chest here showing diffuse lung disease consistent with moderate pulmonary edema. We continued prn bronchodilators and diuretics. (5) Chronic renal failure, stage 3 (moderate): Code(s): N18.30 - Chronic kidney disease, stage 3 unspecified Status: Chronic Assessment and Plan: Patient's creatinine is 2.1 on admission. Baseline Cr is 1.4-1.7 range. She was treated with IV Lasix for volume overload. Cr remains elevated but stable in the low 2 range. Possibly this is a new baseline (6) Chronic respiratory failure with hypoxia and hypercapnia: Code(s): J96.11 - Chronic respiratory failure with hypoxia; J96.12 - Chronic respiratory failure with hypercapnia Status: Acute Assessment and Plan: Patient is chronically on 3L O2 nasal cannula while awake. As above. (7) Paroxysmal atrial fibrillation: Code(s): I48.0 - Paroxysmal atrial fibrillation Status: Acute Assessment and Plan: Patient remained in sinus rhythm. Diltiazem was resumed. She is not a candidate for moth exterminator anticoagulation. (8) Hyperlipidemia: Code(s): E78.5 - Hyperlipidemia, unspecified Status: Acute Assessment and Plan: LFTs were normal. We continued with home atorvastatin. (9) HTN (hypertension): Code(s): I10 - Essential (primary) hypertension Status: Acute Assessment and Plan: Patient's blood pressure was monitored and became better controlled. We were able to resume her Cozaar and diltiazem. Hydralazine was available prn (10) Elec
[2021-03-15 13:57] LABS: EDCOVIDSCREEN Negative (Negative)
[2021-03-15 14:44] LABS: Glucose Point of Care 100 mg/dl (65-105)
[2021-03-15 14:44] LABS: Glucose Point of Care 96 mg/dl (65-105)
[2021-03-15 14:44] LABS: Glucose Point of Care 427 mg/dl (65-105)
== END 2021-03-15 14:48 | DRG 130 ==
LOC: ANHED 18:25 → ANHICU 03-08 14:41 → ANHIMU 03-15 12:46 → ANHICU 03-19 13:31 → ANHIMU 03-19 13:31
PROVIDERS: Emergency Medicine; Internal Medicine; Nurse Practitioner; Admitting Provider Internal Medicine; Emergency Provider Emergency Medicine; Visit Provider Internal Medicine
DX: J96.21 Acute and chronic respiratory failure with hypoxia (principal); Z20.822 Contact with and (suspected) exposure to COVID-19; J96.22 Acute and chronic respiratory failure with hypercapnia; E66.2 Morbid (severe) obesity with alveolar hypoventilation; Z68.41 Body mass index [BMI] 40.0-44.9, adult; I48.0 Paroxysmal atrial fibrillation; J44.9 Chronic obstructive pulmonary disease, unspecified; N18.30 Chronic kidney disease, stage 3 unspecified; I13.0 Hypertensive heart and chronic kidney disease with heart failure and stage 1 through stage 4 chronic kidney disease, or unspecified chronic kidney disease; I50.9 Heart failure, unspecified; E87.6 Hypokalemia; Z79.82 Long term (current) use of aspirin; Z79.899 Other long term (current) drug therapy; Z99.81 Dependence on supplemental oxygen; J81.1 Chronic pulmonary edema; E78.5 Hyperlipidemia, unspecified
CPT/HCPCS: 31500; 36415; 36556; 36600; 51701; 51702; 71045; 71250; 80048; 80053; 80069; 81001; 82375; 82805; 82948; 83036; 83050; 83605; 83735; 83880; 84443; 85025; 85027; 87040; 87070; 87205; 87426; 93005; 94002; 94003; 96374; 96375; 97161; 97165; 99291; A9270; C1751; C9113; C9803; J0360; J0456; J0696; J1644; J1940; J2250; J2310; J2704; J3010; P9047; U0003; U0005

== ENCOUNTER 2022-04-28 22:17 | Inpatient (IN) | payer OTHER, SELFPAY ==
--- NOTE | ~2022-04-28 | XR_ITS ---
EXAMINATION: XR chest 1V portable INDICATION: Shortness of breath TECHNIQUE: Portable AP chest at 1128 hours COMPARISON: 03/14/2021 FINDINGS: The lung volumes are low. There is a small left pleural effusion. Mild diffuse interstitial pattern is present. Cardiomegaly is noted. There are airspace opacities of the left lung base. IMPRESSION: 1. Cardiomegaly with probable mild pulmonary edema. 2. Small left pleural effusion. 3. Left basilar airspace opacity, consistent with atelectasis versus pneumonia. Reviewed, dictated and finalized at location B.
--- NOTE | ~2022-04-28 | US_ITS ---
EXAMINATION: US renal BI DATE: 04/30/2022 14:52 INDICATION: Acute on chronic kidney injury TECHNIQUE: Multiple ultrasound grayscale images of the kidneys were obtained. COMPARISON: None. FINDINGS: The right kidney measures 7.8 x 4.2 x 4.3 cm. The left kidney measures 10.8 x 4.2 x 4.3 cm. The kidne ys demonstrate normal echogenicity. There is no hydronephrosis in either kidney. No stones identifie d. The bladder is not visualized, likely decompressed. IMPRESSION: 1. Normal left kidney and mildly atrophic right kidney with no hydronephrosis. Reviewed, dictated and finalized at location A.
[2022-04-28 22:21] VITALS: BP 160/109; PULSE 86; RESP 18; TEMP 36.8; O2SAT 96
[2022-04-28 22:56] LABS: Basophils Percent Auto 0.3 % (0.2-1.2); Eosinophils Absolute Auto 0.6 K/mm3 (0-0.3); Eosinophils Percent Auto 6.2 % (0-4.4); Hemoglobin 9.6 g/dL (12.0-15.0); Immature Granulocyte Absolute 0.14 K/mm3 (0.00-0.031); Immature Granulocyte Percent A 1.5 % (0-0.5); Lymphocytes Absolute Auto 1.52 K/mm3 (0.9-3.2); Lymphocytes Percent Auto 16.8 % (18.3-44.2); Mean Corpuscular Hemoglobin 25.9 pg (26-34); Mean Corpuscular Volume 86.5 fl (80-100); Mean Platelet Volume 10.5 fl (7.4-10.4); Monocytes Absolute Auto 0.5 K/mm3 (0.1-0.6); Monocytes Percent Auto 5.4 % (2.6-8.5); Neutrophils Absolute Auto 6.3 K/mm3 (1.3-6.7); Neutrophils Percent Auto 69.8 % (45.5-73.1); Nucleated Red Blood Cells Perc 0.4 % (0.0-0.2); Platelet Count Result 188 k/mm3 (150-375); Red Cell Distribution Width 16.8 % (11.5-14.5); White Blood Count 9.1 K/mm3 (4.5-10.0)
[2022-04-28 23:01] LABS: Add Urine Microscopic? YES; Appearance Urine Cloudy (Clear); Bacteria Urine 2+ /hpf; Bilirubin Urine Negative (Negative); Blood Urine 1+ (Negative); Color Urine Yellow (Yellow); Glucose Urine UA Negative (Negative); Ketones Urine Negative (Negative); Leukocyte Esterase Ur 1+ LEU/UL (Negative); Nitrate Urine Positive (Negative); Protein Urine 1+ mg/dL (Negative); RBC Urine 0-2 /hpf (0-2); Specific Grav Ur 1.008 (1.001-1.035); Squamous Epithelial Cell Urine Rare /hpf (Few); Urobilinogen Urine Negative mg/dL (<2.0); WBC Urine 16-20 /hpf
[2022-04-28 23:06] LABS: Alanine Aminotransferase 11 U/L (6-35); Albumin Level 3.8 g/dL (3.5-5.1); Alkaline Phosphatase 102 U/L (38-126); Anion Gap 13 mmol/L (8-16); Aspartate Amino Transferase 20 U/L (14-36); Bilirubin,Total 0.4 mg/dL (0.2-1.3); Blood Urea Nitrogen 50 mg/dL (7-17); Calcium 8.2 mg/dL (8.4-10.2); Carbon Dioxide 35 mmol/L (22-30); Chloride 98 mmol/L (98-107); Estimated CRCL calculation 19 ml/min; Estimated Glomerular Filt Rate 18; Glucose 103 mg/dL (65-110); Potassium 3.7 mmol/L (3.4-5.0); Sodium 146 mmol/L (137-145)
[2022-04-29] VITALS (8 sets, daily range): BP systolic 119–154; BP diastolic 56–95; PULSE 84–123; RESP 18–28; TEMP 35.6–36.9; O2SAT 82–100; BMI 35.0
--- NOTE | 2022-04-29 00:37 | ED.GENADULT ---
HPI - General Adult General Chief complaint: Recheck/Abnormal Lab/Rx Stated complaint: ABN LABS, ELE, SOB, O2 Time Seen by Provider: 04/28/22 22:32 History of Present Illness HPI narrative: 62-year-old female presented to the emergency department from a [facility] for evaluation of acute on chronic injury, worsening altered mental status. Patient does have a history of anoxic brain injury but is reportedly ANO x4. Patient currently does not know the year or her year. Related Data Home Medications Medication Instructions Recorded Confirmed aspirin 81 mg chewable tablet 81 mg PO DAILY 06/17/19 04/29/22 furosemide 40 mg tablet 40 mg PO DAILY 06/17/19 04/29/22 losartan 100 mg tablet 100 mg PO DAILY 06/17/19 04/29/22 atorvastatin 10 mg tablet 10 mg PO HS 11/07/20 04/29/22 ferrous sulfate 325 mg (65 mg 325 mg PO DAILY 11/07/20 04/29/22 iron) tablet,delayed release polyethylene glycol 3350 17 17 g PO DAILY PRN Constipation 11/07/20 04/29/22 gram/dose oral powder (Miralax) albuterol sulfate 90 mcg/actuation 2 puff inhalation QID 03/07/21 04/29/22 aerosol inhaler cyanocobalamin (vitamin B-12) 1,000 mcg IM MONTHLY 03/07/21 04/29/22 1,000 mcg/mL injection solution menthol 4 % topical gel (Biofreeze 1 applic topical TID PRN Pain 03/07/21 04/29/22 (menthol)) sennosides 8.6 mg tablet (senna) 8.6 mg PO DAILY 03/07/21 04/29/22 furosemide 20 mg tablet 20 mg PO 1600 04/29/22 04/29/22 potassium chloride 10 mEq 10 meq PO DAILY 04/29/22 04/29/22 tablet,extended release(part/cryst) tramadol 50 mg tablet 50 mg PO Q8H PRN Pain (Scale Score 04/29/22 04/29/22 4-6) Allergies Allergy/AdvReac Type Severity Reaction Status Date / Time levofloxacin Allergy Unknown Unknown Verified 03/07/21 13:38 morphine Allergy Difficulty Verified 03/07/21 13:38 Breathing Review of Systems Review of Systems: CONSTITUTIONAL: Denies fever, chills, or sweats. EYES: Denies visual changes, redness, or discharge. ENT: Denies rhinorrhea, congestion, sore throat, or otalgia. CARDIOVASCULAR: Denies chest pain, palpitations, or edema. RESPIRATORY: Denies cough or dyspnea. GASTROINTESTINAL: Denies abdominal pain, nausea, vomiting, or diarrhea. GENITOURINARY: Denies dysuria or hematuria. SKIN: Denies rash or itching. MUSCULOSKELETAL: Denies back pain, joint pain, or myalgia. NEUROLOGIC: Denies headache, numbness, or weakness. [facility] Past Medical History Medical History Acute respiratory failure with hypoxia and hypercarbia ELE (acute kidney injury) Anemia of chronic disease Arthritis Asthma CHF (congestive heart failure) Chronic renal failure, stage 3 (moderate) COPD (chronic obstructive pulmonary disease) Depression DJD (degenerative joint disease) Encephalopathy acute History of pneumothorax HTN (hypertension) Hyperkalemia Hyperlipidemia Mental disability On home O2 3L TIFFANY and COPD overlap syndrome Pneumonia Post-menopausal Pulmonary edema Severe sepsis UTI (urinary tract infection) Surgical History Surgical History History of hip replacement Right History of knee surgery Hx of chest tube placement Family History Family History Father Alcoholism Mother Hypertension Social History Social History Social History: the patient is in a fci, [facility] according to her old records. Melida vivas is her niece as listed as a durable power disability attorney for healthcare. The patient is listed as a full code. The patient denies any alcohol, marijuana, tobacco, or illicit drugs according to old records. The patient is listed as and had 3 children. She is listed as disabled. Smoking status: Never smoker Second hand tobacco smoke exposure: Yes Alcohol intake: never Substance use: never Substanc
[2022-04-29 01:40] LABS: SARS-CoV-2 RNA PCR Negative
--- NOTE | 2022-04-29 03:19 | ADMGEN ---
This patient, Jamia Lay, was admitted to [facility] Surg Room 325-02. Patient/family oriented to hospital policies and general routines including ID bracelet, bed and alarms, visiting hours, pain management, procedures, bathroom and other care routines, personal items, smoking policy, room service/diet, and visiting hours. Information on how to activate the Rapid Response Team has been discussed. Patient/Family are encouraged to report perceived risks to care and to ask questions if they do not understand what they are told or what they should do.
--- NOTE | 2022-04-29 07:15 | PM.IMHP ---
H&P: HPI History of Present Illness Date/Time: 04/29/22 07:15 Chief Complaint: Abnormal labs noted from snf Narrative: 62-year-old female with a past medical history of chronic hypoxic respiratory failure, COPD with obstructive sleep apnea overlap,chronic kidney disease stage III, cognitive disability, obstructive sleep apnea who was sent in from [facility] due to decline in kidney function from baseline. When patient arrived to the ER she is alert oriented to person fact that she is in the hospital, month and current events. She was confused as to the year and her date which is not unusual for her as I know from prior patient contact. she denies any dysuria but is chronically incontinent of urine. She is on her home oxygen. She is in no distress. She is pleasantly confused. Review of Systems Review of Systems: 12 review of systems was attempted but somewhat limited due to the patient's chronic cognitive disability. [facility] Past Medical History Medical History (Updated 04/29/22 @ 07:26 by Kelsy Lobo DO) Anemia of chronic disease Arthritis CHF (congestive heart failure) echocardiogram 2019: EF 65-70% mildly increased left ventricular wall thickness, grade 2 diastolic dysfunction, technically difficult study with limited views Chronic renal failure, stage 3 (moderate) Chronic respiratory failure with hypoxia and hypercapnia COPD (chronic obstructive pulmonary disease) Depression DJD (degenerative joint disease) History of pneumothorax HTN (hypertension) Hyperlipidemia Intellectual disability Obesity hypoventilation syndrome On home O2 3L TIFFANY and COPD overlap syndrome Paroxysmal atrial fibrillation Post-menopausal Surgical History Surgical History History of hip replacement Right History of knee surgery Hx of chest tube placement Family History Family History Father Alcoholism Mother Hypertension Social History Social History Social History: the patient is in a snf, [facility] according to her old records. Melida vivas is her niece as listed as a durable power compliance attorney for healthcare. The patient is listed as a full code. The patient denies any alcohol, marijuana, tobacco, or illicit drugs according to old records. The patient is listed as and had 3 children. She is listed as disabled. Smoking status: Never smoker Second hand tobacco smoke exposure: Yes Alcohol intake: never Substance use: never Substance use type: does not use Gender identity (if verbalized by the patient): Female Spiritual care concerns: No Has the Lack of Transportation Kept You From Medical Appointments or From Getting Medications?: No Within the Past 12 Months, Were You Worried Whether Your Food Would Run Out Before You Got Money to Buy More?: Never True What is Your Housing Situation Today?: I Have Housing Are You Worried That in the Next 2 Months, You May Not Have Your Own Housing to Live In?: No Do You Have Trouble Paying Your Heating Or Electricity Bill?: No Do You Have Trouble Paying For Medicines?: No Are You Currently Unemployed and Looking for Work?: No Highest Level of Education Completed: Don't Know Do You Have Trouble With Childcare or the Care of a Family Member?: No Meds Home Medications and Allergies Home Medications Medication Instructions Recorded Confirmed Type aspirin 81 mg chewable tablet 81 mg PO DAILY 06/17/19 04/29/22 History furosemide 40 mg tablet 40 mg PO DAILY 06/17/19 04/29/22 History losartan 100 mg tablet 100 mg PO DAILY 06/17/19 04/29/22 History diltiazem HCl 180 mg 180 mg PO QAM #30 caps 07/04/19 04/29/22 Rx capsule,extended release 24 hr, controlled atorvastatin 10 mg tablet 10 mg PO HS 11/07/20 04/29/22 History ferrous sulfate 325
[2022-04-29 08:02] LABS: Hematocrit 32.6 % (37.0-47.0); Hemoglobin 9.8 g/dL (12.0-15.0); Mean Corpuscular HGB Conc 30.1 g/dl (32-36); Mean Corpuscular Hemoglobin 26.2 pg (26-34); Mean Corpuscular Volume 87.2 fl (80-100); Mean Platelet Volume 10.1 fl (7.4-10.4); Platelet Count Result 173 k/mm3 (150-375); Red Blood Count 3.74 M/mm3 (4.2-5.4); Red Cell Distribution Width 16.7 % (11.5-14.5); White Blood Count 9.5 K/mm3 (4.5-10.0)
[2022-04-29 08:15] LABS: Anion Gap 9 mmol/L (8-16); Blood Urea Nitrogen 51 mg/dL (7-17); Calcium 8.2 mg/dL (8.4-10.2); Carbon Dioxide 32 mmol/L (22-30); Chloride 103 mmol/L (98-107); Estimated CRCL calculation 19 ml/min; Estimated Glomerular Filt Rate 18; Glucose 109 mg/dL (65-110); Sodium 144 mmol/L (137-145)
[2022-04-29] MEDS: dilTIAZem HCL CD 180 MG CAP.ER.24H PO (08:55)
[2022-04-29] MEDS: ASPIRIN 81 MG CHEWABLE TABLET PO (08:55)
[2022-04-29] MEDS: LOSARTAN POTASSIUM 100 MG TABLET PO (08:55)
[2022-04-29] MEDS: FERROUS SULFATE 324 MG TABLET PO (08:55)
[2022-04-29] MEDS: POTASSIUM CHLORIDE 10 MEQ TABLET.ER PO (08:55)
[2022-04-29] MEDS: SENNOSIDES 8.6 MG TABLET PO (08:55)
[2022-04-29] MEDS: SODIUM CHLORIDE 0.9% IV 250 ML 100 ML IV CONT (09:01)
[2022-04-29] MEDS: SODIUM CHLORIDE 0.9% IV 1,000 ML 70 ML IV CONT (11:01)
[2022-04-29] MEDS: HEPARIN SODIUM 5,000 UNITS/ML VIAL 5000 UNITS SUB-Q ×2 (11:01→20:46)
[2022-04-29] MEDS: ATORVASTATIN 10 MG TABLET PO (20:46)
[2022-04-30] VITALS (9 sets, daily range): BP systolic 126–136; BP diastolic 57–77; PULSE 78–86; RESP 20–21; TEMP 35.6–36.6; O2SAT 90–100
[2022-04-30] MEDS: SODIUM CHLORIDE 0.9% IV 1,000 ML 70 ML IV CONT ×2 (02:32→18:00)
[2022-04-30] MEDS: ACETAMINOPHEN 325 MG TABLET 650 MG PO ×2 (04:51→10:21)
[2022-04-30 06:45] LABS: Potassium 4.3 mmol/L (3.4-5.0)
[2022-04-30] MEDS: MENTHOL 10% / METHYL SALICYLATE 15% 57 GM TUBE 1 APPLIC TOPICAL (07:53)
[2022-04-30] MEDS: HEPARIN SODIUM 5,000 UNITS/ML VIAL 5000 UNITS SUB-Q ×2 (07:59→21:29)
[2022-04-30] MEDS: SENNOSIDES 8.6 MG TABLET PO (08:00)
[2022-04-30] MEDS: FERROUS SULFATE 324 MG TABLET PO (08:00)
[2022-04-30] MEDS: LOSARTAN POTASSIUM 100 MG TABLET PO (08:00)
[2022-04-30] MEDS: dilTIAZem HCL CD 180 MG CAP.ER.24H PO (08:01)
[2022-04-30] MEDS: ASPIRIN 81 MG CHEWABLE TABLET PO (08:01)
[2022-04-30] MEDS: POTASSIUM CHLORIDE 10 MEQ TABLET.ER PO (08:01)
[2022-04-30 12:36] LABS: Anion Gap 10 mmol/L (8-16); Blood Urea Nitrogen 56 mg/dL (7-17); Calcium 7.9 mg/dL (8.4-10.2); Carbon Dioxide 28 mmol/L (22-30); Chloride 103 mmol/L (98-107); Estimated CRCL calculation 18 ml/min; Estimated Glomerular Filt Rate 17; Glucose 106 mg/dL (65-110); Potassium 4.4 mmol/L (3.4-5.0); Sodium 141 mmol/L (137-145)
--- NOTE | 2022-04-30 13:48 | PM.IMPN ---
Progress Note: A&P Assessment and Plan (1) Acute kidney injury superimposed on chronic kidney disease: Code(s): N17.9 - Acute kidney failure, unspecified; N18.9 - Chronic kidney disease, unspecified Status: Acute (2) Abnormal urinalysis: Code(s): R82.90 - Unspecified abnormal findings in urine Status: Acute Plan Acute on chronic renal failure stage 3: Creatinine of 3.2 on admission baseline creatinine last was 2.3. Combination of dehydration versus diuretic therapy. Also has underlying UTI ongoing. Started on ceftriaxone. Urine culture with E coli switched to Omnicef renal dosing. Bladder scan was checked I am not sure whether resolved was. Will get renal ultrasound. Urine output is not charted she is incontinent of urine. Nephrology consultation will also get renal ultrasound. To rule out obstruction. On IV fluid which we will continue for now. This might bases progression of for chronic kidney disease. Chronic respiratory failure on home oxygen which is stable Anemia chronic disease Congestive heart failure chronic diastolic well-compensated Obesity hypoventilation syndrome Proximal atrial fibrillation not a candidate for long-term anticoagulation TIFFANY and COPD overlap syndrome Hypertension Hyperlipidemia DVT prophylaxis on heparin subQ Code status full code half-way resident Subjective Date/time seen: 04/30/22 13:48 Interval history: Feels well. No new complaints. States being okay. No urinary charted. From a [facility]. She is incontinent to urine. Review of Systems Review of Systems: All systems reviewed & are unremarkable except as noted in HPI and below Exam Narrative: APPEARANCE: Well appearing, no pain, no distress, well-nourished. HEAD: normocephalic, atraumatic. EYES: PERRLA/EOMI, conjunctivae clear. NOSE: Normal no drainage THROAT: Pharynx clear, no exudate. NECK: Supple. No adenopathy, no masses. RESPIRATORY: Airway patent, respirations nonlabored. Clear to auscultation bilaterally, no rales, rhonchi, wheezing. CARDIOVASCULAR: Regular rate and rhythm without murmurs rubs or gallops. ABDOMINAL: Soft, nontender, nondistended, normal bowel sounds MUSCULOSKELETAL: Moves all extremities. Strength/ROM intact, No edema, No calf tenderness. NEURO: Alert. Cranial nerves II through XII intact.? Grossly intact Objective Data Vital Signs Vital Signs: Vital Signs - 24 hr 04/29/22 14:00 04/29/22 15:05 04/29/22 20:00 Temperature 96.7 F L Pulse Rate 91 Respiratory Rate 18 Blood Pressure 132/56 L Pulse Oximetry 82 L 93 93 Oxygen Delivery Nasal Cannula Nasal Cannula Oxygen Flow Rate 6 6 04/29/22 22:00 04/30/22 06:00 04/30/22 08:00 Temperature 96.1 F L 97.3 F L Pulse Rate 84 86 Respiratory Rate 19 20 Blood Pressure 119/68 136/64 Pulse Oximetry 98 96 94 Oxygen Delivery Nasal Cannula Oxygen Flow Rate 5 04/30/22 10:43 04/30/22 13:10 04/30/22 13:36 Temperature 96.5 F L Pulse Rate 86 Respiratory Rate 20 Blood Pressure 126/77 Pulse Oximetry 90 90 95 Oxygen Delivery Nasal Cannula Nasal Cannula Oxygen Flow Rate 6 5 Intake/Output Intake/Output: Intake & Output 04/27/22 04/28/22 04/29/22 04/30/22 23:59 23:59 23:59 23:59 Intake Total 470 2117 Balance 470 2117 Meds/Results Medications: Active Medications Generic Name Dose Route Start Last Admin Trade Name Freq PRN Reason Stop Dose Admin Acetaminophen 650 mg 04/29/22 07:15 04/30/22 10:21 Acetaminophen 325 Mg Tablet PO 650 mg Q6H PRN Administration Mild Pain (1-3) Or Fever Aspirin 81 mg 04/29/22 09:00 04/30/22 08:01 Aspirin 81 Mg Chewable Tablet PO 81 mg DAILY ANTONIA Administration Atorvastatin Calcium 10 mg 04/29/22 21:00 04/29/22 20:46 Atorvastatin 10 Mg Tablet PO 10 mg HS ANTONIA Administration Diltiazem HCl 180 mg 04/29/22 09:00 04/30/22 08:01 Diltiazem Hcl Cd 180 Mg Cap.Er.24h PO 180 mg QAM ANTONIA Administr
--- NOTE | 2022-04-30 15:45 | PCOTNOTE ---
Pt. is dependent at baseline, half-way at long-term with use of haider lift for transfers. Spoke with hospitalist who agreed to cancel order. Nursing aware.
--- NOTE | 2022-04-30 17:27 | PM.CNNEP ---
Assessment and Plan Assessment and plan (1) Acute kidney injury superimposed on chronic kidney disease: Code(s): N17.9 - Acute kidney failure, unspecified; N18.9 - Chronic kidney disease, unspecified Status: Acute Assessment and Plan: the patient has chronic kidney disease. Her baseline creatinine runs from 2.2-2.4. Most likely this is due to hypertension and possibly pre renal azotemia from her diastolic dysfunction. She has hyperlipidemia and so could have some vascular disease in the kidneys as well. the patient's creatinine is higher now than it was back in March of 2021. T his could just be progression of chronic kidney disease. Her creatinine was around 1.5 back in 2018 there were no values in 2019 then 2.2-2.4 in 2020 and now it is 3.2. She could have acute on chronic kidney disease as well. She does have a UTI and so infection could have played a role. She could just be dehydrated. Rhabdomyolysis could do this as well. Obstruction could do this. Will check urine electrolytes and a CPK. (2) UTI (urinary tract infection): Code(s): N39.0 - Urinary tract infection, site not specified Status: Acute Assessment and Plan: The patient has pyuria. The culture grew E coli. She is on antibiotics for this. (3) TIFFANY and COPD overlap syndrome: Code(s): G47.33 - Obstructive sleep apnea (adult) (pediatric); J44.9 - Chronic obstructive pulmonary disease, unspecified Status: Acute Assessment and Plan: The patient is getting supportive care. (4) HTN (hypertension): Code(s): I10 - Essential (primary) hypertension Status: Acute Assessment and Plan: Blood pressure is under good control (5) Hyperlipidemia: Code(s): E78.5 - Hyperlipidemia, unspecified Status: Acute Assessment and Plan: the patient is on atorvastatin (6) CHF (congestive heart failure): Code(s): I50.9 - Heart failure, unspecified Status: Acute Assessment and Plan: the patient is on diuretics on a long-term basis. History of Present Illness Reason for Consult Consult date: 04/30/22 Chief Complaint Chief complaint: UTI, AMS History of Present Illness Narrative: Jamia is a very pleasant 62-year-old lady who has multiple medical problems including diastolic congestive heart failure, paroxysmal atrial fibrillation, hypertension, sleep apnea, COPD on home oxygen, anemia, arthritis, chronic kidney disease with a baseline creatinine between 2.2 and 2.4 giving her chronic kidney disease stage 4, and hyperlipidemia. apparently the patient had some blood work done at [facility] and the creatinine was elevated so she was sent over to the emergency room. She did not really have any symptoms. She denies bloody urine, foamy urine, kidney stones, or bladder infections. She denies any pain with urination. She takes Tylenol as an outpatient but does not take Advil Aleve ibuprofen or Motrin. When evaluated in the emergency room she was found to have pyuria. Urine culture was obtained. She was given IV fluids , antibiotics, and supportive care. She still feels pretty good right now. Review of Systems Constitutional: Constitutional: Reports no additional constitutional complaints Eyes: Eyes: Reports no additional eye complaints ENT: Reports system reviewed and no additional complaints, except as documented Cardiovascular: Cardiovascular: Reports no additional cardiovascular complaints Respiratory: Respiratory: Reports no additional respiratory complaints Gastrointestinal: Gastrointestinal: Reports no additional gastrointestinal complaints Genitourinary: Genitourinary: Reports no additional female genitourinary complaints Musculoskeletal: Musculoskeletal: Reports no additional musculoskeletal complaints Integumentary/Breasts: Skin/Breast: Reports system reviewed and no additional complaints, except as
[2022-04-30 19:08] LABS: Creatine Kinase 28 U/L (30-135)
[2022-04-30] MEDS: traMADol HCL (*CRX) 50 MG TABLET PO (21:28)
[2022-04-30] MEDS: ATORVASTATIN 10 MG TABLET PO (21:28)
[2022-04-30] MEDS: CEFDINIR 300 MG CAPSULE PO (21:28)
[2022-04-30 23:55] LABS: Creatinine Urine 104.6 mg/dL; Total Protein Urine Random 126 mg/dL; Urea Random Urine 417 MG/DL
[2022-05-01 00:05] LABS: Sodium Urine Random 18 meq/L
[2022-05-01 06:00] VITALS: BP 147/76; PULSE 93; RESP 20; TEMP 36.6; O2SAT 90
[2022-05-01 06:27] LABS: Basophils Percent Auto 0.2 % (0.2-1.2); Eosinophils Absolute Auto 0.4 K/mm3 (0-0.3); Hematocrit 31.3 % (37.0-47.0); Hemoglobin 9.4 g/dL (12.0-15.0); Immature Granulocyte Absolute 0.12 K/mm3 (0.00-0.031); Immature Granulocyte Percent A 1.4 % (0-0.5); Lymphocytes Absolute Auto 0.53 K/mm3 (0.9-3.2); Mean Corpuscular Hemoglobin 26.7 pg (26-34); Mean Corpuscular Volume 88.9 fl (80-100); Mean Platelet Volume 11.3 fl (7.4-10.4); Monocytes Absolute Auto 0.6 K/mm3 (0.1-0.6); Monocytes Percent Auto 6.7 % (2.6-8.5); Neutrophils Absolute Auto 7.2 K/mm3 (1.3-6.7); Neutrophils Percent Auto 81.7 % (45.5-73.1); Nucleated Red Blood Cells Absolute Auto 0.1 K/mm3 (0.0-0.012); Nucleated Red Blood Cells Perc 0.7 % (0.0-0.2); Platelet Count Result 161 k/mm3 (150-375); Red Blood Count 3.52 M/mm3 (4.2-5.4); White Blood Count 8.8 K/mm3 (4.5-10.0)
[2022-05-01 06:53] LABS: Alanine Aminotransferase 10 U/L (6-35); Albumin Level 3.7 g/dL (3.5-5.1); Alkaline Phosphatase 96 U/L (38-126); Anion Gap 10 mmol/L (8-16); Aspartate Amino Transferase 15 U/L (14-36); Bilirubin,Total 0.4 mg/dL (0.2-1.3); Blood Urea Nitrogen 54 mg/dL (7-17); Calcium 7.4 mg/dL (8.4-10.2); Carbon Dioxide 26 mmol/L (22-30); Chloride 105 mmol/L (98-107); Estimated CRCL calculation 17 ml/min; Estimated Glomerular Filt Rate 16; Glucose 88 mg/dL (65-110); Magnesium 1.9 mg/dL (1.6-2.3); Phosphorus 5.1 mg/dL (2.5-4.5); Potassium 3.8 mmol/L (3.4-5.0); Sodium 141 mmol/L (137-145)
--- NOTE | 2022-05-01 07:24 | PM.PNNEP ---
Progress Note: A&P Assessment and Plan (1) Acute kidney injury superimposed on chronic kidney disease: Code(s): N17.9 - Acute kidney failure, unspecified; N18.9 - Chronic kidney disease, unspecified Status: Acute Assessment and Plan: the patient has chronic kidney disease. Her baseline creatinine runs from 2.2-2.4. Most likely this is due to hypertension and possibly pre renal azotemia from her diastolic dysfunction. She has hyperlipidemia and so could have some vascular disease in the kidneys as well. the patient's creatinine is higher now than it was back in March of 2021. his could just be progression of chronic kidney disease. Her creatinine was around 1.5 back in 2018 there were no values in 2019 then 2.2-2.4 in 2020 and now it is 3.2. She could have acute on chronic kidney disease as well. She does have a UTI and so infection could have played a role. urine electrolytes look pre renal. UA shows white cells. No acute changes on the ultrasound. She does have a mildly atrophic right kidney. CPK is normal she might be dehydrated or this could be chronic progression. She is getting IV fluids' her creatinine is up just a little bit. Will hold losartan and potassium. Will continue to treat the UTI and give her fluids and see how she does. (2) UTI (urinary tract infection): Code(s): N39.0 - Urinary tract infection, site not specified Status: Acute Assessment and Plan: The patient has pyuria. The culture grew E coli. She is on cefdinir. (3) TIFFANY and COPD overlap syndrome: Code(s): G47.33 - Obstructive sleep apnea (adult) (pediatric); J44.9 - Chronic obstructive pulmonary disease, unspecified Status: Acute Assessment and Plan: The patient is getting supportive care. (4) HTN (hypertension): Code(s): I10 - Essential (primary) hypertension Status: Acute Assessment and Plan: Blood pressure is under good control (5) Hyperlipidemia: Code(s): E78.5 - Hyperlipidemia, unspecified Status: Acute Assessment and Plan: the patient is on atorvastatin (6) CHF (congestive heart failure): Code(s): I50.9 - Heart failure, unspecified Status: Acute Assessment and Plan: She is off diuretics. Subjective Date/time seen: 05/01/22 07:24 Interval history: patient is eager for discharge. I feel fine! Review of Systems Cardiovascular: Cardiovascular: Reports no additional cardiovascular complaints Respiratory: Respiratory: Reports no additional respiratory complaints Gastrointestinal: Gastrointestinal: Reports no additional gastrointestinal complaints Genitourinary: Genitourinary: Reports no additional female genitourinary complaints Exam Narrative: WDWN in NAD skin no rash head ncat lungs clear bilaterally cor reg no rub abd BS+ nontender and soft ext no edema. Objective Data Vital Signs Vital Signs: Vital Signs - 24 hr 04/30/22 08:00 04/30/22 10:43 04/30/22 13:10 Temperature Pulse Rate Respiratory Rate Blood Pressure Pulse Oximetry 94 90 90 Oxygen Delivery Nasal Cannula Nasal Cannula Nasal Cannula Oxygen Flow Rate 5 6 5 04/30/22 13:36 04/30/22 22:00 04/30/22 23:43 Temperature 35.8 C L 35.6 C L 36.6 C Pulse Rate 86 78 Respiratory Rate 20 21 H 20 Blood Pressure 126/77 130/57 L Pulse Oximetry 95 100 Oxygen Delivery Oxygen Flow Rate 04/30/22 23:49 04/30/22 20:00 05/01/22 06:00 Temperature 36.6 C 36.6 C Pulse Rate 78 93 Respiratory Rate 20 20 20 Blood Pressure 147/76 H Pulse Oximetry 100 90 Oxygen Delivery Nasal Cannula Oxygen Flow Rate 5 Intake/Output Intake/Output: Intake & Output 04/28/22 04/29/22 04/30/22 05/01/22 23:59 23:59 23:59 23:59 Intake Total 470 3517 Balance 470 3517 Meds/Results Medications: Active Medications Generic Name Dose Route Start Last Admin Trade Name Chance Orellana
[2022-05-01] MEDS: SODIUM CHLORIDE 0.9% IV 1,000 ML 70 ML IV CONT ×2 (07:27→21:09)
--- NOTE | 2022-05-01 07:35 | PCPTNOTE ---
PER OT: Pt. is dependent at baseline, [facility] at [facility] with use of haider lift for transfers. Spoke with hospitalist who agreed to cancel order. Nursing aware.
[2022-05-01 08:00] VITALS: O2SAT 90
[2022-05-01] MEDS: dilTIAZem HCL CD 180 MG CAP.ER.24H PO (08:28)
[2022-05-01] MEDS: POTASSIUM CHLORIDE 10 MEQ TABLET.ER PO (08:32)
[2022-05-01] MEDS: FERROUS SULFATE 324 MG TABLET PO (08:32)
[2022-05-01] MEDS: SENNOSIDES 8.6 MG TABLET PO (08:33)
[2022-05-01] MEDS: LOSARTAN POTASSIUM 100 MG TABLET PO (08:33)
[2022-05-01] MEDS: ASPIRIN 81 MG CHEWABLE TABLET PO (08:33)
[2022-05-01] MEDS: HEPARIN SODIUM 5,000 UNITS/ML VIAL 5000 UNITS SUB-Q ×2 (08:34→21:09)
[2022-05-01 11:10] VITALS: O2SAT 90
[2022-05-01 13:43] VITALS: BP 113/81; PULSE 96; RESP 20; TEMP 36.1; O2SAT 97
--- NOTE | 2022-05-01 15:08 | PM.IMPN ---
Progress Note: A&P Assessment and Plan (1) Acute kidney injury superimposed on chronic kidney disease: Code(s): N17.9 - Acute kidney failure, unspecified; N18.9 - Chronic kidney disease, unspecified Status: Acute (2) Abnormal urinalysis: Code(s): R82.90 - Unspecified abnormal findings in urine Status: Acute Plan Acute on chronic renal failure stage 3: Creatinine of 3.2 on admission . baseline creatinine last was 2.3. Combination of dehydration versus diuretic therapy. Also has underlying UTI ongoing. Started on ceftriaxone. Urine culture with E coli switched to Omnicef renal dosing. Bladder scan was checked I am not sure whether resolved was. Renal ultrasound with no hydronephrosis. Urine output is not charted she is incontinent of urine. Nephrology consultation . obstruction has been ruled out. This might bases progression of for chronic kidney disease. FeNa is prerenal at 0.4%. Will continue IV hydration. Creatinine continues to climb. Will recheck in a.m.. Chronic respiratory failure on home oxygen which is stable Anemia chronic disease Congestive heart failure chronic diastolic well-compensated Obesity hypoventilation syndrome Proximal atrial fibrillation not a candidate for long-term anticoagulation TIFFANY and COPD overlap syndrome Hypertension Hyperlipidemia DVT prophylaxis on heparin subQ Code status full code group home resident Subjective Date/time seen: 05/01/22 15:08 Interval history: feels okay. No new complaints. Wants to go home. She is from [facility]. She is incontinent to urine. Labs reviewed. Creatinine continues to get elevated. Review of Systems Review of Systems: All systems reviewed & are unremarkable except as noted in HPI and below Exam Narrative: APPEARANCE: Well appearing, no pain, no distress, well-nourished. HEAD: normocephalic, atraumatic. EYES: PERRLA/EOMI, conjunctivae clear. NOSE: Normal no drainage THROAT: Pharynx clear, no exudate. NECK: Supple. No adenopathy, no masses. RESPIRATORY: Airway patent, respirations nonlabored. Clear to auscultation bilaterally, no rales, rhonchi, wheezing. CARDIOVASCULAR: Regular rate and rhythm without murmurs rubs or gallops. ABDOMINAL: Soft, nontender, nondistended, normal bowel sounds MUSCULOSKELETAL: Moves all extremities. Strength/ROM intact, No edema, No calf tenderness. NEURO: Alert. Cranial nerves II through XII intact.? Grossly intact Objective Data Vital Signs Vital Signs: Vital Signs - 24 hr 04/30/22 22:00 04/30/22 23:43 04/30/22 23:49 Temperature 96.1 F L 97.8 F 97.8 F Pulse Rate 78 Respiratory Rate 21 H 20 20 Blood Pressure 130/57 L Pulse Oximetry 100 Oxygen Delivery Oxygen Flow Rate 04/30/22 20:00 05/01/22 06:00 05/01/22 08:00 Temperature 97.9 F Pulse Rate 78 93 Respiratory Rate 20 20 Blood Pressure 147/76 H Pulse Oximetry 100 90 90 Oxygen Delivery Nasal Cannula Nasal Cannula Oxygen Flow Rate 5 5 05/01/22 11:10 05/01/22 13:43 Temperature 97 F L Pulse Rate 96 Respiratory Rate 20 Blood Pressure 113/81 Pulse Oximetry 90 97 Oxygen Delivery Nasal Cannula Oxygen Flow Rate 5 Intake/Output Intake/Output: Intake & Output 04/28/22 04/29/22 04/30/22 05/01/22 23:59 23:59 23:59 23:59 Intake Total 470 3517 1060 Balance 470 3517 1060 Meds/Results Medications: Active Medications Generic Name Dose Route Start Last Admin Trade Name Freq PRN Reason Stop Dose Admin Acetaminophen 650 mg 04/29/22 07:15 04/30/22 10:21 Acetaminophen 325 Mg Tablet PO 650 mg Q6H PRN Administration Mild Pain (1-3) Or Fever Aspirin 81 mg 04/29/22 09:00 05/01/22 08:33 Aspirin 81 Mg Chewable Tablet PO 81 mg DAILY ANTONIA Administration Atorvastatin Calcium 10 mg 04/29/22 21:00 04/30/22 21:28 Atorvastatin 10 Mg Tablet PO 10 mg HS ANTONIA Administration Cefdinir 300 mg 04/30/22 21:00 04/30/22 21:28 Cefdinir 300 Mg Caps
[2022-05-01 15:56] VITALS: O2SAT 90
[2022-05-01 19:37] VITALS: BP 133/82; PULSE 104; RESP 20; TEMP 37; O2SAT 95
[2022-05-01] MEDS: ATORVASTATIN 10 MG TABLET PO (21:09)
[2022-05-01] MEDS: CEFDINIR 300 MG CAPSULE PO (21:09)
[2022-05-02 04:08] VITALS: BP 120/70; PULSE 140; RESP 20; TEMP 36.1; O2SAT 93
[2022-05-02 04:30] VITALS: PULSE 136; RESP 22
[2022-05-02] MEDS: METOPROLOL TARTRATE INJ 5 MG/5 ML VIAL IV PUSH (05:05)
[2022-05-02 06:37] LABS: Basophils Percent Auto 0.4 % (0.2-1.2); Eosinophils Absolute Auto 0.1 K/mm3 (0-0.3); Eosinophils Percent Auto 1.8 % (0-4.4); Hematocrit 38.2 % (37.0-47.0); Hemoglobin 10.7 g/dL (12.0-15.0); Immature Granulocyte Percent A 2.5 % (0-0.5); Lymphocytes Absolute Auto 0.61 K/mm3 (0.9-3.2); Lymphocytes Percent Auto 7.8 % (18.3-44.2); Mean Corpuscular Hemoglobin 26.5 pg (26-34); Mean Corpuscular Volume 94.6 fl (80-100); Mean Platelet Volume 11.5 fl (7.4-10.4); Monocytes Absolute Auto 0.3 K/mm3 (0.1-0.6); Monocytes Percent Auto 3.8 % (2.6-8.5); Neutrophils Absolute Auto 6.6 K/mm3 (1.3-6.7); Neutrophils Percent Auto 83.7 % (45.5-73.1); Nucleated Red Blood Cells Absolute Auto 0.1 K/mm3 (0.0-0.012); Nucleated Red Blood Cells Perc 0.6 % (0.0-0.2); Platelet Count Result 172 k/mm3 (150-375); Red Blood Count 4.04 M/mm3 (4.2-5.4); Red Cell Distribution Width 17.4 % (11.5-14.5); White Blood Count 7.9 K/mm3 (4.5-10.0)
[2022-05-02 06:49] LABS: Alanine Aminotransferase 11 U/L (6-35); Albumin Level 4.1 g/dL (3.5-5.1); Alkaline Phosphatase 88 U/L (38-126); Anion Gap 18 mmol/L (8-16); Aspartate Amino Transferase 24 U/L (14-36); Bilirubin,Total 0.6 mg/dL (0.2-1.3); Blood Urea Nitrogen 56 mg/dL (7-17); Calcium 7.9 mg/dL (8.4-10.2); Carbon Dioxide 23 mmol/L (22-30); Chloride 107 mmol/L (98-107); Estimated CRCL calculation 17 ml/min; Estimated Glomerular Filt Rate 16; Glucose 98 mg/dL (65-110); Magnesium 2.1 mg/dL (1.6-2.3); Phosphorus 6.8 mg/dL (2.5-4.5); Potassium 4.9 mmol/L (3.4-5.0); Sodium 148 mmol/L (137-145)
[2022-05-02 08:00] VITALS: O2SAT 92
[2022-05-02 08:00] LABS: Platelet Estimate Adequate (Adequate)
[2022-05-02 08:02] LABS: Anisocytosis 1+ (NORMAL); Macrocytosis 1+ (NORMAL); Poikilocytosis 1+ (NORMAL)
[2022-05-02 08:03] LABS: Burr Cells 1+ (NORMAL)
[2022-05-02 08:04] LABS: Schistocytes None Seen (NORMAL)
[2022-05-02] MEDS: dilTIAZem HCL CD 180 MG CAP.ER.24H PO (08:56)
[2022-05-02] MEDS: ASPIRIN 81 MG CHEWABLE TABLET PO (08:56)
[2022-05-02] MEDS: HEPARIN SODIUM 5,000 UNITS/ML VIAL 5000 UNITS SUB-Q ×2 (08:56→21:25)
[2022-05-02] MEDS: FERROUS SULFATE 324 MG TABLET PO (08:56)
[2022-05-02] MEDS: SENNOSIDES 8.6 MG TABLET PO (08:56)
--- NOTE | 2022-05-02 11:22 | PM.PNNEP ---
Progress Note: A&P Assessment and Plan (1) Acute kidney injury superimposed on chronic kidney disease: Code(s): N17.9 - Acute kidney failure, unspecified; N18.9 - Chronic kidney disease, unspecified Status: Acute Assessment and Plan: the patient has chronic kidney disease. Her baseline creatinine runs from 2.2-2.4. Most likely this is due to hypertension and possibly pre renal azotemia from her diastolic dysfunction. She has hyperlipidemia and so could have some vascular disease in the kidneys as well. the patient's creatinine is higher now than it was back in March of 2021. urine electrolytes look pre renal. UA shows white cells. No acute changes on the ultrasound. She does have a mildly atrophic right kidney. CPK is normal she has received some IV fluids but her creatinine has not improved. She has a UTI and this is being treated. This could just be progression of chronic kidney disease. Her creatinine was around 1.5 back in 2018 there were no values in 2019 then 2.2-2.4 in 2020 and now it is 3.2. I agree with stopping the IV fluids will check a chest x-ray as above. (2) UTI (urinary tract infection): Code(s): N39.0 - Urinary tract infection, site not specified Status: Acute Assessment and Plan: The patient has pyuria. The culture grew E coli. She is on cefdinir. (3) TIFFANY and COPD overlap syndrome: Code(s): G47.33 - Obstructive sleep apnea (adult) (pediatric); J44.9 - Chronic obstructive pulmonary disease, unspecified Status: Acute Assessment and Plan: The patient is getting supportive care. (4) HTN (hypertension): Code(s): I10 - Essential (primary) hypertension Status: Acute Assessment and Plan: Blood pressure is under good control Systolic is in the 120s and 130s. (5) Hyperlipidemia: Code(s): E78.5 - Hyperlipidemia, unspecified Status: Acute Assessment and Plan: the patient is on atorvastatin (6) CHF (congestive heart failure): Code(s): I50.9 - Heart failure, unspecified Status: Acute Assessment and Plan: She is off diuretics. Plan the patient has some swelling now. She looks a little bit dyspneic. Will check a chest x-ray Subjective Date/time seen: 05/02/22 11:22 Interval history: patient is eager for discharge. I feel fine! she seems a little short of breath to me. Exam Narrative: WDWN in NAD skin no rash head ncat Lungs decreased breath sounds at both bases cor reg no rub abd BS+ nontender and soft ext 1+ presacral edema . Objective Data Vital Signs Vital Signs: Vital Signs - 24 hr 05/01/22 13:43 05/01/22 15:56 05/01/22 19:37 Temperature 36.1 C L 37.0 C Pulse Rate 96 104 H Respiratory Rate 20 20 Blood Pressure 113/81 133/82 Pulse Oximetry 97 90 95 Oxygen Delivery Nasal Cannula Oxygen Flow Rate 5 05/02/22 04:08 05/02/22 04:30 05/02/22 08:00 Temperature 36.1 C L Pulse Rate 140 H 136 H Respiratory Rate 20 22 H Blood Pressure 120/70 Pulse Oximetry 93 92 Oxygen Delivery Nasal Cannula Oxygen Flow Rate 5 Intake/Output Intake/Output: Intake & Output 04/29/22 04/30/22 05/01/22 05/02/22 23:59 23:59 23:59 23:59 Intake Total 470 3517 2280 1300 Balance 470 3517 2280 1300 Meds/Results Medications: Active Medications Generic Name Dose Route Start Last Admin Trade Name Freq PRN Reason Stop Dose Admin Acetaminophen 650 mg 04/29/22 07:15 04/30/22 10:21 Acetaminophen 325 Mg Tablet PO 650 mg Q6H PRN Administration Mild Pain (1-3) Or Fever Aspirin 81 mg 04/29/22 09:00 05/02/22 08:56 Aspirin 81 Mg Chewable Tablet PO 81 mg DAILY ANTONIA Administration Atorvastatin Calcium 10 mg 04/29/22 21:00 05/01/22 21:09 Atorvastatin 10 Mg Tablet PO 10 mg HS ANTONIA Administration Cefdinir 300 mg 04/30/22 21:00 05/01/22 21:09 Cefdinir 300 Mg Capsule PO 04/13
[2022-05-02] MEDS: BUMETANIDE INJ 1 MG/4 ML VIAL 2 MG IV PUSH ×2 (13:05→18:17)
[2022-05-02 14:00] VITALS: BP 132/63; PULSE 82; RESP 22; TEMP 36.2; O2SAT 93
--- NOTE | 2022-05-02 14:40 | PM.IMPN ---
Progress Note: A&P Assessment and Plan (1) Acute kidney injury superimposed on chronic kidney disease: Code(s): N17.9 - Acute kidney failure, unspecified; N18.9 - Chronic kidney disease, unspecified Status: Acute (2) Abnormal urinalysis: Code(s): R82.90 - Unspecified abnormal findings in urine Status: Acute Plan Acute on chronic renal failure stage 3: Creatinine of 3.2 on admission . baseline creatinine last was 2.3. Combination of dehydration versus diuretic therapy. Also has underlying UTI ongoing. Started on ceftriaxone. Urine culture with E coli switched to Omnicef renal dosing. Bladder scan was checked I am not sure whether resolved was. Renal ultrasound with no hydronephrosis. Urine output is not charted she is incontinent of urine. Nephrology consultation . obstruction has been ruled out. This might bases progression of for chronic kidney disease. FeNa is prerenal at 0.4%. Will continue IV hydration. Creatinine continues to climb. stable today Chest x-ray as she seems to be short of breath as well as tachycardia noted overnight vitals. Showed mild pulmonary edema Bumex ordered. Discussed with designer and patternmaker. Chronic respiratory failure on home oxygen which is stable Anemia chronic disease Congestive heart failure chronic diastolic well-compensated With mild decompensation today. Obesity hypoventilation syndrome Proximal atrial fibrillation not a candidate for long-term anticoagulation TIFFANY and COPD overlap syndrome Hypertension Hyperlipidemia DVT prophylaxis on heparin subQ Code status full code intermediate resident Subjective Date/time seen: 05/02/22 14:40 Interval history: no overnight events reported however vitals with tachycardia noted overnight. She denies any new complaints to me. She states she wants to go home. Remains on 5 L nasal cannula. Review of Systems Review of Systems: All systems reviewed & are unremarkable except as noted in HPI and below Exam Narrative: APPEARANCE: Well appearing, no pain, no distress, well-nourished. HEAD: normocephalic, atraumatic. EYES: PERRLA/EOMI, conjunctivae clear. NOSE: Normal no drainage THROAT: Pharynx clear, no exudate. NECK: Supple. No adenopathy, no masses. RESPIRATORY: Airway patent Diminished breath sounds bilaterally, no rales, rhonchi, wheezing. seems a bit short of breath CARDIOVASCULAR: Regular rate and rhythm without murmurs rubs or gallops. ABDOMINAL: Soft, nontender, nondistended, normal bowel sounds MUSCULOSKELETAL: Moves all extremities. Strength/ROM intact, No edema, No calf tenderness. NEURO: Alert. Cranial nerves II through XII intact.? Grossly intact Objective Data Vital Signs Vital Signs: Vital Signs - 24 hr 05/01/22 15:56 05/01/22 19:37 05/02/22 04:08 Temperature 98.6 F 97.0 F L Pulse Rate 104 H 140 H Respiratory Rate 20 20 Blood Pressure 133/82 120/70 Pulse Oximetry 90 95 93 Oxygen Delivery Nasal Cannula Oxygen Flow Rate 5 05/02/22 04:30 05/02/22 08:00 05/02/22 14:00 Temperature 97.1 F L Pulse Rate 136 H 82 Respiratory Rate 22 H 22 H Blood Pressure 132/63 Pulse Oximetry 92 93 Oxygen Delivery Nasal Cannula Oxygen Flow Rate 5 Intake/Output Intake/Output: Intake & Output 04/29/22 04/30/22 05/01/22 05/02/22 23:59 23:59 23:59 23:59 Intake Total 470 3517 2280 1540 Balance 470 3517 2280 1540 Meds/Results Medications: Active Medications Generic Name Dose Route Start Last Admin Trade Name Freq PRN Reason Stop Dose Admin Acetaminophen 650 mg 04/29/22 07:15 04/30/22 10:21 Acetaminophen 325 Mg Tablet PO 650 mg Q6H PRN Administration Mild Pain (1-3) Or Fever Aspirin 81 mg 04/29/22 09:00 05/02/22 08:56 Aspirin 81 Mg Chewable Tablet PO 81 mg DAILY ANTONIA Administration Atorvastatin Calcium 10 mg 04/29/22 21:00 05/01/22 21:09 Atorvastatin 10 Mg Tablet PO 10 mg HS ANTONIA Administration Bumetanide 2 mg 05/02/22 18:
--- NOTE | 2022-05-02 14:55 | PC.NURSE ---
Pt's contact, Melida Scott, called wanting an update. I answered her questions. Melida was concerned about pt's refusal to wear her bipap when sleeping.
[2022-05-02 21:23] VITALS: BP 141/55; PULSE 72; RESP 16; TEMP 36.4; O2SAT 91
[2022-05-02] MEDS: ATORVASTATIN 10 MG TABLET PO (21:25)
[2022-05-02] MEDS: CEFDINIR 300 MG CAPSULE PO (21:25)
[2022-05-03 06:00] VITALS: BP 145/59; PULSE 80; RESP 20; TEMP 36.1; O2SAT 92
[2022-05-03 06:24] LABS: Basophils Absolute Auto 0.1 K/mm3 (0.0-0.1); Basophils Percent Auto 0.7 % (0.2-1.2); Eosinophils Percent Auto 0.2 % (0-4.4); Hematocrit 33.5 % (37.0-47.0); Hemoglobin 9.8 g/dL (12.0-15.0); Immature Granulocyte Percent A 6.6 % (0-0.5); Lymphocytes Absolute Auto 0.67 K/mm3 (0.9-3.2); Lymphocytes Percent Auto 5.5 % (18.3-44.2); Mean Corpuscular HGB Conc 29.3 g/dl (32-36); Mean Corpuscular Hemoglobin 25.9 pg (26-34); Mean Corpuscular Volume 88.4 fl (80-100); Mean Platelet Volume 10.7 fl (7.4-10.4); Monocytes Absolute Auto 0.5 K/mm3 (0.1-0.6); Monocytes Percent Auto 3.7 % (2.6-8.5); Neutrophils Absolute Auto 10.1 K/mm3 (1.3-6.7); Neutrophils Percent Auto 83.3 % (45.5-73.1); Nucleated Red Blood Cells Absolute Auto 0.2 K/mm3 (0.0-0.012); Nucleated Red Blood Cells Perc 1.7 % (0.0-0.2); Platelet Count Result 220 k/mm3 (150-375); Red Blood Count 3.79 M/mm3 (4.2-5.4); Red Cell Distribution Width 17.2 % (11.5-14.5); White Blood Count 12.1 K/mm3 (4.5-10.0)
[2022-05-03 06:47] LABS: Anion Gap 16 mmol/L (8-16); Blood Urea Nitrogen 68 mg/dL (7-17); Carbon Dioxide 22 mmol/L (22-30); Chloride 106 mmol/L (98-107); Potassium 5.2 mmol/L (3.4-5.0); Sodium 144 mmol/L (137-145)
[2022-05-03 06:48] LABS: Alanine Aminotransferase 11 U/L (6-35); Alkaline Phosphatase 86 U/L (38-126); Aspartate Amino Transferase 24 U/L (14-36); Bilirubin,Total 0.6 mg/dL (0.2-1.3); Calcium 7.8 mg/dL (8.4-10.2); Estimated CRCL calculation 15 ml/min; Estimated Glomerular Filt Rate 14; Glucose 135 mg/dL (65-110); Magnesium 2.2 mg/dL (1.6-2.3); Phosphorus 8.9 mg/dL (2.5-4.5)
--- NOTE | 2022-05-03 09:07 | PDCODEBLUE ---
Code Blue Note Code Blue Note Time Arrived at Code Blue: 0836 Initial Rhythm on Arrival: asystole Airway Management: Pt intubated during resuscitation Chest Compressions: In process on arrival to bedside Result of Code Blue: Pt Cardiac Rhythm Post Code: asystole Code Blue Summary: The code was called at approxiamtely 836 hrs. patient was found unrepsonsive on the bed. no pulse felt. immediate chest compressions were started. bagging was started per protcol. EPi was administered and continued ACLS protocol. Epi was continued as per protocol every 3 mins along with rhythm check. INitial rhythm checks were asystole but later she went into PEA. She was intubated by ED physician lindaign the resuscitation with pink frothy secretions coming out of her mouth and her tube. Several rounds of Bicarb and a dose of calcium chloride and atropine was adminissterd during the code. Despite every resuscitative measures, the patient remained in asystole even almost at 30 mins nikko from the initial resuscitative measure. Family was also notified, Melida Scott was her only contact listed, who is her niece. Patient expiration at 0903 hrs. I discussed with Melida over the phone during the resusicatative measures, and discussed and updated the situation. Patient noted to have some food materials around her mouth corner, suspect aspiration and /or pulmonary edema as one of her etiology for her cardiac arrest.
[2022-05-03 09:14] LABS: Glucose Point of Care 109 mg/dl (65-105)
--- NOTE | 2022-05-03 09:19 | PM.DDS ---
Discharge Summary Probable Cause of Probable Cause of : Possible aspiration Summary Hospital Course: This is 62-year-old female from nursing facility where she was side with past medical history of chronic hypoxic respiratory failure, COPD with obstructive sleep apnea overlap syndrome chronic kidney disease stage 3 cognitive disability presented with abnormal labs when she was noted to have worsened kidney function from her baseline. Her creatinine was noted to be 3.2 on admission her baseline prior to this was between 2-3. She was admitted and was monitored for possible etiology for worsening renal failure. Nephrology was also consulted during the admission. Renal ultrasound rule out obstructive uropathy. She does have history of hypertension and diastolic dysfunction vascular disease in the kidneys is a possibility as well. It was also suggested that this could all be just a progression of her chronic kidney disease as we did not have any value of her creatinine since 2020 until now. She was also noted to have urinary tract infection which was treated with antibiotics. Urine culture grew E coli and was sensitive to the antibiotic that she was treated with. Rhabdomyolysis was ruled out with CPK being normal. Initially she was treated with fluid for possible prerenal etiology due to underlying infection however her renal function did not improve and hence IV fluid was stopped. Subsequently she had some congestive changes in her chest x-ray of for which her diuretic were restarted. On 05/03/2022 she was noted to be unresponsive on her bed unknown duration. She was not breathing and no pulse was felt and hence Code Blue was called and subsequent resuscitative measures were taken. She was noted to be in asystole. See was intubated during the code by ER physician and was noted to have lots of frothy secretions coming out. She was noted to have some food particles were under mouth and was last seen with her foot tray earlier today per nursing staff. It is suspected her sudden cardiac arrest likely related to aspiration on top of her underlying congestive heart failure. Despite adequate resuscitative measures spontaneous circulation was not able to be established. Melida vivas who was the niece of the patient and the only contact listed was contacted and discussed and updated regarding this situation. Continued resuscitation for almost 30 minutes without revival and hence further resuscitative measures were aborted. Patient on 05/03/2022 at 9:03 a.m. Necessary arrangements were made subsequently.
--- NOTE | 2022-05-03 10:16 | PC.NURSE ---
I entered pt's room to do morning med pass and assessment at approximately 0832. Pt appeared to be sleeping. I began speaking to pt and she did not awaken. I continued to try and arouse pt verbally as I moved closer to the bed. Pt was unresponsive and did not appear to be breathing. I gently shook pt's arm to try and arouse her but there was no response. I did a sternal rub but no response. I called a rapid and continued to sternal rub pt but with no response so I immediately called for a code blue. By this time, my HOG RINGER was in the room and began chest compressions as I called for the code blue.
--- NOTE | 2022-05-03 12:01 | PC.NURSE ---
At approximately 1000, I removed pt's intubation tube from her mouth/throat in preparation for transport to the [facility].
--- NOTE | 2022-05-03 14:05 | PC.NURSE ---
Patient's niece called the nurses station around 1230 pm asking for an autopsy. Family expresses concerns regarding causes of . This nurse notified appliance service technician and clarified that the appliance service technician noted he would not be ordering an autopsy. supervisor locomotive and hospitalist, Dr. Jay, made aware. This nurse notified niece of policy noting that unless ordered by appliance service technician there are financial expenses that would be the responsibility of the family. Family voiced understanding and opted out of autopsy. supervisor locomotive made aware. Family noted they would be using [facility] in [place], [place]. home made aware. Devaughn, director fraud, noted they are working towards findings a home locally and will notify facility once arranged.
--- NOTE | 2022-05-08 16:42 | PC.NURSE ---
Permit for Removal of Body and patient's cell phone given to security.
== END 2022-05-03 09:03 | disposition expired | DRG 469 ==
LOC: ANHED 22:32 → ANH3MEDSUR 04-29 02:08
PROVIDERS: Internal Medicine Nephrology; Admitting Provider Internal Medicine; Emergency Provider Emergency Medicine; Visit Provider Internal Medicine
DX: N17.9 Acute kidney failure, unspecified (principal); T17.828A Food in other parts of respiratory tract causing other injury, initial encounter; N39.0 Urinary tract infection, site not specified; B96.20 Unspecified Escherichia coli [E. coli] as the cause of diseases classified elsewhere; J96.11 Chronic respiratory failure with hypoxia; I13.0 Hypertensive heart and chronic kidney disease with heart failure and stage 1 through stage 4 chronic kidney disease, or unspecified chronic kidney disease; I50.32 Chronic diastolic (congestive) heart failure; G31.84 Mild cognitive impairment of uncertain or unknown etiology; D63.8 Anemia in other chronic diseases classified elsewhere; I48.0 Paroxysmal atrial fibrillation; I46.2 Cardiac arrest due to underlying cardiac condition; I46.8 Cardiac arrest due to other underlying condition; N18.30 Chronic kidney disease, stage 3 unspecified; J44.9 Chronic obstructive pulmonary disease, unspecified; E78.5 Hyperlipidemia, unspecified; M19.90 Unspecified osteoarthritis, unspecified site; Z96.641 Presence of right artificial hip joint; Z68.35 Body mass index [BMI] 35.0-35.9, adult
CPT/HCPCS: 36415; 71045; 76775; 80048; 80053; 80069; 81001; 82550; 82570; 82948; 83735; 84100; 84132; 84156; 84300; 84540; 85025; 85027; 87077; 87086; 87186; 96361; 96365; 96372; 99285; A9270; C9803; G0378; G0379; J0153; J0171; J0461; J0696; J1644; J7030; J7050; U0003; U0005